=== PATIENT | female | born 1990 | race African-American/Black ===

== ENCOUNTER 2018-02-02 13:45 | Emergency (ER) | payer MEDICAID ==
[~2018-02-02] VITALS: Ht 165.1 cm; Wt 71.2 kg
[2018-02-02 14:04] VITALS: BP 118/88
--- NOTE | 2018-02-02 14:09 | NUR ---
PATIENT AMBULATED TO BED# 8 WITH CRUTCHES
--- NOTE | 2018-02-02 14:20 | NUR ---
27 YO F BIB SELF W/ C/O ABD PAIN THAT RADIATES TO BILATERAL FLANKS, SHE REPORTS SHE CAN FEEL THE PAIN IN HER VAGINA AND BUTTOCKS, BUT PER PATIENT, IT IS MORE ON THE RIGHT SIDE WITH VOMITING. DENIES PAINFUL URINATION. REPORTS N/V/D. DENIES FEVER/CHILLS. DENIES VAG BLEEDING. PT ON CRUTCHES FOR TRANSVERSE MYELLITIS. SHE REPORTS SHE HAS NOT BEEN ABLE TO EAT OR DRINK ANYTHING. TOOK TYLENOL FOR PAIN BUT IT DID NOT HELP HER PAIN/DISCOMFORT. A&O X 4. GCS 15. CMS INTACT. RR EVEN AND UNLABORED. LUNGS BILATERALLY CLEAR. ABD SOFT, TENDER TO PALPATION. ER MD JARVIS NOTIFIED. PT NEEDS MET. SAFETY PRECAUTIONS IN PLACE. WILL CONTINUE TO MONITOR.
[2018-02-02] MEDS ORDERED: ONDANSETRON 4 MG ODT PO ONE (14:30)
[2018-02-02] MEDS ORDERED: MORPHINE SULFATE 4 MG/ML SYR IM ONE (14:30)
--- NOTE | 2018-02-02 14:30 | NUR ---
ER MD JARVIS EVALUATING PT AT BEDSIDE.
--- NOTE | 2018-02-02 15:40 | NUR ---
pt resting comfortably in [facility] at [facility]. Will continue to monitor.
[2018-02-02 16:32] VITALS: BP 113/74
--- NOTE | 2018-02-02 16:32 | NUR ---
Patient discharged with v/s stable. Written and verbal after care instructions given and explained. Patient alert, oriented and verbalized understanding of instructions. Ambulatory with steady gait on crutches. All questions addressed prior to discharge. ID band removed. Patient advised to follow up with PMD. Rx of Godwin given. Patient educated on indication of medication including possible reaction and side effects. Opportunity to ask questions provided and answered.
[2018-02-04 06:15] LABS: CHLAMYDIA TRACHOMATIS AMP DNA Negative (Negative)
== END 2018-02-02 16:32 | disposition home or self-care (01) ==
LOC: MED 13:45
DX: N83.202 Unspecified ovarian cyst, left side (principal); Z90.89 Acquired absence of other organs; Z88.5 Allergy status to narcotic agent; Z88.8 Allergy status to other drugs, medicaments and biological substances
CPT/HCPCS: 36415; 76830; 81002; 81025; 87491; 93976; 96372; 99285; J2270; Q0092; S0119

== ENCOUNTER 2018-03-02 12:08 | Emergency (ER) | payer MEDICAID ==
[~2018-03-02] VITALS: Ht 165.1 cm; Wt 68.0 kg
[2018-03-02 12:12] VITALS: BP 140/91
--- NOTE | 2018-03-02 12:21 | NUR ---
TO BED 10 VIA GURNEY AT THIS TIME.
--- NOTE | 2018-03-02 12:25 | NUR ---
27Y/F BIB SELF FOR EPIGASTRIC PAIN STATES SHE CANNOT KEEP FOOD DOWN. SKIN IS PINK/WARM/DRY; AAOX4 WITH EVEN AND STEADY GAIT; LUNGS CLEAR BL; HR EVEN AND REGULAR; VSS; PATIENT POSITIONED FOR COMFORT; HOB ELEVATED; BEDRAILS UP X1; BED DOWN. ER MD MADE AWARE OF PT STATUS.
[2018-03-02] MEDS ORDERED: ONDANSETRON 4 MG/2 ML VIAL IVP ONE (12:55)
[2018-03-02] MEDS ORDERED: NACL 0.9% 1,000 ML IV ONE (12:55)
[2018-03-02] MEDS ORDERED: fentaNYL 0.05 MG/ML VIAL IVP ONE ×2 (13:20→15:15)
--- NOTE | 2018-03-02 13:29 | NUR ---
PT TAKEN TO CT
--- NOTE | 2018-03-02 13:35 | NUR ---
PT BACK FROM CT
[2018-03-02 13:51] LABS: BASOPHILS # (AUTO) 0.1 K/uL (0.00-0.22); BASOPHILS % (AUTO) 0.9 % (0.0-2.0); EOSINOPHILS # (AUTO) 0.1 K/uL (0-0.4); EOSINOPHILS % (AUTO) 0.8 % (0.0-4.0); HEMATOCRIT 40.2 % (36-48); HEMOGLOBIN 13.6 g/dL (12.0-16.0); LYMPHOCYTES # (AUTO) 1.6 K/uL (2.5-16.5); LYMPHOCYTES % (AUTO) 21.6 % (20.5-51.1); MEAN CORPUSCULAR HEMOGLOBIN 30 pg (27-31); MEAN CORPUSCULAR HGB CONC 34 g/dL (33-37); MEAN CORPUSCULAR VOLUME 89.7 fL (80-94); MONOCYTES # (AUTO) 0.6 K/uL (0.8-1.0); MONOCYTES % (AUTO) 7.9 % (1.7-9.3); NEUTROPHILS % (AUTO) 68.8 % (42.2-75.2); PLATELET COUNT (AUTO) 268 K/uL (140-450); RED BLOOD CELL COUNT(AUTO) 4.48 MIL/uL (4.20-5.40); WHITE BLOOD COUNT (AUTO) 7.3 K/uL (4.8-10.8)
[2018-03-02 14:03] LABS: ANION GAP 14.1 (8-16); CARBON DIOXIDE 25.5 mmol/L (21-32); CHLORIDE 103 mmol/L (98-107); GFR ARICAN-AMERICAN 87 mL/min (>90); GLUCOSE 93 mg/dL (74-106); POTASSIUM 3.6 mmol/L (3.5-5.1); SODIUM SERUM 139 mmol/L (136-145); UREA NITROGEN, BLOOD 14 mg/dL (7-18)
[2018-03-02 14:05] LABS: PROTHROMBIN TIME 10.8 secs (10.8-13.4)
[2018-03-02 14:09] LABS: ALBUMIN 4.5 g/dL (3.4-5.0); ASPARTATE AMINOTRANSFERASE 15 U/L (15-37); TOTAL BILIRUBIN 0.5 mg/dL (0.0-1.0)
[2018-03-02 14:11] LABS: BARBITURATE, URINE NEG. ng/ml (NEG <=200); BENZODIAZEPINE, URINE POS. ng/mL (NEG <=200); CANNABINOID, URINE NEG. ng/mL (NEG <=50); COCAINE, URINE NEG. ng/mL (NEG <=300); OPIATE, URINE POS. ng/mL (NEG <=2000); PHENCYCLIDINE SCREEN,URINE NEG. ng/mL (NEG <=25)
[2018-03-02 14:12] LABS: SALICYLATE < 2.8 mg/dL (2.8-20.0)
[2018-03-02 14:13] LABS: ACETAMINOPHEN < 0.5 ug/ml (10-30)
[2018-03-02] MEDS ORDERED: ACETAMINOPHEN EXTRA STRENGTH 500 MG TAB PO ONE (14:55)
[2018-03-02] MEDS ORDERED: KEP500 PO (15:14)
[2018-03-02] MEDS ORDERED: METOCLOPRAMIDE 10 MG/2 ML INJ VIAL IVP ONE (15:15)
--- NOTE | 2018-03-02 15:30 | NUR ---
PT RESTING IN BED
--- NOTE | 2018-03-02 17:44 | NUR ---
[facility] TRANSPORT ETA [address] [facility]
--- NOTE | 2018-03-02 18:10 | NUR ---
Patient appears to be resting comfortably in bed. Vital Signs within normal limits. Respirations even and unlabored.
--- NOTE | 2018-03-02 18:32 | NUR ---
Patient to be transferred to [facility]. Is being transferred due to HIGHER LEVEL OF CARE. Receiving facility has accepting physician and available space. ER physician has signed transfer form. Patient or responsible alliance party has agreed to transfer and signed form. Patient belongings inventoried and will be sent with patient. Copy of nursing notes, lab reports, EKG, Physicians Orders and X-rays to be sent with patient. Report called to WILL BROWN at receiving facility. [facility] ambulance service has been called for transfer.
[2018-03-02 18:33] VITALS: BP 113/77
== END 2018-03-02 18:32 | disposition short-term general hospital (02) ==
LOC: MED 12:08
DX: R56.9 Unspecified convulsions (principal); G43.A1 Cyclical vomiting, in migraine, intractable; Z88.6 Allergy status to analgesic agent
CPT/HCPCS: 36415; 70450; 71045; 72125; 74021; 80053; 80305; 85025; 85610; 85730; 93005; 96361; 96374; 96375; 96376; 99285; G0480; G0482; J2405; J2765; J3010; J7030; Q0092

== ENCOUNTER 2018-05-04 14:47 | Emergency (ER) | payer MEDICAID ==
[~2018-05-04] VITALS: Ht 165.1 cm; Wt 65.8 kg
[~2018-05-04 14:47] MED LIST: KEP500 PO
[2018-05-04 14:56] VITALS: BP 146/85
[2018-05-04] MEDS ORDERED: NACL 0.9% 1,000 ML IV SCH (16:11)
[2018-05-04] MEDS ORDERED: PROMETHAZINE 25 MG/ML VIAL IM ONE (16:15)
[2018-05-04] MEDS ORDERED: HYDROmorphone PFS 2 MG/ML SYR IVP ONE (16:15)
[2018-05-04] MEDS ORDERED: levETIRAcetam 500 MG TAB PO ONE (16:15)
[2018-05-04] MEDS ORDERED: LORazepam 2 MG/ML VIAL IVP ONE (16:15)
[2018-05-04] MEDS ORDERED: ONDANSETRON 4 MG/2 ML VIAL IVP ONE (16:15)
[2018-05-04] MEDS ORDERED: diphenhydrAMINE 50 MG/ML VIAL IVP ONE (16:15)
[2018-05-04 17:18] LABS: BASOPHILS % (AUTO) 0.3 % (0.0-2.0); EOSINOPHILS % (AUTO) 0.1 % (0.0-4.0); HEMATOCRIT 43.2 % (36-48); HEMOGLOBIN 14.1 g/dL (12.0-16.0); LYMPHOCYTES # (AUTO) 1.2 K/uL (2.5-16.5); LYMPHOCYTES % (AUTO) 13.9 % (20.5-51.1); MEAN CORPUSCULAR HEMOGLOBIN 30 pg (27-31); MEAN CORPUSCULAR HGB CONC 33 g/dL (33-37); MEAN CORPUSCULAR VOLUME 90.8 fL (80-94); MONOCYTES # (AUTO) 0.6 K/uL (0.8-1.0); NEUTROPHILS % (AUTO) 78.7 % (42.2-75.2); PLATELET COUNT (AUTO) 284 K/uL (140-450); RED BLOOD CELL COUNT(AUTO) 4.75 MIL/uL (4.20-5.40); WHITE BLOOD COUNT (AUTO) 8.9 K/uL (4.8-10.8)
[2018-05-04 17:22] LABS: APPEARANCE,URINE CLEAR (CLEAR); BILIRUBIN,URINE NEGATIVE (NEGATIVE); BLOOD, URINE NEGATIVE (NEGATIVE); COLOR,URINE YELLOW (YELLOW); LEUKOCYTE ESTERASE ,URINE NEGATIVE (NEGATIVE); NITRITE, URINE NEGATIVE (NEGATIVE); UGLUCOSE NEGATIVE (NEGATIVE)
[2018-05-04 17:28] LABS: ANION GAP 10.7 (8-16); CARBON DIOXIDE 26.7 mmol/L (21-32); CREATININE 0.6 mg/dL (0.6-1.3); POTASSIUM 3.4 mmol/L (3.5-5.1)
[2018-05-04 17:34] LABS: ALBUMIN 4.6 g/dL (3.4-5.0); TOTAL BILIRUBIN 0.4 mg/dL (0.0-1.0)
[2018-05-04 19:29] VITALS: BP 125/93
== END 2018-05-04 19:28 | disposition home or self-care (01) ==
LOC: MED 14:47
DX: E86.0 Dehydration (principal); R56.9 Unspecified convulsions; Z90.89 Acquired absence of other organs; Z88.6 Allergy status to analgesic agent; Z88.1 Allergy status to other antibiotic agents
CPT/HCPCS: 36415; 70450; 71045; 74176; 80053; 81003; 82150; 82948; 83690; 84702; 84703; 85025; 96361; 96374; 96375; 99285; J1170; J1200; J2060; J2405; J2550; J7030; Q0092

== ENCOUNTER 2018-07-17 00:55 | Inpatient (IN) | payer MEDICAID ==
[~2018-07-17] VITALS: Ht 165.1 cm; Wt 74.4 kg
[2018-07-17 00:55] VITALS: BP 147/95
[2018-07-17] MEDS ORDERED: NACL 0.9% 1,000 ML IV ONE (01:20)
[2018-07-17] MEDS ORDERED: ONDANSETRON 4 MG/2 ML VIAL IVP ONE ×2 (01:20→03:15)
[2018-07-17] MEDS ORDERED: PANTOPRAZOLE 40 MG INJ VIAL IVP ONE (01:20)
[2018-07-17] MEDS ORDERED: DIPHENOXYLATE /ATROPINE 2.5 MG TAB PO ONE (01:20)
[2018-07-17] MEDS ORDERED: levETIRAcetam 1,000 MG in NACL 0.9% 100 ML IV ONE (01:20)
[2018-07-17] MEDS ORDERED: levETIRAcetam 100 MG/ML VIAL IV ONE ×2 (01:43→02:16)
[2018-07-17 01:52] LABS: BASOPHILS % (AUTO) 0.4 % (0.0-2.0); EOSINOPHILS % (AUTO) 0.3 % (0.0-4.0); HEMATOCRIT 35.2 % (36-48); HEMOGLOBIN 11.7 g/dL (12.0-16.0); LYMPHOCYTES # (AUTO) 2.4 K/uL (2.5-16.5); LYMPHOCYTES % (AUTO) 30.1 % (20.5-51.1); MEAN CORPUSCULAR HEMOGLOBIN 30 pg (27-31); MEAN CORPUSCULAR HGB CONC 33 g/dL (33-37); MEAN CORPUSCULAR VOLUME 89.3 fL (80-94); MONOCYTES # (AUTO) 0.5 K/uL (0.8-1.0); MONOCYTES % (AUTO) 6.1 % (1.7-9.3); NEUTROPHILS % (AUTO) 63.1 % (42.2-75.2); PLATELET COUNT (AUTO) 279 K/uL (140-450); RED BLOOD CELL COUNT(AUTO) 3.94 MIL/uL (4.20-5.40); RED CELL DISTRIBUTION WIDTH 13.5 % (11.6-13.7); WHITE BLOOD COUNT (AUTO) 7.9 K/uL (4.8-10.8)
[2018-07-17 02:10] LABS: APPEARANCE,URINE CLEAR (CLEAR); BILIRUBIN,URINE NEGATIVE (NEGATIVE); BLOOD, URINE NEGATIVE (NEGATIVE); COLOR,URINE YELLOW (YELLOW); LEUKOCYTE ESTERASE ,URINE NEGATIVE (NEGATIVE); NITRITE, URINE NEGATIVE (NEGATIVE); UGLUCOSE NEGATIVE (NEGATIVE)
[2018-07-17 02:11] LABS: ALBUMIN 3.5 g/dL (3.4-5.0); ANION GAP 10.4 (8-16); CARBON DIOXIDE 26.4 mmol/L (21-32); CREATININE 0.8 mg/dL (0.6-1.3); TOTAL BILIRUBIN 0.5 mg/dL (0.0-1.0)
[2018-07-17 02:11] LABS: RBC,URINE 0-5 (RARE) /HPF (0-5); WBC,URINE 0-5 (RARE) /HPF (0-5)
[2018-07-17 02:15] LABS: POTASSIUM 2.8 mmol/L (3.5-5.1)
[2018-07-17] MEDS ORDERED: MAG SULF 2000 MG/WATER PREMIX 50 ML IV ONE (02:25)
[2018-07-17] MEDS ORDERED: KCL 20 MEQ/WATER INJ PREMIX 100 ML IV ONE (02:25)
[2018-07-17] MEDS ORDERED: DOCUSATE SODIUM 100 MG GELCAP PO PRN (02:35)
[2018-07-17] MEDS ORDERED: ACETAMINOPHEN 325 MG TAB PO PRN (02:35)
[2018-07-17] MEDS ORDERED: LORazepam 2 MG/ML VIAL IM/IVP PRN (02:35)
[2018-07-17] MEDS ORDERED: ZOLPIDEM 5 MG TAB PO PRN (02:35)
[2018-07-17] MEDS ORDERED: METR250T2 PO (02:50)
[2018-07-17] MEDS ORDERED: DULO30EC PO (02:50)
[2018-07-17] MEDS ORDERED: CARB200T1 PO (02:50)
[2018-07-17] MEDS ORDERED: CIPR500T4 PO (02:50)
[2018-07-17 03:05] LABS: CHOL/HDL RATIO 2.8 (1-4.5); MAGNESIUM 1.7 mg/dL (1.8-2.4); PHOSPHORUS 2.9 mg/dL (2.5-4.9); PROTHROMBIN TIME 10.5 secs (10.8-13.4); THYROID STIMULATING HORMONE 1.13 uIU/mL (0.34-3.74)
[2018-07-17 03:26] LABS: BARBITURATE, URINE NEG. ng/ml (NEG <=200); BENZODIAZEPINE, URINE NEG. ng/mL (NEG <=200); CANNABINOID, URINE NEG. ng/mL (NEG <=50); COCAINE, URINE NEG. ng/mL (NEG <=300); OPIATE, URINE NEG. ng/mL (NEG <=2000); PHENCYCLIDINE SCREEN,URINE NEG. ng/mL (NEG <=25)
[2018-07-17 03:30] VITALS: BP 121/71
[2018-07-17] MEDS ORDERED: cefTRIAXone 1,000 MG VIAL ONE (03:36)
[2018-07-17] MEDS: NACL 0.9% 1,000 ML IV SCH ×2 (04:07→14:06)
[2018-07-17] MEDS: MORPHINE SULFATE 4 MG/ML SYR IVP PRN ×3 (04:13→15:35)
[2018-07-17] MEDS ORDERED: KCL 20 MEQ/WATER INJ PREMIX 200 ML IV SCH (05:00)
[2018-07-17] MEDS: PANTOPRAZOLE 40 MG TABEC PO SCH (05:56)
[2018-07-17] MEDS ORDERED: ONDANSETRON 4 MG ODT SL PRN (06:25)
[2018-07-17] MEDS: HYDROcodone/APAP 5/325 MG 1 TAB TAB PO PRN (07:42)
[2018-07-17 07:46] LABS: ANION GAP 12.5 (8-16); CARBON DIOXIDE 25.7 mmol/L (21-32); CREATININE 0.8 mg/dL (0.6-1.3); POTASSIUM 3.2 mmol/L (3.5-5.1)
[2018-07-17 07:47] LABS: BASOPHILS % (AUTO) 0.5 % (0.0-2.0); EOSINOPHILS % (AUTO) 0.3 % (0.0-4.0); HEMATOCRIT 34.1 % (36-48); HEMOGLOBIN 11.3 g/dL (12.0-16.0); LYMPHOCYTES % (AUTO) 25.6 % (20.5-51.1); MEAN CORPUSCULAR HEMOGLOBIN 30 pg (27-31); MEAN CORPUSCULAR HGB CONC 33 g/dL (33-37); MONOCYTES # (AUTO) 0.4 K/uL (0.8-1.0); MONOCYTES % (AUTO) 4.6 % (1.7-9.3); NEUTROPHILS # (AUTO) 5.3 K/uL (1.8-7.7); PLATELET COUNT (AUTO) 268 K/uL (140-450); RED BLOOD CELL COUNT(AUTO) 3.79 MIL/uL (4.20-5.40); RED CELL DISTRIBUTION WIDTH 13.7 % (11.6-13.7); WHITE BLOOD COUNT (AUTO) 7.8 K/uL (4.8-10.8)
[2018-07-17] MEDS ORDERED: LORazepam 2 MG/ML VIAL IVP PRN (07:50)
[2018-07-17 07:53] LABS: MAGNESIUM 1.8 mg/dL (1.8-2.4); PHOSPHORUS 3.2 mg/dL (2.5-4.9)
[2018-07-17 08:00] VITALS: BP 122/66
[2018-07-17] MEDS ORDERED: FERROUS SULFATE 325 MG TABEC PO SCH (08:00)
[2018-07-17] MEDS: ONDANSETRON 4 MG/2 ML VIAL IM/IVP PRN (08:27)
[2018-07-17] MEDS ORDERED: ASCORBIC ACID 500 MG TAB PO SCH (09:00)
[2018-07-17] MEDS: LACTOBACILLUS RHAMNOSUS GG 1 EACH CAP PO SCH (09:00)
[2018-07-17] MEDS ORDERED: levETIRAcetam 500 MG TAB PO SCH (09:00)
[2018-07-17] MEDS ORDERED: levETIRAcetam 500 MG in NACL 0.9% 100 ML IV SCH (09:00)
[2018-07-17] MEDS: DULoxetine 30 MG CAPDR PO SCH (09:00)
[2018-07-17] MEDS: carBAMazepine 200 MG TAB PO SCH ×2 (09:16→20:37)
[2018-07-17] MEDS: levETIRAcetam 1,000 MG in NACL 0.9% 100 ML IV SCH ×2 (09:16→20:36)
[2018-07-17] MEDS ORDERED: carBAMazepine 200 MG TAB PO SCH (09:32)
[2018-07-17 12:00] VITALS: BP 119/86
[2018-07-17] MEDS: metroNIDAZOLE 500 MG/NS PREMIX 100 ML IV SCH ×2 (13:45→20:36)
[2018-07-17] MEDS ORDERED: POTASSIUM CHLORIDE 40 MEQ in NACL 0.9% 1,000 ML IV SCH (15:15)
[2018-07-17 16:00] VITALS: BP 104/52
[2018-07-17] MEDS ORDERED: POTASSIUM CHLORIDE 40 MEQ, LIDOCAINE MPF 1% - 5 mL VIAL 25 MG in NACL 0.9% 250 ML IV SCH (16:00)
[2018-07-17 19:49] VITALS: BP 118/69
[2018-07-18] VITALS: BP 111/67
[2018-07-18] MEDS: NACL 0.9% 1,000 ML IV SCH ×3 (01:00→21:01)
[2018-07-18] MEDS: MORPHINE SULFATE 4 MG/ML SYR IVP PRN ×4 (01:24→21:46)
[2018-07-18 04:00] VITALS: BP 138/89
[2018-07-18] MEDS: metroNIDAZOLE 500 MG/NS PREMIX 100 ML IV SCH ×3 (05:06→21:05)
[2018-07-18] MEDS: PANTOPRAZOLE 40 MG TABEC PO SCH (06:30)
[2018-07-18 06:46] LABS: BASOPHILS % (AUTO) 0.7 % (0.0-2.0); EOSINOPHILS % (AUTO) 0.6 % (0.0-4.0); HEMATOCRIT 34.1 % (36-48); HEMOGLOBIN 11.2 g/dL (12.0-16.0); LYMPHOCYTES # (AUTO) 1.3 K/uL (2.5-16.5); LYMPHOCYTES % (AUTO) 26.1 % (20.5-51.1); MEAN CORPUSCULAR HEMOGLOBIN 30 pg (27-31); MEAN CORPUSCULAR HGB CONC 33 g/dL (33-37); MEAN CORPUSCULAR VOLUME 89.6 fL (80-94); MONOCYTES # (AUTO) 0.4 K/uL (0.8-1.0); NEUTROPHILS # (AUTO) 3.2 K/uL (1.8-7.7); NEUTROPHILS % (AUTO) 64.6 % (42.2-75.2); PLATELET COUNT (AUTO) 267 K/uL (140-450); RED CELL DISTRIBUTION WIDTH 13.8 % (11.6-13.7)
[2018-07-18 07:03] LABS: ANION GAP 14.9 (8-16); CARBON DIOXIDE 23.8 mmol/L (21-32); CREATININE 0.8 mg/dL (0.6-1.3); POTASSIUM 3.7 mmol/L (3.5-5.1)
[2018-07-18 07:08] LABS: PHOSPHORUS 2.6 mg/dL (2.5-4.9)
[2018-07-18 08:00] VITALS: BP 119/68
[2018-07-18] MEDS: LACTOBACILLUS RHAMNOSUS GG 1 EACH CAP PO SCH (10:54)
[2018-07-18] MEDS: HYDROcodone/APAP 5/325 MG 1 TAB TAB PO PRN (10:54)
[2018-07-18] MEDS: DULoxetine 30 MG CAPDR PO SCH (10:57)
[2018-07-18] MEDS: carBAMazepine 200 MG TAB PO SCH ×2 (10:57→21:05)
[2018-07-18] MEDS: levETIRAcetam 1,000 MG in NACL 0.9% 100 ML IV SCH ×2 (10:58→20:46)
[2018-07-18 12:00] VITALS: BP 126/82
[2018-07-18] MEDS: ONDANSETRON 4 MG/2 ML VIAL IM/IVP PRN ×2 (12:04→17:57)
[2018-07-18] MEDS ORDERED: SENNA 8.6 MG TAB PO PRN (13:30)
[2018-07-18] MEDS ORDERED: PANTOPRAZOLE 40 MG INJ VIAL IVP SCH (13:30)
[2018-07-18] MEDS ORDERED: MORPHINE SULFATE 4 MG/ML SYR IVP SCH (14:20)
[2018-07-18 16:00] VITALS: BP 126/71
[2018-07-18 20:00] VITALS: BP 107/74
[2018-07-19] VITALS: BP 100/49
[2018-07-19] MEDS: MORPHINE SULFATE 4 MG/ML SYR IVP PRN ×4 (02:07→20:32)
[2018-07-19 04:00] VITALS: BP 97/64
[2018-07-19] MEDS: NACL 0.9% 1,000 ML IV SCH (04:57)
[2018-07-19] MEDS: PANTOPRAZOLE 40 MG TABEC PO SCH (05:37)
[2018-07-19] MEDS: metroNIDAZOLE 500 MG/NS PREMIX 100 ML IV SCH ×3 (05:38→20:46)
[2018-07-19] MEDS ORDERED: APAP/BUTAL/CAFF 325/50/40 MG 1 TAB PO PRN (06:35)
[2018-07-19] MEDS: APAP/BUTAL/CAFF 325/50/40 MG 1 TAB PO SCH ×2 (06:35→08:59)
[2018-07-19] MEDS ORDERED: KETOROLAC 15 MG/ML VIAL IVP PRN (06:40)
[2018-07-19 08:00] VITALS: BP 126/76
[2018-07-19] MEDS ORDERED: MORPHINE SULFATE 4 MG/ML SYR IVP SCH (08:00)
[2018-07-19] MEDS ORDERED: PROMETHAZINE 25 MG/ML VIAL IVP SCH (08:30)
[2018-07-19] MEDS: DEXT 5% / NACL 0.45% 1,000 ML IV SCH ×2 (08:50→16:34)
[2018-07-19] MEDS: levETIRAcetam 1,000 MG in NACL 0.9% 100 ML IV SCH ×2 (08:58→21:33)
[2018-07-19] MEDS ORDERED: PROMETHAZINE 25 MG/ML VIAL IVP PRN (09:00)
[2018-07-19] MEDS ORDERED: carBAMazepine 200 MG TAB PO SCH (09:00)
[2018-07-19] MEDS: carBAMazepine 200 MG TAB PO SCH ×2 (09:33→20:47)
[2018-07-19] MEDS: DULoxetine 30 MG CAPDR PO SCH (09:33)
[2018-07-19] MEDS: LACTOBACILLUS RHAMNOSUS GG 1 EACH CAP PO SCH (09:34)
[2018-07-19 11:40] LABS: BASOPHILS % (AUTO) 0.4 % (0.0-2.0); EOSINOPHILS # (AUTO) 0.1 K/uL (0-0.4); HEMATOCRIT 34.2 % (36-48); HEMOGLOBIN 11.3 g/dL (12.0-16.0); LYMPHOCYTES # (AUTO) 1.5 K/uL (2.5-16.5); LYMPHOCYTES % (AUTO) 30.1 % (20.5-51.1); MEAN CORPUSCULAR HEMOGLOBIN 30 pg (27-31); MEAN CORPUSCULAR HGB CONC 33 g/dL (33-37); MEAN CORPUSCULAR VOLUME 90.4 fL (80-94); MONOCYTES # (AUTO) 0.4 K/uL (0.8-1.0); MONOCYTES % (AUTO) 7.4 % (1.7-9.3); NEUTROPHILS % (AUTO) 61.1 % (42.2-75.2); PLATELET COUNT (AUTO) 275 K/uL (140-450); RED BLOOD CELL COUNT(AUTO) 3.79 MIL/uL (4.20-5.40); RED CELL DISTRIBUTION WIDTH 13.9 % (11.6-13.7); WHITE BLOOD COUNT (AUTO) 4.9 K/uL (4.8-10.8)
[2018-07-19 12:00] VITALS: BP 111/63
[2018-07-19] MEDS: SENNA 8.6 MG TAB PO SCH ×2 (12:49→16:32)
[2018-07-19 12:59] LABS: ANION GAP 15.9 (8-16); CARBON DIOXIDE 24.6 mmol/L (21-32); CREATININE 0.9 mg/dL (0.6-1.3); POTASSIUM 3.5 mmol/L (3.5-5.1)
[2018-07-19] MEDS ORDERED: METOCLOPRAMIDE 10 MG/2 ML INJ VIAL IVP SCH (13:00)
[2018-07-19 13:03] LABS: MAGNESIUM 1.9 mg/dL (1.8-2.4); PHOSPHORUS 3.4 mg/dL (2.5-4.9)
[2018-07-19] MEDS ORDERED: MIDAZOLAM 2 MG/2 ML VIAL ONE ×2 (14:39)
[2018-07-19] MEDS ORDERED: fentaNYL 0.05 MG/ML VIAL ONE (14:39)
[2018-07-19] MEDS ORDERED: diphenhydrAMINE 50 MG/ML VIAL ONE (14:39)
[2018-07-19] MEDS ORDERED: fentaNYL 0.05 MG/ML VIAL IVP ONE (15:25)
[2018-07-19] MEDS ORDERED: diphenhydrAMINE 50 MG/ML VIAL IVP ONE (15:25)
[2018-07-19] MEDS ORDERED: MIDAZOLAM 2 MG/2 ML VIAL IVP ONE (15:25)
[2018-07-19] MEDS ORDERED: MAGNESIUM CITRATE 300 ML BTL PO ONE (15:25)
[2018-07-19 16:00] VITALS: BP 127/84
[2018-07-19] MEDS: LACTULOSE 20 GM/30 ML UDC PO SCH ×2 (16:31→20:39)
[2018-07-19] MEDS: ONDANSETRON 4 MG/2 ML VIAL IM/IVP PRN (18:06)
[2018-07-19 20:00] VITALS: BP 105/51
[2018-07-19] MEDS: POLYETHYLENE GLYCOL 17 GM/PKT PO SCH (20:45)
[2018-07-19] MEDS ORDERED: LACTULOSE 20 GM/30 ML UDC PO SCH (21:00)
[2018-07-19] MEDS ORDERED: MAGNESIUM CITRATE 300 ML BTL PO SCH (22:00)
[2018-07-19] MEDS: HYDROcodone/APAP 5/325 MG 1 TAB TAB PO PRN (22:13)
[2018-07-20] VITALS: BP 107/51
[2018-07-20] MEDS: MORPHINE SULFATE 4 MG/ML SYR IVP PRN ×2 (02:00→09:09)
[2018-07-20] MEDS: DEXT 5% / NACL 0.45% 1,000 ML IV SCH ×2 (03:15→09:09)
[2018-07-20] MEDS ORDERED: EPINEPHrine PFS 0.1 MG/ML SYR IVP ONE (03:21)
[2018-07-20] MEDS ORDERED: SODIUM BICARBONATE 8.4% PFS 50 MEQ/50 ML SYR IVP ONE (03:21)
[2018-07-20] MEDS ORDERED: NOREPINEPHRINE 4 MG/4 ML VIAL IV ONE (03:21)
[2018-07-20] MEDS ORDERED: AMIODARONE 150 MG/3 ML VIAL IV ONE (03:21)
[2018-07-20 06:18] LABS: FOLIC ACID 6.1 ng/mL (>3.0)
[2018-07-20] MEDS: metroNIDAZOLE 500 MG/NS PREMIX 100 ML IV SCH (06:21)
[2018-07-20] MEDS: PANTOPRAZOLE 40 MG TABEC PO SCH (06:22)
[2018-07-20 06:30] VITALS: BP 103/64
[2018-07-20 07:26] LABS: BASOPHILS % (AUTO) 0.4 % (0.0-2.0); EOSINOPHILS # (AUTO) 0.1 K/uL (0-0.4); EOSINOPHILS % (AUTO) 1.3 % (0.0-4.0); HEMATOCRIT 31.6 % (36-48); HEMOGLOBIN 10.6 g/dL (12.0-16.0); LYMPHOCYTES # (AUTO) 2.1 K/uL (2.5-16.5); LYMPHOCYTES % (AUTO) 45.1 % (20.5-51.1); MEAN CORPUSCULAR HEMOGLOBIN 30 pg (27-31); MEAN CORPUSCULAR HGB CONC 34 g/dL (33-37); MONOCYTES # (AUTO) 0.4 K/uL (0.8-1.0); MONOCYTES % (AUTO) 8.5 % (1.7-9.3); NEUTROPHILS # (AUTO) 2.1 K/uL (1.8-7.7); NEUTROPHILS % (AUTO) 44.7 % (42.2-75.2); PLATELET COUNT (AUTO) 249 K/uL (140-450); RED BLOOD CELL COUNT(AUTO) 3.51 MIL/uL (4.20-5.40); RED CELL DISTRIBUTION WIDTH 13.8 % (11.6-13.7); WHITE BLOOD COUNT (AUTO) 4.6 K/uL (4.8-10.8)
[2018-07-20 08:00] VITALS: BP 122/85
[2018-07-20 08:02] LABS: ANION GAP 9.9 (8-16); CARBON DIOXIDE 25.4 mmol/L (21-32); CREATININE 0.8 mg/dL (0.6-1.3); POTASSIUM 3.3 mmol/L (3.5-5.1)
[2018-07-20] MEDS: POLYETHYLENE GLYCOL 17 GM/PKT PO SCH (08:51)
[2018-07-20] MEDS: LACTULOSE 20 GM/30 ML UDC PO SCH (08:51)
[2018-07-20] MEDS: DULoxetine 30 MG CAPDR PO SCH (08:52)
[2018-07-20] MEDS: SENNA 8.6 MG TAB PO SCH (08:52)
[2018-07-20] MEDS: carBAMazepine 200 MG TAB PO SCH (08:53)
[2018-07-20] MEDS: LACTOBACILLUS RHAMNOSUS GG 1 EACH CAP PO SCH (08:53)
[2018-07-20] MEDS: levETIRAcetam 1,000 MG in NACL 0.9% 100 ML IV SCH (09:09)
[2018-07-20] MEDS: ONDANSETRON 4 MG/2 ML VIAL IM/IVP PRN (09:10)
[2018-07-20 12:00] VITALS: BP 122/82
[2018-07-20] MEDS ORDERED: MIDAZOLAM 2 MG/2 ML VIAL ONE (12:50)
[2018-07-20] MEDS ORDERED: diphenhydrAMINE 50 MG/ML VIAL ONE (12:50)
[2018-07-20] MEDS ORDERED: fentaNYL 0.05 MG/ML VIAL ONE ×2 (12:50)
[2018-07-20] MEDS ORDERED: fentaNYL 0.05 MG/ML VIAL IVP ONE (13:55)
[2018-07-20] MEDS ORDERED: MIDAZOLAM 2 MG/2 ML VIAL IVP ONE (13:55)
[2018-07-20] MEDS ORDERED: POTASSIUM CHLORIDE 40 MEQ, LIDOCAINE MPF 1% - 5 mL VIAL 25 MG in NACL 0.9% 250 ML IV SCH (14:30)
[2018-07-20 16:00] VITALS: BP 118/78
[2018-07-20] MEDS ORDERED: METR250T2 PO (16:06)
[2018-07-20] MEDS ORDERED: LACT10CA1 PO (16:06)
[2018-07-20] MEDS ORDERED: KEP500 PO (16:06)
[2018-07-20] MEDS ORDERED: CEPH250C16 PO (16:08)
[2018-07-20] MEDS ORDERED: ELA25 PO (16:16)
[2018-07-20] MEDS ORDERED: ACET-8386 PO (16:16)
[2018-07-20] MEDS ORDERED: ONDA4ODT2 SL (16:16)
[2018-07-20] MEDS ORDERED: ACET-2619 PO (16:17)
[2018-07-20] MEDS ORDERED: LEVE1000 PO (17:06)
[2018-07-20] MEDS ORDERED: AMITRIPTYLINE 25 MG TAB PO SCH (21:00)
[2018-07-21] MEDS ORDERED: POLYETHYLENE GLYCOL 17 GM/PKT PO SCH (09:00)
== END 2018-07-20 17:35 | disposition home or self-care (01) | DRG 254 ==
LOC: MED 00:55 → MTU 02:37
PROVIDERS: ADMIT General Practice; ATTEND General Practice
PROC: 0DB68ZX Excision of Stomach, Via Natural or Artificial Opening Endoscopic, Diagnostic (ICD-10-PCS; principal; 2018-07-19 14:30)
PROC: 0DBP8ZX Excision of Rectum, Via Natural or Artificial Opening Endoscopic, Diagnostic (ICD-10-PCS; 2018-07-20)
DX: K58.0 Irritable bowel syndrome with diarrhea (principal); A09 Infectious gastroenteritis and colitis, unspecified; D64.9 Anemia, unspecified; N39.0 Urinary tract infection, site not specified; E66.9 Obesity, unspecified; E87.6 Hypokalemia; G40.909 Epilepsy, unspecified, not intractable, without status epilepticus; F41.9 Anxiety disorder, unspecified; Z68.27 Body mass index [BMI] 27.0-27.9, adult; Z71.3 Dietary counseling and surveillance; Z88.6 Allergy status to analgesic agent; Z88.8 Allergy status to other drugs, medicaments and biological substances; Z79.899 Other long term (current) drug therapy; Z90.49 Acquired absence of other specified parts of digestive tract; Z90.89 Acquired absence of other organs
CPT/HCPCS: 36415; 70450; 71045; 74022; 80048; 80053; 80156; 80305; 81001; 82272; 82607; 82728; 82746; 83036; 83540; 83690; 83735; 84100; 84134; 84443; 84703; 85025; 85045; 85610; 85651; 85730; 86140; 86677; 87045; 87070; 87081; 87086; 89055; 95816; 96361; 96365; 96367; 96375; 97110; 97116; 97530; 99285; C9113; J0171; J0282; J0696; J1200; J1644; J1953; J2001; J2060; J2250; J2270; J2405; J2550; J2765; J3010; J3475; J3480; J3490; J7030; J7060; Q0162

== ENCOUNTER 2018-07-22 22:01 | Emergency (ER) | payer MEDICAID ==
[~2018-07-22] VITALS: Ht 162.6 cm; Wt 72.6 kg
[~2018-07-22 22:01] MED LIST changes: +ACET-2619 PO; +ACET-8386 PO; +CARB200T1 PO; +CEPH250C16 PO; +DULO30EC PO; +ELA25 PO; +LACT10CA1 PO; +LEVE1000 PO; +METR250T2 PO; +ONDA4ODT2 SL
[2018-07-22 22:05] VITALS: BP 158/104
[2018-07-22] MEDS ORDERED: levETIRAcetam 100 MG/ML VIAL IV ONE (22:47)
[2018-07-22] MEDS: carBAMazepine 200 MG TAB PO ONE ×2 (22:51→23:48)
[2018-07-22] MEDS: LORazepam 2 MG/ML VIAL IVP ONE (22:51)
[2018-07-22] MEDS: levETIRAcetam 500 MG in NACL 0.9% 100 ML IV ONE (22:52)
[2018-07-22] MEDS: ACETAMINOPHEN EXTRA STRENGTH 500 MG TAB PO ONE (22:57)
[2018-07-22] MEDS: ONDANSETRON 4 MG/2 ML VIAL IVP ONE (22:57)
[2018-07-22 23:08] LABS: BASOPHILS # (AUTO) 0.1 K/uL (0.00-0.22); BASOPHILS % (AUTO) 1.1 % (0.0-2.0); EOSINOPHILS # (AUTO) 0.1 K/uL (0-0.4); EOSINOPHILS % (AUTO) 0.7 % (0.0-4.0); HEMATOCRIT 37.3 % (36-48); HEMOGLOBIN 12.1 g/dL (12.0-16.0); LYMPHOCYTES # (AUTO) 2.3 K/uL (2.5-16.5); LYMPHOCYTES % (AUTO) 28.8 % (20.5-51.1); MEAN CORPUSCULAR HEMOGLOBIN 29 pg (27-31); MEAN CORPUSCULAR HGB CONC 33 g/dL (33-37); MEAN CORPUSCULAR VOLUME 90.3 fL (80-94); MONOCYTES # (AUTO) 0.6 K/uL (0.8-1.0); NEUTROPHILS # (AUTO) 4.9 K/uL (1.8-7.7); NEUTROPHILS % (AUTO) 62.4 % (42.2-75.2); PLATELET COUNT (AUTO) 290 K/uL (140-450); RED BLOOD CELL COUNT(AUTO) 4.13 MIL/uL (4.20-5.40); RED CELL DISTRIBUTION WIDTH 14.4 % (11.6-13.7); WHITE BLOOD COUNT (AUTO) 7.9 K/uL (4.8-10.8)
[2018-07-22 23:14] LABS: CARBON DIOXIDE 27.3 mmol/L (21-32); CREATININE 0.8 mg/dL (0.6-1.3); POTASSIUM 3.3 mmol/L (3.5-5.1)
[2018-07-22] MEDS: traMADol 50 MG TAB PO ONE (23:45)
[2018-07-22] MEDS: levETIRAcetam 500 MG TAB PO ONE (23:48)
[2018-07-23 01:43] VITALS: BP 116/71
== END 2018-07-23 01:43 | disposition home or self-care (01) ==
LOC: MED 22:01
DX: G40.509 Epileptic seizures related to external causes, not intractable, without status epilepticus (principal); T42.6X5A Adverse effect of other antiepileptic and sedative-hypnotic drugs, initial encounter; B34.9 Viral infection, unspecified; Y92.89 Other specified places as the place of occurrence of the external cause; Z88.6 Allergy status to analgesic agent; Z88.8 Allergy status to other drugs, medicaments and biological substances; Z79.899 Other long term (current) drug therapy; Z79.1 Long term (current) use of non-steroidal anti-inflammatories (NSAID)
CPT/HCPCS: 36415; 71045; 80048; 80156; 85025; 93005; 96365; 96375; 99285; J1953; J2060; J2405; Q0092; 99284

== ENCOUNTER 2018-07-23 09:36 | Inpatient (IN) | payer MEDICAID ==
[~2018-07-23] VITALS: Ht 160 cm; Wt 70.8 kg
--- NOTE | 2018-07-23 09:37 | NUR ---
PT TAKEN IN WHEELCHAIR TO ER BED 04
[2018-07-23 09:40] VITALS: BP 139/92
[2018-07-23] MEDS ORDERED: ONDANSETRON 4 MG/2 ML VIAL IVP ONE ×3 (09:40→12:45)
[2018-07-23] MEDS ORDERED: NACL 0.9% 1,000 ML IV ONE (09:40)
--- NOTE | 2018-07-23 09:40 | NUR ---
EDMD AT BEDSIDE PERFORMING MSE
--- NOTE | 2018-07-23 10:07 | NUR ---
BIB MOTHER WITH C/O SEIZURE X 2 5 MIN PRIOR TO ARRIVAL AND UPON ARRIVAL; VOMITED AFTER TAKING KEPRA AND TEGRETOL; WAS D/C LAST NIGHT FOR EPILEPSY HX; SEIZURE RX; KEPPRA, TEGRETOL
--- NOTE | 2018-07-23 10:07 | NUR ---
IV ATTEMPT X 6, EDMD AWARE.
[2018-07-23] MEDS ORDERED: carBAMazepine 200 MG TAB PO ONE (10:10)
[2018-07-23] MEDS ORDERED: levETIRAcetam 1,000 MG in NACL 0.9% 100 ML IV ONE (10:10)
[2018-07-23 10:20] LABS: BASOPHILS % (AUTO) 0.3 % (0.0-2.0); EOSINOPHILS % (AUTO) 0.8 % (0.0-4.0); HEMATOCRIT 35.9 % (36-48); HEMOGLOBIN 11.9 g/dL (12.0-16.0); LYMPHOCYTES # (AUTO) 1.5 K/uL (2.5-16.5); LYMPHOCYTES % (AUTO) 27.7 % (20.5-51.1); MEAN CORPUSCULAR HEMOGLOBIN 30 pg (27-31); MEAN CORPUSCULAR HGB CONC 33 g/dL (33-37); MEAN CORPUSCULAR VOLUME 89.9 fL (80-94); MONOCYTES # (AUTO) 0.4 K/uL (0.8-1.0); MONOCYTES % (AUTO) 7.6 % (1.7-9.3); NEUTROPHILS # (AUTO) 3.4 K/uL (1.8-7.7); NEUTROPHILS % (AUTO) 63.6 % (42.2-75.2); PLATELET COUNT (AUTO) 284 K/uL (140-450); RED CELL DISTRIBUTION WIDTH 14.2 % (11.6-13.7); WHITE BLOOD COUNT (AUTO) 5.3 K/uL (4.8-10.8)
[2018-07-23] MEDS ORDERED: levETIRAcetam 100 MG/ML VIAL IV ONE (10:21)
--- NOTE | 2018-07-23 10:30 | NUR ---
PT WC'D TO BATHROOM WITHOUT INCIDENCE, URINE OBTAINED
--- NOTE | 2018-07-23 10:35 | NUR ---
pt vomited immediately after tegretol, edmd aware
[2018-07-23] MEDS ORDERED: MORPHINE SULFATE 4 MG/ML SYR IVP ONE ×2 (10:40→12:20)
[2018-07-23] MEDS ORDERED: LORazepam 2 MG/ML VIAL IVP ONE (10:45)
--- NOTE | 2018-07-23 10:45 | NUR ---
pt found seizing in room, edmd aware, pt placed on oxygen
[2018-07-23 10:50] LABS: ANION GAP 12.7 (8-16); CARBON DIOXIDE 28.4 mmol/L (21-32); CREATININE 0.8 mg/dL (0.6-1.3); POTASSIUM 3.1 mmol/L (3.5-5.1)
[2018-07-23 10:56] LABS: ALBUMIN 3.8 g/dL (3.4-5.0); TOTAL BILIRUBIN 0.2 mg/dL (0.0-1.0)
[2018-07-23] MEDS ORDERED: KCL 20 MEQ/WATER INJ PREMIX 200 ML IV ONE (11:00)
[2018-07-23 11:02] LABS: APPEARANCE,URINE CLEAR (CLEAR); BILIRUBIN,URINE NEGATIVE (NEGATIVE); BLOOD, URINE NEGATIVE (NEGATIVE); COLOR,URINE YELLOW (YELLOW); LEUKOCYTE ESTERASE ,URINE NEGATIVE (NEGATIVE); NITRITE, URINE NEGATIVE (NEGATIVE); PH,URINE 5.5 (5.0-9.0); UGLUCOSE NEGATIVE (NEGATIVE)
--- NOTE | 2018-07-23 11:38 | NUR ---
pt taken to ct with nurse and tech on monitor
--- NOTE | 2018-07-23 12:08 | NUR ---
PT FOUND SEIZING BY TUBE MOLDER FIBERGLASS, PT TURNED TO SIDE AND EDMD TO BEDSIDE
[2018-07-23] MEDS ORDERED: ONDANSETRON 4 MG/2 ML VIAL IM/IVP PRN (12:40)
[2018-07-23] MEDS ORDERED: HYDROcodone/APAP 5/325 MG 1 TAB TAB PO PRN (12:40)
[2018-07-23] MEDS ORDERED: ACETAMINOPHEN 325 MG TAB PO PRN (12:40)
[2018-07-23] MEDS ORDERED: NACL 0.9% 1,000 ML IV SCH (12:40)
[2018-07-23] MEDS ORDERED: LORazepam 1 MG TAB PO PRN (12:40)
[2018-07-23] MEDS ORDERED: ZOLPIDEM 5 MG TAB PO PRN (12:40)
[2018-07-23] MEDS ORDERED: DOCUSATE SODIUM 100 MG GELCAP PO PRN (12:40)
--- NOTE | 2018-07-23 13:21 | NUR ---
Patient will be admitted to care of dR. CRANE. Admited to [facility]. Will go to room 120 A. Belongings list completed. Report to ZHEN SOLIS.
[2018-07-23 13:22] LABS: BARBITURATE, URINE NEG. ng/ml (NEG <=200); BENZODIAZEPINE, URINE NEG. ng/mL (NEG <=200); CANNABINOID, URINE NEG. ng/mL (NEG <=50); COCAINE, URINE NEG. ng/mL (NEG <=300); OPIATE, URINE NEG. ng/mL (NEG <=2000); PHENCYCLIDINE SCREEN,URINE NEG. ng/mL (NEG <=25)
[2018-07-23] MEDS: APAP/BUTAL/CAFF 325/50/40 MG 1 TAB PO SCH ×2 (13:25→20:31)
[2018-07-23 14:00] VITALS: BP 133/95
[2018-07-23 14:21] LABS: PROTHROMBIN TIME 10.5 secs (10.8-13.4)
[2018-07-23] MEDS ORDERED: PROMETHAZINE 25 MG/ML VIAL IVP SCH (14:30)
[2018-07-23] MEDS ORDERED: PROMETHAZINE 25 MG/ML VIAL IM SCH (14:30)
[2018-07-23] MEDS ORDERED: LORazepam 2 MG/ML VIAL IM/IVP SCH (14:30)
[2018-07-23 14:45] LABS: AMYLASE 60 U/L (25-115); FREE T4 (FREE THYROXINE) 0.87 ng/dL (0.76-1.46); LIPASE 121 U/L (73-393); MAGNESIUM 1.6 mg/dL (1.8-2.4); PHOSPHORUS 2.4 mg/dL (2.5-4.9); THYROID STIMULATING HORMONE 0.79 uIU/mL (0.34-3.74)
--- NOTE | 2018-07-23 15:00 | NUR ---
RECEIVED REPORT FROM ER NURSE AT BEDSIDE. PT MOTHER AT BEDSIDE. PT ADMITTED WITH DX OF UNCONTROLLED SEIZURE , CC COMPLAIN OF SEIZURE. PT IS ANXIOUS AND WORRIED , STATES TO HAVE SEVERE SANCHEZ. HAS LF AC 22G, IVF NS INFUSING AT 60 ML/HR. PT HAS RT FOOT DROP, IS FALL RISK. USES BEDSIDE COMMODE. PT IS ON SEIZURE PRECAUTION. PER ER NURSE, PT WAS ADMINISTERED ZOFRAN, KEPPRA 1 GM, K-RIDER 20 MEQ, MORPHINE 4MG X2. PT STILL COMPLAINING OF SANCHEZ. HISTORY OBTAINED FROM MOTHER AT BEDSIDE. PT IS AOX4, CAN MAKE HER NEEDS KNOWN. PT IS STRESSED BECAUSE OF HER SANCHEZ. PLACED CALL LIGHT WITHIN PT REACH, INFORMED HER TO USE CALL LIGHT FOR ANY HELP. VERBALIZED UNDERSTANDING. WILL CONTINUE TO MONITOR PT.
[2018-07-23 16:00] VITALS: BP 131/92
[2018-07-23] MEDS ORDERED: POTASSIUM CHLORIDE 40 MEQ, LIDOCAINE 1% 25 MG in NACL 0.9% 250 ML IV SCH (16:00)
--- NOTE | 2018-07-23 16:00 | NUR ---
CHECKED ON PT. SLEEPING DEEP AT THIS TIME. NO SIGN OF DISTRESS NOTED. ALL SAFETY MEASURE IN PLACE. WILL CONTINUE TO MONITOR PT.
[2018-07-23] MEDS ORDERED: ACETAMINOPHEN 325 MG TAB PO SCH (16:05)
[2018-07-23] MEDS ORDERED: levETIRAcetam 1,000 MG in NACL 0.9% 100 ML IV SCH (16:17)
[2018-07-23] MEDS ORDERED: MAGNESIUM OXIDE 400 MG TAB PO SCH (16:30)
[2018-07-23] MEDS ORDERED: SODIUM PHOS / POTASSIUM PHOS 1 PKT PDR PO SCH (16:30)
[2018-07-23] MEDS: DEXT 5% /NACL 0.9% 1,000 ML IV SCH (16:53)
[2018-07-23] MEDS: LORazepam 2 MG/ML VIAL IM/IVP PRN (17:57)
--- NOTE | 2018-07-23 18:01 | NUR ---
ADMINISTERED MEDS TO PT ORDERED. PT VOMITED X1, NO EPISODES OF SEIZURE . ADMINISTERED ATIVAN TO PT. ALL SAFETY MEASURE IN PLACE. INFORMED PT TO USE CALL LIGHT FOR ANY HELP. VERBALIZED UNDERSTANDING. PT IS NPO EXCEPTS MEDS. WILL CONTINUE TO MONITOR PT.
[2018-07-23] MEDS ORDERED: MAG SULF 2000 MG/WATER PREMIX 50 ML IV SCH (19:00)
--- NOTE | 2018-07-23 19:10 | NUR ---
ENDORSED PT TO PM NURSE AT BEDSIDE. PT STABLE AND SLEEPING AT THIS TIME. ENDORSED MAG RIDER TO PM NURSE.
--- NOTE | 2018-07-23 19:11 | NUR ---
RECEIVED REPORT FROM DAYSHIFT NURSE AT BEDSIDE FOR CONTINUITY OF CARE. PT AAOX4.IV NOTED IV NOTED LAC 20G D5 NS 60ML/HR. NO SOB NO S/S OF DISTRESS ON RA. SEIZURE PRECAUTION BED LOWERED CALL LIGHT WITHIN REACH WILL CONTINUE TO MONITOR.
[2018-07-23] MEDS: carBAMazepine 200 MG TAB PO SCH (20:31)
[2018-07-23] MEDS: AMITRIPTYLINE 25 MG TAB PO SCH (20:31)
[2018-07-23] MEDS: levETIRAcetam 1,000 MG in NACL 0.9% 100 ML IV SCH (20:32)
[2018-07-23] MEDS: MORPHINE SULFATE 4 MG/ML SYR IVP PRN (22:12)
[2018-07-23 22:54] VITALS: BP 110/66
[2018-07-24] VITALS: BP 120/65
[2018-07-24 04:00] VITALS: BP 116/73
--- NOTE | 2018-07-24 05:46 | NUR ---
PATIENT HAS BEEN SCREENED AND CATEGORIZED HIGH NUTRITION RISK. PATIENT WILL BE SEEN WITHIN 1-2 DAYS OF ADMISSION. 07/23/18-07/24/18 DAVI LAKE MS, RDN
[2018-07-24] MEDS: MORPHINE SULFATE 4 MG/ML SYR IVP PRN ×2 (06:01→12:13)
[2018-07-24 07:09] LABS: BASOPHILS % (AUTO) 0.3 % (0.0-2.0); EOSINOPHILS # (AUTO) 0.1 K/uL (0-0.4); EOSINOPHILS % (AUTO) 0.9 % (0.0-4.0); HEMATOCRIT 34.5 % (36-48); HEMOGLOBIN 11.3 g/dL (12.0-16.0); LYMPHOCYTES # (AUTO) 1.4 K/uL (2.5-16.5); MEAN CORPUSCULAR HEMOGLOBIN 30 pg (27-31); MEAN CORPUSCULAR HGB CONC 33 g/dL (33-37); MEAN CORPUSCULAR VOLUME 90.9 fL (80-94); MONOCYTES # (AUTO) 0.3 K/uL (0.8-1.0); MONOCYTES % (AUTO) 5.9 % (1.7-9.3); NEUTROPHILS % (AUTO) 68.9 % (42.2-75.2); PLATELET COUNT (AUTO) 266 K/uL (140-450); RED BLOOD CELL COUNT(AUTO) 3.79 MIL/uL (4.20-5.40); RED CELL DISTRIBUTION WIDTH 14.4 % (11.6-13.7); WHITE BLOOD COUNT (AUTO) 5.9 K/uL (4.8-10.8)
[2018-07-24 07:16] LABS: T4 (THYROXINE) 6.3 ug/dL (4.5-12.0)
--- NOTE | 2018-07-24 07:26 | NUR ---
ENDORSED REPORT TO DAYSWAFT NURSE FOR CONTINUITY OF CARE.
--- NOTE | 2018-07-24 07:30 | NUR ---
RECEIVED REPORT FROM DIRECTOR OF INTERCOLLEGIATE ATHLETICS RN. PT IN STABLE CONDITION. NO COMPLAINTS OF PAIN, N/V, OR DISCOMFORT AT THIS TIME. SKIN INTACT. RT FOOT DROP NOTED. AMBULATORY. USES BEDSIDE COMMODE. ASPIRATION PRECAUTIONS AND FALL PRECAUTIONS. PT INQUIRING ABOUT DIET ORDERS; CURRENTLY NPO X MEDS. WILL ASK THE DR. TEJEDA SITE PATENT AND ASYMPTOMATIC, INFUSING IVF PER MD ORDERS. ALL SAFETY PRECAUTIONS IN PLACE, WILL CONTINUE TO MONITOR. Addendum: 07/24/18 at 1026 by Sarah Galvan Meng, RN SEIZURE PRECAUTIONS IN PLACE
[2018-07-24 07:33] LABS: ANION GAP 13.9 (8-16); CARBON DIOXIDE 25.6 mmol/L (21-32); CREATININE 0.7 mg/dL (0.6-1.3); POTASSIUM 3.5 mmol/L (3.5-5.1)
[2018-07-24 07:39] LABS: CHOL/HDL RATIO 3.3 (1-4.5); MAGNESIUM 2.1 mg/dL (1.8-2.4); PHOSPHORUS 2.9 mg/dL (2.5-4.9)
[2018-07-24] MEDS: DEXT 5% /NACL 0.9% 1,000 ML IV SCH (07:50)
[2018-07-24 08:00] VITALS: BP 122/79
--- NOTE | 2018-07-24 08:17 | NUR ---
DR. MEDINA HAS DISCUSSED PLAN OF CARE WITH PATIENT. PATIENT ASKED ABOUT DIET. PER DR. MEDINA, WILL KEEP NPO X MEDS UNTIL GI CONSULT HAS EVALUATED PT. PT VERBALIZED COMPLETE UNDERSTANDING.
--- NOTE | 2018-07-24 09:57 | NUR ---
07/24/18 RD INITIAL ASSESSMENT COMPLETED PLEASE REFER TO NUTRITION ASSESSMENT UNDER CARE ACTIVITY FOR ESTIMATED NUTRITIONAL NEEDS. RD RECOMMENDATIONS: 1. IF/WHEN MEDICALLY APPROPRIATE, CONSIDER INITIATING REGULAR DIET. 2. RD WILL F/U 2-3 DAYS; HIGH RISK. DAVI LAKE MS, RDN
[2018-07-24] MEDS: DULoxetine 30 MG CAPDR PO SCH (10:02)
[2018-07-24] MEDS: APAP/BUTAL/CAFF 325/50/40 MG 1 TAB PO SCH ×2 (10:02→20:49)
--- NOTE | 2018-07-24 10:02 | NUR ---
CALLED TIKI HIGGINS TO BRING K PAD.
[2018-07-24] MEDS: carBAMazepine 200 MG TAB PO SCH ×2 (10:03→20:49)
--- NOTE | 2018-07-24 10:12 | NUR ---
SCHEDULED 0900 MEDICATIONS ADMINISTERED. PT REFUSED HEPARIN. EXPLAINED INDICATION WELL RISKS AND BENEFITS. PT VERBALIZED UNDERSTANDING BUT CONTINUES TO REFUSE. PT WILLING TO TRY SCDS LATER, WHICH ARE AT BEDSIDE. WILL PLACE SCDS ON PT AFTER PT FINISHES CT ABDOMEN/PELVIS. IV KEPPRA NOT ADMINISTERED YET BECAUSE NO IV ACCESS. IV IN RT WRIST WAS PULLED OUT BY PT. IV CATH INTACT AND NO BLOOD LOSS NOTED. WILL START NEW IV ACCESS AND ADMIN IV KEPPRA.
--- NOTE | 2018-07-24 10:26 | NUR ---
SEIZURE PRECAUTIONS IN PLACE
--- NOTE | 2018-07-24 11:03 | NUR ---
CALLED RADIOLOGY AND NOTIFIED THEM I WILL CALL WHEN PT HAS FINISHED THE IV KEPPRA AND READY FOR CT ABD/PELVIS
[2018-07-24] MEDS: levETIRAcetam 1,000 MG in NACL 0.9% 100 ML IV SCH (11:19)
[2018-07-24] MEDS: LORazepam 2 MG/ML VIAL IM/IVP PRN (11:19)
--- NOTE | 2018-07-24 11:19 | NUR ---
PT C/O ANXIETY. SEEN TO BE RESTLESS IN BED. ATIVAN IVP ADMINISTERED PER MD ORDERS. WILL CONTINUE TO MONITOR.
[2018-07-24 12:00] VITALS: BP 121/75
[2018-07-24] MEDS: ONDANSETRON 4 MG TAB PO SCH ×3 (12:13→20:55)
--- NOTE | 2018-07-24 12:19 | NUR ---
PT SLEEPING IN BED, AROUSABLE BY VOICE, ONE HOUR AFTER ATIVAN ADMINISTRATION. PT DENIES ANXIETY AT THIS TIME.
--- NOTE | 2018-07-24 12:26 | NUR ---
ILEANA CALLEJAS COMPLETED. PT SAYS SHE IS READY TO GO TO RADIOLOGY FOR CT ABD/PELVIS. NOTIFIED RADIOLOGY.
--- NOTE | 2018-07-24 12:28 | NUR ---
BROUGHT PUDDING AND JELLO FOR PATIENT. INSTRUCTED PT TO CONSUME FOOD SLOWLY TOLERATED AND START WITH LIQUIDS AND PUDDING/JELLO. DR. TSANG ALSO EDUCATED PT TO START WITH LIQUIDS SINCE SHE HAS PERSISTENT N/V. Addendum: 07/24/18 at 1751 by Sarah Galvan Meng, RN DR. TSANG AWARE THAT PT HAS REGULAR DIET ORDERED.
[2018-07-24] MEDS: PROMETHAZINE 25 MG/ML VIAL IVP PRN ×2 (13:07→20:59)
--- NOTE | 2018-07-24 13:07 | NUR ---
PT REPORTS THAT SHE THREW UP ALL OF THE LUNCH THAT SHE ATE. DID NOT SEE THE VOMITUS. PROMETHAZINE ADMINISTERED AT DISTAL PORT OVER [address] ORDERS. MARTINEZ RECONNECTED TO HELP WITH DILUTING THE PROMETHAZINE. Addendum: 07/24/18 at 1750 by Sarah Galvan Meng RN PT HAD CONSUMED THE REGULAR DIET TRAY ORDERED FOR HER.
--- NOTE | 2018-07-24 14:07 | NUR ---
PATIENT DENIES NAUSEA/VOMITING AT THIS TIME, ONE HOUR AFTER PROMETHAZINE IVP.
--- NOTE | 2018-07-24 14:08 | NUR ---
COMPUTER GRAPHICS ILLUSTRATOR HERE TO TAKE PT VIA WHEELCHAIR FOR CT ABD/PELVIS W/O CONTRAST.
--- NOTE | 2018-07-24 14:25 | NUR ---
PT BACK FROM CT ABD/PELVIS.
--- NOTE | 2018-07-24 14:55 | NUR ---
CALLED ADMITTING TO PRINT ANOTHER ID BAND FOR PATIENT. ID BAND WILL BE BROUGHT TO UNIT.
[2018-07-24] MEDS ORDERED: APAP/BUTAL/CAFF 325/50/40 MG 1 TAB PO PRN (15:05)
[2018-07-24] MEDS ORDERED: APAP/BUTAL/CAFF 325/50/40 MG 1 TAB PO SCH (15:30)
[2018-07-24] MEDS: NACL 0.9% 1,000 ML IV SCH (15:37)
--- NOTE | 2018-07-24 15:41 | NUR ---
PT AWAKE FROM SLEEP. SET UP K PAD FOR PT C/O BACK PAIN.
--- NOTE | 2018-07-24 15:49 | NUR ---
OFFERED TO PLACE PT ON OXYGEN FOR PT C/O HEADACHE. PT REFUSED.
[2018-07-24 16:00] VITALS: BP 108/67
--- NOTE | 2018-07-24 16:01 | NUR ---
PT ON THE PHONE AND IT SEEMS THAT THE OTHER PERSON IS INSTRUCTING PT TO ASK FOR MORPHINE. HAVE EXPLAINED TO PT THAT NORCO IS ORDERED FOR SAME PAIN LEVEL OF 4-6 AND IT WILL OFFER LONGER PERIOD OF PAIN CONTROL. PT REPEATING ALL THAT I'VE SAID TO HER BACK TO PERSON ON PHONE CALL AND THEN FOLLOWING UP WITH QUESTIONS FOR ME. STATES THAT SHE STILL WANTS A ONE-TIME DOSE OF MORPHINE IVP. NOTIFIED DR. TSANG THAT PATIENT INQUIRING ABOUT ONE TIME DOSE OF MORPHINE AND THEN SWITCH TO PO NORCO. PER DR. TSANG, OFFER PT THE PO NORCO.
--- NOTE | 2018-07-24 17:22 | NUR ---
PT HAD TWO EPISODES OF VOMITUS. TOTAL 360 ML. NO MEDICATION/PILLS SEEN IN VOMITUS. Addendum: 07/24/18 at 1750 by Sarah Galvan Meng, RN PT HAD CONSUMED TURKEY THAT FAMILY MEMBER BROUGHT. EDUCATED FAMILY MEMBER THAT PT UNABLE TO TOLERATE SOLID/HEAVY FOODS AT THIS TIME.
--- NOTE | 2018-07-24 17:29 | NUR ---
ZOFRAN IVP ADMINISTERED FOR N/V. PT INQUIRING ABOUT PAIN MEDICATION. TOLD PT THAT PAIN MEDICATION HAD JUST BEEN GIVEN AT 1614 AND IS NOT DUE YET. HAVE ALREADY NOTIFIED DR. TSANG THAT PT IS ASKING FOR MORPHINE FOR PAIN CONTROL.
[2018-07-24] MEDS ORDERED: HYDROcodone/APAP 5/325 MG 1 TAB TAB PO ONE (18:05)
--- NOTE | 2018-07-24 18:05 | NUR ---
PATIENT CRYING SOFTLY IN BED. SAYS SHE CAN'T WAIT UNTIL THE NEXT DOSE OF PAIN MEDICATION. NOTIFIED DR. LORENZO. TO ORDER MEDICATION. WILL ADMIN TO PT WHEN AVAILABLE.
--- NOTE | 2018-07-24 18:29 | NUR ---
PT DENIES N/V, ONE HOUR AFTER ZOFRAN IVP.
--- NOTE | 2018-07-24 18:50 | NUR ---
REMOVED 2 TABS OF NORCO 5 FROM PYXIS BY ACCIDENT. GAVE ONE TABLET OF NORCO 5 TO COUNSELING DIRECTOR GISELA TO RETURN TO PHARMACY TOMORROW.
--- NOTE | 2018-07-24 19:30 | NUR ---
ENDORSED POC TO EMBROIDERY CUTTER RN. PT IN STABLE CONDITION.
--- NOTE | 2018-07-24 19:30 | NUR ---
RECEIVED BEDSIDE REPORT FROM RN NICKI, PATIENT IN BED, VOMITED X 1. ON RA, IV IN LEFT HAND 22 G INFUSING NS. EXPLAINED PLAN OF CARE, UPDATED BOARD, CALL LIGHT WITHIN REACH, BED ALARM ON, WILL CONTINUE TO MONITOR.
[2018-07-24 20:00] VITALS: BP 119/74
[2018-07-24] MEDS: AMITRIPTYLINE 25 MG TAB PO SCH (20:22)
--- NOTE | 2018-07-24 20:59 | NUR ---
PATIENT C/O FEEL NAUSEOUS MEDICATED WITH PHENERGAN ACCORDING TO MD ORDER. PATIENT REFUSED ALL SCHEDULED MEDICATIONS.
[2018-07-24] MEDS: HYDROcodone/APAP 10/325 MG 1 TAB TAB PO PRN (21:11)
--- NOTE | 2018-07-24 21:11 | NUR ---
PATIENT C/O PAIN 02/07 GENERALIZED MEDICATED ACCORDING TO MD ORDER WITH BILLY.
[2018-07-25] VITALS: BP 110/70
--- NOTE | 2018-07-25 | NUR ---
V/S TAKEN ALL WITHIN BASELINE, DENIES PAIN WILL CONTINUE TO MONITOR. NO N/V NOTED.
[2018-07-25] MEDS: HYDROcodone/APAP 10/325 MG 1 TAB TAB PO PRN ×3 (01:20→09:59)
--- NOTE | 2018-07-25 01:20 | NUR ---
PATIENT C/O PAIN SANCHEZ 02/07 MEDICATED ACCORDING TO MD ORDER WITH BILLY.
--- NOTE | 2018-07-25 02:20 | NUR ---
SLEEPING IN BED NO SIGNS OF DISTRESS, CALL LIGHT WITHIN REACH.
[2018-07-25] MEDS: NACL 0.9% 1,000 ML IV SCH (03:28)
[2018-07-25 04:00] VITALS: BP 112/69
--- NOTE | 2018-07-25 04:30 | NUR ---
V/S TAKEN ALL WITHIN BASELINE, WILL CONTINUE TO MONITOR.
--- NOTE | 2018-07-25 05:34 | NUR ---
PATIENT C/O PAIN MEDICATED ACCORDING TO MD ORDER WITH OKEECHOBEE.
--- NOTE | 2018-07-25 07:15 | NUR ---
ENDORSED PATIENT TO DAY SHIFT NURSE NICKI, PATIENT STABLE.
--- NOTE | 2018-07-25 07:17 | NUR ---
RECEIVED REPORT FROM CHANNEL LAYER RN. PT IN STABLE CONDITION. PT DENIES N/V AT THIS TIME. USING KPAD FOR NECK PAIN. SKIN INTACT. RT FOOT DROP NOTED WITH BOOT AT BEDSIDE. AMBULATORY WITH ASSIST. USES BEDSIDE COMMODE. ASPIRATION PRECAUTIONS, SEIZURE PRECAUTIONS, AND FALL RISK PRECAUTIONS IN PLACE. IV SITE PATENT AND ASYMPTOMATIC, INFUSING IVF PER MD ORDERS. ALL SAFETY PRECAUTIONS IN PLACE, WILL CONTINUE TO MONITOR.
[2018-07-25 08:00] VITALS: BP 132/87
[2018-07-25 08:14] LABS: BASOPHILS % (AUTO) 0.7 % (0.0-2.0); EOSINOPHILS # (AUTO) 0.1 K/uL (0-0.4); EOSINOPHILS % (AUTO) 1.5 % (0.0-4.0); HEMATOCRIT 33.5 % (36-48); HEMOGLOBIN 11.3 g/dL (12.0-16.0); LYMPHOCYTES # (AUTO) 1.6 K/uL (2.5-16.5); LYMPHOCYTES % (AUTO) 36.8 % (20.5-51.1); MEAN CORPUSCULAR HEMOGLOBIN 30 pg (27-31); MEAN CORPUSCULAR HGB CONC 34 g/dL (33-37); MONOCYTES # (AUTO) 0.3 K/uL (0.8-1.0); MONOCYTES % (AUTO) 7.4 % (1.7-9.3); NEUTROPHILS # (AUTO) 2.3 K/uL (1.8-7.7); NEUTROPHILS % (AUTO) 53.6 % (42.2-75.2); PLATELET COUNT (AUTO) 245 K/uL (140-450); RED BLOOD CELL COUNT(AUTO) 3.73 MIL/uL (4.20-5.40); RED CELL DISTRIBUTION WIDTH 14.8 % (11.6-13.7); WHITE BLOOD COUNT (AUTO) 4.3 K/uL (4.8-10.8)
--- NOTE | 2018-07-25 08:25 | NUR ---
PATIENT INQUIRING ABOUT PAIN MEDICATION. INFORMED HER THAT PAIN MEDICATION IS NOT DUE UNTIL 0954. PT VERBALIZED UNDERSTANDING AND WANTS TO WAIT. PT ATE 75% OF HER REGULAR DIET TRAY AND REPORTED ONE EPISODE OF VOMITING. VOMITUS AMOUNT 200ML.
[2018-07-25 08:57] LABS: ANION GAP 9.8 (8-16); CARBON DIOXIDE 26.6 mmol/L (21-32); CREATININE 0.8 mg/dL (0.6-1.3); MAGNESIUM 1.7 mg/dL (1.8-2.4); POTASSIUM 3.4 mmol/L (3.5-5.1)
[2018-07-25] MEDS ORDERED: ONDA8ODT2 PO (08:57)
[2018-07-25] MEDS: DULoxetine 30 MG CAPDR PO SCH (09:00)
[2018-07-25] MEDS: ONDANSETRON 4 MG TAB PO SCH (09:00)
[2018-07-25] MEDS: APAP/BUTAL/CAFF 325/50/40 MG 1 TAB PO SCH (09:00)
--- NOTE | 2018-07-25 09:24 | NUR ---
PATIENT STATES SHE WANTS A REFERRAL TO [facility] HER INSURANCE HAS BEEN UNABLE TO ASSIGN HER ONE. WILL TELL DR. TSANG.
[2018-07-25] MEDS ORDERED: POTASSIUM CHLORIDE 10 MEQ TABER PO SCH (09:30)
[2018-07-25] MEDS ORDERED: MAGNESIUM OXIDE 400 MG TAB PO SCH (09:30)
[2018-07-25] MEDS: carBAMazepine 200 MG TAB PO SCH (10:03)
--- NOTE | 2018-07-25 10:43 | NUR ---
DR. TSANG HAS INPUTTED FREE CLINIC INFORMATION IN DISCHARGE INSTRUCTIONS. WILL GO OVER THE INFORMATION WITH PATIENT UPON D/C.
--- NOTE | 2018-07-25 11:02 | NUR ---
PATIENT IS READY FOR DISCHARGE. TOOK OFF THE TELE MONITOR HERSELF. TOLD PATIENT WE NEED TO KEEP IT ON UNTIL RIGHT BEFORE DISCHARGE. PT REFUSED THE TELE BOX. PT ASKING FOR SHIRT, WILL CALL SECURITY.
--- NOTE | 2018-07-25 11:08 | NUR ---
NOTIFIED SECURITY TO BRING A SHIRT FOR PATIENT. PATIENT SAYS SOMEONE WILL BE HERE TO PICK HER UP AT 1200 TODAY.
--- NOTE | 2018-07-25 12:15 | NUR ---
DISCHARGE PAPERWORK, INCLUDING INSTRUCTIONS TO FOLLOW UP WITH PCP, GIVEN TO PATIENT. INSTRUCTED PATIENT TO CALL THE FREE CLINIC LISTED IN HER DISCHARGE PAPERWORK. DR. TSANG UNABLE TO MAKE AN APPOINTMENT FOR PATIENT TODAY BECAUSE THE CLINIC IS CLOSED TODAY. INSTRUCTED PATIENT TO CALL THE FREE CLINIC TOMORROW FOR AN APPOINTMENT. NEW PRESCRIPTIONS GIVEN TO PATIENT. NEW PRESCRIPTION TEACHING AND MEDICATION RECONCILIATION TEACHING GIVEN. PT AND COMPLETE UNDERSTANDING OF ALL DISCHARGE TEACHING. IV SITE REMOVED WITH MINIMAL BLOOD LOSS AND LUMEN COMPLETELY INTACT. ID BANDS REMOVED. PT IN STABLE CONDITION. ALL PERSONAL BELONGINGS ARE WITH PATIENT. PT WILL GO HOME VIA PRIVATE VEHICLE WITH FAMILY MEMBERS.
== END 2018-07-25 12:15 | disposition home or self-care (01) | DRG 254 ==
LOC: MED 09:36 → MTU 12:54
PROVIDERS: ADMIT General Practice; ATTEND General Practice
DX: K58.9 Irritable bowel syndrome, unspecified (principal); E83.39 Other disorders of phosphorus metabolism; G40.409 Other generalized epilepsy and epileptic syndromes, not intractable, without status epilepticus; E87.6 Hypokalemia; E83.42 Hypomagnesemia; R51 Headache; D64.9 Anemia, unspecified; N83.202 Unspecified ovarian cyst, left side; N31.9 Neuromuscular dysfunction of bladder, unspecified; N83.201 Unspecified ovarian cyst, right side; E66.9 Obesity, unspecified; F41.9 Anxiety disorder, unspecified; Z88.6 Allergy status to analgesic agent; Z79.899 Other long term (current) drug therapy; Z88.8 Allergy status to other drugs, medicaments and biological substances; Z90.49 Acquired absence of other specified parts of digestive tract; Z68.27 Body mass index [BMI] 27.0-27.9, adult
CPT/HCPCS: 36415; 70450; 71045; 80048; 80053; 80305; 81003; 81025; 82140; 82150; 82948; 83036; 83690; 83735; 84100; 84132; 84436; 84439; 84443; 85025; 85610; 85730; 87081; 96361; 96374; 96375; 96376; 99285; C1758; G0482; J1644; J1953; J2001; J2060; J2270; J2405; J2550; J3475; J3480; J7030; J7042; Q0092; Q0162

== ENCOUNTER 2018-08-23 06:58 | Emergency (ER) | payer MEDICAID ==
[~2018-08-23] VITALS: Ht 165.1 cm; Wt 74.8 kg
[~2018-08-23 06:58] MED LIST changes: -ACET-8386 PO; -CEPH250C16 PO; -LACT10CA1 PO; -LEVE1000 PO; -METR250T2 PO; -ONDA4ODT2 SL; +[UNRECOGNIZED DRUG - CODE] PO
[2018-08-23 07:06] VITALS: BP 131/73
--- NOTE | 2018-08-23 07:34 | NUR ---
PATIENT PRESENTS TO ED WITH C/O OF HEMATURIA AND DYSURIA X2 DAYS . PT STATES LEFT FLANK PAIN 6/10 CONTINOUS ACHE. PATIENT STATES SHE HAS HAD SIMILAR SYMPTOMS WITH PREVIOUS UTI. . DENIES N/V/D; SKIN IS PINK/WARM/DRY; AAOX4, AMULATING WITH CRUTCH ASSISTANCE RIGHT KNEE INJURY, UNRELATED TO PRESENT ISSUE. HR EVEN AND REGULAR; PT DENIES ANY FEVER, CP, SOB, OR COUGH AT THIS TIME; VSS; PATIENT POSITIONED FOR COMFORT; HOB ELEVATED; BEDRAILS UP X2; BED DOWN. ER MD MADE AWARE OF PT STATUS.
--- NOTE | 2018-08-23 07:40 | NUR ---
DR PLASENCIA AT BEDSIDE.
--- NOTE | 2018-08-23 07:57 | NUR ---
PATIENT TAKING PRESCRIBED SEIZURE MEDICATION KEPPRA 500MG.
[2018-08-23] MEDS ORDERED: SULFAMETH/TRIMETH DS 800/160MG 1 TAB PO ONE (08:00)
[2018-08-23 08:25] VITALS: BP 131/73
--- NOTE | 2018-08-23 08:26 | NUR ---
Patient discharged with v/s stable. Written and verbal after care instructions given and explained. Patient alert, oriented and verbalized understanding of instructions. Ambulatory with CRUTCHES. All questions addressed prior to discharge. ID band removed. Patient advised to follow up with PMD. Rx PYRIDIUM, TRAMADOL, BACTRIM of given. Patient educated on indication of medication including possible reaction and side effects. Opportunity to ask questions provided and answered.
== END 2018-08-23 08:26 | disposition home or self-care (01) ==
LOC: MED 06:58
DX: N12 Tubulo-interstitial nephritis, not specified as acute or chronic (principal); R03.0 Elevated blood-pressure reading, without diagnosis of hypertension; Z88.6 Allergy status to analgesic agent; Z88.8 Allergy status to other drugs, medicaments and biological substances; Z79.899 Other long term (current) drug therapy
CPT/HCPCS: 81002; 81025; 99283

== ENCOUNTER 2018-08-29 14:40 | Emergency (ER) | payer MEDICAID ==
[~2018-08-29] VITALS: Ht 165.1 cm; Wt 74.8 kg
[2018-08-29 14:58] VITALS: BP 129/84
[2018-08-29] MEDS ORDERED: cefTRIAXone 1,000 MG in LIDOCAINE 1% ***ER ONLY *** 2.1 ML IM ONE (17:05)
[2018-08-29] MEDS ORDERED: HYDROmorphone 1 MG/ML AMP IM ONE (17:05)
[2018-08-29] MEDS ORDERED: cefTRIAXone 1,000 MG VIAL ONE (17:42)
[2018-08-29] MEDS ORDERED: LIDOCAINE MPF 1% - 5 mL VIAL 5 ML ONE (17:43)
[2018-08-29 18:10] VITALS: BP 118/69
== END 2018-08-29 18:11 | disposition home or self-care (01) ==
LOC: MED 14:40
DX: N23 Unspecified renal colic (principal); Z88.6 Allergy status to analgesic agent; Z88.8 Allergy status to other drugs, medicaments and biological substances; Z79.1 Long term (current) use of non-steroidal anti-inflammatories (NSAID); Z79.899 Other long term (current) drug therapy
CPT/HCPCS: 81002; 81025; 96372; 99283; J0696; J1170; J2001

== ENCOUNTER 2018-09-25 12:35 | Emergency (ER) | payer MEDICAID ==
[~2018-09-25] VITALS: Ht 167.6 cm; Wt 68.0 kg
[~2018-09-25 12:35] MED LIST changes: +ONDA-25 PO; -[UNRECOGNIZED DRUG - CODE] PO
[2018-09-25 12:50] VITALS: BP 129/70
--- NOTE | 2018-09-25 13:39 | NUR ---
28 YO F BIB SELF W/ C/O UTI SYMPTOMS X 5 DAYS. PT REPORTS N/V/FEVERS. STATES SHE HAS BL FLANK PAIN. STATES SHE HAS HAD KIDNEY STONES BEFORE ALSO AND IT FEELS SIMILAR. DYSURIA, HEMATURIA. AAOX4. HX TRANSVERSE MYELITIS, KIDNEY STONES, SZ RX KEPPRA
--- NOTE | 2018-09-25 14:10 | NUR ---
NO STATED NEEDS AT THIS TIME.
[2018-09-25] MEDS ORDERED: MORPHINE SULFATE 4 MG/ML SYR IM ONE (15:00)
[2018-09-25 15:26] VITALS: BP 129/70
--- NOTE | 2018-09-25 15:27 | NUR ---
Patient discharged with v/s stable. Written and verbal after care instructions given and explained. Patient alert, oriented and verbalized understanding of instructions. Ambulatory with steady gait. All questions addressed prior to discharge. ID band removed. Patient advised to follow up with PMD. Rx of ZOFRAN, ULTRAM, FLOMAX given. Patient educated on indication of medication including possible reaction and side effects. Opportunity to ask questions provided and answered.
== END 2018-09-25 15:27 | disposition home or self-care (01) ==
LOC: MED 12:35
DX: N20.0 Calculus of kidney (principal); Z88.6 Allergy status to analgesic agent; Z88.8 Allergy status to other drugs, medicaments and biological substances; Z79.2 Long term (current) use of antibiotics; Z79.899 Other long term (current) drug therapy
CPT/HCPCS: 81002; 81025; 96372; 99283; J2270

== ENCOUNTER 2018-09-27 23:19 | Emergency (ER) | payer MEDICAID ==
[~2018-09-27] VITALS: Ht 165.1 cm; Wt 76.2 kg
[2018-09-27 23:23] VITALS: BP 106/65
--- NOTE | 2018-09-28 00:06 | NUR ---
PT WHEELCHAIRED TO ER BED 10
--- NOTE | 2018-09-28 00:10 | NUR ---
PATIENT PRESENTS ER WITH C/O PAIN TO THE LEFT SIDE FLANK X 5 DAYS; PT STATES THAT SHE WAS HERE A FEW DAYS AGO AND STATED THAT THE MD TOLD HER TO COME BACK TO ER IF THE PAIN GOT WORSE. PATIENT STATES PAIN OF 9/10 AT THIS TIME;PT STATES SHE HAS SOME BURNING WHILE URINATING AND HEMATURIA. PT IS A/O X 4. VSS; PATIENT POSITIONED FOR COMFORT; HOB ELEVATED; BEDRAILS UP X2; BED DOWN. ER MD MADE AWARE OF PT STATUS.
[2018-09-28] MEDS ORDERED: MORPHINE SULFATE 4 MG/ML SYR IM ONE (00:40)
--- NOTE | 2018-09-28 02:43 | NUR ---
PT IS LYING IN BED, VSS
--- NOTE | 2018-09-28 02:52 | NUR ---
GAVE REPORT TO SHELL RN, PT VITALS STABLE
--- NOTE | 2018-09-28 03:20 | NUR ---
Patient discharged with v/s stable. Written and verbal after care instructions given and explained. Patient alert, oriented and verbalized understanding of instructions. Ambulatory with steady gait. All questions addressed prior to discharge. ID band removed. Patient advised to follow up with PMD. Rx of ZOFRAN,MOTRIN, ULTRAM given. Patient educated on indication of medication including possible reaction and side effects. Opportunity to ask questions provided and answered. Mom will be driving patient home
[2018-09-28 03:21] VITALS: BP 114/71
== END 2018-09-28 03:21 | disposition home or self-care (01) ==
LOC: MED 23:19
DX: N83.201 Unspecified ovarian cyst, right side (principal); R19.7 Diarrhea, unspecified; Z79.1 Long term (current) use of non-steroidal anti-inflammatories (NSAID); Z79.2 Long term (current) use of antibiotics; Z79.899 Other long term (current) drug therapy; Z88.6 Allergy status to analgesic agent; Z88.8 Allergy status to other drugs, medicaments and biological substances
CPT/HCPCS: 74176; 81002; 81025; 96372; 99284; J2270

== ENCOUNTER 2018-12-24 16:33 | Emergency (ER) | payer MEDICAID ==
[~2018-12-24] VITALS: Ht 165.1 cm; Wt 68.0 kg
[2018-12-24 16:44] VITALS: BP 153/69
--- NOTE | 2018-12-24 16:53 | NUR ---
BIB SELF. AAO X4 C/O 3 SEIZURES THIS MORNING. PT REPORTS 3 TONIC-CLONIC SEIZURES LASTING ABOUT 1 MINUTE EACH. PT REPORTS HITTING HEAD ON CONCRETE FROM FALL DURING SEIZURE. REPORTS PAIN AT 6/10 ON THE BACK OF NECK AND L LATERAL SIDE OF THE NECK. PT STATES THAT SHE "DOESN'T FEEL RIGHT". REPORTS BEING COMPLIANT WITH MEDICATION. PREVIOUS SEIZURE WAS IN AUGUST. PT HAS CRUTCHES WITH AFO ON R FOOT D/T TRANSVERSE MYILITUS. PT PLACED ON FULL DECKHAND TUNA BOAT, SEIZURE PADS AND SEIZURE PRECAUTION. HOB UP. BED SIDE RAILS UP X2. ON LOW BED POSITION, LOCKED. ER MADE AWARE OF PT STATUS. WILL CONTINUE TO MONITOR.
--- NOTE | 2018-12-24 17:15 | NUR ---
PT AAO X4. FULL CLEAR SPEECH. NO SIGNS AND SYMPTOMS OF DISTRESS NOETD. PT IS TACHY, [address] JOSHUA MADE AWARE.
[2018-12-24] MEDS ORDERED: NACL 0.9% 1,000 ML IV ONE (17:40)
[2018-12-24] MEDS ORDERED: ACETAMINOPHEN 325 MG TAB PO ONE (17:40)
--- NOTE | 2018-12-24 17:55 | NUR ---
IV 22GA RT HAND, IVF GIVEN-NADR AT THIS TIME
[2018-12-24 18:12] LABS: BASOPHILS # (AUTO) 0.1 K/uL (0.00-0.22); BASOPHILS % (AUTO) 0.6 % (0.0-2.0); EOSINOPHILS % (AUTO) 0.3 % (0.0-4.0); HEMATOCRIT 39.8 % (36-48); HEMOGLOBIN 13.6 g/dL (12.0-16.0); LYMPHOCYTES # (AUTO) 1.1 K/uL (2.5-16.5); MEAN CORPUSCULAR HEMOGLOBIN 30 pg (27-31); MEAN CORPUSCULAR HGB CONC 34 g/dL (33-37); MEAN CORPUSCULAR VOLUME 86.7 fL (80-94); MONOCYTES % (AUTO) 12.2 % (1.7-9.3); NEUTROPHILS # (AUTO) 6.2 K/uL (1.8-7.7); NEUTROPHILS % (AUTO) 73.9 % (42.2-75.2); PLATELET COUNT (AUTO) 285 K/uL (140-450); RED BLOOD CELL COUNT(AUTO) 4.59 MIL/uL (4.20-5.40); RED CELL DISTRIBUTION WIDTH 14.8 % (11.6-13.7); WHITE BLOOD COUNT (AUTO) 8.4 K/uL (4.8-10.8)
[2018-12-24 18:15] LABS: APPEARANCE,URINE CLOUDY (CLEAR); BILIRUBIN,URINE NEGATIVE (NEGATIVE); BLOOD, URINE NEGATIVE (NEGATIVE); COLOR,URINE YELLOW (YELLOW); LEUKOCYTE ESTERASE ,URINE NEGATIVE (NEGATIVE); NITRITE, URINE NEGATIVE (NEGATIVE); UGLUCOSE NEGATIVE (NEGATIVE)
[2018-12-24 18:26] LABS: ANION GAP 15.1 (8-16); CARBON DIOXIDE 22.3 mmol/L (21-32); CREATININE 0.8 mg/dL (0.6-1.3); POTASSIUM 4.4 mmol/L (3.5-5.1)
[2018-12-24 18:29] LABS: ALBUMIN 3.6 g/dL (3.4-5.0); TOTAL BILIRUBIN 0.3 mg/dL (0.0-1.0)
[2018-12-24] MEDS ORDERED: LORazepam 2 MG/ML VIAL IVP ONE (18:35)
[2018-12-24] MEDS ORDERED: LORazepam 2 MG/ML VIAL ONE (18:43)
--- NOTE | 2018-12-24 18:45 | NUR ---
PT WAS AAO X4, FULL CLEAR SPEECH PRIOR TO HAVING SEIZURE. PT WAS FOUND ON THE FLOOR BY HER BED SIDE HAVING A SEIZURE FOR APPROXIMATELY 1 MINUTE AFTER GOING TO THE BATHROOM. ER MD AT BEDSIDE. ATIVAN GIVEN ORDERED. NO TRAUMA NOTED. NEURO CHECKS DONE. PT WAS ASSISTED BACK TO BED WITH 3 ASSIST. PT NOTED TO BE INCONTINENT. PT WAS CLEANED. PT WAS PUT ON SEIZURE PRECAUTION, FULL CLINICAL ANALYST. SEIZURE PADS ON. HOB UP. BED SIDE RAILS UP X2. ON LOW BED POSITION, LOCKED. WILL CONTINUE TO MONITOR.
--- NOTE | 2018-12-24 19:12 | NUR ---
ASSUMED CARE OF PT FROM WILL BECERRA
--- NOTE | 2018-12-24 19:37 | NUR ---
CALL MADE TO CT TO INFORM PT IS READY FOR EXAM.
--- NOTE | 2018-12-24 19:43 | NUR ---
PT TAKEN TO CT VIA BED
--- NOTE | 2018-12-24 19:59 | NUR ---
PT BACK FROM CT
--- NOTE | 2018-12-24 20:30 | NUR ---
PT SLEEPING. VSS.
[2018-12-24 21:00] VITALS: BP 119/69
--- NOTE | 2018-12-24 21:00 | NUR ---
Patient discharged with v/s stable. Written and verbal after care instructions given and explained. Patient verbalized understanding. Ambulatory with steady gait. All questions addressed prior to discharge. Advised to follow up with PMD.
== END 2018-12-24 21:00 | disposition home or self-care (01) ==
LOC: MED 16:33
DX: R56.9 Unspecified convulsions (principal); Z79.899 Other long term (current) drug therapy; Z88.6 Allergy status to analgesic agent; Z88.5 Allergy status to narcotic agent; Z88.8 Allergy status to other drugs, medicaments and biological substances
CPT/HCPCS: 36415; 70450; 72125; 80053; 81003; 81025; 82948; 85025; 96374; 99284; J2060; J7030

== ENCOUNTER 2019-04-17 00:11 | Emergency (ER) | payer MEDICAID ==
[~2019-04-17] VITALS: Ht 165.1 cm; Wt 68.9 kg
[2019-04-17 00:18] VITALS: BP 138/81
--- NOTE | 2019-04-17 00:18 | NUR ---
PT WHEELCHAIR ASSISTED TO BED 12.
--- NOTE | 2019-04-17 00:20 | NUR ---
28 Y/O F BIB MOTHER WITH C/O SEIZURE X2 HOURS PRIOR TO ARRIVAL. AAOX4. PER PT "I HAD 2 SEIZURES TODAY. THE LAST ONE LASTED ABOUT 2 MINUTES." PT HAD LOSS OF BLADDER AND FELL DURING SEIZURE, NO LOC PER PT MOTHER. PT HAS RX FOR TEGRETAL AND KEPPRA. PRIOR TO TODAY'S SEIZURE ACTIVITY, LAST NOTED SEIZURE WAS 2 MONTHS AGO. PT SPEECH CLEAR AND COMPREHENSIBLE. PERRL PRESENT. BEHAVIOR CALM AND APPRPOIATE FOR SITUATION. PT TACHYCARDIC, HR 135. PT HAS SECONDARY C/O N/V/D X1 WEEK. PT MOTHER AT BEDSIDE. PT CONNECTED TO FULL MONITORING SYSTEM. SEIZURE PADS IN PLACE. BEDRAILS X2 UP. BED IN LOWEST POSTION. ERMD MADE AWARE OF PT STATUS. WILL CONTINUE TO MONITOR.
[2019-04-17] MEDS ORDERED: ONDANSETRON 4 MG/2 ML VIAL IVP ONE (00:35)
[2019-04-17] MEDS ORDERED: NACL 0.9% 2,000 ML IV ONE (00:35)
[2019-04-17 01:24] LABS: BASOPHILS % (AUTO) 0.3 % (0.0-2.0); EOSINOPHILS % (AUTO) 0.4 % (0.0-4.0); HEMATOCRIT 38.8 % (36-48); HEMOGLOBIN 12.6 g/dL (12.0-16.0); LYMPHOCYTES % (AUTO) 31.5 % (20.5-51.1); MEAN CORPUSCULAR HEMOGLOBIN 27 pg (27-31); MEAN CORPUSCULAR HGB CONC 33 g/dL (33-37); MEAN CORPUSCULAR VOLUME 83.3 fL (80-94); MONOCYTES # (AUTO) 0.6 K/uL (0.8-1.0); MONOCYTES % (AUTO) 8.5 % (1.7-9.3); NEUTROPHILS # (AUTO) 3.8 K/uL (1.8-7.7); NEUTROPHILS % (AUTO) 59.3 % (42.2-75.2); PLATELET COUNT (AUTO) 203 K/uL (140-450); RED BLOOD CELL COUNT(AUTO) 4.66 MIL/uL (4.20-5.40); RED CELL DISTRIBUTION WIDTH 14.3 % (11.6-13.7)
[2019-04-17 01:25] LABS: WHITE BLOOD COUNT (AUTO) 6.5 K/uL (4.8-10.8)
[2019-04-17 01:34] LABS: ANION GAP 16.3 (8-16); CARBON DIOXIDE 20.1 mmol/L (21-32); CREATININE 0.4 mg/dL (0.6-1.3); POTASSIUM 3.4 mmol/L (3.5-5.1)
[2019-04-17] MEDS ORDERED: LORazepam 2 MG/ML VIAL IVP ONE (01:40)
[2019-04-17 01:41] LABS: ALBUMIN 3.5 g/dL (3.4-5.0); TOTAL BILIRUBIN 0.4 mg/dL (0.0-1.0)
--- NOTE | 2019-04-17 01:45 | NUR ---
PT ASSSITED TO BEDSIDE COMMODE BY RN. WHILE ON BEDSIDE COMMODE, PT STARTED SEIZE. PT FELL OFF OF COMMODE ONTO THE FLOOR AND HAD A LOSS OF BLADDER. PT HEAD SUPPORTED DURING SEIZURE. SEIZURE LASTED APPROX 45 SECONDS. AFTER SEIZURE PT WAS ASSISTED BACK INTO BED. VSS. PERRL PRESENT. PT DROWSY BUT AROUSABLE TO NAME AND LIGHT TOUCH. DR. PLASENCIA MADE AWARE OF PT STATUS.
--- NOTE | 2019-04-17 01:48 | NUR ---
PT IN POST-ICTAL STATE. AAOX4. PERRL PRESENT. PT ABLE TO SPEAK FULL SENTENCES. BEHAVOIR CALM. PT SEEN TO BE DROWSY, BUT ALERT. VSS. WILL CONTINUE TO MONITOR.
[2019-04-17] MEDS ORDERED: carBAMazepine 200 MG TAB PO ONE (01:50)
--- NOTE | 2019-04-17 01:50 | NUR ---
PT TAKEN TO CT VIA GURMAYDA BY RN AND DIRECT MARKETING SPECIALIST.
[2019-04-17] MEDS ORDERED: MORPHINE SULFATE 2 MG/ML SYR IVP ONE (02:25)
[2019-04-17] MEDS ORDERED: levETIRAcetam 100 MG/ML VIAL IV ONE (02:41)
[2019-04-17] MEDS ORDERED: levETIRAcetam 500 MG in NACL 0.9% 100 ML IV SCH ×2 (02:50→09:00)
--- NOTE | 2019-04-17 03:05 | NUR ---
PT HAD SECOND SEIZURE. PT PLACED IN SIDE LYING POSTION. SEIZURE LASTED APPROXIMATELY 30 SECONDS. VSS. PERRL PRESENT. PT DROWSY. DR. PLASENCIA MADE AWARE.
[2019-04-17] MEDS ORDERED: levETIRAcetam 500 MG TAB PO ONE (03:10)
--- NOTE | 2019-04-17 03:10 | NUR ---
PT IN POST-ICTAL STATE. AAOX4. PERRL PRESENT. PT ABLE TO SPEAK FULL SENTENCES. BEHAVOIR CALM. VSS. WILL CONTINUE TO MONITOR.
--- NOTE | 2019-04-17 03:45 | NUR ---
PT STATED "I FEELING BETTER. I WANT TO GO HOME." VSS. WILL CONTINUE TO MONITOR.
--- NOTE | 2019-04-17 04:20 | NUR ---
Patient discharged with v/s stable. Written and verbal after care instructions given and explained. Patient alert, oriented and verbalized understanding of instructions. Wheel Chair Assisted by RN. All questions addressed prior to discharge. ID band removed. Patient advised to follow up with PMD. Rx of zofran given. Patient educated on indication of medication including possible reaction and side effects. Opportunity to ask questions provided and answered.
[2019-04-17 04:29] VITALS: BP 109/56
[2019-04-18] MEDS ORDERED: PRED20TA5 PO (13:20)
[2019-04-18] MEDS ORDERED: COLC0.6C PO (13:20)
== END 2019-04-17 04:20 | disposition home or self-care (01) ==
LOC: MED 00:11
DX: R56.9 Unspecified convulsions (principal); T42.1X6A Underdosing of iminostilbenes, initial encounter; T42.6X6A Underdosing of other antiepileptic and sedative-hypnotic drugs, initial encounter; R00.2 Palpitations; R11.2 Nausea with vomiting, unspecified; Z79.899 Other long term (current) drug therapy; Z79.1 Long term (current) use of non-steroidal anti-inflammatories (NSAID); Z86.39 Personal history of other endocrine, nutritional and metabolic disease; Z88.8 Allergy status to other drugs, medicaments and biological substances; Z88.6 Allergy status to analgesic agent; Y92.89 Other specified places as the place of occurrence of the external cause
CPT/HCPCS: 36415; 70450; 72125; 74176; 80053; 80156; 81025; 85025; 96361; 96365; 96375; 96376; 99284; J1953; J2060; J2270; J2405; J7030

== ENCOUNTER 2019-04-17 05:51 | Observation (INO) | payer MEDICAID ==
[~2019-04-17] VITALS: Ht 162.6 cm; Wt 68.5 kg
[2019-04-17 05:52] VITALS: BP 127/84
[2019-04-17] MEDS ORDERED: NACL 0.9% 1,000 ML IV ONE (06:00)
[2019-04-17] MEDS ORDERED: LORazepam 2 MG/ML VIAL IVP ONE (06:05)
[2019-04-17] MEDS ORDERED: MORPHINE SULFATE 2 MG/ML SYR IVP ONE (06:10)
[2019-04-17 06:22] LABS: BASOPHILS % (AUTO) 0.6 % (0.0-2.0); EOSINOPHILS % (AUTO) 0.6 % (0.0-4.0); HEMATOCRIT 35.3 % (36-48); HEMOGLOBIN 11.7 g/dL (12.0-16.0); LYMPHOCYTES # (AUTO) 2.4 K/uL (2.5-16.5); LYMPHOCYTES % (AUTO) 35.6 % (20.5-51.1); MEAN CORPUSCULAR HEMOGLOBIN 27 pg (27-31); MEAN CORPUSCULAR HGB CONC 33 g/dL (33-37); MEAN CORPUSCULAR VOLUME 82.3 fL (80-94); MONOCYTES # (AUTO) 0.6 K/uL (0.8-1.0); MONOCYTES % (AUTO) 8.9 % (1.7-9.3); NEUTROPHILS # (AUTO) 3.7 K/uL (1.8-7.7); NEUTROPHILS % (AUTO) 54.3 % (42.2-75.2); PLATELET COUNT (AUTO) 204 K/uL (140-450); RED BLOOD CELL COUNT(AUTO) 4.29 MIL/uL (4.20-5.40); RED CELL DISTRIBUTION WIDTH 14.1 % (11.6-13.7); WHITE BLOOD COUNT (AUTO) 6.8 K/uL (4.8-10.8)
[2019-04-17 06:37] LABS: ALBUMIN 3.2 g/dL (3.4-5.0); ANION GAP 14.5 (8-16); CARBON DIOXIDE 22.8 mmol/L (21-32); CREATININE 0.5 mg/dL (0.6-1.3); POTASSIUM 3.3 mmol/L (3.5-5.1); TOTAL BILIRUBIN 0.3 mg/dL (0.0-1.0)
[2019-04-17] MEDS ORDERED: carBAMazepine 200 MG TAB PO ONE (06:45)
[2019-04-17 09:25] VITALS: BP 120/62
[2019-04-17] MEDS ORDERED: POTASSIUM CHLORIDE 10 MEQ TABER PO SCH (10:30)
[2019-04-17] MEDS ORDERED: COLCHICINE 0.6 MG TAB PO SCH (11:30)
[2019-04-17] MEDS: NACL 0.45% 1,000 ML IV SCH (11:36)
[2019-04-17] MEDS: HYDROcodone/APAP 5/325 MG 1 TAB TAB PO PRN ×3 (11:44→21:33)
[2019-04-17] MEDS ORDERED: ACETAMINOPHEN 325 MG TAB PO PRN (12:30)
[2019-04-17 12:36] VITALS: BP 130/59
[2019-04-17] MEDS ORDERED: MORPHINE SULFATE 2 MG/ML SYR IVP SCH (15:30)
[2019-04-17 16:08] VITALS: BP 117/51
[2019-04-17 20:00] VITALS: BP 117/58
[2019-04-17] MEDS: COLCHICINE 0.6 MG TAB PO SCH (21:33)
[2019-04-17] MEDS: levETIRAcetam 1,000 MG in NACL 0.9% 100 ML IV SCH (21:36)
[2019-04-18] VITALS (7 sets, daily range): BP systolic 100–124; BP diastolic 49–75
[2019-04-18] MEDS: NACL 0.45% 1,000 ML IV SCH ×2 (00:51→14:10)
[2019-04-18 01:14] LABS: BARBITURATE, URINE NEG. ng/ml (NEG <=200); BENZODIAZEPINE, URINE NEG. ng/mL (NEG <=200); CANNABINOID, URINE NEG. ng/mL (NEG <=50); COCAINE, URINE NEG. ng/mL (NEG <=300); OPIATE, URINE POS. ng/mL (NEG <=2000); PHENCYCLIDINE SCREEN,URINE NEG. ng/mL (NEG <=25)
[2019-04-18] MEDS: HYDROcodone/APAP 5/325 MG 1 TAB TAB PO PRN ×3 (04:12→17:53)
[2019-04-18] MEDS: HYDROcodone/APAP 7.5/325 MG 1 TAB PO PRN ×2 (06:47→13:52)
[2019-04-18] MEDS: COLCHICINE 0.6 MG TAB PO SCH (08:31)
[2019-04-18] MEDS: levETIRAcetam 1,000 MG in NACL 0.9% 100 ML IV SCH (08:32)
[2019-04-18] MEDS ORDERED: predniSONE 20 MG TAB PO SCH (09:00)
[2019-04-18 10:53] LABS: ANION GAP 13.8 (8-16); CARBON DIOXIDE 23.6 mmol/L (21-32); CREATININE 0.5 mg/dL (0.6-1.3); POTASSIUM 3.4 mmol/L (3.5-5.1)
[2019-04-18] MEDS ORDERED: PRED20TA5 PO (13:20)
[2019-04-18] MEDS ORDERED: COLC0.6C PO (13:20)
== END 2019-04-18 20:25 | disposition home or self-care (01) ==
LOC: MED 05:51 → MTU 07:54
PROVIDERS: ADMIT Internal Medicine; ATTEND Internal Medicine
DX: G40.909 Epilepsy, unspecified, not intractable, without status epilepticus (principal); E03.9 Hypothyroidism, unspecified; F32.9 Major depressive disorder, single episode, unspecified; F41.9 Anxiety disorder, unspecified; I21.3 ST elevation (STEMI) myocardial infarction of unspecified site; R11.2 Nausea with vomiting, unspecified; R07.9 Chest pain, unspecified; I31.9 Disease of pericardium, unspecified
CPT/HCPCS: 36415; 71045; 80048; 80053; 80156; 80305; 85025; 85651; 87081; 93005; 93307; 95816; 96361; 96365; 96366; 96375; 96376; 99285; G0378; J1953; J2060; J2270; J7512; Q0092; 96374

== ENCOUNTER 2019-04-23 01:25 | Emergency (ER) | payer MEDICAID ==
[~2019-04-23] VITALS: Ht 167.6 cm; Wt 72.6 kg
[~2019-04-23 01:25] MED LIST changes: +COLC0.6C PO; +PRED20TA5 PO
--- NOTE | 2019-04-23 01:35 | NUR ---
PT HAD SEIZURE IN RESTROOM BEFORE SHE WAS TRIAGED. NURSING STAFF INTERVIENED. PICKED UP AND SET IN WHEEL CHAIR. TAKEN TO BED 9. SEIZURE LASTED FOR 15-30 SEC. POSTICTAL UPON REACHING BED 9.
[2019-04-23 01:40] VITALS: BP 134/89
--- NOTE | 2019-04-23 01:40 | NUR ---
28 Y/O FEMALE PRESENTS TO ED, C/O OF PALPITATIONS. PT STATES FEELING CHEST DISCOMFORT DUE TO PALPITATIONS. WHILE WAITING AT LOBBY, PT HAD SEIZURE EPISODE. MOTHER DENIES ANY TRAUMA TO PT. PT WAS TAKEN TO BED #9 VIA WHEELCHAIR. PT VSS. ERMD AWARE. WILL CONTINUE TO MONITOR.
[2019-04-23] MEDS ORDERED: NACL 0.9% 1,000 ML IV ONE (01:50)
[2019-04-23 02:21] LABS: BASOPHILS % (AUTO) 0.5 % (0.0-2.0); EOSINOPHILS # (AUTO) 0.1 K/uL (0-0.4); EOSINOPHILS % (AUTO) 1.6 % (0.0-4.0); HEMATOCRIT 38.1 % (36-48); HEMOGLOBIN 12.8 g/dL (12.0-16.0); LYMPHOCYTES # (AUTO) 1.6 K/uL (2.5-16.5); LYMPHOCYTES % (AUTO) 34.1 % (20.5-51.1); MEAN CORPUSCULAR HEMOGLOBIN 27 pg (27-31); MEAN CORPUSCULAR HGB CONC 34 g/dL (33-37); MEAN CORPUSCULAR VOLUME 81.2 fL (80-94); MONOCYTES # (AUTO) 0.7 K/uL (0.8-1.0); MONOCYTES % (AUTO) 14.8 % (1.7-9.3); NEUTROPHILS # (AUTO) 2.2 K/uL (1.8-7.7); PLATELET COUNT (AUTO) 273 K/uL (140-450); RED BLOOD CELL COUNT(AUTO) 4.69 MIL/uL (4.20-5.40); RED CELL DISTRIBUTION WIDTH 14.4 % (11.6-13.7); WHITE BLOOD COUNT (AUTO) 4.6 K/uL (4.8-10.8)
[2019-04-23] MEDS ORDERED: LORazepam 2 MG/ML VIAL IVP ONE (02:25)
--- NOTE | 2019-04-23 02:29 | NUR ---
PT HAD SEIZURE. ADMINISTERED ATIVAN 2 PER ERMD ORDER.
[2019-04-23 02:32] LABS: ANION GAP 13.7 (8-16); CARBON DIOXIDE 26.1 mmol/L (21-32); CREATININE 0.5 mg/dL (0.6-1.3); POTASSIUM 3.8 mmol/L (3.5-5.1)
[2019-04-23 02:37] LABS: ALBUMIN 3.7 g/dL (3.4-5.0); TOTAL BILIRUBIN 0.3 mg/dL (0.0-1.0)
[2019-04-23 04:02] LABS: FREE T4 (FREE THYROXINE) 3.45 ng/dL (0.76-1.46)
[2019-04-23 04:23] LABS: THYROID STIMULATING HORMONE < 0.01 uIU/mL (0.34-3.74)
[2019-04-23] MEDS ORDERED: levETIRAcetam 1,000 MG in NACL 0.9% 100 ML IV ONE (04:25)
[2019-04-23] MEDS ORDERED: ONDANSETRON 4 MG/2 ML VIAL IVP ONE (04:45)
[2019-04-23] MEDS ORDERED: levETIRAcetam 100 MG/ML VIAL IV ONE (04:45)
[2019-04-23] MEDS ORDERED: MORPHINE SULFATE 4 MG/ML SYR IVP ONE (04:45)
[2019-04-23 05:45] VITALS: BP 102/75
--- NOTE | 2019-04-23 05:45 | NUR ---
PT DISCHARGED WITH PAPERWORK. RX ATIVAN. EDUCATED PT REGARDING MEDICATIONS AND S/E. EDUCATED PT REGARDING D/C DIAGNOSIS. PT VERBALIZED UNDERSTANDING OF TEACHING. TOLD PT TO FOLLOW UP WITH PCP AND WHEN TO RETURN TO ED. PT VSS, NO SEIZURES. ALL QUESTIONS ANSWERED.
--- NOTE | 2019-04-26 07:35 | NUR ---
LATE ENTRY: PULLED OUT ATIVAN 2MG/1ML. PULLED FULL DOSE FROM [employer] BUT WASTED 1MG WITH ANGELINA EPPS RN ON 04/23/19 1084.
== END 2019-04-23 05:45 | disposition home or self-care (01) ==
LOC: MED 01:25
DX: G40.909 Epilepsy, unspecified, not intractable, without status epilepticus (principal); E07.9 Disorder of thyroid, unspecified; Z88.6 Allergy status to analgesic agent; Z88.8 Allergy status to other drugs, medicaments and biological substances; Z79.899 Other long term (current) drug therapy
CPT/HCPCS: 36415; 71045; 80053; 80156; 84439; 84443; 85025; 93005; 96365; 96372; 96375; 99284; J1953; J2060; J2270; J2405; J7030; Q0092

== ENCOUNTER 2019-04-23 18:03 | Inpatient (IN) | payer MEDICAID, OTHER ==
[~2019-04-23] VITALS: Ht 175.3 cm; Wt 75.7 kg
--- NOTE | 2019-04-23 18:03 | NUR ---
GEORGE KOCH ALS TO ER BED 08
[2019-04-23 18:08] VITALS: BP 122/62
--- NOTE | 2019-04-23 18:20 | NUR ---
biba for 2 witnessed seizures at home per ems family states pt had 1 min seizures, about 5 min apart. pt drowsy on arrival , mumbles, but alert to name and verbal stimuli. CA pmh seizures, necratizing fasciatis to rt arm, rt foot drop rx keppra
--- NOTE | 2019-04-23 18:20 | NUR ---
EMT AT BEDSIDE FOR EKG
[2019-04-23] MEDS ORDERED: NACL 0.9% 1,000 ML IV ONE ×2 (18:50→22:30)
[2019-04-23] MEDS ORDERED: MIDAZOLAM 2 MG/2 ML VIAL IM ONE (19:00)
[2019-04-23] MEDS ORDERED: MIDAZOLAM 2 MG/2 ML VIAL ONE (19:06)
[2019-04-23 19:11] LABS: APPEARANCE,URINE CLEAR (CLEAR); BILIRUBIN,URINE NEGATIVE (NEGATIVE); BLOOD, URINE TRACE-I (NEGATIVE); COLOR,URINE YELLOW (YELLOW); LEUKOCYTE ESTERASE ,URINE NEGATIVE (NEGATIVE); NITRITE, URINE NEGATIVE (NEGATIVE); UGLUCOSE NEGATIVE (NEGATIVE)
--- NOTE | 2019-04-23 19:13 | NUR ---
ENDORSED PATIENT TO WILL TRUJILLO IN STABLE CONDITION.
[2019-04-23 19:16] LABS: BASOPHILS # (AUTO) 0.1 K/uL (0.00-0.22); BASOPHILS % (AUTO) 1.6 % (0.0-2.0); EOSINOPHILS % (AUTO) 0.4 % (0.0-4.0); HEMOGLOBIN 13.6 g/dL (12.0-16.0); LYMPHOCYTES # (AUTO) 1.1 K/uL (2.5-16.5); LYMPHOCYTES % (AUTO) 26.4 % (20.5-51.1); MEAN CORPUSCULAR HEMOGLOBIN 27 pg (27-31); MEAN CORPUSCULAR HGB CONC 33 g/dL (33-37); MEAN CORPUSCULAR VOLUME 81.5 fL (80-94); MONOCYTES # (AUTO) 0.5 K/uL (0.8-1.0); MONOCYTES % (AUTO) 12.2 % (1.7-9.3); NEUTROPHILS # (AUTO) 2.4 K/uL (1.8-7.7); NEUTROPHILS % (AUTO) 59.4 % (42.2-75.2); PLATELET COUNT (AUTO) 285 K/uL (140-450); RED BLOOD CELL COUNT(AUTO) 5.03 MIL/uL (4.20-5.40); RED CELL DISTRIBUTION WIDTH 14.2 % (11.6-13.7); WHITE BLOOD COUNT (AUTO) 4.1 K/uL (4.8-10.8)
[2019-04-23 19:20] LABS: BARBITURATE, URINE NEG. ng/ml (NEG <=200); BENZODIAZEPINE, URINE NEG. ng/mL (NEG <=200); CANNABINOID, URINE NEG. ng/mL (NEG <=50); COCAINE, URINE NEG. ng/mL (NEG <=300); OPIATE, URINE NEG. ng/mL (NEG <=2000); PHENCYCLIDINE SCREEN,URINE NEG. ng/mL (NEG <=25)
[2019-04-23 19:21] LABS: RBC,URINE 0-5 /HPF (0-5); WBC,URINE 0-5 /HPF (0-5)
[2019-04-23 19:27] LABS: ANION GAP 14.9 (8-16); CARBON DIOXIDE 25.9 mmol/L (21-32); CREATININE 0.6 mg/dL (0.6-1.3); POTASSIUM 3.8 mmol/L (3.5-5.1)
[2019-04-23 19:42] LABS: ALBUMIN 3.8 g/dL (3.4-5.0); FREE T4 (FREE THYROXINE) 3.77 ng/dL (0.76-1.46); THYROID STIMULATING HORMONE < 0.01 uIU/mL (0.34-3.74); TOTAL BILIRUBIN 0.7 mg/dL (0.0-1.0)
--- NOTE | 2019-04-23 19:46 | NUR ---
Dr. Lobato examining patient.
--- NOTE | 2019-04-23 19:52 | NUR ---
PT AWAKE, LAYING ON BED. C/O OF GENERAL BODY ACHES 04/09. STATES HAVING NAUSEA BUT NO VOMITTING. PT VSS. ERMD AWARE. WILL CONTINUE TO MONITOR.
--- NOTE | 2019-04-23 20:13 | NUR ---
PT STATES IT IS HER NORMAL TIME TO TAKE HER HOME MEDS OF KEPPRA AND TEGRATOL, DR ANGELES MADE AWARE AND OK WITH PT TAKING HOME MEDS.
[2019-04-23] MEDS ORDERED: predniSONE 20 MG TAB PO ONE (20:35)
[2019-04-23] MEDS ORDERED: METHIMAZOLE 5 MG TAB PO SCH (20:35)
[2019-04-23] MEDS ORDERED: COLCHICINE 0.6 MG TAB PO ONE (20:35)
[2019-04-23] MEDS ORDERED: LORazepam 2 MG/ML VIAL IVP PRN (22:15)
[2019-04-23] MEDS ORDERED: ONDANSETRON 4 MG/2 ML VIAL IVP PRN (22:15)
--- NOTE | 2019-04-23 22:50 | NUR ---
PT ADMITTED TO [facility] RM 121B. REPORT GIVEN TO ADAL SOLIS. PT TRANSFERRED TO UNIT [facility] [place]. PT STABLE AT TRANSPORT. PT CARE TRANSFERRED TO ADAL SOLIS.
--- NOTE | 2019-04-23 22:50 | NUR ---
Patient arrived in unit via gurney, accompanied by ASBESTOS BRAKE LINING FINISHER HELPER; patient able to ambulate from gurney to bed with 1-person assist. Patient A/Ox4, able to make needs known, [place] speaking. Introduced self, updated board, oriented patient to room and hospital environment. Chief complaint of seizures, Diagnosis is seizures. No SOB or distress noted, on room air. IV site on left foot, 20 gauge, saline locked. Skin intact. Bed kin the lowest position, call light within reach. Initial assessment done. Will continue to monitor.
[2019-04-23] MEDS: HYDROcodone/APAP 5/325 MG 1 TAB TAB PO PRN (23:17)
[2019-04-24] VITALS (7 sets, daily range): BP systolic 111–134; BP diastolic 57–76
--- NOTE | 2019-04-24 00:05 | NUR ---
Patient found on floor; notified charge nurse, house detective, Dr. Diehl and mother Clary.
--- NOTE | 2019-04-24 00:07 | NUR ---
Called Dr Shanita [facility] oncall, asked to changed Ativan IVP to IM due to IV line was not working
--- NOTE | 2019-04-24 00:10 | NUR ---
Patient noted with seizure, lasted 1 minute and thirty seconds.
[2019-04-24] MEDS: LORazepam 2 MG/ML VIAL IM/IVP PRN ×4 (01:20→20:18)
[2019-04-24] MEDS: ACETAMINOPHEN 325 MG TAB PO PRN ×2 (01:36→01:41)
--- NOTE | 2019-04-24 02:10 | NUR ---
Checks made, no SOB or distress noted.
--- NOTE | 2019-04-24 04:55 | NUR ---
Vitals taken, no distress noted.
[2019-04-24] MEDS: HYDROcodone/APAP 5/325 MG 1 TAB TAB PO PRN ×2 (05:07→08:56)
--- NOTE | 2019-04-24 06:25 | NUR ---
Due meds given, vitals taken. Will endorse to AM shift RN for continuity of care.
--- NOTE | 2019-04-24 07:05 | NUR ---
RECEIVED ENDORSEMENT FROM DIRECT MARKETING MANAGER NURSE. PATIENT IS AAOX4, CITIZEN OF [place] SPEAKING. RESPIRATIONS ARE EVEN AND UNLABORED ON ROOM AIR. PATIENT DENIES ANY PAIN AT THIS TIME. LEFT WRIST 22G IV INTACT, PATENT, AND INFUSING IVF. PATIENT IS LAYING DOWN ON HER CELLPHONE. PATIENT WAS INSTRUCTED NOT TO TRY TO GET UP AND CALL FOR ASSISTANCE. PLAN OF CARE WAS REVIEWED WITH PATIENT, PATIENT VERBALIZED UNDERSTANDING. SAFETY MEASURES IN PLACE, SEIZURE PRECAUTIONS IN PLACE, CALL LIGHT WITHIN REACH.
--- NOTE | 2019-04-24 07:15 | NUR ---
PATIENT STATED THAT HER PAIN IS NOT BEING MANAGED CORRECTLY. PAGED DR. FUCHS TO ADDRESS PATIENTS CONCERNS. PENDING CALL BACK. Addendum: 04/24/19 at 0805 by Brianna Juarez RN PATIENT ALSO REQUESTED NECK BRACE.
--- NOTE | 2019-04-24 08:03 | NUR ---
DR. FUCHS STATED THAT HE WOULD NOT MAKE ANY CHANGES TO PATIENTS PAIN REGIME AT THIS TIME. ALSO STATED THAT NO NECK BRACE BE PROVIDED TO THE PATIENT AT THIS TIME.
--- NOTE | 2019-04-24 08:45 | NUR ---
ASSISTED PATIENT TO BEDPAN. PATIENT INSTRUCTED NOT TO GET UP FROM BED WITHOUT ASSISTANCE AND INSTRUCTED NOT TO DANGLE FEET IN BED. PATIENT VERBALIZED UNDERSTANDING. BED ALARM IS ON.
[2019-04-24] MEDS: levETIRAcetam 500 MG TAB PO SCH ×2 (08:49→20:14)
[2019-04-24] MEDS: DULoxetine 30 MG CAPDR PO SCH (08:49)
[2019-04-24] MEDS: ENOXAPARIN 40 MG/0.4 ML SYR SUBQ SCH (08:50)
[2019-04-24] MEDS: carBAMazepine 200 MG TAB PO SCH ×2 (08:50→20:14)
--- NOTE | 2019-04-24 09:15 | NUR ---
ANSWERED CALL LIGHT AND FOUND PATIENT ON COMMODE. REINFORCED TEACHING TO PATIENT ON NOT GETTING UP WITHOUT ASSISTANCE. NO OTHER NEEDS AT THIS TIME, WILL CONTINUE TO MONITOR.
[2019-04-24] MEDS ORDERED: LEVOTHYROXINE 0.025 MG TAB PO SCH (10:24)
[2019-04-24] MEDS: HYDROcodone/APAP 10/325 MG 1 TAB TAB PO PRN ×3 (11:29→20:25)
--- NOTE | 2019-04-24 11:29 | NUR ---
ADMINISTERED SCHEDULED MEDICATIONS. PATIENT TOLERATED WELL. NO OTHER NEEDS AT THIS TIME, WILL CONTINUE TO MONITOR.
--- NOTE | 2019-04-24 13:10 | NUR ---
PATIENT LAYING DOWN IN BED ON HER PHONE. DENIES ANY PAIN. NO OTHER NEEDS AT THIS TIME, WILL CONTINUE TO MONITOR.
--- NOTE | 2019-04-24 14:05 | NUR ---
RECEIVED ORDERS FROM DR. FUCHS FOR PATIENT. PATIENT IS RESTING IN BED. NO OTHER NEEDS AT THIS TIME. Addendum: 04/24/19 at 1702 by Brianna Juarez RN PER MARQUISE ORDER FROM SHILA PINEDA TO ADMINISTER ATIVAN IVP FOR ANXIETY. WRONG INPUT ON EMAR.
[2019-04-24] MEDS: METOPROLOL 5 MG/5 ML VIAL IV PRN ×2 (14:33→20:18)
--- NOTE | 2019-04-24 14:50 | NUR ---
RECEIVED ORDERS FROM DR. FUCHS FOR PATIENT. Addendum: 04/24/19 at 1509 by Brianna Juarez RN WRONG ENTRY
--- NOTE | 2019-04-24 15:42 | NUR ---
PAGED DR. FUCHS FOR PATIENTS PERSISTENT TACHYCARDIA. PENDING CALL BACK
[2019-04-24] MEDS ORDERED: LORazepam 2 MG/ML VIAL IVP PRN (15:45)
--- NOTE | 2019-04-24 15:46 | NUR ---
PER DR. FUCHS, NO CHANGE TO DRUG REGIME FOR TACHYCARDIA
[2019-04-24 15:54] LABS: BASOPHILS % (AUTO) 1.1 % (0.0-2.0); EOSINOPHILS % (AUTO) 0.5 % (0.0-4.0); HEMATOCRIT 36.3 % (36-48); LYMPHOCYTES # (AUTO) 2.1 K/uL (2.5-16.5); LYMPHOCYTES % (AUTO) 48.3 % (20.5-51.1); MEAN CORPUSCULAR HEMOGLOBIN 27 pg (27-31); MEAN CORPUSCULAR HGB CONC 33 g/dL (33-37); MEAN CORPUSCULAR VOLUME 82.3 fL (80-94); MONOCYTES # (AUTO) 0.5 K/uL (0.8-1.0); MONOCYTES % (AUTO) 11.3 % (1.7-9.3); NEUTROPHILS # (AUTO) 1.6 K/uL (1.8-7.7); NEUTROPHILS % (AUTO) 38.8 % (42.2-75.2); PLATELET COUNT (AUTO) 255 K/uL (140-450); RED BLOOD CELL COUNT(AUTO) 4.41 MIL/uL (4.20-5.40); RED CELL DISTRIBUTION WIDTH 14.4 % (11.6-13.7); WHITE BLOOD COUNT (AUTO) 4.3 K/uL (4.8-10.8)
[2019-04-24 16:04] LABS: ANION GAP 14.9 (8-16); CREATININE 0.5 mg/dL (0.6-1.3); POTASSIUM 3.9 mmol/L (3.5-5.1)
[2019-04-24 16:08] LABS: MAGNESIUM 1.3 mg/dL (1.8-2.4); PHOSPHORUS 5.4 mg/dL (2.5-4.9)
--- NOTE | 2019-04-24 16:21 | NUR ---
ADMINISTERED ATIVAN PRN IVP FOR SEIZURE. SEIZURE LASTED APPROXIMATELY 1 MIN. PATIENT WAS TURNED TO HER SIDE. PATIENT SOILED HERSELF. VS ARE STABLE, DID NOT BITE TONGUE. PATIENT REGAINED CONSCIOUSNESS AND WAS CONFUSED TO HER WHEREABOUTS. PATIENT IS STABLE AT THIS TIME.
--- NOTE | 2019-04-24 16:24 | NUR ---
PAGED DR. FUCHS FOR MAG OF 1.3. PENDING CALL BACK. Addendum: 04/24/19 at 1626 by Brianna Juarez RN CALL BACK FROM DR. FUCHS, NO NEW ORDERS RECEIVED.
--- NOTE | 2019-04-24 17:30 | NUR ---
PATIENT REQUESTED "A PAIN SHOT" PATIENT IS VERY LETHARGIC. EDUCATED PATIENT ON SIDE EFFECT OF NARCOTICS. NO OTHER NEEDS AT THIS TIME.
--- NOTE | 2019-04-24 19:15 | NUR ---
ENDORSED TO GLASS BLOWER HELPER NURSE FOR CONTINUITY OF CARE. PATIENT IS STABLE AT THIS TIME.
--- NOTE | 2019-04-24 19:16 | NUR ---
RECEIVED BEDSIDE REPORT FORM DAY SHIFT NURSEJUAREZ. NO S/S OF SOB NOTED. SKIN INTACT, WARM AND DRY TO TOUCH. IV SITE ON LEFT WRIST, 22G, PATENT, INTACT, AND ASYMPTOMATIC. PT IN SEIZURE PRECAUTION. PT C/O 04/09 NECK PAIN AND ASKING STRONGER PAIN MEDICATION THAN NORCO. WILL NOTIFY TO DR. GARCÍA REVIEWED AND DISCUSSED WITH PT. PT VERBALIZED UNDERSTANDING. BOARD UPDATED. BED IN LOW POSITION, CALL LIGHT WITHIN REACH. Addendum: 04/25/19 at 0533 by Vanna Poole RN ACCORDING TO DAY SHIFT NURSEJUAREZ, PT C/O 04/09 PAIN AND REQUESTING STRONGER PAIN MED THAN NORCO. DAY SHIFT RN WAS NOT ABLE TO TALK TO TO GET ORDER.
[2019-04-24] MEDS: AMITRIPTYLINE 25 MG TAB PO SCH (20:17)
--- NOTE | 2019-04-24 20:25 | NUR ---
PT IN SEIZURE, GIVEN ATIVAN MD ORDERED, PT IN STABLE SOON. VS CHECKED, HR 134, GIVEN METOPROLOL MD PRN ORDERED, HELD ELAVIL D/T PT REFUSED, EXPLAIN BENEFIT AND RISK 3 TIMES, PT STILL REFUSED. GIVEN KEPPRA AND TEGRETOL MD ORDERED. PT C/O PAIN 6/10 PAIN, GIVEN NORCO MD ORDERED. PT TOLERATED WELL. WILL CONTINUE TO MONITOR.
--- NOTE | 2019-04-24 21:00 | NUR ---
PT STILL C/O PAIN AND REQUESTING STRONGER PAIN MEDICATION, PAGED AND NOTIFIED TO GRAVITY PROSPECTING OPERATOR DR. CUNNINGHAM AND RECEIVED ONE TIME PRN MORPHINE 2MG ORDER.
--- NOTE | 2019-04-24 21:18 | NUR ---
REASSESSED PT'S VITAL SIGN, 118/61, 105 NOTED. WILL CONTINUE TO MONITOR. Addendum: 04/25/19 at 0538 by Vanna Poole RN PT AWARE PT HAS ONE TIME PRN MORPHINE ORDER. PT STATES THAT NO MORE PAIN AND WILL CALL RN IF PAIN COMES BACK. HELD MORPHINE FOR NOW.
[2019-04-24] MEDS ORDERED: MORPHINE SULFATE 2 MG/ML SYR IVP PRN (21:45)
--- NOTE | 2019-04-24 22:11 | NUR ---
CHANGED PT AND BED SHEET WITH RIC DUARTE.
[2019-04-25] VITALS: BP 110/63
--- NOTE | 2019-04-25 | NUR ---
VS CHECKED, WITHIN PT'S BASELINE. WILL CONTINUE TO MONITOR.
--- NOTE | 2019-04-25 02:25 | NUR ---
PT SLEEPING IN BED. BREATHING EVEN AND UNLABORED. BED IN LOW POSITION, CALL LIGHT WITHIN REACH.
[2019-04-25 04:00] VITALS: BP 129/73
--- NOTE | 2019-04-25 04:45 | NUR ---
PT SLEEPING IN BED. NO ACUTE DISTRESS NOTED AT THIS TIME. WILL CONTINUE TO MONITOR.
[2019-04-25] MEDS: LEVOTHYROXINE 0.025 MG TAB PO SCH (06:51)
--- NOTE | 2019-04-25 06:51 | NUR ---
GIVEN SYNTHROID MD ORDERED. PT TOLERATED WELL. WILL CONTINUE TO MONITOR.
--- NOTE | 2019-04-25 07:09 | NUR ---
RN READ 'S REPORT AND PLAN THAT NORCO IS PAIN MED FOR PT AND CAUTION FOR HIGH DOSE OPIOID. D/C ONE TIME PRN MORPHINE.
--- NOTE | 2019-04-25 07:15 | NUR ---
RECEIVED REPORT FROM VISITING TEACHER NURSE. PATIENT IS SLEEPING IN BED. SEIZURE PRECAUTIONS ARE INITIATED. PATIENT IS ON ROOM AIR, NO SIGNS OF RESP DISTRESS. NOTIFIED PATIENT TO CALL IF ANYTHING IS NEEDED.
[2019-04-25 08:00] VITALS: BP 119/46
[2019-04-25] MEDS: DULoxetine 30 MG CAPDR PO SCH (08:07)
[2019-04-25] MEDS: carBAMazepine 200 MG TAB PO SCH ×2 (08:08→20:49)
[2019-04-25] MEDS: ENOXAPARIN 40 MG/0.4 ML SYR SUBQ SCH (08:08)
[2019-04-25] MEDS: levETIRAcetam 500 MG TAB PO SCH ×2 (08:08→20:48)
--- NOTE | 2019-04-25 08:09 | NUR ---
ADMINISTERED MORNING MEDICATION. PATIENT TOLERATED WELL. PATIENT REFUSED MORNING DOSE OF LOVENOX
--- NOTE | 2019-04-25 08:15 | NUR ---
PATIENT HAS BEEN SCREENED AND CATEGORIZED LOW NUTRITION RISK. PATIENT WILL BE SEEN WITHIN 7 DAYS OF ADMISSION. 04/30/[address]
--- NOTE | 2019-04-25 08:20 | NUR ---
ADMINISTERED PAIN MEDICATION FOR HEAD PAIN 02/07. WILL RE ASSESS. PATIENT IS SITTING UP IN BED EATING BREAKFAST.
[2019-04-25] MEDS: LORazepam 2 MG/ML VIAL IM/IVP PRN ×2 (09:27→17:57)
[2019-04-25] MEDS: METOPROLOL 5 MG/5 ML VIAL IV PRN ×2 (09:27→11:07)
--- NOTE | 2019-04-25 09:30 | NUR ---
PATIENT RECEIVED METOPROLOL PRN FOR HR 138. PATIENT HAD 2X SEIZURE ACTIVITY. ATIVAN PRN WAS ADMINISTERED IVP.
[2019-04-25] MEDS ORDERED: KEP500 PO (10:36)
[2019-04-25] MEDS ORDERED: levETIRAcetam 500 MG in NACL 0.9% 100 ML IV SCH (11:00)
[2019-04-25] MEDS ORDERED: levETIRAcetam 500 MG TAB PO SCH (11:00)
--- NOTE | 2019-04-25 11:00 | NUR ---
ALL PERIPHERAL IV LINES DC D/T THEM COMING OUT DURING SEIZURE ACTIVITY. PATIENT STATED "I DONT WANT TO BE POKED ANYMORE" PT AWARE DISCHARGE ORDERS ARE IN PROGRESS. WILL CONTINUE TO MONITOR
[2019-04-25] MEDS: HYDROcodone/APAP 10/325 MG 1 TAB TAB PO PRN ×3 (11:33→20:49)
[2019-04-25 12:00] VITALS: BP 125/71
--- NOTE | 2019-04-25 13:02 | NUR ---
ADMINISTERED NORCO FOR PAIN. PATIENT DROPPED THE FIRST TABLET. WASTED PROPERLY IN PYXSUS WITH A WITNESS NURSE.
[2019-04-25 16:00] VITALS: BP 148/90
--- NOTE | 2019-04-25 16:00 | NUR ---
SPOKE TO DR FUCHS AND WAS TOLD TO ORDER CARDIO CONSULT WITH DR ABEL. PUT IN ORDERS AND SPOKE TO DR ABEL. WAS NOTIFIED HE WOULD ARRIVE IN THE NEXT HOUR. WILL CONTINUE TO MONITOR
--- NOTE | 2019-04-25 16:12 | NUR ---
CALLED PT INSURANCE SPOKE WITH SALOMÓN ,FAXED ALL THE REQUEST, FOR GLASS HANDLER WITH DR WASHINGTON [phone] THE ADDRESS IS [address] [place] [phone] , PROVIDE THE AUTHORIZATION TO THE PATIENT FOR THE NEURO WITH AMANDEEP NOVOA AND. ARRANGED HOME HEALTH WITH [facility] [phone] SPOKE WITH [employer] PROVIDE THE AUTH # [id number] THE WILL F/U TOMORROW.
--- NOTE | 2019-04-25 17:50 | NUR ---
ADMINISTERED ATIVAN PER PATIENT FOR SEIZURE ACTIVITY. NO SIGNS OF RESP DISTRESS. PATIENT IS SITTING UP IN BED
--- NOTE | 2019-04-25 18:29 | NUR ---
PRESENT UPON CARDIO CONSULT WITH DR ABEL. PER DR ABEL, PATIENT IS CLEARED FOR DISCHARGE. AWAITING PATIENTS MOTHER FOR POLICE OFFICER CRIME PREVENTION. PAPERWORK SIGNED AND COMPLETED. WILL ENDORSE TO VOCATIONAL REHABILITATION TEACHER NURSE
--- NOTE | 2019-04-25 19:15 | NUR ---
RECEIVED BEDSIDE REPORT FROM AM SHIFT RN CASEY, FOR PT'S CONTINUITY OF CARE. PT IS TO DISCHARGE TO HOME, AWAITING FOR MOTHER FOR P/U. PT IS ON ALERT, AWAKE, ORIENTED X 4, SITTING ON CHAIR WHILE BED LINENS ARE BEING CHANGED BY HEAD OF TRANSPORT LOGISTICS. PT IS ON RA, ON TELEMETRY MONITORING, HAS LEFT HAND 22G, DENIES ANY PAIN AT THIS TIME, REQUESTED FOR, AND GIVEN SOME SNACKS. PT IS IN STABLE CONDITION. EXPLAINED TO PT CARDIAC NURSE PRACTITIONER ROUTINE, AND VERBALIZED UNDERSTANDING. WILL MONITOR PT THROUGHOUT SHIFT.
--- NOTE | 2019-04-25 19:40 | NUR ---
WAS CALLED IN TO BEDSIDE, PT WAS FOUND ON THE FLOOR, WITH NO SIGNS OF SEIZURE ACTIVITY, BUT APPEARED TO BE SEMI CONSCIOUS, BY THE SIDE OF THE BED. CARRIED PT TO THE BED WITH HELP OF OTHER RN'S, VITAL SIGNS WERE CHECKED: T 98.9, BP 108/55, O2 98%, RR 19, P 126. INDUSTRIAL DIAMOND POLISHER AND OPENER AWARE. PT HAD DISCHARGE ORDERS, BUT CHANGED BACK TO HOSPITAL GOWN. FALL AND SEIZURE PRECAUTION AND PREVENTION IN PLACE. WILL NOTIFY MD OF THE INCIDENT.
[2019-04-25 20:00] VITALS: BP 108/55
--- NOTE | 2019-04-25 20:00 | NUR ---
PAGED AND RECEIVED CALL FROM DR. FREITAS. NO NEW ORDERS, REQUESTED FOR DR. FUCHS TO BE CALLED. WILL PAGE DR. FUCHS AND FOLLOW UP.
[2019-04-25] MEDS: AMITRIPTYLINE 25 MG TAB PO SCH (20:48)
--- NOTE | 2019-04-25 20:50 | NUR ---
PAGED DR. FREITAS FOR FURTHER ORDERS AT 2034. STILL AWAITING FOR CALL BACK. ADMINISTERED SCHEDULED PO MEDICATIONS ORDERED. PT C/O OF GEN BODY PAIN 04/09, ADMINISTERED PO PAIN MEDICATION ORDERED. WILL CONTINUE TO MONITOR PT.
--- NOTE | 2019-04-25 21:05 | NUR ---
PT'S MOTHER AT BEDSIDE, EXPLAINED THE INCIDENT, MADE AWARE THAT WE ARE AWAITING FOR FURTHER ORDERS FROM MD. PT MORE ALERT, AWAKE, AND ORIENTED X 4. ADMINISTERED SCHEDULED PO MEDICATIONS ORDERED. PT TOLERATED THEM WELL. PAGED AND RECEIVED CALL FROM DR. FREITAS, NO CALL FROM DR. FUCHS, PER MD, HOLD DISCHARGE ORDER UNTIL TOMORROW AND NOTIFY DR. MARTÍNEZ FOR FURTHER INSTRUCTIONS/ORDERS.
--- NOTE | 2019-04-25 21:25 | NUR ---
PAGED AND RECEIVED CALL FROM DR. MARTÍNEZ. MADE AWARE, AND NO NEW ORDERS.
--- NOTE | 2019-04-25 21:32 | NUR ---
RECEIVED CALL FROM DR. MARTÍNEZ, NEW ORDER OF LEVETIRACETAM 1,000 MG IVPB TO BE ADMINISTERED ONCE. WILL CARRY OUT ORDER.
[2019-04-25] MEDS ORDERED: levETIRAcetam 1,000 MG in NACL 0.9% 100 ML IV SCH (22:15)
[2019-04-25] MEDS ORDERED: levETIRAcetam 100 MG/ML VIAL IV ONE (23:00)
--- NOTE | 2019-04-25 23:20 | NUR ---
ADMINISTERED IV PIGGYBACK KEPPRA ORDERED. PT LYING DOWN, ASLEEP WITH NO SIGNS OF DISTRESS. VS CHECKED AND CHARTED. WILL CONTINUE TO MONITOR PT.
--- NOTE | 2019-04-25 23:20 | NUR ---
ADMINISTERED LEVETIRACETAM 1,000 MG IVPB ORDERED. PT ASLEEP, WITH NO SIGNS OF DISTRESS. VITAL SIGNS CHECKED AND CHARTED. WILL CONTINUE TO MONITOR PT.
[2019-04-26] VITALS: BP 104/55
--- NOTE | 2019-04-26 01:35 | NUR ---
MADE ROUNDS. PT LYING DOWN, ASLEEP, WITH NO SIGNS OF DISTRESS. WILL CONTINUE TO MONITOR PT.
--- NOTE | 2019-04-26 03:32 | NUR ---
VS CHECKED AND CHARTED. PT LYING DOWN ASLEEP, WOKE UP AND REQUESTED FOR SANDWICH.
[2019-04-26 04:00] VITALS: BP 109/72
--- NOTE | 2019-04-26 05:00 | NUR ---
MADE ROUNDS. PATIENT LYING DOWN ASLEEP, WITH NO SIGNS OF DISTRESS. WILL CONTINUE TO MONITOR PT.
[2019-04-26] MEDS: LEVOTHYROXINE 0.025 MG TAB PO SCH (06:12)
--- NOTE | 2019-04-26 06:13 | NUR ---
PATIENT ASLEEP. WOKE UP FOR MEDICATION. ADMINISTERED SCHEDULED PO MEDICATION ORDERED. PATIENT HAS NO C/O PAIN OR DISTRESS. WILL ENDORSE PT TO AM SHIFT RN FOR PT'S CONTINUITY OF CARE.
--- NOTE | 2019-04-26 06:25 | NUR ---
SPOKE WITH PT'S MOTHER, NOTIFIED FOR UPDATE RE:PT'S CONDITION THROUGHOUT SHIFT. STATED SHE WILL COME DURING THE DAY TO SPEAK WITH MD FOR POSSIBLE TRANSFER TO ANOTHER HOSPITAL. WILL ENDORSE TO AM SHIFT RN.
--- NOTE | 2019-04-26 06:55 | NUR ---
PT C/O NECK PAIN 04/09, AND REQUESTED FOR PAIN MEDICATION. ADMINISTERED PO PAIN MEDICATION ORDERED. WILL ENDORSE TO AM SHIFT RN FOR PAIN REASSESSMENT.
--- NOTE | 2019-04-26 07:16 | NUR ---
LATE ENTRY: AT 0420 LORAZEPAM 2MG/1ML PULLED FROM PYXIS. 1MG GIVEN IV. WASTED WITH ANGELINA EPPS RN.
[2019-04-26] MEDS: HYDROcodone/APAP 10/325 MG 1 TAB TAB PO PRN ×4 (07:18→21:08)
--- NOTE | 2019-04-26 07:20 | NUR ---
RECEIVED BEDSIDE REPORT FROM CNC MACHINIST 2ND SHIFT NURSE FOR CONTINUITY OF CARE. PATIENT IS SLEEPING ON BED AT THIS TIME. AROUSABLE TO VOICE. RESPIRATION EVEN AND UNLABORED ON RA. DENIED PAIN AT THIS TIME. NO SIGNS OF DISTRESS NOTED. NO IV SITE. NECK SUPPORT BY NECK COLLAR. SKIN INTACT AND CLEAN. PATIENT IS CONTINENT AND AMBULATE WITH ASSIST. BEDSIDE COMMODE IN PLACE. FALL RISK PROTOCOL AND SEIZURE PROTOCOL IN PLACE. DISCUSSED PLAN OF CARE WITH PATIENT, AND PATIENT VERBALIZED OK. SAFETY MEASURES IN PLACE. BED IN LOW POSITION AND CALL LIGHT WITHIN REACH. BED ALARM ACTIVATED. INSTRUCTED PATIENT TO USE THE CALL LIGHT FOR ANY ASSISTANCE AND PATIENT WAS AWARE.
[2019-04-26 08:00] VITALS: BP 115/57
[2019-04-26] MEDS: levETIRAcetam 500 MG TAB PO SCH ×2 (09:02→19:56)
[2019-04-26] MEDS: DULoxetine 30 MG CAPDR PO SCH (09:02)
[2019-04-26] MEDS: carBAMazepine 200 MG TAB PO SCH ×2 (09:03→19:57)
[2019-04-26] MEDS: ENOXAPARIN 40 MG/0.4 ML SYR SUBQ SCH (09:04)
--- NOTE | 2019-04-26 09:04 | NUR ---
ADMINISTERED MEDS PER MD ORDER, PATIENT TOLERATED WELL. MEDS EDUCATION PROVIDED TO PATIENT AND PATIENT VERBALIZED UNDERSTANDING. PATIENT AWAKE AND RESTING ON BED. NO SIGNS OF DISTRESS NOTED. NECK SUPPORTER IN PLACE. TELE MONITOR ATTACHED. SAFETY MEASURES IN PLACE. BED IN LOW POSITION AND CALL LIGHT WITHIN REACH. BED ALARM ACTIVATED. INSTRUCTED PATIENT TO USE THE CALL LIGHT FOR ANY ASSISTANCE AND PATIENT VERBALIZED OK.
--- NOTE | 2019-04-26 09:25 | NUR ---
PATIENT AWAKE AND TALKING TO MOTHER FAY AT BEDSIDE. NO SIGN OF DISTRESS NOTED. SAFETY MEASURES IN PLACE. BED IN LOW POSITION AND CALL LIGHT WITHIN REACH. TELE MONITOR ATTACHED.
--- NOTE | 2019-04-26 10:03 | NUR ---
RECEIVED A CALL BACK FROM DR MARTÍNEZ. PER DR MARTÍNEZ, HE HAS SPOKE TO DR ANGELINA FUCHS ON REGARDS OF THE CARE PLAN AND IF PATIENT IS FREE FROM SEIZURE WITHIN 24 HOURS, SHE IS MEDICALLY CLEAR FOR DISCHARGE. NOTIFIED ABOVE INFORMATION TO TURF AND GROUNDS SUPERVISOR.
[2019-04-26] MEDS: LORazepam 2 MG/ML VIAL IM/IVP PRN (10:44)
--- NOTE | 2019-04-26 10:44 | NUR ---
PATIENT HAD A SEIZURE, VITAL SIGNS TAKEN TEMP 98.2, BP 101/82, PULSE 131, SPO2 97% ON RA, RR 18. MOTHER FAY IS BEDSIDE. DR FUCHS CAME AND SAW PATIENT AT BEDSIDE. PER DR FUCHS ADMINISTER ATIVAN. ADMINISTERED ATIVAN PER MD ORDER VIA IV PUSH. PATIENT OPENS HER EYES TO VOICE AND AROUSABLE TO VOICE. SAFETY MEASURES IN PLACE.
--- NOTE | 2019-04-26 10:45 | NUR ---
MET WITH FAY PATIENT'S MOTHER AND PT AT THE BED SIDE DISCUSSING THE ISSUE AND CONCERN REGARDING PT'S CONDITION, FAY STATED SHE WANTED PT TO BE TRANSFERRED TO [facility] FOR HER CONTINUOUS SZ. DR FUCHS VISITING PT AND DISCUSS THE ISSUE WITH THEM. DR FUCHS EXPLAINED THE NEUROLOGIST RECOMMENDATION THAT IF SZ FREE FOR 24 HRS PT CAN BE D/C HOME AND F/U WITH NEUROLOGIST AND GLOBAL ACCOUNT MANAGER. FAY AGREED TO STAY 24 HRS.
--- NOTE | 2019-04-26 11:00 | NUR ---
I WAS TOLD FROM THE PRIMARY NURSE THAT PT HAS SZ , DR FUCHS WITH THE PATIENT MANAGING THE CARE. CONTACTED DR SAINI DISCUSSED WITH DR FUCHS AND NEW ORDER TO TRANSFER TO HIGHER LEVEL OF CARE FOR VIDEO EEG . FAXED TO [facility] AND GIOVANNI RICH AND WILL F/U .
--- NOTE | 2019-04-26 11:29 | NUR ---
I RECEIVED A CALL FROM [facility] SPOKE WITH RHIANNON MARTÍNEZ 'S CELL PHONE
--- NOTE | 2019-04-26 11:40 | NUR ---
PATIENT COMPLAINED SHE HAS 6/10 PAIN ON HER NECK AND SHOULDER, ADMINISTERED PRN PAIN MED NORCO, MED EDUCATION PROVIDED TO PATIENT, PATIENT TOLERATED WELL. PATIENT IS SITTING UP ON BED AND TALKING TO MOTHER FAY AT BEDSIDE. NO SIGNS OF DISTRESS NOTED. SAFETY MEASURES IN PLACE. TELE MONITOR ATTACHED. BED IN LOW POSITION AND CALL LIGHT WITHIN REACH. BED ALARM ACTIVATED. SEIZURE PRECAUTION IN PLACE AND BOTH SIDE RAILS PADDED. INSTRUCTED PATIENT TO USE THE CALL LIGHT FOR ANY ASSISTANCE AND PATIENT WAS AWARE.
[2019-04-26 12:00] VITALS: BP 119/72
[2019-04-26] MEDS ORDERED: MAG SULF 2000 MG/WATER PREMIX 50 ML IV SCH (13:30)
--- NOTE | 2019-04-26 13:40 | NUR ---
ADMINISTERED MED PER MD ORDER, PATIENT TOLERATED WELL. MED EDUCATION PROVIDED TO PATIENT AND PATIENT'S MOTHER AFY AT BEDSIDE. PATIENT IS TALKING TO MOTHER FAY. NO SIGNS OF DISTRESS NOTED. SAFETY MEASURES IN PLACE. BED IN LOW POSITION AND CALL LIGHT WITHIN REACH. INSTRUCTED PATIENT TO USE THE CALL LIGHT FOR ANY ASSISTANCE AND PATIENT WAS AWARE.
--- NOTE | 2019-04-26 13:43 | NUR ---
RECEIVED A CALL FROM [employer] STATED THEY ARE NOT CONTRACTED WITH [facility] ,TO TRY [facility] . FAXED ALL THE REQUEST TO [facility] BED COORDINATOR. PER TIKI LORENZANA [place] [facility] THE VIDEO EEG HAS TO BE ICU BED AND THEY DON'T HAVE BED AND WILL CALL BACK WHEN BED AVAILABLE. CALLED [facility] SPOKE WITH SALOMÓN ROSADO NOTIFIED NO BED AVAILABLE AT THIS TIME AND NOTIFIED HER THAT [facility] IS WILLING TO TAKE THAT PATIENT. PER SALOMÓN SHE WILL HAVE A MEETING WITH THE WELDER REPAIR TO DISCUSS THE CASE AND WILL CALL BACK WITH THE DECISION. ALONZO TO FOLLOW
--- NOTE | 2019-04-26 14:45 | NUR ---
PATIENT COMPLAINED THAT NORCO DOES NOT HELP HER PAIN. SHE HAS SEVERE PAIN 8/10 ON HER NECK AND SHOULDER. INFORMED PATIENT AND PATIENT'S MOTHER FAY THAT I WILL PAGE DR FUCHS. BOTH VERBALIZED OK. PAGED DR FUCHS ON REGARDS.
--- NOTE | 2019-04-26 14:54 | NUR ---
PAGED DR FUCHS.
--- NOTE | 2019-04-26 14:57 | NUR ---
RECEIVED A CALL BACK FROM DR FUCHS AND INFORMED DR FUCHS THAT PATIENT COMPLAINED OF SEVERE PAIN ON HER NECK AND SHOULDER 04/09. PER DR FUCHS, ORDER 4MG PRN Q4H FOR PAIN 7-10. RECEIVED TELEPHONE ORDER; REPEATED ORDER AND CONFIRMED ORDER WITH DR FUCHS.
--- NOTE | 2019-04-26 15:15 | NUR ---
PATIENT COMPLAINED 8/10 PAIN ON HER NECK AND SHOULDER, ADMINISTERED PRN PAIN MED MORPHINE VIA IVP, PATIENT TOLERATED WELL. MED EDUCATION PROVIDED TO PATIENT AND PATIENT'S MOTHER FAY AT BEDSIDE. NO SIGNS OF DISTRESS NOTED. SAFETY MEASURES IN PLACE. BED IN LOW POSITION AND CALL LIGHT WITHIN REACH.
[2019-04-26] MEDS: MORPHINE SULFATE 4 MG/ML SYR IVP PRN ×2 (15:16→19:53)
--- NOTE | 2019-04-26 15:22 | NUR ---
RECEIVED A CALL FROM [employer] , AFTER THE DISCUSSION WITH THE [facility] [employer] STAFF OFFICER OK TO GO TO [facility] AUTH [id number] AND FOR TRANSPORT AMR [id number] . I CALLED [facility] SPOKE WITH FE GRIMM SHE IS ASKING LETTER OF AGREEMENT. I CALLED BACK SALOMÓN FROM INSURANCE THEY DON'T AGREE TO WRITE THE [facility]ENT[facility] FOR THEM INSTEAD TO FAX TO OTHER HOSPITAL. FAXED THE PAPER WORK TO [facility] WHICH ARE CONTRACTED WITH [employer]. ROSIE APONTE PT'S MOTHER DOESN'T WANT [facility] .
--- NOTE | 2019-04-26 15:44 | NUR ---
PER TOVA (INTAKE) AT [facility] [phone], THEY DO NOT HAVE VIDEO EEG.
--- NOTE | 2019-04-26 15:45 | NUR ---
I RECEIVED A CALL FROM [facility] SPOKE WITH ANGELINA GRIMM STATED SPOKE WITH THEIR NEUROLOGIST AND THEY DON'T HAVE VIDEO EEG
[2019-04-26 16:00] VITALS: BP 119/56
--- NOTE | 2019-04-26 16:38 | NUR ---
PATIENT COMPLAINED 5/10 PAIN AROUND HER SHOULDERS AND NECK, ADMINISTERED PRN PAIN MED NORCO, PATIENT AWAKE AND RESTING ON BED. MED EDUCATION PROVIDED TO PATIENT AND PATIENT VERBALIZED UNDERSTANDING. SAFETY MEASURES IN PLACE. BED IN LOW POSITION AND CALL LIGHT WITHIN REACH. TELE MONITOR ATTACHED. BED ALARM ACTIVATED.
--- NOTE | 2019-04-26 16:43 | NUR ---
CHECKED WITH [facility] SPOKE WITH JOSSE ANDERSON STATED THEY HAVE 2 VIDEO BUT THEY ARE IN USE. CALLED BACK SALOMÓN ROSADO [facility] STATED WILL PRESENT THE CASE TOMORROW TO THE DIRECTOR GRAPHICS. ALONZO TO F/U
--- NOTE | 2019-04-26 17:20 | NUR ---
ASSISTED PATIENT TO USE THE BEDSIDE COMMODE AND POSITION ON BED COMFORTABLY. NO SIGNS OF DISTRESS NOTED. TELE MONITOR ATTACHED. SAFETY MEASURES IN PLACE. BED IN LOW POSITION AND CALL LIGHT WITHIN REACH. BED ALARM ACTIVATED.
--- NOTE | 2019-04-26 19:15 | NUR ---
ENDORSED PATIENT AT BEDSIDE TO MECHANICAL INSPECTOR NURSE FOR CONTINUITY OF CARE. PATIENT IS AWAKE AND RESTING ON BED. NO SIGNS OF DISTRESS NOTED. PATIENT IS IN STABLE CONDITION. TELE MONITOR ATTACHED. SAFETY MEASURES IN PLACE. BED IN LOW POSITION AND CALL LIGHT WITHIN REACH. BED ALARM ACTIVATED.
--- NOTE | 2019-04-26 19:30 | NUR ---
RECEIVED BEDSIDE REPORT FROM DAY RN. AAO X4. RESPIRATION EVEN AND UNLABORED ON RA. SKIN INTACT AND CLEAN. IV ON L HAND 24G SL. PATIENT IS CONTINENT AND AMBULATE WITH ASSIST ON FALL PRECAUTION FOR WEAKNESS. BEDSIDE COMMODE IN PLACE. SEIZURE PROTOCOL IN PLACE BED SIDE RAILES UPX2 AND PADDED. DISCUSSED PLAN OF CARE WITH PATIENT. SAFETY MEASURES IN PLACE. BED IN LOW POSITION AND CALL LIGHT WITHIN REACH. BED ALARM ACTIVATED. INSTRUCTED PATIENT TO USE THE CALL LIGHT FOR ANY ASSISTANCE AND PATIENT WAS AWARE.
[2019-04-26] MEDS: AMITRIPTYLINE 25 MG TAB PO SCH (19:57)
[2019-04-26 20:00] VITALS: BP 123/72
--- NOTE | 2019-04-26 20:01 | NUR ---
VITAL SIGNS ARE WITHIN NORMAL LIMITS. SARAH MEDICATIONS GIVEN. MORPHINE GIVEN FOR NECK PAIN 7/1O. ALL NEEDS MET AT THIS TIME. CALL LIGHT IS WITHIN REACH. MOTHER IS AT BEDSIDE.
--- NOTE | 2019-04-26 21:00 | NUR ---
ASSISTED PT TO THE BEDSIDE COMMODE PT TOLERATED WELL BUT HAS UNSTEADY GAIT. PER PATIENT SHE USES CRUTCHES AT HOME. BED ALARM ON AND CALL LIGHT IS WITHIN REACH. WILL CONTINUE TO MONITOR.
--- NOTE | 2019-04-26 22:30 | NUR ---
PATIENT SLEEPING COMFORTABLY IN BED. CHEST RISE AND FALL. SAFETY MEASURES ARE IN PLACE. WILL CONTINUE TO MONITOR.
[2019-04-27] VITALS: BP 108/64
--- NOTE | 2019-04-27 | NUR ---
VITAL SIGNS ARE WITHIN NORMAL LIMITS. ALL NEEDS MET AT THIS TIME. CALL LIGHT IS WITHIN REACH.
[2019-04-27] MEDS: MORPHINE SULFATE 4 MG/ML SYR IVP PRN ×5 (00:54→23:35)
--- NOTE | 2019-04-27 01:10 | NUR ---
IV WAS ACCIDENTLY PULLED OUT WHILE PT WAS SLEEPING. POSITION CLASSIFICATION MANAGER ATTEMPTED TO START NEW IV BUT WAS NOT ABLE TO. CALL ER. THEY WILL SEND SOMEONE TO HELP START IV. NO S/S OF DISTRESS. WILL CONTINUE TO MONITOR.
--- NOTE | 2019-04-27 03:01 | NUR ---
PATIENT IS SLEEPING COMFORTABLY IN BED. RESPIRATIONS ARE EQUAL AND UNLABORED. CHEST RISE AND FALL. SAFETY MEASURES ARE IN PLACE. WILL CONTINUE TO MONITOR.
[2019-04-27 04:00] VITALS: BP 100/52
[2019-04-27] MEDS: LEVOTHYROXINE 0.025 MG TAB PO SCH (05:33)
--- NOTE | 2019-04-27 05:33 | NUR ---
NEW IV STARTED ON L WRIST 24G SARAH MEDICATIONS GIVEN. ADMINISTERED MORPHINE FOR 7/10 NECK PAIN. CALL LIGHT IS WITHIN REACH WILL CONTINUE TO MONITOR.
--- NOTE | 2019-04-27 07:20 | NUR ---
GAVE BEDSIDE REPORT TO DAY RN. PT ENDORSED IN STABLE CONDITION.
--- NOTE | 2019-04-27 07:22 | NUR ---
RECEIVED BEDSIDE REPORT FROM ACCELERATOR OPERATOR NURSE FOR CONTINUITY OF CARE. PATIENT IS SLEEPING ON BED AT THIS TIME. AROUSABLE TO VOICE. RESPIRATION EVEN AND UNLABORED ON RA. DENIED PAIN AT THIS TIME. NO SIGNS OF DISTRESS NOTED. IV ON L WRIST 24, CLEAN AND WRAP AROUND WITH KELIX, SL. SKIN INTACT AND CLEAN. PATIENT IS CONTINENT AND AMBULATE WITH ASSIST. BEDSIDE COMMODE IN PLACE. FALL RISK PROTOCOL AND SEIZURE PROTOCOL IN PLACE. SAFETY MEASURES IN PLACE. BED IN LOW POSITION AND CALL LIGHT WITHIN REACH. BED ALARM ACTIVATED. INSTRUCTED PATIENT TO USE THE CALL LIGHT FOR ANY ASSISTANCE AND PATIENT WAS AWARE.
[2019-04-27 08:00] VITALS: BP 101/50
[2019-04-27] MEDS: levETIRAcetam 500 MG TAB PO SCH ×2 (09:10→21:24)
[2019-04-27] MEDS: DULoxetine 30 MG CAPDR PO SCH (09:10)
[2019-04-27] MEDS: carBAMazepine 200 MG TAB PO SCH ×2 (09:11→21:23)
[2019-04-27] MEDS: HYDROcodone/APAP 10/325 MG 1 TAB TAB PO PRN ×2 (09:11→21:23)
[2019-04-27] MEDS: ENOXAPARIN 40 MG/0.4 ML SYR SUBQ SCH (09:15)
--- NOTE | 2019-04-27 09:15 | NUR ---
ADMINISTERED AM MEDS PER MD ORDER, PATIENT TOLERATED WELL. PATIENT COMPLAINED SHE HAS 5/10 PAIN AROUND HER NECK AND SHOULDER AREA, ADMINISTERED PRN PAIN MED NORCO. ALL MEDS EDUCATION PROVIDED TO PATIENT AND PATIENT VERBALIZED UNDERSTANDING. PATIENT IS SITTING UP ON BED AND DRINKING COFFEE. NO SIGNS OF DISTRESS NOTED. SAFETY MEASURES IN PLACE. TELE MONITOR ATTACHED. BED IN LOW POSITION AND CALL LIGHT WITH REACH. INSTRUCTED PATIENT TO USE THE CALL LIGHT FOR ANY ASSISTANCE AND PATIENT WAS AWARE.
--- NOTE | 2019-04-27 10:18 | NUR ---
ASSISTED PATIENT TO USE THE BATHROOM AND GET BACK ON BED COMFORTABLY. NO SIGNS OF DISTRESS NOTED. SAFETY MEASURES IN PLACE. TELE MONITOR ATTACHED. BED IN LOW POSITION AND CALL LIGHT WITHIN REACH. BED ALARM ACTIVATED. INSTRUCTED PATIENT TO USE THE CALL LIGHT FOR ANY ASSISTANCE AND PATIENT WAS AWARE.
--- NOTE | 2019-04-27 10:28 | NUR ---
CONTACTED [facility] AT [phone], ABLE SPEAK TO FILEMON. HE STATED THAT THEY ARE NOT CONTRACTED WITH THE INSURANCE.
--- NOTE | 2019-04-27 10:41 | NUR ---
CONTACTED [facility] AT [phone], ASKED TO BE TRANSFERRED TO TRANSFER CENTER. SPOKE TO [facility], PROVIDED ME OF THEIR DIRECT NUMBER [phone] AND FAX NUMBER [phone] TO SEND REFERRAL. REFERRAL SENT TO THE PROVIDED FAX NUMBER. WILL FOLLOW UP.
--- NOTE | 2019-04-27 11:08 | NUR ---
PATIENT COMPLAINED 8/10 PAIN AROUND HER NECK AND SHOULDER AREA. SHE SAID " IT'S ARCHING, AND I CAN'T REST WITH THIS KIND OF PAIN. GIVE ME SOMETHING FOR PAIN!" ADMINISTERED PRN PAIN MED MORPHINE PER MD ORDER, PATIENT TOLERATED WELL. PATIENT IS RESTING ON BED. TELE MONITOR ATTACHED. SAFETY MEASURES IN PLACE. BED IN LOW POSITION AND CALL LIGHT WITHIN REACH. INSTRUCTED PATIENT TO USE THE CALL LIGHT FOR ANY ASSISTANCE AND PATIENT SAID " I WILL."
--- NOTE | 2019-04-27 11:21 | NUR ---
[facility] NO CONTRACTED WITH [facility], [facility], [facility] AND [facility] REVIEW THE CASE AND REQUESTED FROM THE INSURANCE IF THIS IS A SHARED COST ALL FULL COST. CALLED FELISA FROM [facility] TO CLARIFY SHE STATED IT WILL BE A SHARED COST , FELISA ROSADO WILL BE BACK IN THE OFFICE AROUND 12 NOON WILL DISCUSSED WITH THE SECURITY SUPPORT ANALYST FOR THE [facility] AGREEMENT AND WILL CALL BACK.
[2019-04-27 12:00] VITALS: BP 107/58
--- NOTE | 2019-04-27 12:20 | NUR ---
PATIENT IS RESTING ON BED AT THIS TIME. NO SIGNS OF DISTRESS NOTED. SAFETY MEASURES IN PLACE. TELE MONITOR ATTACHED. BED IN LOW POSITION AND CALL LIGHT WITHIN REACH. BED ALARM ACTIVATED.
--- NOTE | 2019-04-27 13:12 | NUR ---
PATIENT IS SITTING UP ON BED AND EATING DINNER. PATIENT REQUESTED FOR 5 MORE CRACKERS AND 2 SUGAR. PROVIDED REQUEST. NO SIGNS OF DISTRESS NOTED. TELE MONITOR ATTACHED. BED IN LOW POSITION AND CALL LIGHT WITHIN REACH. BED ALARM ACTIVATED.
--- NOTE | 2019-04-27 13:43 | NUR ---
PATIENT IS EATING AND TALKING TO MOTHER FAY AT BEDSIDE. NO SIGNS OF DISTRESS NOTED. SAFETY MEASURES IN PLACE. BED IN LOW POSITION AND CALL LIGHT WITHIN REACH.
--- NOTE | 2019-04-27 15:30 | NUR ---
PATIENT IS SLEEPING ON BED. EVEN AND UNLABORED CHEST RISES NOTED. NO SIGNS OF DISTRESS NOTED. TELE MONITOR ATTACHED. SAFETY MEASURES IN PLACE. BED IN LOW POSITION AND CALL LIGHT WITHIN REACH. BED ALARM ACTIVATED.
--- NOTE | 2019-04-27 15:57 | NUR ---
I RECEIVED A CALL FROM [facility] CAN ACCEPT THE PATIENT WITH AUTHORIZATION AND WILL REQUEST THE [facility] LETTER. I CALLED [facility] SPOKE WITH FELISA ROSADO , STATED PT HAS TO BE TRANSFERRED WITH [facility] AND WORKING ON IT AND WILL CALL BACK.
[2019-04-27 16:00] VITALS: BP 128/72
--- NOTE | 2019-04-27 16:24 | NUR ---
PATIENT COMPLAINED 8/10 PAIN AROUND HER NECK AND SHOULDER. PATIENT STATES " IT BROTHERS ME THAT I CANNOT REST. I NEED SOMETHING FOR PAIN." ADMINISTERED PRN PAIN MED PER MD ORDER, PATIENT TOLERATED WELL. PATIENT IS TALKING ON THE PHONE AT THIS TIME. SAFETY MEASURES IN PLACE. TELE MONITOR ATTACHED. BED IN LOW POSITION AND CALL LIGHT WITHIN REACH. BED ALARM ACTIVATED. INSTRUCTED PATIENT TO USE THE CALL LIGHT FOR ANY ASSISTANCE AND PATIENT WAS AWARE.
--- NOTE | 2019-04-27 16:46 | NUR ---
I RECEIVED A CALL FROM SALOMÓN ROSADO GAVE AUTHORIZATION TO [facility] , MIGHT TAKE HER TONIGHT, ONCE THEY HAVE A BED WILL CALL THE FLOOR ARRANGED TRANSPORT WITH [facility] IT WILL CALL.
--- NOTE | 2019-04-27 17:25 | NUR ---
PATIENT IS AWAKE AND TALKING ON THE PHONE. NO SIGNS OF DISTRESS NOTED. SAFETY MEASURES IN PLACE. BED IN LOW POSITION AND CALL LIGHT WITHIN REACH. TELE MONITOR ATTACHED. BED ALARM ACTIVATED.
--- NOTE | 2019-04-27 19:25 | NUR ---
ENDORSED PATIENT AT BEDSIDE TO GRAPHIC SPECIALIST NURSE FOR CONTINUITY OF CARE. PATIENT AWAKE AND SITTING UP ON BED. NO SIGNS OF DISTRESS NOTED. PATIENT IS IN STABLE CONDITION. SAFETY MEASURES IN PLACE. TELE MONITOR ATTACHED. BED IN LOW POSITION AND CALL LIGHT WITHIN REACH. BED ALARM ACTIVATED.
--- NOTE | 2019-04-27 19:26 | NUR ---
RECEIVED BEDSIDE REPORT FROM DAY SHIFT NURSE GERSON RN, PT STABLE, NO DISTRESS NOTED, IV TO L WRIST 22G INFILTRATED, WILL PUT IN NEW IV, PT RESTING ON BED, NO C/O PAIN AT THIS MOMENT, INITIAL ASSESSMENT DONE, ALL SAFETY PRECAUTION MET, CALL LIGHT WITHIN REACH, WILL CONTINUE TO MONITOR.
[2019-04-27 20:00] VITALS: BP 115/61
--- NOTE | 2019-04-27 21:23 | NUR ---
DUE MEDICATION ADMINISTERED, PT TOLERATED WELL, PT C/O PAIN , PAIN MEDICATION PER MD ORDER ADMINISTERED, PT TOLERATED WELL, CALL LIGHT WITHIN REACH,WILL CONTINUE TO MONITOR.
[2019-04-27] MEDS: AMITRIPTYLINE 25 MG TAB PO SCH (21:24)
--- NOTE | 2019-04-27 23:35 | NUR ---
PT C/O PAIN, MEDICATION PER MD ORDER ADMINISTERED, V/S TAKEN, WNL, CALL LIGHT WITHIN REACH, WILL CONTINUE TO MONITOR.
[2019-04-28] VITALS: BP 120/60
[2019-04-28 04:00] VITALS: BP 108/57
[2019-04-28] MEDS: MORPHINE SULFATE 4 MG/ML SYR IVP PRN ×2 (05:54→10:38)
[2019-04-28] MEDS: LEVOTHYROXINE 0.025 MG TAB PO SCH (05:54)
--- NOTE | 2019-04-28 05:54 | NUR ---
DUE MEDICATION ADMINISTERED, PT C/O PAIN 04/09, PAIN MEDICATION ADMINISTERED, PT TOLERATED WELL, NO DISTRESS NOTED, CALL LIGHT WITHIN REACH,
--- NOTE | 2019-04-28 07:29 | NUR ---
ENDORSED PT TO DAY SHIFT NURSE JUAREZ, PT STABLE, NO DISTRESS NOTED, CALL LIGHT WITHIN REACH.
--- NOTE | 2019-04-28 07:30 | NUR ---
RECEIVED ENDORSEMENT FROM BROKER ASSOCIATE NURSE. PATIENT IS AAOX4, VIETNAMESE SPEAKING. RESPIRATIONS ARE EVEN AND UNLABORED ON ROOM AIR. PATIENT DENIES ANY PAIN AT THIS TIME. LEFT FA 22G IV INTACT AND SL. PLAN OF CARE WAS REVIEWED WITH PATIENT, PATIENT VERBALIZED UNDERSTANDING. SAFETY MEASURES IN PLACE, SEIZURE PRECAUTIONS IN PLACE, CALL LIGHT WITHIN REACH.
[2019-04-28 08:00] VITALS: BP 122/54
[2019-04-28] MEDS: levETIRAcetam 500 MG TAB PO SCH (09:02)
[2019-04-28] MEDS: carBAMazepine 200 MG TAB PO SCH (09:03)
[2019-04-28] MEDS: DULoxetine 30 MG CAPDR PO SCH (09:03)
--- NOTE | 2019-04-28 09:03 | NUR ---
ADMINISTERED SCHEDULED MEDICATIONS. PATIENT TOLERATED WELL. PATIENT DENIES ANY PAIN. NO OTHER NEEDS AT THIS TIME, WILL CONTINUE TO MONITOR.
[2019-04-28] MEDS: ENOXAPARIN 40 MG/0.4 ML SYR SUBQ SCH (09:04)
--- NOTE | 2019-04-28 10:00 | NUR ---
SPOKE WITH MELISSA FROM [facility] ,STATED THEIR 2 NEUROLOGIST ONE DENIED THE CASE ,THE OTHER ONE THE VIDEO EEG IS OCCUPIED SO THEY ARE UNABLE TO ACCEPT THE PATIENT AND DECIDED PT CAN F/U OUT PATIENT. DISCUSSED WITH DR FUCHS AND DR MARTÍNEZ DECIDED SINCE SHE HAS NO SEIZURE FOR 24 HRS PT CAN BE DISCHARGED. CALLED PATIENT'S MOM FAY [phone] UPDATED THE INFORMATION AND NOTIFIED HER WILL MAKE OUT PT F/U WITH THE REFERRAL. SHE AGREED WITH THE D/C AND WILL F/U.
--- NOTE | 2019-04-28 11:15 | NUR ---
PATIENT RESTING IN BED ON HER PHONE. PATIENT DENIES ANY PAIN. NO OTHER NEEDS AT THIS TIME,WILL CONTINUE TO MONITOR.
[2019-04-28 12:00] VITALS: BP 123/71
--- NOTE | 2019-04-28 13:34 | NUR ---
PATIENT SITTING IN BED. NO COMPLAINS OF PAIN AT THIS TIME. NO OTHER NEEDS AT THIS TIME, WILL CONTINUE TO MONITOR.
[2019-04-28] MEDS: ACETAMINOPHEN 325 MG TAB PO PRN (13:49)
--- NOTE | 2019-04-28 14:13 | NUR ---
RECEIVED A CALL FROM [facility] SPOKE WITH MELISSA ,THAT NEUROLOGIST DENIED THE CASE FOR INPATIENT TRANSFER BUT RECOMMENDED TO F/U WITH THE [facility] [phone]. EXPLAINED THE PT AND FAY (MOTHER) VERBALIZED UNDERSTANDING. CALLED AMANDEEP NOVOA (NEUROLOGIST) RECEIVED THE FAX FOR AUTHORIZATION AND MEDICAL RECORD AND STATED PT HERSELF TO MAKE APPOINTMENT ,NOTIFIED PT AND HER MOTHER VERBALIZED UNDERSTAND.
[2019-04-28] MEDS: HYDROcodone/APAP 10/325 MG 1 TAB TAB PO PRN (15:49)
--- NOTE | 2019-04-28 15:50 | NUR ---
PATIENT SITTING IN BED. NO OTHER NEEDS AT THIS TIME. WILL CONTINUE TO MONITOR.
[2019-04-28 16:00] VITALS: BP 144/63
--- NOTE | 2019-04-28 17:28 | NUR ---
PATIENT STATED THAT SHE WILL NOT BE LEAVING AT THIS TIME UNTIL 9PM. CHARGE NURSE IS AWARE.
--- NOTE | 2019-04-28 19:10 | NUR ---
ENDORSED DISCHARGE OF PATIENT TO PRECISION GRINDER EXTERNAL NURSE. PATIENT IS STABLE AT THIS TIME.
--- NOTE | 2019-04-28 19:11 | NUR ---
REPORT RECEIVED FROM AM NURSE AT BEDSIDE. PT IN STABLE CONDITION. AAOX4.
--- NOTE | 2019-04-28 19:40 | NUR ---
PT D/C HOME. ARM BAND REMOVED. IV D/C.
== END 2019-04-28 19:45 | disposition home or self-care (01) | DRG 53 ==
LOC: MED 18:03 → MTU 22:23
PROVIDERS: ADMIT Internal Medicine Pulmonary Disease; ATTEND Internal Medicine Pulmonary Disease
DX: G40.909 Epilepsy, unspecified, not intractable, without status epilepticus (principal); I27.20 Pulmonary hypertension, unspecified; I31.9 Disease of pericardium, unspecified; E03.9 Hypothyroidism, unspecified; F41.9 Anxiety disorder, unspecified; Z88.6 Allergy status to analgesic agent; Z88.1 Allergy status to other antibiotic agents; Z88.8 Allergy status to other drugs, medicaments and biological substances; Z91.19 Patient's noncompliance with other medical treatment and regimen; Z60.2 Problems related to living alone; R00.0 Tachycardia, unspecified
CPT/HCPCS: 36415; 72050; 80048; 80053; 80156; 80173; 80305; 81001; 81025; 82306; 83605; 83690; 83735; 84100; 84439; 84443; 84479; 85025; 87040; 87081; 93005; 96360; 96372; 97110; 97112; 97116; 97530; 99285; J1650; J1953; J2060; J2250; J2270; J3475; J3490; J7030; J7512; Q0092

== ENCOUNTER 2019-05-25 15:22 | Inpatient (IN) | payer MEDICAID ==
[~2019-05-25] VITALS: Ht 165.1 cm; Wt 69.9 kg
--- NOTE | 2019-05-25 15:22 | NUR ---
Patient BIBA BLS, transferred to bed 1. RN evaluating patient at bedside.
[2019-05-25 15:26] VITALS: BP 132/96
--- NOTE | 2019-05-25 15:41 | NUR ---
PT TO ED VIA EMS FOR PALPITATIONS SINCE 0700 TODAY. DENIES RECENT PHYSICAL ACTIVITY, ILLEGAL DRUG USE. NO OBVIOUS DISTRESS NOTED. PLACED ON VEGETABLE TESTER, TACHYCARDIAC @ 126BPM. EKG PERFORMED, GIVEN TO ED MD FOR INTERPRETATION. DENIES CP/SOB. PT IN BED FOR MD FERRER.
--- NOTE | 2019-05-25 15:51 | NUR ---
ATTEMPTED TO COMPLETE AN EKG, PT WAS RESTLESS, ERMD SUGGESTED WAITING FOR THE PT TO CALM DOWN BEFORE TRYING AGAIN.
[2019-05-25] MEDS ORDERED: NACL 0.9% 1,000 ML IV ONE ×2 (16:25)
--- NOTE | 2019-05-25 16:30 | NUR ---
PT REFUSED EKG, RN NOTIFIED.
--- NOTE | 2019-05-25 16:30 | NUR ---
PT REQUESTING TO GO AMA. SPOKE WITH MOTHER ON PTS CELL PHONE, INFORMED MOTHER OF PLAN OF CARE. MOM SPOKE TO PT AND PT HAS AGREED TO STAY IN ED FOR TREATMENT.
[2019-05-25 16:48] LABS: BASOPHILS % (AUTO) 0.3 % (0.0-2.0); EOSINOPHILS % (AUTO) 0.2 % (0.0-4.0); HEMATOCRIT 39.4 % (36-48); HEMOGLOBIN 12.9 g/dL (12.0-16.0); LYMPHOCYTES # (AUTO) 0.9 K/uL (2.5-16.5); LYMPHOCYTES % (AUTO) 17.5 % (20.5-51.1); MEAN CORPUSCULAR HEMOGLOBIN 27 pg (27-31); MEAN CORPUSCULAR HGB CONC 33 g/dL (33-37); MEAN CORPUSCULAR VOLUME 83.7 fL (80-94); MONOCYTES # (AUTO) 0.6 K/uL (0.8-1.0); NEUTROPHILS # (AUTO) 3.7 K/uL (1.8-7.7); PLATELET COUNT (AUTO) 282 K/uL (140-450); RED BLOOD CELL COUNT(AUTO) 4.71 MIL/uL (4.20-5.40); RED CELL DISTRIBUTION WIDTH 14.4 % (11.6-13.7); WHITE BLOOD COUNT (AUTO) 5.2 K/uL (4.8-10.8)
--- NOTE | 2019-05-25 16:52 | NUR ---
PT SITTING AT BEDSIDE TO CHANGE INTO GOWN WITH RN ASSIST. PT THEN HAD WITNESSED SEIZURE LASTING APPROX 30 SECONDS, ASSISTED PT TO FLOOR. NO HEAD INJURY. NO ORAL TRAUMA. PT ASSISTED BACK INTO BED WITH 2 RN, MD, AND PA ASSISTANCE. VERBAL ORDER FOR ATIVAN RECEIVED. PT RETURNED ON STUDENT TRUCK DRIVER. MD AT BEDSIDE AND AWARE OF PT STATUS.
[2019-05-25] MEDS ORDERED: LORazepam 2 MG/ML VIAL ONE (16:53)
--- NOTE | 2019-05-25 16:53 | NUR ---
Dr. Avilse evaluating patient at bedside.
[2019-05-25] MEDS ORDERED: LORazepam 2 MG/ML VIAL IVP ONE (17:00)
--- NOTE | 2019-05-25 17:00 | NUR ---
PT ALERT, ANSWERING QUESTIONS. PT INSTRUCTED TO KEEP O2 MASK ON AND STATED "I KNOW. I AM JUST MOVING IT FOR MYSELF" NO APPARENT DISTRESS NOTED.
[2019-05-25 17:03] LABS: ANION GAP 15.4 (8-16); CARBON DIOXIDE 23.4 mmol/L (21-32); CHLORIDE 106 mmol/L (98-107); CREATININE 0.5 mg/dL (0.6-1.3); GFR ARICAN-AMERICAN 192 mL/min (>90); GLUCOSE 99 mg/dL (74-106); POTASSIUM 3.8 mmol/L (3.5-5.1); SODIUM SERUM 141 mmol/L (136-145); UREA NITROGEN, BLOOD 9 mg/dL (7-18)
--- NOTE | 2019-05-25 17:15 | NUR ---
PT STATED "WHAT AM I WAITING FOR, I WANT TO TALK TO THE DOCTOR" INFORMED PT THAT SHE HAD A SEIZURE AND WAS WAITING FOR LAB AND RADIOLOGY RESULTS. PT VERBALIZED UNDERSTANDING. ALERT TO NAME, BIRTHDAY, PLACE, AND EVENT. NO NEW QUESTIONS OR CONCERNS.
[2019-05-25 17:16] LABS: ALBUMIN 3.8 g/dL (3.4-5.0); ASPARTATE AMINOTRANSFERASE 26 U/L (15-37); FREE T4 (FREE THYROXINE) 5.95 ng/dL (0.76-1.46); THYROID STIMULATING HORMONE < 0.01 uIU/mL (0.34-3.74); TOTAL BILIRUBIN 0.6 mg/dL (0.0-1.0)
--- NOTE | 2019-05-25 17:28 | NUR ---
DR HU SPEAKING WITH PATIENT.
[2019-05-25] MEDS ORDERED: PROPRANOLOL 20 MG TAB PO ONE (17:40)
--- NOTE | 2019-05-25 17:40 | NUR ---
PT CALLED ED VIA PERSONAL CELL PHONE, SPOKE WITH KAVITA CASTANEDA, ED CHARGE NURSE. PT REQUESTING TO SPEAK WITH DR HU.
--- NOTE | 2019-05-25 17:41 | NUR ---
DR HU SPEAKING WITH PATIENT.
[2019-05-25] MEDS ORDERED: ACETAMINOPHEN EXTRA STRENGTH 500 MG TAB PO ONE (18:35)
[2019-05-25] MEDS ORDERED: PROPRANOLOL 1 MG/ML VIAL IVP ONE (19:00)
--- NOTE | 2019-05-25 19:16 | NUR ---
PT REQUESTING TO USE RESTROOM. OFFERED PT WHEELCHAIR. PT REFUSED STATING "I HATE THE WHEELCHAIR I DONT WANT TO USE IT" EDUCATED PT ON BENEFITS OF W/C. PT REFSUED.
--- NOTE | 2019-05-25 19:20 | NUR ---
REPORT TO WILL TRUJILLO. ALL CARE TRANSFERRED AT THIS TIME.
[2019-05-25] MEDS ORDERED: ALBUTEROL 0.083% 2.5 MG/3 ML NEBU INH PRN (20:05)
[2019-05-25] MEDS ORDERED: IPRATROPIUM 0.02% 0.5 MG/2.5 ML NEBU INH PRN (20:05)
[2019-05-25] MEDS ORDERED: LORazepam 2 MG/ML VIAL IVP PRN (20:05)
[2019-05-25] MEDS ORDERED: ACETAMINOPHEN 325 MG TAB PO PRN (20:05)
[2019-05-25] MEDS ORDERED: POTASSIUM CHLORIDE 40 MEQ, LIDOCAINE 1% 25 MG in NACL 0.9% 250 ML IV PRN (20:05)
[2019-05-25] MEDS ORDERED: MAGNESIUM OXIDE 400 MG TAB PO PRN (20:05)
[2019-05-25] MEDS ORDERED: ALUMINUM HYD/MAG/SIMETHICONE 30 ML UDC PO PRN (20:05)
[2019-05-25] MEDS ORDERED: diphenhydrAMINE 50 MG/ML VIAL IVP PRN (20:05)
[2019-05-25] MEDS ORDERED: BISACODYL 10 MG SUPP RC PRN (20:05)
[2019-05-25] MEDS ORDERED: SODIUM PHOSPHATE 118 ML ENEM RC PRN (20:05)
[2019-05-25] MEDS ORDERED: ACETAMINOPHEN 650 MG SUPP RC PRN (20:05)
[2019-05-25] MEDS ORDERED: guaiFENesin DM 200/20 MG-10 ML 10 ML UDC PO PRN (20:05)
[2019-05-25] MEDS ORDERED: ONDANSETRON 4 MG/2 ML VIAL IVP PRN (20:05)
[2019-05-25] MEDS ORDERED: ZOLPIDEM 5 MG TAB PO PRN (20:05)
[2019-05-25] MEDS ORDERED: DOCUSATE SODIUM 250 MG GELCAP PO PRN (20:05)
[2019-05-25] MEDS ORDERED: MAG SULF 2000 MG/WATER PREMIX 50 ML IV PRN (20:05)
[2019-05-25] MEDS ORDERED: POTASSIUM CHLORIDE 10 MEQ TABER PO PRN (20:05)
--- NOTE | 2019-05-25 21:19 | NUR ---
PT ARRIVED AT UNIT VIA GURNEY, PT AMBULATED WITH CRUTCHES TO BED, TOLERATED WELL, RECEIVED BEDSIDE REPORT FROM ER NURSE RONNIE RN, PT STABLE, NO DISTRESS NOTED, IV TO L FA 20G PATENT INTACT, PT ON ROOM AIR, NO SOB NOTED, ORIENT PT TO ROOM, BED, CALL LIGHT, NOTIFIED PT TO CALL WHEN NEED TO GO TO RESTROOM, PT STATED UNDERSTANDING, INITIAL ASSESSMENT DONE, ALL SAFETY PRECAUTION MET, CALL LIGHT WITHIN REACH, WILL CONTINUE TO MONITOR.
[2019-05-25 21:40] VITALS: BP 147/83
[2019-05-25] MEDS: levETIRAcetam 500 MG TAB PO SCH (22:07)
[2019-05-25] MEDS: carBAMazepine 200 MG TAB PO SCH (22:07)
[2019-05-25] MEDS: METOPROLOL 25 MG TAB PO SCH (22:08)
[2019-05-25] MEDS: MORPHINE SULFATE 2 MG/ML SYR IVP PRN (22:09)
--- NOTE | 2019-05-25 22:09 | NUR ---
DUE MEDICATION ADMINISTERED, PT TOLERATED WELL, PT C/O PAIN 03/09, PAIN MEDICATION PER MD ORDER ADMINISTERED, PT TOLERATED WELL, CALL LIGHT WITHIN REACH, WILL CONTINUE TO MONITOR.
[2019-05-25] MEDS: AMITRIPTYLINE 25 MG TAB PO SCH (22:12)
--- NOTE | 2019-05-25 22:38 | NUR ---
PT ADMITTED TO [facility] RM 104A. TRANSFERRED PT VIA [place] WITH TIMUR RN, STABLE. REPORT GIVEN TO MATY SOLIS. PT CARE TRANSFERRED TO RECEIVING RN.
--- NOTE | 2019-05-25 23:50 | NUR ---
FOUND PT ON FLOOR, BED ALARM WAS ON, MOVED PT BED TO BED, NO INJURY NOTED, V/S TAKEN ,WITHIN NORMAL LIMITS, PT RESTING ON BED, NO DISTRESS NOTED, CALL LIGHT WITHIN REACH, TEACH PT AGAIN TO NOT LEAVE BED, AND TO USE THE CALL LIGHT IF SHE NEEDS TO GO RESTROOM, PT STATED UNDERSTANDING, WILL NOTIFY PHYSICIAN.
--- NOTE | 2019-05-25 23:55 | NUR ---
DR. PITTMAN NOTIFIED REGARDING PT FALL, STATED UNDERSTANDING, NO ORDERS, AND TO ONLY CALL FOR EMERGENCY, NO NEW ORDER RECEIVED. PT RESTING, NO DISTRESS, CALL LIGHT WITHIN REACH, BED ALARM ON.
[2019-05-26] VITALS: BP 118/60
[2019-05-26] MEDS: HYDROcodone/APAP 5/325 MG 1 TAB TAB PO PRN ×4 (00:03→23:30)
--- NOTE | 2019-05-26 00:03 | NUR ---
PT C/O PAIN, NORCO PER MD ORDER ADMINISTERED, PT TOLERATED SWELL, NO DISTRESS NOTED, CALL LIGHT WITHIN REACH, WILL CONTINUE TO MONITOR.
--- NOTE | 2019-05-26 02:06 | NUR ---
PT SLEEPING COMFORTABLY, NO DISTRESS NOTED, CALL LIGHT WITHIN REACH, WILL CONTINUE TO MONITOR.
[2019-05-26 04:00] VITALS: BP 112/46
--- NOTE | 2019-05-26 04:23 | NUR ---
CHECKED ON PT, PT SLEEPING, V/S TAKEN, WNL, CALL LIGHT WITHIN REACH, WILL CONTINUE TO MONITOR.
--- NOTE | 2019-05-26 07:40 | NUR ---
ENDORSED TO DAY SHIFT RN, PT STABLE, SLEEPING, NO DISTRESS NOTED, CALL LIGHT WITHIN REACH.
[2019-05-26 08:00] VITALS: BP 125/66
--- NOTE | 2019-05-26 08:23 | NUR ---
PATIENT HAS BEEN SCREENED AND CATEGORIZED LOW NUTRITION RISK. PATIENT WILL BE SEEN WITHIN 7 DAYS OF ADMISSION. 06/01/[address]
[2019-05-26] MEDS ORDERED: METHIMAZOLE 5 MG TAB PO SCH (09:00)
[2019-05-26] MEDS: DULoxetine 30 MG CAPDR PO SCH (09:50)
[2019-05-26] MEDS: METOPROLOL 25 MG TAB PO SCH (09:50)
[2019-05-26] MEDS: carBAMazepine 200 MG TAB PO SCH ×2 (09:51→20:32)
[2019-05-26] MEDS: levETIRAcetam 500 MG TAB PO SCH ×2 (09:53→20:32)
[2019-05-26] MEDS: MORPHINE SULFATE 2 MG/ML SYR IVP PRN ×3 (10:24→20:30)
[2019-05-26 11:54] VITALS: BP 133/67
[2019-05-26] MEDS ORDERED: DOXYCYCLINE 100 MG in DEXTROSE 5% 100 ML IV SCH (13:14)
[2019-05-26] MEDS ORDERED: PROPRANOLOL 20 MG TAB PO SCH ×2 (13:30)
[2019-05-26] MEDS ORDERED: DOXYCYCLINE 100 MG VIAL IV ONE ×2 (14:13→20:55)
[2019-05-26 16:00] VITALS: BP 113/58
[2019-05-26 20:00] VITALS: BP 121/76
[2019-05-26] MEDS: METHIMAZOLE 5 MG TAB PO SCH (20:32)
[2019-05-26] MEDS: AMITRIPTYLINE 25 MG TAB PO SCH (21:00)
--- NOTE | 2019-05-26 22:10 | NUR ---
PATIENT BEING ASSISTED BY THE NURSING AID TO THE BEDSIDE COMMODE WHEN PATIENT STARTED HAVING A SEIZURE. PATIENT ASSISTED DOWN TO THE FLOOR PER NURSING AID. PRN ATIVAN ADMINISTERED. NO APPARENT INJURIES NOTED. VITALS: TEMP 97.8 BP 96/47 HR 104 O2 SAT 100% PAGED DR REDDY TO NOTIFY ABOUT THE INCIDENT
--- NOTE | 2019-05-26 22:23 | NUR ---
SPOKE TO DR REDDY AND NOTIFIED ABOUT PATIENT'S SEIZURE ACTIVITY. TO PUT ORDERS
[2019-05-26] MEDS ORDERED: LORazepam 2 MG/ML VIAL IM/IVP PRN (22:25)
[2019-05-26] MEDS: DOXYCYCLINE 100 MG in DEXTROSE 5% 100 ML IV SCH (22:38)
[2019-05-27] VITALS: BP 110/77
[2019-05-27] MEDS: MORPHINE SULFATE 2 MG/ML SYR IVP PRN ×5 (01:37→20:10)
--- NOTE | 2019-05-27 04:30 | NUR ---
PT ASLEEP IN BED. NO S/S OF DISTRESS NOTED
[2019-05-27 05:45] VITALS: BP 95/52
--- NOTE | 2019-05-27 07:20 | NUR ---
PATIENT REPORT GIVEN TO AM NURSE. PT ENDORSED IN STABLE CONDITION
--- NOTE | 2019-05-27 07:25 | NUR ---
RECEIVED PT FROM WHIPPED TOPPING MIXER NURSEKINGSTON, PT IS AWAKE AND LYING ON THE BED WITH SIDE RAILS UP AND CALL LIGHT WITHIN REACH, PERIPHERAL LINE ON THE LEFT AC G. 20 ON SALINE LOCK, PT C/O PAIN BRITTNY OF 8, WILL MEDICATE AND MONITOR PT.
[2019-05-27 08:00] VITALS: BP 102/57
[2019-05-27 08:04] LABS: BASOPHILS % (AUTO) 0.2 % (0.0-2.0); EOSINOPHILS % (AUTO) 0.9 % (0.0-4.0); HEMOGLOBIN 12.4 g/dL (12.0-16.0); LYMPHOCYTES # (AUTO) 2.1 K/uL (2.5-16.5); LYMPHOCYTES % (AUTO) 43.6 % (20.5-51.1); MEAN CORPUSCULAR HEMOGLOBIN 27 pg (27-31); MEAN CORPUSCULAR HGB CONC 33 g/dL (33-37); MEAN CORPUSCULAR VOLUME 83.4 fL (80-94); MONOCYTES # (AUTO) 0.6 K/uL (0.8-1.0); MONOCYTES % (AUTO) 11.4 % (1.7-9.3); NEUTROPHILS # (AUTO) 2.2 K/uL (1.8-7.7); NEUTROPHILS % (AUTO) 43.9 % (42.2-75.2); PLATELET COUNT (AUTO) 239 K/uL (140-450); RED BLOOD CELL COUNT(AUTO) 4.56 MIL/uL (4.20-5.40); RED CELL DISTRIBUTION WIDTH 14.9 % (11.6-13.7); WHITE BLOOD COUNT (AUTO) 4.9 K/uL (4.8-10.8)
[2019-05-27] MEDS: DULoxetine 30 MG CAPDR PO SCH (08:19)
[2019-05-27] MEDS: levETIRAcetam 500 MG TAB PO SCH (08:20)
[2019-05-27] MEDS: METHIMAZOLE 5 MG TAB PO SCH ×2 (08:21→20:19)
[2019-05-27] MEDS: carBAMazepine 200 MG TAB PO SCH ×2 (08:21→20:19)
--- NOTE | 2019-05-27 08:21 | NUR ---
PATIENT HAS BEEN SCREENED AND CATEGORIZED LOW NUTRITION RISK. PATIENT WILL BE SEEN WITHIN 7 DAYS OF ADMISSION. 06/02/[address]
[2019-05-27] MEDS: DOXYCYCLINE 100 MG in DEXTROSE 5% 100 ML IV SCH ×2 (08:22→23:55)
--- NOTE | 2019-05-27 08:22 | NUR ---
PT IS AWAKE AND ORAL AND IV MEDICATIONS WERE GIVEN TO PT AND TOLERATED IT, DR. MARTÍNEZ CAME TOP PT'S ROOM AND ASSESSED PT, WILL MONITOR PT.
[2019-05-27] MEDS ORDERED: PROPRANOLOL 20 MG TAB PO SCH ×2 (09:00)
[2019-05-27 09:30] LABS: MAGNESIUM 1.2 mg/dL (1.8-2.4); PHOSPHORUS 4.4 mg/dL (2.5-4.9)
[2019-05-27] MEDS: VALPROATE SODIUM 1,000 MG in NACL 0.9% 100 ML IV SCH ×2 (11:05→16:16)
[2019-05-27 11:43] LABS: CARBON DIOXIDE 21.6 mmol/L (21-32); CREATININE 0.4 mg/dL (0.6-1.3); POTASSIUM 3.6 mmol/L (3.5-5.1)
[2019-05-27 12:00] VITALS: BP 127/66
--- NOTE | 2019-05-27 12:15 | NUR ---
PAIN MEDICATION WAS GIVEN TO PT FOR A C/O PAIN RATE OF 8/10. WILL MONITOR PT.
--- NOTE | 2019-05-27 13:57 | NUR ---
PT IS AWAKE AND WAS GIVEN ZOFRAN FOR THE NAUSEA AND MAGNESIUM IV FOR THE MG LEVEL OF 1.2, WILL MONITOR PT.
[2019-05-27 16:00] VITALS: BP 122/68
--- NOTE | 2019-05-27 16:22 | NUR ---
PY WAS GIVEN IV PUSH AND IVPB MEDICATIONS NOW. WILL MONITOR PT.
[2019-05-27] MEDS: PROPRANOLOL 20 MG TAB PO SCH (17:00)
--- NOTE | 2019-05-27 19:15 | NUR ---
ENDORSED PT TO PROFILER HAND NURSEHILARIO FOR CONTINUITY OF CARE.
--- NOTE | 2019-05-27 19:15 | NUR ---
RECEIVED ENDORSEMENT FORM THEODORE SOLIS DAYSHIFT NURSE AT BEDSIDE FOR CONTINUITY OF CARE, PT IN STABLE CONDITION.
[2019-05-27 20:00] VITALS: BP 143/65
[2019-05-27] MEDS: AMITRIPTYLINE 25 MG TAB PO SCH (20:18)
--- NOTE | 2019-05-27 20:20 | NUR ---
PT SITTING UP IN BED AXO4, V/S FOLLOWS T 98.1 P 108 R 18 B/P 143/65 02 100% ON ROOM AIR. ALL FALLS AND SEIZURE PRECAUTIONS IN PLACE. PT C/O OF SEVERE 7/10 PAIN IN NECK AND SHOULDERS, GIVEN ORDERED IVP/PRN MORPHINE, WILL MONITOR FOR EFFECT.
--- NOTE | 2019-05-27 21:32 | NUR ---
GIVEN ALL DUE MEDS OF TAPAZOLE, AND TEGRETOL AT THIS TIME. PT DECLINED ELAVIL AND INDERAL WAS DISCONTINUED AT THIS TIME. IV SITE INTACT AND FLUSHED PATENT. VIBRAMYCIN RUNNING ORDERED. PT STATES POSITIVE EFFECT OF MORPHINE.
--- NOTE | 2019-05-27 22:30 | NUR ---
PT C/O PAIN IN IV SITE ON LEFT WRIST. AREA LOOKED SLIGHTLY PUFFY AND FIRM. IV SITE DISCONTINUED AT THIS TIME. IV SITE ATTEMPTED X2 UNSUCCESSFULLY. WILL ENDORSE TO CHARGE NURSE TO ATTEMPT.
--- NOTE | 2019-05-27 23:00 | NUR ---
CHARGE NURSE BON ATTEMPTED IV INSERTION X2 BUT WAS UNSUCCESSFUL. ANGELINA SOLISCOTTON WEIGHER OPERATORHIM SPECIALIST NURSE WAS ABLE TO OBTAIN AN IV SITE 22G ON LEFT FOOT. IV SITE FLUSHED PATENT.
[2019-05-28] VITALS: BP 126/68
--- NOTE | 2019-05-28 | NUR ---
PT C/O MODERATE 6/10 GENERALIZED PAIN, PT GIVEN 1 TAB NORCO 5/325MG. V/S FOLLOWS T 97.1 P 107 R 18 B/P 126/68 02 100% ON ROOM AIR. ALL FALLS AND SEIZURE PRECAUTIONS IN PLACE, COMMODE AT BEDSIDE.
[2019-05-28] MEDS: VALPROATE SODIUM 1,000 MG in NACL 0.9% 100 ML IV SCH ×2 (01:52→10:02)
[2019-05-28] MEDS: MORPHINE SULFATE 2 MG/ML SYR IVP PRN ×2 (01:53→07:00)
[2019-05-28 04:00] VITALS: BP 101/48
--- NOTE | 2019-05-28 04:00 | NUR ---
PT IN BED ALL SEIZURE PRECAUTIONS IN PLACE, NO SEIZURE NOTED THIS SHIFT. V/S FOLLOWS T 97.1 P 100 R 18 B/P 101/48 02 98% ON ROOM AIR. PT DENIES PAIN AND HAS NO S/S OF PAIN OR DISTRESS NOTED.
[2019-05-28] MEDS: METHIMAZOLE 5 MG TAB PO SCH (04:55)
--- NOTE | 2019-05-28 05:00 | NUR ---
PT GIVEN DUE MED OF TAPAZOLE ORDERED. NO S/S OF PAIN OR DISTRESS NOTED.
--- NOTE | 2019-05-28 07:10 | NUR ---
PT RECEIVED FROM NIGHT WILL RICH. PT IN BED, SEIZURE PRECAUTIONS IN PLACE. PT RESPONDS TO VERBAL STIMULI. PT BREATHING EVEN AND UNLABORED ON ROOM AIR. WILL CONTINUE CARE.
[2019-05-28 08:00] VITALS: BP 96/55
[2019-05-28] MEDS: PROPRANOLOL 20 MG TAB PO SCH (09:00)
[2019-05-28] MEDS: DULoxetine 30 MG CAPDR PO SCH ×2 (09:00→10:01)
--- NOTE | 2019-05-28 09:00 | NUR ---
PROPRANOLOL HELD DUE TO BP 96/55
--- NOTE | 2019-05-28 09:55 | NUR ---
DR. REDDY CALLED TO INFORM PT IS SEIZURE FREE SINCE 05/26/[address] FUCHS, WRAPPER HAND DOCTOR, CALLED BACK AND RECEIVED INFORMATION. WILL WAIT FOR DISCHARGE ORDERS.
[2019-05-28] MEDS: carBAMazepine 200 MG TAB PO SCH (10:01)
[2019-05-28] MEDS ORDERED: PROP20TA29 PO (10:47)
[2019-05-28] MEDS ORDERED: TAP5 PO (10:47)
[2019-05-28] MEDS ORDERED: DIVA500T1 PO (10:47)
--- NOTE | 2019-05-28 10:49 | NUR ---
PT IN BED. AAOX4. BREATHING EVEN AND UNLABORED ON ROOM AIR. NO SIGNS OF ACUTE DISTRESS AT THIS TIME. SEIZURE PRECAUTIONS IN PLACE. WILL CONTINUE TO ASSESS FOR CHANGES IN CONDITION.
[2019-05-28] MEDS: HYDROcodone/APAP 5/325 MG 1 TAB TAB PO PRN ×2 (10:57)
[2019-05-28 11:20] VITALS: BP 96/55
--- NOTE | 2019-05-28 11:38 | NUR ---
PT IN RESTROOM. AAOX4. NO SIGNS OF ACUTE DISTRESS AT THIS TIME. WILL CONTINUE TO ASSESS.
--- NOTE | 2019-05-28 12:25 | NUR ---
PT GIVEN DISCHARGE PAPERWORK AND DISCHARGE TEACHING, PT VERBALIZED UNDERSTADING. PT DISCHARGED HOME. STABLE AT DISCHARGE. ALL BELONGINGS WITH PATIENT. PT 22G IV TO L FOOT REMOVED AND CATHETER INTACT. PT AAOX4. PT TOOK ALL BELONGINGS HOME. LEFT HOSPITAL VIA UBER.
[2019-05-28 13:06] LABS: THYROID PEROXIDASE (TPO) AB 88 IU/mL (0 - 34)
== END 2019-05-28 12:25 | disposition home or self-care (01) | DRG 53 ==
LOC: MED 15:22 → MTU 19:22
PROVIDERS: ADMIT Internal Medicine Pulmonary Disease; ATTEND Internal Medicine Pulmonary Disease
DX: G40.909 Epilepsy, unspecified, not intractable, without status epilepticus (principal); E83.42 Hypomagnesemia; J20.9 Acute bronchitis, unspecified; E05.90 Thyrotoxicosis, unspecified without thyrotoxic crisis or storm; Z88.6 Allergy status to analgesic agent; Z88.8 Allergy status to other drugs, medicaments and biological substances; Z79.899 Other long term (current) drug therapy
CPT/HCPCS: 36415; 70360; 71045; 73030; 80048; 80053; 83735; 84100; 84439; 84443; 84703; 85025; 86376; 86800; 87081; 93005; 94640; 96361; 96374; 96375; 99285; J1800; J2060; J2270; J2405; J3475; J3490; J7030; J7060; J7613; J7644; Q0092

== ENCOUNTER 2019-06-14 12:23 | Inpatient (IN) | payer MEDICAID, OTHER ==
[~2019-06-14] VITALS: Ht 165.1 cm; Wt 68.0 kg
[~2019-06-14 12:23] MED LIST changes: +DIVA500T1 PO; -KEP500 PO; +PROP20TA29 PO; +TAP5 PO
[2019-06-14 12:28] VITALS: BP 139/82
--- NOTE | 2019-06-14 12:28 | NUR ---
WITNESSED SZ AT HOME X 5. UNKNOWN DURATION. A/O X 4 , GCS 15. NO TRAUMA NOTED. . DENIES N/V/D; SKIN IS PINK/WARM/DRY; AWAKE, ALERT AT THIS MOMENT BUT PT STATED SHE DOES NOT KNOW WHAT HAPPENED AFTER SHE HAD SEIZURE.LUNGS CLEAR BL; HR EVEN AND REGULAR; BEDSIDE SHOWS ST. PT DENIES ANY FEVER, CP, SOB, OR COUGH AT THIS TIME; PATIENT STATES PAIN OF 0/10 AT THIS TIME; PATIENT POSITIONED FOR COMFORT; HOB ELEVATED; BEDRAILS UP X2; BED DOWN. ER MD MADE AWARE OF PT STATUS.
[2019-06-14] MEDS ORDERED: ACETAMINOPHEN 325 MG TAB PO ONE (13:25)
[2019-06-14] MEDS ORDERED: LORazepam 2 MG/ML VIAL ONE ×2 (14:03→20:12)
[2019-06-14] MEDS ORDERED: LORazepam 2 MG/ML VIAL IVP ONE (14:05)
--- NOTE | 2019-06-14 14:07 | NUR ---
Pt had episode of witnessed tonic-clonic seizure lasting 20 seconds. Pt was positioned to R laying position to prevent aspiration. No oral trauma noted. Pt post-ictal at this time. HR 126.
[2019-06-14] MEDS ORDERED: ACETAMINOPHEN 160 MG/5 ML UDC PO ONE (14:35)
[2019-06-14] MEDS ORDERED: MORPHINE SULFATE 2 MG/ML SYR IVP ONE (15:10)
[2019-06-14] MEDS ORDERED: ONDANSETRON 4 MG/2 ML VIAL IVP ONE (15:10)
--- NOTE | 2019-06-14 15:57 | NUR ---
PT RESTING IN BED, HR DECREASED TO 108S. PT STATED HER HEADACHE RELIEVED.
[2019-06-14] MEDS ORDERED: carBAMazepine 200 MG TAB PO ONE (16:30)
--- NOTE | 2019-06-14 16:47 | NUR ---
educated pt do not drink grapfruit juice while taking tegretol. pt verbalized understanding.
[2019-06-14] MEDS ORDERED: ONDANSETRON 4 MG/2 ML VIAL IM/IVP PRN (17:00)
[2019-06-14] MEDS ORDERED: NACL 0.9% 1,000 ML IV SCH (17:00)
[2019-06-14] MEDS ORDERED: ACETAMINOPHEN 325 MG TAB PO PRN ×3 (17:00→21:45)
[2019-06-14] MEDS ORDERED: HYDROcodone/APAP 7.5/325 MG 1 TAB PO PRN (17:00)
--- NOTE | 2019-06-14 17:00 | NUR ---
offered pt juice and ordered pt food. Addendum: 06/14/19 at 1818 by BRITTNEY it was orange juice.
--- NOTE | 2019-06-14 18:00 | NUR ---
pt awake, alert. on RA, no s/s of respiratory distress . transferred pt to tele 112A. all personal belongings with pt. per pt, she called her mom, her mom is on the way to hospital.
--- NOTE | 2019-06-14 18:10 | NUR ---
[id number] PT FROM ED NURSE NICKI. PT IS AWAKE AND ALERT, NO S/S OF ACUTE DISTRESS AT THIS TIME. PT IS AMBULATORY AND ABLE TO MAKE NEEDS KNOWN. IV SITE IS IN THE L EJ 20 G. CALL LIGHT IS GIVEN WITHIN REACH. PT IS ON ROOM AIR, SKIN INTACT. SEIZURE PRECAUTIONS IN PLACE. WILL CONTINUE TO MONITOR.
--- NOTE | 2019-06-14 18:15 | NUR ---
VITAL SIGNS UPON ADMIT: BP 130/72, HR 118, O2 100%, TEMP 98.9, RR 20
--- NOTE | 2019-06-14 19:20 | NUR ---
PT ENDORSED TO SALESPERSON PARTS IN STABLE CONDITION.
--- NOTE | 2019-06-14 19:25 | NUR ---
RECEIVED BEDSIDE REPORT FROM AM SHIFT RN RIC, FOR PT'S CONTINUITY OF CARE. PT AAOX4, IS ON ROOM AIR, ON MINES INSPECTOR, HAS LEFT EJ 20G SALINE LOCK, ON SEIZURE AND FALL PRECAUTION, MOTHER AT BEDSIDE. EXPLAINED TO PT AND MOTHER THE HURRICANE TRACKER ROUTINE, THEY VERBALIZED UNDERSTANDING. WILL MONITOR PT THROUGHOUT SHIFT.
[2019-06-14 20:00] VITALS: BP 137/89
--- NOTE | 2019-06-14 20:00 | NUR ---
PT'S MOTHER CALLED OUT FOR NURSE, STATES THAT PT SUPPOSED TO RECEIVE SEIZURE MEDICATION AT THIS TIME. EXPLAINED THAT MD WAS PAGED, AND DR. Kaur ABEL IS ALSO REVIEWING HER CHART. PT STARTED TO LOOK LETHARGIC AND NOT FOLLOWING COMMANDS, VS ARE WNL, CHECKED PUPILS = PERRL. TOLD MOTHER THAT I WILL GET MD AND PAGE THE CAR SANDER MD.
--- NOTE | 2019-06-14 20:15 | NUR ---
PT MOTHER SCREAMING IN THE ROOM, ASKING FOR HELP. FOUND PT ON THE FLOOR LYING ON HER SIDE, APPEARED TO HAVE HAD SEIZURE EPISODE. FOOD MIXER PRESENT AND AWARE, GERALD AND TIKI SUP AND ANOTHER RN ASSISTED IN LIFTING THE PT BACK UP TO HER BED, VS WERE CHECKED, ADMINISTERED IV PUSH ATIVAN PER DR. Kaur ABEL'S ORDER. SEIZURE AND FALL PRECAUTION IN PLACE. MOTHER CONCERNED WITH MEDICATIONS, INFORMED HER THAT WE ARE STILL WAITING FOR MD'S CALL. WILL CONTINUE TO MONITOR PT.
--- NOTE | 2019-06-14 21:30 | NUR ---
PT MOTHER WENT HOME TO GET HOME MEDS, STILL NO CALL, MOTHER SCREAMING AT THE NURSES STATION TALKING WITH ASSISTANT BUSINESS MANAGER REGARDING MEDICATIONS.
[2019-06-14] MEDS ORDERED: ONDANSETRON 4 MG ODT PO SCH (21:40)
[2019-06-14] MEDS ORDERED: LORazepam 2 MG/ML VIAL IVP PRN (21:45)
--- NOTE | 2019-06-14 22:00 | NUR ---
PT STATES SHE WANTS TO GO OUTSIDE TO WALK FOR 10 MINS. REINFORCED AND REEDUCATED PT REGARDING FALL AND SEIZURE PRECAUTION. MEDICAL ASSEMBLER TALKED TO PT, PT VERBALIZED UNDERSTANDING. WILL CONTINUE TO MONITOR.
[2019-06-14] MEDS: HYDROcodone/APAP 5/325 MG 1 TAB TAB PO PRN (23:29)
--- NOTE | 2019-06-14 23:29 | NUR ---
FOUND PT'S DOOR CLOSED. FOUND PT COMING OUT OF THE RESTROOM, BED ALARM OFF, SMELL OF SMOKE IN THE ROOM. FOUND AND CONFISCATED CIGARETTE HOME HEALTH CLINICIAN ON THE BED, AND CIGARETTES SURRENDERED BY PT. SECURITY TALKED TO PT AND HAS POSSESSION OF CIGARETTE AND HOME HEALTH CLINICIAN. PT EDUCATION GIVEN, PT VERBALIZED UNDERSTANDING. VS CHECKED AND CHARTED. ADMINISTERED PO PRN PAIN MEDICATION PT C/O HEADACHE 03/09. WILL CONTINUE TO MONITOR PT.
--- NOTE | 2019-06-14 23:46 | NUR ---
PT'S PULSE CONSISTENT 140'S. INFORMED DR. Keri ABEL, AND PT HAS SCHEDULED PROPANOLOL IN AM. MD FUCHS WITH SCHEDULED PROPANOLOL, NO NEW ORDERS AT THIS TIME.
[2019-06-15] VITALS: BP 136/72
--- NOTE | 2019-06-15 02:30 | NUR ---
MADE ROUNDS. PT LYING DOWN APPEARS TO BE ASLEEP WITH NO SIGNS OF DISTRESS. WILL CONTINUE TO MONITOR PT.
[2019-06-15 04:00] VITALS: BP 130/69
[2019-06-15] MEDS: PROPRANOLOL 20 MG TAB PO SCH ×3 (04:57→20:22)
[2019-06-15] MEDS: METHIMAZOLE 5 MG TAB PO SCH ×3 (04:57→20:22)
[2019-06-15] MEDS: HYDROcodone/APAP 5/325 MG 1 TAB TAB PO PRN ×4 (05:00→17:20)
--- NOTE | 2019-06-15 05:00 | NUR ---
ADMINISTERED SCHEDULED PO MEDICATIONS ORDERED. PT TOLERATED THEM WELL.
--- NOTE | 2019-06-15 05:00 | NUR ---
VS CHECKED AND CHARTED. PT C/O HEADACHE 03/09, ADMINISTERED PRN PO PAIN MEDICATION ORDERED. WILL CONTINUE TO MONITOR PT.
--- NOTE | 2019-06-15 07:00 | NUR ---
PT ASLEEP WITH NO SIGNS OF DISTRESS. WILL ENDORSE TO AM SHIFT RN FOR PT'S CONTINUITY OF CARE.
--- NOTE | 2019-06-15 07:25 | NUR ---
RECEIVED BEDSIDE REPORT FROM HEALTH MANAGER NURSE, PT IS ASLEEP, NO S/S OF ACUTE DISTRESS AT THIS TIME. PER NIGHT NURSE, PT HAS A SEIZURE EPISODE LAST NIGHT WHILE PT'S MOTHER WAS VISITING. NO MORE SEIZURES REPORTED AFTER THIS ONE. PT HAS AN IV IN HER L EJ, 20 G, SALINE LOCKED. SKIN IS INTACT. ROOM AIR. SEIZURE PRECAUTIONS (RAIL PADDING) IS IN PLACE. CALL LIGHT IS WITHIN REACH. WILL CONTINUE TO MONITOR.
[2019-06-15 07:36] LABS: BASOPHILS % (AUTO) 0.6 % (0.0-2.0); EOSINOPHILS % (AUTO) 0.7 % (0.0-4.0); HEMATOCRIT 32.5 % (36-48); HEMOGLOBIN 10.6 g/dL (12.0-16.0); LYMPHOCYTES # (AUTO) 1.8 K/uL (2.5-16.5); MEAN CORPUSCULAR HEMOGLOBIN 27 pg (27-31); MEAN CORPUSCULAR HGB CONC 33 g/dL (33-37); MONOCYTES # (AUTO) 0.5 K/uL (0.8-1.0); NEUTROPHILS % (AUTO) 46.7 % (42.2-75.2); PLATELET COUNT (AUTO) 212 K/uL (140-450); RED BLOOD CELL COUNT(AUTO) 3.87 MIL/uL (4.20-5.40); RED CELL DISTRIBUTION WIDTH 14.2 % (11.6-13.7); WHITE BLOOD COUNT (AUTO) 4.3 K/uL (4.8-10.8)
[2019-06-15 07:49] LABS: ALBUMIN 3.2 g/dL (3.4-5.0); ANION GAP 14.7 (8-16); CARBON DIOXIDE 22.7 mmol/L (21-32); POTASSIUM 3.4 mmol/L (3.5-5.1); TOTAL BILIRUBIN 0.7 mg/dL (0.0-1.0)
[2019-06-15 07:54] LABS: CREATININE 0.3 mg/dL (0.6-1.3)
[2019-06-15 08:00] VITALS: BP 130/61
--- NOTE | 2019-06-15 08:08 | NUR ---
PATIENT HAS BEEN SCREENED AND CATEGORIZED LOW NUTRITION RISK. PATIENT WILL BE SEEN WITHIN 7 DAYS OF ADMISSION. 06/21/[address]
--- NOTE | 2019-06-15 08:35 | NUR ---
PAGED DR. FELICITY ABEL TO INFORM OF LOW CREATININE 0.3, WAITING FOR CALL BACK Addendum: 06/15/19 at 0848 by Asia Stahl RN DR ABEL CALLED BACK AND IS AWARE.
[2019-06-15] MEDS: DIVALPROEX 500 MG TABER PO SCH ×2 (08:43→20:22)
[2019-06-15] MEDS: DULoxetine 30 MG CAPDR PO SCH (08:44)
[2019-06-15] MEDS: carBAMazepine 200 MG TAB PO SCH ×2 (08:44→20:22)
--- NOTE | 2019-06-15 10:10 | NUR ---
PT JUST HAD A SEIZURE. RN (RIC) IN THE ROOM, WITNESSED THE SEIZURE. PT STARTED SEIZING WHILE SITTING UP IN BED, HER UPPER BODY WENT UP OVER THE RAILING, AND SHE SLID OUT OF BED, DESPITE THE BED RAILING STANDING UP. SHE DID NOT APPEAR TO HAVE HIT HER HEAD. RN ASSISTED PT TO GENTLY SLIDE DOWN ONTO THE FLOOR. CHARGE NURSE, DIRECTOR YANELIS AND AND NA'S ASSISTED ONTO A PILLOW ONTO HER SIDE. VITAL SIGNS CHECKED, BP 124/73, HR 131, O2 100%, TEMP 98.6. PT WOKE UP BRIEFLY AND WENT TO SLEEP. PT WAS MOVED TO ROOM 107-B TO BE CLOSER TO THE NURSES STATION.
[2019-06-15] MEDS: LORazepam 2 MG/ML VIAL IM/IVP PRN ×2 (10:25→17:21)
--- NOTE | 2019-06-15 10:30 | NUR ---
PAGED DR FELICITY ABEL TO NOTIFY HIM OF PT'S SEIZURE. WAITING FOR HIS CALL BACK.
[2019-06-15 12:00] VITALS: BP 130/61
--- NOTE | 2019-06-15 12:25 | NUR ---
PT REQUESTING TO HAVE A DIFFERENT DOCTOR. I TALKED TO TOMMY, SHE SAYS THAT DOCTORS ARE ASSIGNED TO PTS BASED ON THEIR INSURANCE. I RELAYED THIS TO THE PT, PT STILL COMPLAINING THAT SHE SHOULD BE ABLE TO HAVE A DIFFERENT DOCTOR NO MATTER WHAT. CHARGE NURSE IS AWARE. Addendum: 06/15/19 at 1233 by Asia Stahl RN THE REASON PT WANTS A DIFFERENT DOCTOR IS BECAUSE DR ABEL DOES NOT GIVE HER PAIN MEDICINE STRONGER THAN BILLY.
--- NOTE | 2019-06-15 14:56 | NUR ---
PT IS ASKING FOR A "SOFT NECK BRACE" FOR HER NECK PAIN. I OFFERED A DIFFERENT PILLOW OR TO REPOSITION HER. SHE INSISTS ON GETTING A SOFT NECK BRACE. I TALKED TO YANELIS ABOUT A SOFT NECK BRACE FOR THE PT, SHE SAID TO CALL DR ABEL FOR AN ORDER. WILL PAGE DR ABEL.
[2019-06-15 16:00] VITALS: BP 119/56
--- NOTE | 2019-06-15 16:58 | NUR ---
[facility] UNIQUE ID FOR FALL: [id number]
--- NOTE | 2019-06-15 17:45 | NUR ---
PT APPEARS TO BE SLEEPING COMFORTABLY, NO S/S OF DISTRESS NOTED AT THIS TIME. STILL WAITING ON DR ABEL TO ROUND.
--- NOTE | 2019-06-15 18:15 | NUR ---
PT EATING DINNER. ASKED FOR COFFEE WITH CREAM AND SUGAR
--- NOTE | 2019-06-15 19:30 | NUR ---
PT ENDORSED TO BOTANY TECHNICIAN NURSE IN STABLE CONDITION
--- NOTE | 2019-06-15 19:31 | NUR ---
RECEIVED BEDSIDE REPORT FROM DAY RN PT IS AAOX4. ON RA NO S/S OF ACUTE DISTRESS AT THIS TIME. PER NIGHT NURSE, PT HAS A SEIZURE EPISODE THIS AM AND ASSISTED FALL. NO MORE SEIZURES REPORTED AFTER THIS ONE. PT HAS AN IV IN HER L EJ, 20 G, SALINE LOCKED. SKIN IS INTACT. ROOM AIR. SEIZURE PRECAUTIONS (RAIL PADDING) IS IN PLACE. CALL LIGHT IS WITHIN REACH. WILL CONTINUE TO MONITOR.
[2019-06-15 20:00] VITALS: BP 114/56
--- NOTE | 2019-06-15 20:22 | NUR ---
VITAL SIGNS ARE WITHIN NORMAL LIMITS. SARAH MEDICATIONS GIVEN PER ORDERS. ALL NEEDS MET AT THIS TIME. SAFETY MEASURES ARE IN PLACE. SIDE RAILS PADDED AND UP. CALL LIGHT IS WITHIN REACH. WILL CONTINUE TO MONITOR
[2019-06-15] MEDS: ONDANSETRON 4 MG/2 ML VIAL IVP PRN (20:45)
--- NOTE | 2019-06-15 20:45 | NUR ---
ADMINISTERED ZOFRAN IVP FOR CC NAUSEA. PT TOLERATED WELL. ALL NEEDS MET AT THIS TIME.
[2019-06-15] MEDS ORDERED: AMITRIPTYLINE 25 MG TAB PO SCH (21:00)
--- NOTE | 2019-06-15 22:25 | NUR ---
PATIENT IS RESTING COMFORTABLY IN BED USING CELLPHONE. NO S/S OF DISTRESS. CALL LIGHT IS WITHIN REACH. WILL CONTINUE TO MONITOR.
--- NOTE | 2019-06-15 23:45 | NUR ---
PATIENT'S MOTHER CALLED FOR UPDATE ON PATIENTS CONDITION. CONCERN IF PT HAD A SEIZURE. INFORMED MOTHER INFO I CAN GIVE IS LIMITED BUT ONLY HAD ONE SEIZURE THIS AM. MOTHER WAS AWARE. WILL CONTINUE TO MONITOR
[2019-06-16] VITALS: BP 100/50
--- NOTE | 2019-06-16 00:12 | NUR ---
VITAL SIGNS ARE WITHIN NORMAL LIMITS. ALL NEEDS MET AT THIS TIME. CALL LIGHT IS WITHIN REACH. WILL CONTINUE TO MONITOR.
--- NOTE | 2019-06-16 01:27 | NUR ---
ENDORSED PATIENT TO RN. PT IS SLEEPING IN STABLE CONDITION.
--- NOTE | 2019-06-16 01:28 | NUR ---
REPORT RECEIVED FROM RAEGAN SOLIS. PT IN STABLE CONDITION.
--- NOTE | 2019-06-16 02:40 | NUR ---
PT SLEEPING COMFORTABLY BUT AROUSABLE. NO S/S OF DISTRESS NOTED. WILL CONTINUE TO MONITOR.
[2019-06-16 04:00] VITALS: BP 111/64
[2019-06-16] MEDS: PROPRANOLOL 20 MG TAB PO SCH (04:20)
[2019-06-16] MEDS: METHIMAZOLE 5 MG TAB PO SCH (04:20)
--- NOTE | 2019-06-16 04:20 | NUR ---
INDERAL AND TAPAZOLE GIVEN PO. PT TOLERATED WELL.
--- NOTE | 2019-06-16 06:10 | NUR ---
PT SLEEPING COMFORTABLY BUT AROUSABLE. NO S/S OF DISTRESS NOTED. PT IN STABLE CONDITION. Addendum: 06/16/19 at 0641 by Ezra Spence RN NO SEIZURES NO FALLS THIS SHIFT.
[2019-06-16 07:12] LABS: BASOPHILS % (AUTO) 0.2 % (0.0-2.0); HEMATOCRIT 32.2 % (36-48); HEMOGLOBIN 10.7 g/dL (12.0-16.0); LYMPHOCYTES # (AUTO) 2.3 K/uL (2.5-16.5); LYMPHOCYTES % (AUTO) 49.8 % (20.5-51.1); MEAN CORPUSCULAR HEMOGLOBIN 28 pg (27-31); MEAN CORPUSCULAR HGB CONC 33 g/dL (33-37); MEAN CORPUSCULAR VOLUME 84.1 fL (80-94); MONOCYTES # (AUTO) 0.5 K/uL (0.8-1.0); NEUTROPHILS # (AUTO) 1.8 K/uL (1.8-7.7); PLATELET COUNT (AUTO) 242 K/uL (140-450); RED BLOOD CELL COUNT(AUTO) 3.82 MIL/uL (4.20-5.40); RED CELL DISTRIBUTION WIDTH 14.6 % (11.6-13.7); WHITE BLOOD COUNT (AUTO) 4.5 K/uL (4.8-10.8)
--- NOTE | 2019-06-16 07:15 | NUR ---
RECEIVED REPORT FROM DELIVERY TECH NURSE. PT IN STABLE CONDITION. IV INTACT AND PATENT. RESPIRATIONS EVEN AND UNLABORED. SAFETY MEASURES IN PLACE. BED IN LOW POSITION. BED ALARM ON. CALL LIGHT AT BEDSIDE. WILL CONTINUE TO MONITOR.
[2019-06-16 07:18] LABS: ANION GAP 13.4 (8-16); CARBON DIOXIDE 24.2 mmol/L (21-32); CREATININE 0.4 mg/dL (0.6-1.3); POTASSIUM 3.6 mmol/L (3.5-5.1)
[2019-06-16 08:00] VITALS: BP 121/66
[2019-06-16] MEDS: carBAMazepine 200 MG TAB PO SCH (08:04)
[2019-06-16] MEDS: DIVALPROEX 500 MG TABER PO SCH (08:04)
[2019-06-16] MEDS: DULoxetine 30 MG CAPDR PO SCH (08:11)
--- NOTE | 2019-06-16 09:16 | NUR ---
PT OFF UNIT FOR CT SCAN AT THIS TIME. PT LEFT IN STABLE CONDITION BY WHEELCHAIR WITH CURBING STONECUTTER.
[2019-06-16] MEDS: HYDROcodone/APAP 5/325 MG 1 TAB TAB PO PRN (11:27)
--- NOTE | 2019-06-16 11:27 | NUR ---
GAVE PRN PAIN MEDICATION PER PT REQUEST. PT IN STABLE CONDITION.
[2019-06-16] MEDS: ONDANSETRON 4 MG/2 ML VIAL IVP PRN (11:50)
--- NOTE | 2019-06-16 11:50 | NUR ---
GAVE PRN NAUSEA MEDICATION PER PT REQUEST. PT IN STABLE CONDITION.
[2019-06-16 12:00] VITALS: BP 116/64
--- NOTE | 2019-06-16 12:50 | NUR ---
GAVE DISCHARGE INSTRUCTIONS PT VERBALIZED UNDERSTANDING. REMOVED IV, LUMEN INTACT. REMOVED ID BANDS. PICKED UP MEDICATIONS STORED IN PHARMACY AND GIVEN TO PT. PT WHEELED IN WHEELCHAIR TO LOBBY IN STABLE CONDITION, WHERE FAMILY IS WAITING WITH VEHICLE.
== END 2019-06-16 12:50 | disposition home or self-care (01) | DRG 53 ==
LOC: MED 12:23 → MTU 17:02
PROVIDERS: ADMIT Preventive Medicine Preventive Medicine/Occupational Environmental Medicine; ATTEND Preventive Medicine Preventive Medicine/Occupational Environmental Medicine
DX: G40.909 Epilepsy, unspecified, not intractable, without status epilepticus (principal); E88.09 Other disorders of plasma-protein metabolism, not elsewhere classified; D64.9 Anemia, unspecified; E05.90 Thyrotoxicosis, unspecified without thyrotoxic crisis or storm; E87.6 Hypokalemia; R00.0 Tachycardia, unspecified; D72.819 Decreased white blood cell count, unspecified; Z88.1 Allergy status to other antibiotic agents; Z88.8 Allergy status to other drugs, medicaments and biological substances; Z90.49 Acquired absence of other specified parts of digestive tract
CPT/HCPCS: 36415; 70450; 71045; 72125; 80048; 80053; 80156; 81025; 85025; 87081; 96374; 96375; 99285; J2060; J2270; J2405

== ENCOUNTER 2019-06-25 20:00 | Emergency (ER) | payer MEDICAID ==
[~2019-06-25] VITALS: Ht 165.1 cm; Wt 68.0 kg
[2019-06-25 20:00] VITALS: BP 179/100
--- NOTE | 2019-06-25 20:00 | NUR ---
EMS TOOK PT TO #11 BY RAFAT
--- NOTE | 2019-06-25 20:07 | NUR ---
PT BIBA TO BED 11.
--- NOTE | 2019-06-25 20:10 | NUR ---
28 Y/O F BIBA ALS FROM HOME S/P FALL FROM SEIZURE. PER INTERNATIONAL SALES MANAGER PT HAD SEIZURE X3 TODAY. PT RX WAS SWITCHED FROM [facility]RA TO DEPAKOTE. PT A&O X4. GCS 15. ANSWERING QUESTIONS APPROPRIATELY. PT IN CERVICAL COLLAR. PT C/O PAIN LEVEL 10/10 TO NECK AND UPPER BACK AREA FROM FALL. SEIZURE PRECAUTIONS IMPLEMENTED. BED IN LOWEST POSITION, HOB ELEVATED, PADDED SIDE RAILS UP X2. ERMD MADE AWARE OF PT STATUS.
--- NOTE | 2019-06-25 20:32 | NUR ---
PER PT'S MOTHER, PT HAD 3 WITNESSED TONIC-CLONIC SEIZURES (APPROX 45s DURATION), 1 MIN APART. PT IS TAKING 1000MG DEPAKOTE BID AND 300MG TEGRETOL BID.
--- NOTE | 2019-06-25 20:34 | NUR ---
DR JACOBO MADE AWARE OF PT'S RX SEIZURE MEDS DUE AT THIS TIME. PER ER MD, PT CAN TAKE PT'S SEIZURE MEDICATIONS AT HOME PRESCRIBED
--- NOTE | 2019-06-25 20:59 | NUR ---
ERMD AT BEDSIDE
--- NOTE | 2019-06-25 21:05 | NUR ---
DR JACOBO ADVISED PT AND PT'S MOTHER TO MONITOR PT FOR SEIZURE ACTIVITY AND FOLLOW UP WITH PCP AND NEUROLOGIST.
--- NOTE | 2019-06-25 21:05 | NUR ---
DR JACOBO AT BEDSIDE TO SPEAK WITH PT AND PT'S MOTHER
[2019-06-25 21:09] VITALS: BP 149/53
--- NOTE | 2019-06-25 21:10 | NUR ---
Patient discharged with v/s stable. Written and verbal after care instructions given and explained. Patient verbalized understanding. Wheel Chair Assisted to car, able to transfer self from wheelchair to get inside car. All questions addressed prior to discharge. Advised to follow up with PMD.
== END 2019-06-25 21:09 | disposition home or self-care (01) ==
LOC: MED 20:00
DX: G40.909 Epilepsy, unspecified, not intractable, without status epilepticus (principal); E05.90 Thyrotoxicosis, unspecified without thyrotoxic crisis or storm; Z79.899 Other long term (current) drug therapy; Z79.1 Long term (current) use of non-steroidal anti-inflammatories (NSAID); Z88.8 Allergy status to other drugs, medicaments and biological substances; Z88.1 Allergy status to other antibiotic agents; Z88.6 Allergy status to analgesic agent
CPT/HCPCS: 99283

== ENCOUNTER 2019-08-11 01:32 | Emergency (ER) | payer MEDICAID, OTHER ==
[~2019-08-11] VITALS: Ht 165.1 cm; Wt 72.6 kg
[2019-08-11 01:50] VITALS: BP 141/75
[2019-08-11] MEDS: NACL 0.9% 1,000 ML IV ONE (02:21)
[2019-08-11] MEDS: MORPHINE SULFATE 4 MG/ML SYR IVP ONE (02:27)
[2019-08-11 02:55] VITALS: BP 137/74
== END 2019-08-11 02:56 | disposition home or self-care (01) ==
LOC: MED 01:32
DX: R07.9 Chest pain, unspecified (principal); R00.2 Palpitations; R05 Cough; Z88.6 Allergy status to analgesic agent; Z88.8 Allergy status to other drugs, medicaments and biological substances; Z88.1 Allergy status to other antibiotic agents; Z79.899 Other long term (current) drug therapy; E07.9 Disorder of thyroid, unspecified; Z90.49 Acquired absence of other specified parts of digestive tract; Z98.890 Other specified postprocedural states
CPT/HCPCS: 93005; 96374; 99283; J2270

== ENCOUNTER 2019-09-16 21:02 | Inpatient (IN) | payer MEDICAID, OTHER ==
[~2019-09-16] VITALS: Ht 165.1 cm; Wt 68.0 kg
[2019-09-16 21:25] VITALS: BP 150/102
--- NOTE | 2019-09-16 21:45 | NUR ---
TAKEN TO BED 04 VIA WC PER SEIZURE PRECAUTIONS. WILL OCASIO AT BEDSIDE. SEIZURE PRECAUTIONS IN PLACE.
--- NOTE | 2019-09-16 22:00 | NUR ---
SZ PRECUATION INITIATED. BED IN LOW POSTION. SZ PADS IN PLACE.
--- NOTE | 2019-09-16 22:00 | NUR ---
29 Y/O FEMALE C/O SZ X 1845 TODAY. PT STATES SHE WAS ON FACETIME WITH HER MOTHER IN THE KITCHEN AND ENDED UP HAVING A SZ. PT STATES THAT MOTHER SAID THE SZ LASTED 3MINS. PT FELL ON HER LEFT SIDE DURING HER SZ. PT STATES SHE HIT HER HEAD. NO OBVIOUS HEAD INJURY OR HEMATOMA NOTED. LUNG SOUNDS CLEAR ALL THORUGHOUT. CARDAIC MONTIRO SHOWS SHES TACHYCARDIC. VSS. AIRWAY PATENT AND CLEAR. NO ORAL TRUAMA NOTED OR BLEEDING. A & O X4. 3MM PERRLA BRISK. ALLERGIES: TORADOL, REGLAN, ASPIRIN, HALDOL PMH: SZ AND HYPERTHYROID.
[2019-09-16] MEDS ORDERED: levETIRAcetam 1,000 MG in NACL 0.9% 100 ML IV ONE (22:15)
[2019-09-16] MEDS ORDERED: levETIRAcetam 100 MG/ML VIAL IV ONE (22:34)
[2019-09-16 23:19] LABS: BASOPHILS % (AUTO) 0.8 % (0.0-2.0); HEMOGLOBIN 10.3 g/dL (12.0-16.0); LYMPHOCYTES # (AUTO) 1.8 K/uL (2.5-16.5); LYMPHOCYTES % (AUTO) 35.2 % (20.5-51.1); MEAN CORPUSCULAR HEMOGLOBIN 28 pg (27-31); MEAN CORPUSCULAR HGB CONC 33 g/dL (33-37); MEAN CORPUSCULAR VOLUME 83.5 fL (80-94); MONOCYTES # (AUTO) 0.4 K/uL (0.8-1.0); MONOCYTES % (AUTO) 8.4 % (1.7-9.3); NEUTROPHILS # (AUTO) 2.8 K/uL (1.8-7.7); NEUTROPHILS % (AUTO) 54.6 % (42.2-75.2); PLATELET COUNT (AUTO) 241 K/uL (140-450); RED BLOOD CELL COUNT(AUTO) 3.72 MIL/uL (4.20-5.40); RED CELL DISTRIBUTION WIDTH 14.6 % (11.6-13.7); WHITE BLOOD COUNT (AUTO) 5.1 K/uL (4.8-10.8)
[2019-09-16 23:36] LABS: ANION GAP 14.4 (8-16); CARBON DIOXIDE 25.9 mmol/L (21-32); CREATININE 0.4 mg/dL (0.6-1.3); POTASSIUM 3.3 mmol/L (3.5-5.1)
[2019-09-16] MEDS ORDERED: MORPHINE SULFATE 4 MG/ML SYR IVP ONE (23:45)
[2019-09-17 00:11] LABS: PHENOBARBITAL < 1 ug/ml (15-40)
--- NOTE | 2019-09-17 00:11 | NUR ---
MONITORING PT FOR PRIMARY NURSE. PT SEATED UPRIGHT IN BED. VSS. SEIZURE PRECAUTIONS IN PLACE.
[2019-09-17 00:12] LABS: PHENYTOIN (DILANTIN) < 0.5 ug/ml (10.0-20.0)
[2019-09-17] MEDS ORDERED: NACL 0.9% 1,000 ML IV SCH (00:58)
--- NOTE | 2019-09-17 01:18 | NUR ---
FLU SWAB COLLECTED AND SENT TO [facility].
--- NOTE | 2019-09-17 01:18 | NUR ---
SPOKE WITH CABIN SERVICE AGENT JOANN AND SAID ITS OKAY TO HAVE PT ADMITTED.
[2019-09-17] MEDS ORDERED: CARB400T PO (01:45)
[2019-09-17] MEDS ORDERED: DIVA500T1 PO (01:45)
[2019-09-17] MEDS ORDERED: PROP20TA29 PO (01:45)
[2019-09-17] MEDS ORDERED: TAP5 PO (01:45)
[2019-09-17 02:20] VITALS: BP 122/79
--- NOTE | 2019-09-17 02:20 | NUR ---
Patient will be admitted to care of . Admited to TELE. Will go to room 112A. Belongings list completed. Report to WILL CALVERT.
--- NOTE | 2019-09-17 02:20 | NUR ---
RECEIVED BEDSIDE REPORT FROM ED RN NINFA, FOR PT'S CONTINUITY OF CARE. PT IS AAOX4, ON MOTION STUDY TECHNICIAN, ON ROOM AIR, HAS RIGHT AC 22G WITH NS AT BOLUS, C/O GEN BODY PAIN, AND SKIN IS INTACT. EXPLAINED TO PT THE IT CONSULTING DIRECTOR ROUTINE, PT VERBALIZED UNDERSTANDING AND FAMILIARITY. PT WANTED TO EAT, PT TEACHING GIVEN RE: DIET ORDERED BY DR. PITTMAN. VERIFIED WITH THE MD, MD STATED THAT IS HIS ORDER - CLEAR LIQUID DIET. PT IS ON SZ AND FALL PRECAUTION, CALL LIGHT IS WITHIN REACH. WILL MEDICATE PT FOR PAIN.
[2019-09-17] MEDS ORDERED: MORPHINE SULFATE 2 MG/ML SYR IVP PRN (02:40)
[2019-09-17] MEDS ORDERED: guaiFENesin DM 200/20 MG-10 ML 10 ML UDC PO PRN (02:40)
[2019-09-17] MEDS ORDERED: ONDANSETRON 4 MG/2 ML VIAL IVP PRN (02:40)
[2019-09-17] MEDS ORDERED: ALBUTEROL 0.083% 2.5 MG/3 ML NEBU INH PRN (02:40)
[2019-09-17] MEDS ORDERED: SODIUM PHOSPHATE 118 ML ENEM RC PRN (02:40)
[2019-09-17] MEDS ORDERED: DOCUSATE SODIUM 250 MG GELCAP PO PRN (02:40)
[2019-09-17] MEDS ORDERED: MAG SULF 2000 MG/WATER PREMIX 50 ML IV PRN (02:40)
[2019-09-17] MEDS ORDERED: LORazepam 2 MG/ML VIAL IVP PRN (02:40)
[2019-09-17] MEDS ORDERED: HYDROcodone/APAP 5/325 MG 1 TAB TAB PO PRN (02:40)
[2019-09-17] MEDS ORDERED: cloNIDine 0.1 MG TAB PO PRN (02:40)
[2019-09-17] MEDS ORDERED: diphenhydrAMINE 50 MG/ML VIAL IVP PRN (02:40)
[2019-09-17] MEDS ORDERED: MAGNESIUM OXIDE 400 MG TAB PO PRN (02:40)
[2019-09-17] MEDS ORDERED: IPRATROPIUM 0.02% 0.5 MG/2.5 ML NEBU INH PRN (02:40)
[2019-09-17] MEDS ORDERED: ZOLPIDEM 5 MG TAB PO PRN (02:40)
[2019-09-17] MEDS ORDERED: BISACODYL 10 MG SUPP RC PRN (02:40)
[2019-09-17] MEDS ORDERED: ACETAMINOPHEN 325 MG TAB PO PRN (02:40)
[2019-09-17] MEDS ORDERED: POTASSIUM CHLORIDE 10 MEQ TABER PO PRN (02:40)
[2019-09-17] MEDS ORDERED: ACETAMINOPHEN 650 MG SUPP RC PRN (02:40)
[2019-09-17] MEDS ORDERED: ALUMINUM HYD/MAG/SIMETHICONE 30 ML UDC PO PRN (02:40)
--- NOTE | 2019-09-17 03:00 | NUR ---
ADMINISTERED PRN PO PAIN MEDICATION. PT TOLERATED IT WELL. WILL CONTINUE TO MONITOR PT.
[2019-09-17] MEDS: HYDROcodone/APAP 5/325 MG 1 TAB TAB PO PRN ×3 (03:02→15:03)
[2019-09-17 04:30] VITALS: BP 111/57
--- NOTE | 2019-09-17 04:30 | NUR ---
VS CHECKED AND CHARTED. PT ASLEEP, WOKE UP AND DENIES ANY PAIN OR DISCOMFORT OR FEELING OF SZ COMING.
--- NOTE | 2019-09-17 06:06 | NUR ---
PT ASLEEP WITH NO SIGNS OF DISTRESS. NO SEIZURE ACTIVITY THROUGHOUT THE SHIFT. WILL ENDORSE TO AM SHIFT RN FOR PT'S CONTINUITY OF CARE.
--- NOTE | 2019-09-17 07:20 | NUR ---
RECEIVED BEDSIDE REPORT FROM NIGHT NURSE. PATIENT IS ASLEEP, EASILY AROUSABLE BY TOUCH. RESPIRATIONS EVEN AND UNLABORED. PERIPHERAL IV PATENT AND INTACT. PLAN OF CARE WAS DISCUSSED. ALL SAFETY MEASURES IN PLACE. BED IS AT LOW POSITION. CALL LIGHT WITHIN REACH.
[2019-09-17 08:00] VITALS: BP 129/64
[2019-09-17] MEDS ORDERED: carBAMazepine 200 MG TAB PO SCH (09:00)
[2019-09-17] MEDS ORDERED: DULoxetine 30 MG CAPDR PO SCH (09:00)
[2019-09-17] MEDS ORDERED: METHIMAZOLE 5 MG TAB PO SCH (09:00)
[2019-09-17] MEDS ORDERED: DIVALPROEX 500 MG TABER PO SCH (09:00)
[2019-09-17] MEDS: PROPRANOLOL 20 MG TAB PO SCH ×2 (09:21→12:47)
--- NOTE | 2019-09-17 09:40 | NUR ---
PATIENT AWAKE, ALERT, ORIENTED X4. AM MEDICATIONS GIVEN ORDERED. NO S/S OF DISTRESS NOTED. PATIENT C/O OF PAIN 7/10 TO NECK AND SHOULDERS, MEDICATED. DR. FREITAS AT BEDSIDE. PLANS OF CARE DISCUSSED.
[2019-09-17] MEDS ORDERED: DIVA250E1 PO (10:02)
--- NOTE | 2019-09-17 11:10 | NUR ---
PATIENT IS FOR DISCHARGE TODAY PER DR. FREITAS. PATIENT CURRENTLY ASLEEP, EASILY AROUSABLE BY NAME AND TOUCH. NO ACUTE DISTRESS NOTED. BED IN LOW POSITION. CALL LIGHT WITHIN REACH.
--- NOTE | 2019-09-17 11:59 | NUR ---
PER PATIENT, HER MOTHER WILL PICK HER UP VIA PRIVATE VEHICLE TO GO HOME AT 3 PM.
[2019-09-17 12:00] VITALS: BP 116/75
--- NOTE | 2019-09-17 12:28 | NUR ---
PATIENT HAS BEEN SCREENED AND CATEGORIZED MODERATE NUTRITION RISK. PATIENT WILL BE SEEN WITHIN 3-5 DAYS OF ADMISSION. 09/20/2019 - 09/22/2019 ED[address]ENYON MBA, RD
--- NOTE | 2019-09-17 14:00 | NUR ---
PATIENT IS ASLEEP, EASILY AROUSABLE BY NAME OR TOUCH. NO S/S OF DISTRESS NOTED. PATIENT REMAINS IN STABLE CONDITION.
--- NOTE | 2019-09-17 15:00 | NUR ---
DISCHARGE TEACHINGS PROVIDED. ALL DISCHARGE INSTRUCTIONS PACKET GIVEN, PRESCRIPTION GIVEN, AND ALL BELONGINGS SIGNED FOR. PATIENT WAITING TO BE PICKED UP BY HER MOTHER TO GO HOME VIA PRIVATE VEHICLE. IV REMOVED, CANNULA INTACT, NO BLEEDING NOTED. PATIENT IN STABLE CONDITION.
--- NOTE | 2019-09-17 15:30 | NUR ---
PATIENT STATED HER MOTHER WILL NO LONGER BE PICKING HER UP. AN [employer] ADVANCED PRACTICE PROVIDER A PRIVATE VEHICLE WAS CALLED BY HER MOTHER TO PICK HER UP AND TAKE HER HOME.
[2019-09-17 16:00] VITALS: BP 123/77
--- NOTE | 2019-09-17 16:50 | NUR ---
PATIENT LEFT FOR DISCHARGE TO HOME. DISCHARGE PACKET AND ALL BELONGINGS WITH PATIENT. ESCORTED PATIENT VIA W/C AND PICKED UP VIA [employer]SP[employer] PRIVATE VEHICLE. Addendum: 09/17/19 at 1700 by Matti Hatch RN IN ADDITION TO NOTES ABOVE: PATIENT LEFT IN STABLE CONDITION. ID BANDS REMOVED.
== END 2019-09-17 16:50 | disposition home or self-care (01) | DRG 53 ==
LOC: MED 21:02 → MTU 09-17 01:45
PROVIDERS: ADMIT Internal Medicine Pulmonary Disease; ATTEND Internal Medicine Pulmonary Disease
DX: G40.909 Epilepsy, unspecified, not intractable, without status epilepticus (principal); D64.9 Anemia, unspecified; R00.0 Tachycardia, unspecified; E05.90 Thyrotoxicosis, unspecified without thyrotoxic crisis or storm; Z88.6 Allergy status to analgesic agent; Z88.8 Allergy status to other drugs, medicaments and biological substances; Z79.899 Other long term (current) drug therapy; Z87.891 Personal history of nicotine dependence
CPT/HCPCS: 36415; 70450; 71045; 80048; 80156; 80184; 80185; 83605; 84443; 85025; 87040; 87081; 87086; 87186; 87804; 93005; 96365; 96375; 99285; J1953; J2270

== ENCOUNTER 2019-09-18 03:16 | Emergency (ER) | payer MEDICAID ==
[~2019-09-18] VITALS: Ht 165.1 cm; Wt 68.0 kg
[~2019-09-18 03:16] MED LIST changes: -ACET-2619 PO; -CARB200T1 PO; +CARB400T PO; -COLC0.6C PO; +DIVA250E1 PO; -DIVA500T1 PO; -ELA25 PO; -ONDA-25 PO; -PRED20TA5 PO
[2019-09-18 03:20] VITALS: BP 139/83
--- NOTE | 2019-09-18 03:28 | NUR ---
TAKEN TO BED 08 VIA WC. AMBULATED TO BED. PLACED ON MONITOR. SEIZURE PRECAUTIONS IN PLACE.
--- NOTE | 2019-09-18 04:03 | NUR ---
29 YEAR OLD FEMALE STATES THAT NEIGHBOR CALLED FOR PATIENT HAVING 2 MINUTE SEIZURE. PATIENT STATES THAT SHE DID NOT HIT HEAD, BUT HIT HEAD YESTERDAY. PATIENT STATES THAT SOMETIMES SHE HAS NAUSEA AND VOMITTING SINCE YESTERDAY. PATIENT BOWEL SOUNDS ACTIVE X4, NONTENDER, NONDISTENDED. PATIENT AOX4, BREATHING EVEN AND UNLABORED, SKIN WARM AND DRY. BED IN LOWEST POSITION, LOCKED, BED RAIL UPX1. PMH - HYPERTHYROIDISM, MENINGITIS, TRANSVERMYELITIS ALLERGIES - ASPIRIN, Z-PAC, TORADOL, HALDOL, REGLAN
[2019-09-18] MEDS ORDERED: carBAMazepine 200 MG TAB PO ONE (04:05)
[2019-09-18] MEDS ORDERED: DIVALPROEX 500 MG TABEC PO ONE (04:05)
[2019-09-18] MEDS ORDERED: ACETAMINOPHEN EXTRA STRENGTH 500 MG TAB PO ONE (04:15)
[2019-09-18 04:40] VITALS: BP 135/80
--- NOTE | 2019-09-18 04:40 | NUR ---
Patient discharged with v/s stable. Written and verbal after care instructions given and explained. Patient verbalized understanding. Wheel Chair Assisted with to car and picked up by parent. All questions addressed prior to discharge. Advised to follow up with PMD.
== END 2019-09-18 04:40 | disposition home or self-care (01) ==
LOC: MED 03:16
DX: R56.9 Unspecified convulsions (principal); E07.9 Disorder of thyroid, unspecified; Z76.5 Malingerer [conscious simulation]; Z79.899 Other long term (current) drug therapy; Z88.6 Allergy status to analgesic agent; Z88.8 Allergy status to other drugs, medicaments and biological substances; Z88.1 Allergy status to other antibiotic agents
CPT/HCPCS: 99284

== ENCOUNTER 2019-09-18 12:13 | Emergency (ER) | payer MEDICAID, OTHER ==
[~2019-09-18] VITALS: Ht 165.1 cm; Wt 68.0 kg
--- NOTE | 2019-09-18 12:22 | NUR ---
PT ZEE ALS TO ER BED 11
[2019-09-18 12:26] VITALS: BP 151/65
--- NOTE | 2019-09-18 12:27 | NUR ---
ER AT BEDSIDE
[2019-09-18] MEDS ORDERED: ONDANSETRON 4 MG/2 ML VIAL IVP ONE (12:35)
[2019-09-18] MEDS ORDERED: NACL 0.9% 1,000 ML IV ONE (12:35)
--- NOTE | 2019-09-18 12:35 | NUR ---
MANAGER SUBWAY AT BEDSIDE FOR BLOOD DRAW. URINE SAMPLE HANDED TO PHLEB.
--- NOTE | 2019-09-18 12:38 | NUR ---
XRAY AT BEDSIDE
--- NOTE | 2019-09-18 12:45 | NUR ---
EMT AT BEDSIDE FOR EKG
[2019-09-18 12:51] LABS: EOSINOPHILS % (AUTO) 0.1 % (0.0-4.0); MONOCYTES # (AUTO) 0.3 K/uL (0.8-1.0); NEUTROPHILS # (AUTO) 3.1 K/uL (1.8-7.7); PLATELET COUNT (AUTO) 245 K/uL (140-450)
[2019-09-18 12:51] LABS: BILIRUBIN,URINE NEGATIVE (NEGATIVE); BLOOD, URINE NEGATIVE (NEGATIVE); COLOR,URINE YELLOW (YELLOW); LEUKOCYTE ESTERASE ,URINE 1+ (NEGATIVE); NITRITE, URINE POSITIVE (NEGATIVE); PH,URINE 7.5 (5.0-9.0); UGLUCOSE NEGATIVE (NEGATIVE)
[2019-09-18 12:53] LABS: ANION GAP 15.5 (8-16); CARBON DIOXIDE 23.9 mmol/L (21-32); CHLORIDE 110 mmol/L (98-107); CREATININE 0.4 mg/dL (0.6-1.3); GFR ARICAN-AMERICAN 246 mL/min (>90); GLUCOSE 102 mg/dL (74-106); POTASSIUM 3.4 mmol/L (3.5-5.1); SODIUM SERUM 146 mmol/L (136-145); UREA NITROGEN, BLOOD 10 mg/dL (7-18)
--- NOTE | 2019-09-18 12:54 | NUR ---
29/F BIBA BLS from home with c/o anterior chest wall sharp/pressure pain x 5am; denies sob admits soreness type pain with deep inspiration and/or cough x3 episodes of emesis today--- admits started to take 650mg tylenol 5am and has continued ; total estimates x10 denies suicidal ideation hx--seizure, hyperthyroid
[2019-09-18 12:55] LABS: APPEARANCE,URINE SLIGHTLY HAZY (CLEAR)
[2019-09-18 12:58] LABS: BASOPHILS % (AUTO) 0.2 % (0.0-2.0); HEMOGLOBIN 10.8 g/dL (12.0-16.0); LYMPHOCYTES # (AUTO) 0.9 K/uL (2.5-16.5); LYMPHOCYTES % (AUTO) 20.4 % (20.5-51.1); MEAN CORPUSCULAR HEMOGLOBIN 27 pg (27-31); MEAN CORPUSCULAR HGB CONC 33 g/dL (33-37); MEAN CORPUSCULAR VOLUME 83.2 fL (80-94); MONOCYTES % (AUTO) 7.2 % (1.7-9.3); NEUTROPHILS % (AUTO) 72.1 % (42.2-75.2); RED BLOOD CELL COUNT(AUTO) 3.97 MIL/uL (4.20-5.40); RED CELL DISTRIBUTION WIDTH 14.2 % (11.6-13.7); WHITE BLOOD COUNT (AUTO) 4.3 K/uL (4.8-10.8)
--- NOTE | 2019-09-18 13:00 | NUR ---
EMT STILL AT BEDSIDE FOR EKG. WILL ATTEMPT IV INSERTION AND ADMIN MEDS AFTER EKG COMPLETE.
[2019-09-18 13:03] LABS: RBC,URINE 0-5 /HPF (0-5)
[2019-09-18 13:10] LABS: ALBUMIN 3.7 g/dL (3.4-5.0); AMYLASE 44 U/L (25-115); ASPARTATE AMINOTRANSFERASE 23 U/L (15-37); LIPASE 107 U/L (73-393); TOTAL BILIRUBIN 0.6 mg/dL (0.0-1.0)
[2019-09-18 13:11] LABS: ACETAMINOPHEN < 0.5 ug/ml (10-30); SALICYLATE < 2.8 mg/dL (2.8-20.0)
[2019-09-18 13:12] LABS: THYROID STIMULATING HORMONE < 0.01 uIU/mL (0.34-3.74)
[2019-09-18] MEDS ORDERED: HYDROcodone/APAP 5/325 MG 1 TAB TAB PO ONE (13:20)
--- NOTE | 2019-09-18 14:27 | NUR ---
DR VALENTIN SPEAKING WITH PATIENT AT BEDSIDE
[2019-09-18 14:57] VITALS: BP 132/72
--- NOTE | 2019-09-18 14:57 | NUR ---
Patient discharged with v/s stable. Written and verbal after care instructions given and explained. Patient alert, oriented and verbalized understanding of instructions. Ambulatory with CRUTCHES WITH steady gait. All questions addressed prior to discharge. ID band removed. Patient advised to follow up with PMD. Rx of KEFLEX given. Patient educated on indication of medication including possible reaction and side effects. Opportunity to ask questions provided and answered.
--- NOTE | 2019-09-19 10:57 | NUR ---
Late entry. Confirmed with RN that 0.9 NS IV began at 1320 completed at 1455
== END 2019-09-18 14:57 | disposition home or self-care (01) ==
LOC: MED 12:13
DX: R07.9 Chest pain, unspecified (principal); R11.2 Nausea with vomiting, unspecified; E07.9 Disorder of thyroid, unspecified; Z79.899 Other long term (current) drug therapy; Z88.6 Allergy status to analgesic agent; Z88.8 Allergy status to other drugs, medicaments and biological substances; Z88.1 Allergy status to other antibiotic agents
CPT/HCPCS: 36415; 71045; 80053; 81001; 81025; 82150; 83690; 84439; 84443; 84484; 85025; 87086; 87186; 93005; 96361; 96374; 99284; G0480; J2405; J7030; Q0092

== ENCOUNTER 2020-12-17 22:12 | Emergency (ER) | payer MEDICAID ==
[~2020-12-17] VITALS: Ht 165.1 cm; Wt 77.1 kg
[2020-12-17 22:18] VITALS: BP 153/75
[2020-12-17] MEDS ORDERED: LORazepam 2 MG/ML VIAL IVP ONE (22:25)
[2020-12-17 22:50] LABS: BASOPHILS # (AUTO) 0.1 K/uL (0.00-0.22); BASOPHILS % (AUTO) 0.6 % (0.0-2.0); EOSINOPHILS # (AUTO) 0.1 K/uL (0-0.4); EOSINOPHILS % (AUTO) 0.7 % (0.0-4.0); HEMATOCRIT 34.6 % (36-48); HEMOGLOBIN 11.3 g/dL (12.0-16.0); LYMPHOCYTES # (AUTO) 3.6 K/uL (2.5-16.5); LYMPHOCYTES % (AUTO) 39.3 % (20.5-51.1); MEAN CORPUSCULAR HEMOGLOBIN 30 pg (27-31); MEAN CORPUSCULAR HGB CONC 33 g/dL (33-37); MEAN CORPUSCULAR VOLUME 91.1 fL (80-94); MONOCYTES # (AUTO) 0.5 K/uL (0.8-1.0); MONOCYTES % (AUTO) 5.2 % (1.7-9.3); NEUTROPHILS % (AUTO) 54.2 % (42.2-75.2); PLATELET COUNT (AUTO) 252 K/uL (140-450); RED CELL DISTRIBUTION WIDTH 16.6 % (11.6-13.7); WHITE BLOOD COUNT (AUTO) 9.2 K/uL (4.8-10.8)
[2020-12-17 23:09] LABS: ANION GAP 15.7 (8-16); CARBON DIOXIDE 24.6 mmol/L (21-32); CREATININE 0.7 mg/dL (0.6-1.3); POTASSIUM 3.3 mmol/L (3.5-5.1); TOTAL BILIRUBIN 0.3 mg/dL (0.0-1.0)
[2020-12-17] MEDS ORDERED: ONDANSETRON 4 MG/2 ML VIAL IVP ONE (23:35)
[2020-12-17] MEDS ORDERED: MORPHINE SULFATE 4 MG/ML SYR IVP ONE (23:35)
[2020-12-18] MEDS ORDERED: levETIRAcetam 500 MG TAB PO ONE (01:20)
[2020-12-18] MEDS ORDERED: levETIRAcetam 2,000 MG in NACL 0.9% 100 ML IV ONE (02:05)
[2020-12-18] MEDS ORDERED: levETIRAcetam 100 MG/ML VIAL IV ONE (02:30)
[2020-12-18] MEDS ORDERED: LEVE1000 PO (02:37)
[2020-12-18 04:25] VITALS: BP 105/50
== END 2020-12-18 04:25 | disposition admitted as inpatient to this hospital (09) ==
LOC: MED 22:12
DX: R56.9 Unspecified convulsions (principal); M54.2 Cervicalgia; E07.9 Disorder of thyroid, unspecified; Z88.6 Allergy status to analgesic agent; Z88.8 Allergy status to other drugs, medicaments and biological substances; Z88.5 Allergy status to narcotic agent; Z79.899 Other long term (current) drug therapy
CPT/HCPCS: 36415; 70450; 80053; 85025; 86886; 86900; 86901; 96361; 96374; 96375; 99284; J1953; J2270; J2405

== ENCOUNTER 2021-09-15 15:27 | Emergency (ER) | payer MEDICAID ==
[~2021-09-15] VITALS: Ht 165.1 cm; Wt 77.1 kg
[~2021-09-15 15:27] MED LIST changes: +LEVE1000 PO
[2021-09-15 15:46] VITALS: BP 132/77
[2021-09-15 16:33] LABS: BASOPHILS % (AUTO) 0.4 % (0.0-2.0); HEMATOCRIT 33.2 % (36-48); HEMOGLOBIN 11.4 g/dL (12.0-16.0); LYMPHOCYTES # (AUTO) 1.7 K/uL (2.5-16.5); LYMPHOCYTES % (AUTO) 20.3 % (20.5-51.1); MEAN CORPUSCULAR HEMOGLOBIN 31 pg (27-31); MEAN CORPUSCULAR HGB CONC 34 g/dL (33-37); MEAN CORPUSCULAR VOLUME 89.1 fL (80-94); MONOCYTES # (AUTO) 0.5 K/uL (0.8-1.0); MONOCYTES % (AUTO) 5.8 % (1.7-9.3); NEUTROPHILS # (AUTO) 6.1 K/uL (1.8-7.7); NEUTROPHILS % (AUTO) 73.5 % (42.2-75.2); PLATELET COUNT (AUTO) 280 K/uL (140-450); RED BLOOD CELL COUNT(AUTO) 3.72 MIL/uL (4.20-5.40); RED CELL DISTRIBUTION WIDTH 17.1 % (11.6-13.7); WHITE BLOOD COUNT (AUTO) 8.3 K/uL (4.8-10.8)
[2021-09-15 16:57] LABS: ALBUMIN 3.2 g/dL (3.4-5.0); ANION GAP 15.9 (8-16); CREATININE 0.6 mg/dL (0.6-1.3); TOTAL BILIRUBIN 0.2 mg/dL (0.0-1.0)
[2021-09-15 17:06] LABS: POTASSIUM 2.9 mmol/L (3.5-5.1)
[2021-09-15 18:14] LABS: BILIRUBIN,URINE NEGATIVE (NEGATIVE); BLOOD, URINE NEGATIVE (NEGATIVE); COLOR,URINE YELLOW (YELLOW); LEUKOCYTE ESTERASE ,URINE 1+ (NEGATIVE); NITRITE, URINE NEGATIVE (NEGATIVE); UGLUCOSE NEGATIVE (NEGATIVE)
[2021-09-15] MEDS ORDERED: POTASSIUM CHLORIDE 10 MEQ TABER PO ONE (18:25)
[2021-09-15 18:36] LABS: APPEARANCE,URINE HAZY (CLEAR)
[2021-09-15 18:48] LABS: RBC,URINE NONE SEEN /HPF (0-5)
[2021-09-15] MEDS ORDERED: cephALEXin 500 MG CAP PO ONE (20:35)
[2021-09-15] MEDS ORDERED: ONDA-188 PO (21:07)
[2021-09-15] MEDS ORDERED: CEPH-588 PO (21:07)
--- NOTE | 2021-09-15 22:55 | NUR ---
CALLED PT FOR MEDICATION AND D/C, NO ANSWER.
[2021-09-15 23:02] VITALS: BP 132/77
--- NOTE | 2021-09-15 23:02 | NUR ---
CALLED PT FOR MEDICATION AND D/C, NO ANSWER. CALLED PHONE NUMBER ON FILE, NO ANSWER.
--- NOTE | 2021-09-15 23:02 | NUR ---
Patient discharged with v/s stable. Written and verbal after care instructions given and explained. Patient alert, oriented and verbalized understanding of instructions. Ambulatory with steady gait. All questions addressed prior to discharge. ID band removed. Patient advised to follow up with PMD. Rx of KEFLEX AND ZOFRAN given. Patient educated on indication of medication including possible reaction and side effects. Opportunity to ask questions provided and answered. PT LEFT WITHOUT PAPER WORK.
== END 2021-09-15 23:02 | disposition home or self-care (01) ==
LOC: MED 15:27
DX: O23.42 Unspecified infection of urinary tract in pregnancy, second trimester (principal); E87.6 Hypokalemia; E07.9 Disorder of thyroid, unspecified; Z3A.19 19 weeks gestation of pregnancy; Z88.6 Allergy status to analgesic agent; Z88.8 Allergy status to other drugs, medicaments and biological substances; Z88.5 Allergy status to narcotic agent; Z79.899 Other long term (current) drug therapy
CPT/HCPCS: 36415; 76805; 80053; 81001; 83735; 84702; 85025; 87086; 87210; 87491; 99284; Q0092

== ENCOUNTER 2021-10-22 20:35 | Observation (INO) | payer MEDICAID, SELFPAY ==
[~2021-10-22] VITALS: Ht 165.1 cm; Wt 81.6 kg
[~2021-10-22 20:35] MED LIST changes: +CEPH-588 PO; +ONDA-188 PO
[2021-10-22] MEDS ORDERED: cefTRIAXone 1,000 MG in LIDOCAINE MPF 1% 2.1 ML IM SCH (21:15)
[2021-10-22] MEDS ORDERED: LIDOCAINE MPF 1% 10 MG/ML VIAL INJ SCH (21:15)
[2021-10-22] MEDS ORDERED: LIDOCAINE 1% 500 MG/50 ML VIAL ONE (21:20)
[2021-10-22] MEDS ORDERED: cefTRIAXone 1,000 MG VIAL ONE (21:20)
== END 2021-10-22 21:45 | disposition home or self-care (01) ==
LOC: MLD 20:35
PROVIDERS: ADMIT Obstetrics & Gynecology; ATTEND Obstetrics & Gynecology
DX: O26.892 Other specified pregnancy related conditions, second trimester (principal); R10.9 Unspecified abdominal pain; Z3A.26 26 weeks gestation of pregnancy
CPT/HCPCS: 59025; 81000; J0696; J2001; G0378

== ENCOUNTER 2021-11-20 22:44 | Observation (INO) | payer MEDICAID, SELFPAY ==
[~2021-11-20] VITALS: Ht 165.1 cm; Wt 83.9 kg
[2021-11-20] MEDS ORDERED: cephALEXin 500 MG CAP PO SCH (23:30)
[2021-11-20] MEDS ORDERED: cefTRIAXone 1,000 MG in LIDOCAINE MPF 1% 2.1 ML IM SCH (23:30)
[2021-11-20] MEDS ORDERED: LIDOCAINE MPF 1% 10 MG/ML VIAL INJ SCH (23:30)
[2021-11-20] MEDS ORDERED: cefTRIAXone 1,000 MG VIAL ONE (23:32)
[2021-11-20] MEDS ORDERED: LIDOCAINE 1% 500 MG/50 ML VIAL ONE (23:33)
[2021-11-21 00:15] VITALS: BP 127/73
== END 2021-11-20 23:54 | disposition home or self-care (01) ==
LOC: MLD 22:44
PROVIDERS: ADMIT Obstetrics & Gynecology; ATTEND Obstetrics & Gynecology
DX: O26.893 Other specified pregnancy related conditions, third trimester (principal); R10.9 Unspecified abdominal pain; Z3A.30 30 weeks gestation of pregnancy
CPT/HCPCS: 81000; G0378; G0379; J0696; J2001

== ENCOUNTER 2021-12-07 11:43 | Observation (INO) | payer MEDICAID ==
[~2021-12-07] VITALS: Ht 165.1 cm; Wt 86.2 kg
[2021-12-07] MEDS: LACTATED RINGERS 1,000 ML IV SCH ×2 (13:08→20:40)
[2021-12-07] MEDS ORDERED: FAMOTIDINE 20 MG/2 ML VIAL IV SCH (13:15)
[2021-12-07] MEDS ORDERED: PANTOPRAZOLE 40 MG INJ VIAL IVP SCH (13:15)
[2021-12-07 13:29] LABS: APPEARANCE,URINE CLEAR (CLEAR); BILIRUBIN,URINE NEGATIVE (NEGATIVE); BLOOD, URINE NEGATIVE (NEGATIVE); COLOR,URINE YELLOW (YELLOW); LEUKOCYTE ESTERASE ,URINE TRACE (NEGATIVE); NITRITE, URINE NEGATIVE (NEGATIVE); UGLUCOSE NEGATIVE (NEGATIVE)
[2021-12-07] MEDS: ONDANSETRON 4 MG/2 ML VIAL IVP PRN ×2 (13:31→20:37)
[2021-12-07 14:10] LABS: BASOPHILS % (AUTO) 0.1 % (0.0-2.0); HEMATOCRIT 33.1 % (36-48); LYMPHOCYTES # (AUTO) 0.5 K/uL (2.5-16.5); LYMPHOCYTES % (AUTO) 6.9 % (20.5-51.1); MEAN CORPUSCULAR HEMOGLOBIN 31 pg (27-31); MEAN CORPUSCULAR HGB CONC 33 g/dL (33-37); MEAN CORPUSCULAR VOLUME 94.2 fL (80-94); MONOCYTES # (AUTO) 0.2 K/uL (0.8-1.0); MONOCYTES % (AUTO) 2.5 % (1.7-9.3); NEUTROPHILS # (AUTO) 6.9 K/uL (1.8-7.7); NEUTROPHILS % (AUTO) 90.5 % (42.2-75.2); PLATELET COUNT (AUTO) 207 K/uL (140-450); RED BLOOD CELL COUNT(AUTO) 3.51 MIL/uL (4.20-5.40); RED CELL DISTRIBUTION WIDTH 16.2 % (11.6-13.7); WHITE BLOOD COUNT (AUTO) 7.6 K/uL (4.8-10.8)
[2021-12-07 14:23] LABS: RBC,URINE 0-5 /HPF (0-5)
[2021-12-07 14:24] LABS: CALCIUM OXALATE CRYSTALS,UR None Seen /HPF (None Seen); COARSE GRANULAR CASTS,URINE None Seen /LPF (None Seen); FINE GRANULAR CASTS,URINE None Seen /LPF (None Seen); HYALINE CASTS, URINE None Seen /LPF (None Seen); OTHER CASTS, URINE None Seen /LPF (None Seen); OTHER CRYSTALS,URINE None Seen /HPF (None Seen); RED BLOOD CELL CASTS,URINE None Seen /LPF (None Seen); TRICHOMONAS,URINE None Seen /HPF (None Seen); TRIPLE PHOSPHATE CRYSTAL,UR None Seen /HPF (None Seen); URIC ACID CRYSTALS,URINE None Seen /HPF (None Seen); URINE AMORPHOUS URATE None Seen /HPF (None Seen); WAXY CASTS,URINE None Seen /LPF (None Seen); YEAST,URINE None Seen /HPF (None Seen)
[2021-12-07 14:33] LABS: ALBUMIN 2.6 g/dL (3.4-5.0); ANION GAP 13.2 (8-16); CARBON DIOXIDE 22.7 mmol/L (21-32); CREATININE 0.6 mg/dL (0.6-1.3); POTASSIUM 3.9 mmol/L (3.5-5.1); TOTAL BILIRUBIN 0.5 mg/dL (0.0-1.0)
[2021-12-07 14:49] VITALS: BP 115/76
[2021-12-07] MEDS ORDERED: CITRIC ACID/SODIUM CITRATE 30 ML UDC PO ONE (17:35)
[2021-12-07] MEDS ORDERED: SIMETHICONE 80 MG TAB.CHEW PO ONE (17:55)
[2021-12-07] MEDS ORDERED: CITRIC ACID/SODIUM CITRATE 30 ML UDC ONE (17:57)
[2021-12-07] MEDS ORDERED: SIMETHICONE 80 MG TAB.CHEW ONE (18:16)
[2021-12-08] MEDS ORDERED: FAMOTIDINE 20 MG/2 ML VIAL IV SCH (01:30)
[2021-12-08] MEDS ORDERED: PANTOPRAZOLE 40 MG INJ VIAL IVP SCH (13:45)
== END 2021-12-07 21:40 | disposition home or self-care (01) ==
LOC: MLD 11:43
PROVIDERS: ADMIT Obstetrics & Gynecology; ATTEND Obstetrics & Gynecology
DX: O26.893 Other specified pregnancy related conditions, third trimester (principal); R10.13 Epigastric pain; Z20.822 Contact with and (suspected) exposure to COVID-19; O90.3 Peripartum cardiomyopathy; O99.353 Diseases of the nervous system complicating pregnancy, third trimester; G40.909 Epilepsy, unspecified, not intractable, without status epilepticus; O99.283 Endocrine, nutritional and metabolic diseases complicating pregnancy, third trimester; E03.9 Hypothyroidism, unspecified; Z3A.31 31 weeks gestation of pregnancy
CPT/HCPCS: 36415; 59025; 76700; 76805; 80053; 81001; 85025; 87086; 87426; 96361; 96374; 96375; C9113; G0378; G0379; J2405; J3490; J7120; Q0092

== ENCOUNTER 2022-03-31 17:30 | Inpatient (IN) | payer MEDICAID ==
[~2022-03-31] VITALS: Ht 165.1 cm; Wt 31.8 kg
[2022-03-31 17:54] VITALS: BP 125/87
[2022-03-31 19:06] LABS: BASOPHILS # (AUTO) 0.1 K/uL (0.00-0.22); BASOPHILS % (AUTO) 0.7 % (0.0-2.0); HEMATOCRIT 30.2 % (36-48); HEMOGLOBIN 9.6 g/dL (12.0-16.0); LYMPHOCYTES # (AUTO) 2.1 K/uL (2.5-16.5); LYMPHOCYTES % (AUTO) 23.4 % (20.5-51.1); MEAN CORPUSCULAR HEMOGLOBIN 28 pg (27-31); MEAN CORPUSCULAR HGB CONC 32 g/dL (33-37); MONOCYTES # (AUTO) 0.4 K/uL (0.8-1.0); MONOCYTES % (AUTO) 4.9 % (1.7-9.3); NEUTROPHILS # (AUTO) 6.3 K/uL (1.8-7.7); PLATELET COUNT (AUTO) 277 K/uL (140-450); RED BLOOD CELL COUNT(AUTO) 3.43 MIL/uL (4.20-5.40); RED CELL DISTRIBUTION WIDTH 19.2 % (11.6-13.7); WHITE BLOOD COUNT (AUTO) 8.9 K/uL (4.8-10.8)
[2022-03-31 19:27] LABS: ALBUMIN 3.7 g/dL (3.4-5.0); ANION GAP 15.2 (8-16); CARBON DIOXIDE 25.5 mmol/L (21-32); CREATININE 1.3 mg/dL (0.6-1.3); POTASSIUM 3.7 mmol/L (3.5-5.1); TOTAL BILIRUBIN 0.5 mg/dL (0.0-1.0)
--- NOTE | 2022-03-31 19:27 | NUR ---
called pt for ekg. no response
--- NOTE | 2022-03-31 20:18 | NUR ---
PT AMBULATE TO ROOM 8. PT IN GOWN ON SCHOOL ATHLETIC DIRECTOR
--- NOTE | 2022-03-31 20:24 | NUR ---
URINE OBTAINED AND SENT TO LAB
--- NOTE | 2022-03-31 20:39 | NUR ---
31YR OLD FEMALE BIB SELF C/O SOB CP N/V . STATES N/V STARTED X1DAY DENIES ABD PAIN . CP SOB X3DAYS. PAIN WITH INSPIRATION. 7/10 PAIN. DENIES FEVER COUGH OR DIARRHEA. DENIES PAIN WITH URINATION. PT ON STEEL ERECTOR APPRENTICE. HOB ELEVATED. RESP EVEN AND UNLABORED. SP02 99% RA . PT IS A&OX4. CARDIOMYPATHY GRAVES DISEASE ALLERGIES IN HX LG LIST OF ALLERGIES
--- NOTE | 2022-03-31 20:54 | NUR ---
COVID SWAB COLLECTED AND SENT TO LAB
[2022-03-31 21:08] LABS: APPEARANCE,URINE CLEAR (CLEAR); BILIRUBIN,URINE NEGATIVE (NEGATIVE); BLOOD, URINE 3+ (NEGATIVE); COLOR,URINE YELLOW (YELLOW); LEUKOCYTE ESTERASE ,URINE NEGATIVE (NEGATIVE); NITRITE, URINE NEGATIVE (NEGATIVE); UGLUCOSE NEGATIVE (NEGATIVE)
[2022-03-31] MEDS ORDERED: ONDANSETRON 4 MG/2 ML VIAL IVP ONE (21:15)
[2022-03-31] MEDS ORDERED: FUROSEMIDE 40 MG/4 ML VIAL IVP ONE (21:15)
[2022-03-31 21:20] LABS: WBC,URINE 60-80 /HPF (0-5)
[2022-03-31] MEDS ORDERED: levETIRAcetam 100 MG/ML VIAL IV ONE (21:33)
--- NOTE | 2022-03-31 21:48 | NUR ---
SZ PADS ON SIDE RAILS . PT HAS HX OF SZ. HASNT BEEN
[2022-03-31] MEDS ORDERED: LORazepam 2 MG/ML VIAL ONE (22:03)
[2022-03-31] MEDS ORDERED: LORazepam 2 MG/ML VIAL IVP ONE (22:05)
--- NOTE | 2022-03-31 22:15 | NUR ---
PT HAD ACTIVE SZ WITNESSED. ATIVAN GIVEN O2 APPLIED VIA NC. SZ LASTED 1MIN. AIR PATENT. PT AWAKE AND ALERT. INCONT OF URINE . PENDING ADMISSION ORDERS. TELE HOLD. SPO2 100% 2L
[2022-03-31] MEDS ORDERED: ZOLPIDEM 5 MG TAB PO PRN (22:40)
[2022-03-31] MEDS ORDERED: DOCUSATE SODIUM 100 MG GELCAP PO PRN (22:40)
[2022-03-31] MEDS ORDERED: guaiFENesin DM 200/20 MG-10 ML 10 ML UDC PO PRN (22:40)
[2022-03-31] MEDS ORDERED: ACETAMINOPHEN 325 MG TAB PO PRN (22:40)
[2022-03-31] MEDS ORDERED: methIMAzole 5 MG TAB PO SCH (22:40)
[2022-03-31] MEDS ORDERED: METOPROLOL SUCCINATE 50 MG TABER PO SCH (22:40)
[2022-03-31] MEDS ORDERED: POTASSIUM CHLORIDE 10 MEQ TABER PO PRN (22:40)
[2022-03-31 22:53] LABS: MAGNESIUM 1.7 mg/dL (1.8-2.4); PHOSPHORUS 3.5 mg/dL (2.5-4.9)
--- NOTE | 2022-03-31 23:10 | NUR ---
Patient will be admitted to care of TELE. Admited to TELE. Will go to room 126A. Belongings list completed. Report to ROWENA SOLIS.
--- NOTE | 2022-03-31 23:15 | NUR ---
PT TRANSPORTED VIA GURNEY. PT IS AAOX4. PT CAME IN FOR SOB, CP, AND N/V. PT WAS ADMITTED FOR CHF. PT IS ON RA. PT HAS RIGHT AC 20 GAUGE SALINE LOCK. PT HAS CRUTCHES BY BEDSIDE BUT UNABLE TO AMBULATE TO THE RESTROOM. WEAKNESS ON BLE. PT IS NOT CURRENTLY HAVING SOB. PT HAD AN EPISODE OF SEIZURE 1 MINUTE LONG IN ER DURING KEPPRA ADMINISTRATION PER ER NURSE. SEIZURE PRECAUTIONS IN PLACE. PT EDUCATED STUFFING MACHINE OPERATOR LIGHT SYSTEM. WILL CONTINUE TO MONITOR THE PT.
--- NOTE | 2022-03-31 23:55 | NUR ---
SCHEDULE MEDS GIVEN. NO ADVERSE REACTION NOTED. NO OTHER COMPLAINS FROM THE PT. WILL CONTINUE TO MONITOR.
[2022-04-01] VITALS (7 sets, daily range): BP systolic 110–119; BP diastolic 64–87
--- NOTE | 2022-04-01 02:01 | NUR ---
PT OBSERVED. PT IS SLEEPING COMFORTABLY IN BED WITHOUT ANY DISTRESS. VISIBLE CHEST RISE AND FALL. CALL LIGHT WITHIN REACH. ALL SAFETY MEASURES TAKEN. WILL CONTINUE TO MONITOR THE PT.
[2022-04-01] MEDS: HYDROcodone/APAP 7.5/325 MG 1 TAB PO PRN ×3 (03:49→20:03)
[2022-04-01] MEDS: ONDANSETRON 4 MG/2 ML VIAL IM/IVP PRN (03:49)
--- NOTE | 2022-04-01 04:00 | NUR ---
PT STATED SHE IS HAVING INTERMITTENT CHEST PAIN. 02/07 CURRENTLY. PT ASKED FOR NAUSEA MEDICATION WELL. MEDICATED PER MD ORDER. NO OTHER COMPLAINS. WILL CONTINUE TO MONITOR THE PT.
[2022-04-01 05:28] LABS: BASOPHILS # (AUTO) 0.1 K/uL (0.00-0.22); BASOPHILS % (AUTO) 0.9 % (0.0-2.0); HEMATOCRIT 28.9 % (36-48); HEMOGLOBIN 9.5 g/dL (12.0-16.0); LYMPHOCYTES # (AUTO) 2.5 K/uL (2.5-16.5); LYMPHOCYTES % (AUTO) 34.7 % (20.5-51.1); MEAN CORPUSCULAR HEMOGLOBIN 29 pg (27-31); MEAN CORPUSCULAR HGB CONC 33 g/dL (33-37); MEAN CORPUSCULAR VOLUME 87.4 fL (80-94); MONOCYTES # (AUTO) 0.4 K/uL (0.8-1.0); MONOCYTES % (AUTO) 5.5 % (1.7-9.3); NEUTROPHILS # (AUTO) 4.3 K/uL (1.8-7.7); NEUTROPHILS % (AUTO) 58.9 % (42.2-75.2); PLATELET COUNT (AUTO) 253 K/uL (140-450); RED CELL DISTRIBUTION WIDTH 18.7 % (11.6-13.7); WHITE BLOOD COUNT (AUTO) 7.3 K/uL (4.8-10.8)
--- NOTE | 2022-04-01 07:25 | NUR ---
ENDORSED PT TO DAY SHIFT RN FOR CONTINUITY OF CARE. PT IS STABLE.
--- NOTE | 2022-04-01 07:25 | NUR ---
SBAR REPORT RECEIVED FROM ROWENA RN, ALL CARES ASSUMED. PT RESTING IN BED WITH EYES CLOSED. BED IN LOW AND LOCKED POSITION, CALL LIGHT WITHIN REACH.
[2022-04-01 08:13] LABS: BARBITURATE, URINE NEGATIVE ng/ml (NEG <=200); BENZODIAZEPINE, URINE POSITIVE ng/mL (NEG <=200); CANNABINOID, URINE NEGATIVE ng/mL (NEG <=50); COCAINE, URINE NEGATIVE ng/mL (NEG <=300); OPIATE, URINE NEGATIVE ng/mL (NEG <=2000); PHENCYCLIDINE SCREEN,URINE NEGATIVE ng/mL (NEG <=25)
[2022-04-01] MEDS: DIVALPROEX 500 MG TABEC PO SCH ×2 (08:55→20:03)
[2022-04-01] MEDS: levETIRAcetam 500 MG TAB PO SCH ×2 (08:55→20:03)
[2022-04-01] MEDS: DULoxetine 30 MG CAPDR PO SCH (08:55)
[2022-04-01] MEDS: FUROSEMIDE 40 MG/4 ML VIAL IVP SCH (08:55)
[2022-04-01] MEDS: ATORVASTATIN 20 MG TAB PO SCH (08:56)
[2022-04-01] MEDS: PANTOPRAZOLE 40 MG TABEC PO SCH (08:56)
[2022-04-01] MEDS: lisinopriL 5 MG TAB PO SCH (08:57)
[2022-04-01] MEDS ORDERED: levETIRAcetam 500 MG in NACL 0.9% 100 ML IV SCH (09:00)
[2022-04-01] MEDS ORDERED: METOPROLOL 25 MG TAB PO SCH (09:00)
--- NOTE | 2022-04-01 09:39 | NUR ---
PATIENT HAS BEEN SCREENED AND CATEGORIZED MODERATE NUTRITION RISK. PATIENT WILL BE SEEN WITHIN 3-5 DAYS OF ADMISSION. DEBBIE FUCHS RD
[2022-04-01] MEDS: LORazepam 2 MG/ML VIAL IVP PRN ×3 (10:13→22:07)
[2022-04-01 13:46] LABS: CHOL/HDL RATIO 3.4 (1-4.5)
[2022-04-01] MEDS ORDERED: MAGNESIUM OXIDE 400 MG TAB PO SCH (14:10)
[2022-04-01] MEDS ORDERED: carvediloL 3.125 MG TAB ONE (19:57)
[2022-04-01] MEDS: carvediloL 3.125 MG TAB PO SCH (20:02)
--- NOTE | 2022-04-01 20:11 | NUR ---
RECEIVED BEDSIDE REPORT FROM DAY RN REGARDING THE PATIENT FOR CONTINUITY OF CARE. RECEIVED PATIENT LAYING IN BED A/A/OX4, NOT IN ANY DISTRESS. PATIENT C/O PELVIC PAIN AND CHEST PAIN, STATED HER CHEST PAIN IS 7/10 NON RADIATING. PATIENT MADE AWARE THAT SHE DOESN'T HAVE A PRN NTG ORDER FOR CHEST PAIN AND I HAVE TO PAGE THE APRON OPERATOR. PT STATED THAT SHE DOESN'T WANT THE NTG AND WANTED THE NORCO INSTEAD. PRN NORCO GIVEN AND WILL RE ASSESS PATIENT PAIN LATER. VSS, AFEBRILE, SATING 98% ON RA. SR ON FISHERY BIOLOGIST ON TIME OF CHEST PAIN, HR 85. PATIENT MADE AWARE THAT SHE IS ON 1.2 FLUID RESTRICTION PER DAY AND TO SAVE ALL THE URINE FOR STRICT I & O'S. PT VERBALIZED UNDERSTANDING WITH THE POC. CALL LIGHT WITHIN REACH WILL CONTINUE POC AND MONITORING.
--- NOTE | 2022-04-01 22:05 | NUR ---
PATIENT CALLED THE GERALD ROWAN AND STATED THAT SHE IS ABOUT TO HAVE A SEIZURE. GERALD ROWAN INFORMED ME AND I WENT TO THE PATIENT ROOM AND FOUND THE PATIENT IN BED HAVING A SHAKING WHILE ON HER SIDE. CHECKED THE PT VS,BP: 107/64, HR- 69, SATING 97% ON RA. ATIVAN 1 MG IVP GIVEN ORDERED. PATIENT SEIZURE LASTED 2 MINUTES FROM 2201 TO 2203. PATIENT WOKE UP RIGHT AWAY WHEN I WAS ABOUT TO CLEAN HER UP BECAUSE THE PATIENT URINATED IN BED. PATIENT STATED THAT SHE WILL HELP ME CLEAN HERSELF. NO OTHER COMPLAIN WHILE I WAS TALKING TO THE PT. PATIENT IS A/A/OX4. WILL CONTINUE TO MONITOR THE PT.
[2022-04-02] VITALS: BP 105/69
--- NOTE | 2022-04-02 | NUR ---
PATIENT VITAL SIGNS STABLE, AFEBRILE, SATING 96% ON RA. NO COMPLAIN OF PAIN AT THIS TIME. SR ON TELE MONITOR, HR-71. CALL LIGHT WITHIN REACH. WILL CONTINUE MONITORING.
--- NOTE | 2022-04-02 02:00 | NUR ---
PATIENT ASLEEP AT THIS TIME. VISIBLE CHEST RISE AND FALL NOTED. NO SIGN AND SYMPTOMS OF DISTRESS NOTED AT THIS TIME. WILL CONTINUE OBSERVATION.
[2022-04-02 04:00] VITALS: BP 96/55
--- NOTE | 2022-04-02 04:00 | NUR ---
PATIENT VITAL SIGNS STABLE, AFEBRILE, SATING 100% ON RA. NO COMPLAIN OF PAIN AT THIS TIME. SR ON TELE MONITOR, HR-71. CALL LIGHT WITHIN REACH. WILL CONTINUE MONITORING.
[2022-04-02] MEDS: MORPHINE SULFATE 2 MG/ML SYR IVP PRN ×3 (04:12→18:29)
[2022-04-02] MEDS: LEVOTHYROXINE 0.1 MG TAB PO SCH (05:51)
[2022-04-02 06:06] LABS: BASOPHILS # (AUTO) 0.1 K/uL (0.00-0.22); BASOPHILS % (AUTO) 1.1 % (0.0-2.0); EOSINOPHILS % (AUTO) 0.3 % (0.0-4.0); HEMATOCRIT 35.8 % (36-48); HEMOGLOBIN 11.6 g/dL (12.0-16.0); LYMPHOCYTES # (AUTO) 1.7 K/uL (2.5-16.5); LYMPHOCYTES % (AUTO) 31.2 % (20.5-51.1); MEAN CORPUSCULAR HEMOGLOBIN 28 pg (27-31); MEAN CORPUSCULAR HGB CONC 32 g/dL (33-37); MEAN CORPUSCULAR VOLUME 87.5 fL (80-94); MONOCYTES # (AUTO) 0.3 K/uL (0.8-1.0); MONOCYTES % (AUTO) 5.2 % (1.7-9.3); NEUTROPHILS # (AUTO) 3.3 K/uL (1.8-7.7); NEUTROPHILS % (AUTO) 62.2 % (42.2-75.2); PLATELET COUNT (AUTO) 262 K/uL (140-450); RED BLOOD CELL COUNT(AUTO) 4.09 MIL/uL (4.20-5.40); RED CELL DISTRIBUTION WIDTH 18.3 % (11.6-13.7); WHITE BLOOD COUNT (AUTO) 5.3 K/uL (4.8-10.8)
--- NOTE | 2022-04-02 06:22 | NUR ---
PATIENT STABLE AT THIS TIME. NOT IN ANY DISTRESS AND NO COMPLAIN AT THIS TIME.ALL NEEDS ATTENDED. CALL LIGHT WITHIN REACH. WILL ENDORSE THE PATIENT TO THE ONCOMING RN FOR CONTINUITY OF CARE.
--- NOTE | 2022-04-02 07:34 | NUR ---
ENDORSED PATIENT TO THE ONCOMING RN FOR CONTINUITY OF CARE. PATIENT STABLE. SIGNING OFF.
--- NOTE | 2022-04-02 07:35 | NUR ---
RECEIVED BEDSIDE REPORT FROM ORNAMENTAL BRONZE WORKER NURSE FOR CONTINUOUS OF CARE, PT RESTING, NO DISTRESS NOTED, IV TO RIGHT AC 20G PATENT INTACT INFUSING WELL. PT ON ROOM AIR, NO SOB NOTED, INITIAL ASSESSMENTS DONE , ALL SAFETY PRECAUTION MET, CALL LIGHT WITHIN REACH, WILL CONTINUE TO MONITOR.
[2022-04-02 08:00] VITALS: BP 102/63
[2022-04-02] MEDS: levETIRAcetam 500 MG TAB PO SCH ×2 (08:12→20:58)
[2022-04-02] MEDS: HYDROcodone/APAP 7.5/325 MG 1 TAB PO PRN ×2 (08:12→16:35)
[2022-04-02] MEDS: DIVALPROEX 500 MG TABEC PO SCH ×2 (08:12→20:58)
--- NOTE | 2022-04-02 08:12 | NUR ---
DUE MEDICATIONS ADMINISTERED, PT TOLERATED WELL, PT STATED DOES NOT TAKE CYMBALTA ANYMORE, NOTIFIED DR, PER DR FUCHS TO DC, PT BP 102/63, MEDICATION BP MEDICATIONS HELD, NOTIFIED DR CATALAN. PT STATED PAIN, PAIN MEDICATION ADMINISTERD, WILL CONTINUE TO MONITOR.
[2022-04-02] MEDS: ATORVASTATIN 20 MG TAB PO SCH (08:13)
[2022-04-02] MEDS: PANTOPRAZOLE 40 MG TABEC PO SCH (08:13)
[2022-04-02] MEDS: DULoxetine 30 MG CAPDR PO SCH ×2 (08:13→08:20)
[2022-04-02] MEDS: FUROSEMIDE 40 MG/4 ML VIAL IVP SCH (08:14)
[2022-04-02] MEDS: lisinopriL 5 MG TAB PO SCH (08:27)
[2022-04-02] MEDS: carvediloL 3.125 MG TAB PO SCH ×2 (08:27→21:00)
[2022-04-02 09:06] LABS: HEPATITIS A ANTIBODY IGM Negative (Negative); HEPATITIS B CORE AB TOTAL Negative (Negative); HEPATITIS B SURFACE ANTIBODY Reactive (.); HEPATITIS B SURFACE ANTIGEN Negative (Negative)
[2022-04-02 12:00] VITALS: BP 105/70
--- NOTE | 2022-04-02 12:27 | NUR ---
PT C/O PAIN, MEDICATION GIVEN PER PRN ORDER, WILL CONTINUE TO MONITOR.
--- NOTE | 2022-04-02 12:56 | NUR ---
DC PLANN[age] YRS OLD FEMALE PATIENT WAS ADMITTED FROM HOME WITH A DX OF CHF. PATIENT HAS A HX OF GRAVES DISEASE, CARDIOMYOPATHY AND TRANSVERSE MYELITIS. CXR SHOWED NO ACUTE CARDIOPULMONARY DISEASE. ABD US SHOWED NONVISUALIZED PANCREATIC BODY AND TAIL DUE TO BOWEL GAS. RAPID COVID TEST NEGATIVE. CONTINUED HOME MEDICATIONS. CONSULTED WITH CARDIO AND NEUROLOGIST. DC PLAN TO GO HOME WHEN STABLE. CM TO FOLLOW
[2022-04-02] MEDS: ONDANSETRON 4 MG/2 ML VIAL IM/IVP PRN ×3 (13:18→21:47)
--- NOTE | 2022-04-02 13:18 | NUR ---
PT C/O NAUSEA MEDICATION ADMINISTERED, PT TOLERATED WELL, NO DISTRESS NOTED, WILL CONTINUE TO MONITOR.
--- NOTE | 2022-04-02 13:18 | NUR ---
DUE MEDICATIONS ADMINISTERED, PT TOLERATED WELL, NO DISTRESS NOTED,WILL CONTINUE TO MONITOR. Addendum: 04/02/22 at 1744 by Lenora Medina RN PT C/O PAIN, PAIN MEDICATION PER DR ORDER ADMINISTERED. Addendum: 04/02/22 at 1744 by Lenora Medina RN WRONG PT
[2022-04-02 14:24] LABS: ANION GAP 13.3 (8-16); CREATININE 1.5 mg/dL (0.6-1.3); POTASSIUM 3.3 mmol/L (3.5-5.1)
[2022-04-02 16:00] VITALS: BP 93/59
--- NOTE | 2022-04-02 16:35 | NUR ---
PT C/O PAIN, MEDICATION GIVEN PER PRN ORDER, WILL CONTINUE TO MONITOR.
--- NOTE | 2022-04-02 17:16 | NUR ---
PT C/O NAUSEA, MEDICATION ADMINISTERED, PT TOLERATED WELL, WILL CONTINUE TO MONITOR.
--- NOTE | 2022-04-02 18:29 | NUR ---
PT BP 99/54, C/O PAIN10/10, PAIN MEDICATION GIVEN PER DR ORDER, EDUCATE PT REGARDING PAIN MEDICATION CAUSING PT BP TO LOWER. PT STATED UNDERSTANDING. WILL CONTINUE TO MONITOR.
--- NOTE | 2022-04-02 19:18 | NUR ---
ENDORSED PT TO ENDOCRINOLOGY NURSE NURSE FOR CONTINUOUS OF CARE.
[2022-04-02 20:00] VITALS: BP 89/45
--- NOTE | 2022-04-02 21:00 | NUR ---
ALL SCHEDULED MEDS GIVEN PER MD ORDER. WILL CONTINUE TO MONITOR
--- NOTE | 2022-04-02 21:55 | NUR ---
PT COMPLAINED OF FEELING NAUSEOUS PRN ANTI-EMETIC GIVEN PER ORDER, WILL CONTINUE TO MONITOR
[2022-04-02] MEDS ORDERED: PROMETHAZINE 25 MG TAB PO PRN (23:40)
--- NOTE | 2022-04-02 23:50 | NUR ---
PATIENT COMPLAINED OF FEELING NAUSEOUS, ADDITIONAL PRN ANTI-EMETIC GIVEN PER ORDER. WILL CONTINUE TO MONITOR
[2022-04-03] VITALS: BP 114/70
--- NOTE | 2022-04-03 00:05 | NUR ---
VITALS WERE TAKEN. WILL CONTINUE TO MONITOR
[2022-04-03] MEDS: MORPHINE SULFATE 2 MG/ML SYR IVP PRN (01:35)
--- NOTE | 2022-04-03 01:40 | NUR ---
PT COMPLAINED OF BACK PAIN 8/10 PRN PAIN MEDS GIVEN PER ORDER. WILL CONTINUE TO MONITOR
--- NOTE | 2022-04-03 02:23 | NUR ---
MADE ROUNDS, PATIENT IS STABLE NO DISTRESS NOTED.
[2022-04-03 04:00] VITALS: BP 113/71
[2022-04-03] MEDS: LEVOTHYROXINE 0.1 MG TAB PO SCH (05:32)
--- NOTE | 2022-04-03 05:32 | NUR ---
PT COMPLAINED OF GENERALIZED PAIN 3/10. PRN PAIN MEDS GIVEN PER ORDER. WILL CONTINUE TO MONITOR
[2022-04-03 05:50] LABS: BASOPHILS # (AUTO) 0.1 K/uL (0.00-0.22); BASOPHILS % (AUTO) 0.8 % (0.0-2.0); EOSINOPHILS % (AUTO) 0.2 % (0.0-4.0); HEMOGLOBIN 11.5 g/dL (12.0-16.0); LYMPHOCYTES # (AUTO) 1.9 K/uL (2.5-16.5); LYMPHOCYTES % (AUTO) 30.4 % (20.5-51.1); MEAN CORPUSCULAR HEMOGLOBIN 29 pg (27-31); MEAN CORPUSCULAR HGB CONC 33 g/dL (33-37); MEAN CORPUSCULAR VOLUME 86.8 fL (80-94); MONOCYTES # (AUTO) 0.4 K/uL (0.8-1.0); MONOCYTES % (AUTO) 6.6 % (1.7-9.3); NEUTROPHILS # (AUTO) 3.9 K/uL (1.8-7.7); PLATELET COUNT (AUTO) 307 K/uL (140-450); RED BLOOD CELL COUNT(AUTO) 4.04 MIL/uL (4.20-5.40); RED CELL DISTRIBUTION WIDTH 18.7 % (11.6-13.7); WHITE BLOOD COUNT (AUTO) 6.3 K/uL (4.8-10.8)
--- NOTE | 2022-04-03 07:15 | NUR ---
OPENING NOTE: REPORT RCVD FROM OUTGOING NOC RN, ALL CARES ASSUMED.
[2022-04-03 08:00] VITALS: BP 102/62
[2022-04-03] MEDS: levETIRAcetam 500 MG TAB PO SCH (08:08)
[2022-04-03] MEDS: ATORVASTATIN 20 MG TAB PO SCH (08:09)
[2022-04-03] MEDS: carvediloL 3.125 MG TAB PO SCH (08:09)
[2022-04-03] MEDS: PANTOPRAZOLE 40 MG TABEC PO SCH (08:09)
[2022-04-03] MEDS: DIVALPROEX 500 MG TABEC PO SCH (08:09)
--- NOTE | 2022-04-03 08:09 | NUR ---
C/C CHEST PAIN 02/07, WILL MEDICATE PER ORDER FOR PAIN
--- NOTE | 2022-04-03 08:10 | NUR ---
PRIMARY MD MAKING ROUNDS, BEDSIDE REPORT GIVEN.
[2022-04-03] MEDS: HYDROcodone/APAP 7.5/325 MG 1 TAB PO PRN (08:12)
--- NOTE | 2022-04-03 08:14 | NUR ---
MORPHINE D/C PER MD
--- NOTE | 2022-04-03 08:14 | NUR ---
NORCO GIVEN PRN ORDERED FOR PAIN
[2022-04-03] MEDS: ONDANSETRON 4 MG/2 ML VIAL IM/IVP PRN (08:15)
--- NOTE | 2022-04-03 08:15 | NUR ---
ZOFRAN GIVEN FOR NAUSEA
[2022-04-03] MEDS ORDERED: FUROSEMIDE 20 MG TAB PO SCH (09:00)
[2022-04-03] MEDS ORDERED: lisinopriL 5 MG TAB PO SCH (09:00)
--- NOTE | 2022-04-03 09:00 | NUR ---
DISCHARGE ORDER PLACED BY
[2022-04-03] MEDS ORDERED: SYN.1 PO (09:23)
[2022-04-03] MEDS ORDERED: CARV3.122 PO (09:23)
[2022-04-03] MEDS ORDERED: LISI5TAB24 PO (09:23)
[2022-04-03] MEDS ORDERED: FURO20TA8 PO (09:23)
[2022-04-03 09:40] VITALS: BP 120/80
--- NOTE | 2022-04-03 09:57 | NUR ---
DISCHARGED PER MD PATIENT HAS BEEN DISCHARGED HOME, EDUCATION PROVIDED AT BEDSIDE, PIV TO RIGHT AC D/C, EDUCATION PACKET GIVEN. PATIENT HAS VERBALIZED UNDERSTANDING. ASSISTED PATIENT TO WHEELCHAIR AND DISCHARGED TO VIA PRIVATE CAR. PATIENT IN NO ACUTE DISTRESS AND OR DISCOMFORT. ALL DOCUMENTS SIGNED AND PLACED INTO CHART. PATIENT BELONGINGS WITH PATIENT IN HAND. ALL ITEMS HAVE BEEN ACCOUNTED FOR AND PATIENT HAS AGREED.
[2022-04-03] MEDS ORDERED: ONDA-188 SL (16:56)
== END 2022-04-03 09:50 | disposition home or self-care (01) | DRG 194 ==
LOC: MED 17:30 → MTU 22:38 → MMU 23:05
PROVIDERS: ADMIT Student in an Organized Health Care Education/Training Program; ATTEND Student in an Organized Health Care Education/Training Program
DX: I11.0 Hypertensive heart disease with heart failure (principal); R65.10 Systemic inflammatory response syndrome (SIRS) of non-infectious origin without acute organ dysfunction; I42.9 Cardiomyopathy, unspecified; I50.21 Acute systolic (congestive) heart failure; D64.9 Anemia, unspecified; R06.03 Acute respiratory distress; Z20.822 Contact with and (suspected) exposure to COVID-19; E83.42 Hypomagnesemia; R74.01 Elevation of levels of liver transaminase levels; E05.00 Thyrotoxicosis with diffuse goiter without thyrotoxic crisis or storm; Z88.6 Allergy status to analgesic agent; Z88.8 Allergy status to other drugs, medicaments and biological substances; Z79.899 Other long term (current) drug therapy; Z90.49 Acquired absence of other specified parts of digestive tract
CPT/HCPCS: 36415; 71045; 76700; 80048; 80053; 80305; 81001; 82150; 83690; 83735; 83880; 84100; 85025; 86704; 86706; 86708; 86709; 86803; 87081; 87086; 87340; 93005; 96365; 96375; 99291; J1940; J1953; J2060; J2270; J2405; Q0092; Q0169

== ENCOUNTER 2022-05-24 01:15 | Emergency (ER) | payer MEDICAID ==
[~2022-05-24] VITALS: Ht 165.1 cm; Wt 79.4 kg
[~2022-05-24 01:15] MED LIST changes: -CARB400T PO; +CARV3.122 PO; -CEPH-588 PO; +FURO20TA8 PO; +LISI5TAB24 PO; -ONDA-188 PO; +ONDA-188 SL; -PROP20TA29 PO; +SYN.1 PO; -TAP5 PO
[2022-05-24 01:30] VITALS: BP 125/85
--- NOTE | 2022-05-24 01:33 | NUR ---
ERMD ASSESSING IN TRIAGE.
--- NOTE | 2022-05-24 01:36 | NUR ---
PT TO BED 3
[2022-05-24] MEDS ORDERED: NITROGLYCERIN 0.4 MG TAB SL ONE (01:55)
[2022-05-24] MEDS ORDERED: ASPIRIN 325 MG TAB PO ONE (01:55)
--- NOTE | 2022-05-24 02:02 | NUR ---
ASA HELD DUE TO ALLERGY. AWARE.
--- NOTE | 2022-05-24 02:08 | NUR ---
SWABS COLLECTED AND HANDED TO LAB
--- NOTE | 2022-05-24 02:08 | NUR ---
LAB AT BEDSIDE
--- NOTE | 2022-05-24 02:15 | NUR ---
PATIENT C/O SHARP CP 02/07. NITRO GIVEN ORDERED. TOLERATED WELL. NADR
[2022-05-24 02:16] LABS: BASOPHILS # (AUTO) 0.1 K/uL (0.00-0.22); EOSINOPHILS % (AUTO) 0.1 % (0.0-4.0); HEMATOCRIT 29.7 % (36-48); HEMOGLOBIN 9.9 g/dL (12.0-16.0); LYMPHOCYTES # (AUTO) 2.5 K/uL (2.5-16.5); LYMPHOCYTES % (AUTO) 27.8 % (20.5-51.1); MEAN CORPUSCULAR HEMOGLOBIN 29 pg (27-31); MEAN CORPUSCULAR HGB CONC 33 g/dL (33-37); MEAN CORPUSCULAR VOLUME 86.4 fL (80-94); MONOCYTES # (AUTO) 0.8 K/uL (0.8-1.0); MONOCYTES % (AUTO) 8.7 % (1.7-9.3); NEUTROPHILS # (AUTO) 5.6 K/uL (1.8-7.7); NEUTROPHILS % (AUTO) 62.4 % (42.2-75.2); PLATELET COUNT (AUTO) 250 K/uL (140-450); RED BLOOD CELL COUNT(AUTO) 3.44 MIL/uL (4.20-5.40); RED CELL DISTRIBUTION WIDTH 17.2 % (11.6-13.7); WHITE BLOOD COUNT (AUTO) 9.1 K/uL (4.8-10.8)
--- NOTE | 2022-05-24 02:25 | NUR ---
PATIENT AMBULATED TO RR
[2022-05-24 02:38] LABS: ALBUMIN 3.4 g/dL (3.4-5.0); ANION GAP 17.5 (8-16); CARBON DIOXIDE 22.4 mmol/L (21-32); POTASSIUM 3.9 mmol/L (3.5-5.1); TOTAL BILIRUBIN 0.7 mg/dL (0.0-1.0)
[2022-05-24] MEDS ORDERED: FUROSEMIDE 40 MG/4 ML VIAL IVP ONE (03:05)
[2022-05-24] MEDS ORDERED: AMOXIL/CLAVULANATE 500/125 MG 1 TAB PO SCH (03:05)
--- NOTE | 2022-05-24 03:28 | NUR ---
IV ESTABLISHED 20G LEFT AC
[2022-05-24] MEDS ORDERED: ACETAMINOPHEN EXTRA STRENGTH 500 MG TAB PO ONE (03:30)
--- NOTE | 2022-05-24 03:40 | NUR ---
VERBAL ORDER FROM MD ROMERO TO GIVE TYLENOL 1000MG PO. ORDERS CARRIED OUT. HALLEYETN TOLERATED WELL.
--- NOTE | 2022-05-24 04:03 | NUR ---
PATIENT AMBULATED TO AND BACK TO BED 3
--- NOTE | 2022-05-24 04:30 | NUR ---
PATIENT AMBULATED TO AND BACK TO BED 3
[2022-05-24] MEDS ORDERED: AMOX-999 PO (05:44)
--- NOTE | 2022-05-24 06:12 | NUR ---
DR DORADO ASSESSING PT
--- NOTE | 2022-05-24 06:39 | NUR ---
PT TAKEN TO CT
--- NOTE | 2022-05-24 07:04 | NUR ---
PT RETURNED FROM CT
--- NOTE | 2022-05-24 07:11 | NUR ---
HAWA AMBULATED TO AND BACK TO BED 3. PLACED BACK ON MONITOR. PATIENT C/O 02/07 CP . AWARE.
--- NOTE | 2022-05-24 07:16 | NUR ---
REPORT GIVEN TO WILL OCASIO. TRANSFER OF CARE.
[2022-05-24] MEDS ORDERED: NITROGLYCERIN 2% 1 GM PKT TP ONE (07:20)
--- NOTE | 2022-05-24 07:37 | NUR ---
PT A/O TIMES 4, NAD, C/O LEFT SIDE CHEST PAIN 02/07, MD ALREADY NOTIFIED, NSR ON CM, O2 SAT 99% RA, DENIES ANY SOB, SR UP TIMES 2, PADDED, AWAITS DISPO
[2022-05-24 08:36] VITALS: BP 102/72
--- NOTE | 2022-05-24 08:50 | NUR ---
DISCHARGED HOME, NO AC DISTRESS, AMBULATORY W CRUTCHES, STEADY GAIT, VERBALIZES INSTRUCTIONS GIVEN IN AIS, DENIES ANY FURTHER QUESTIONS, PT TO FOLLOW UP W PMD IN 3-4 DAYS IVSL DC'D, NITRO PATCH DC'D
== END 2022-05-24 08:36 | disposition home or self-care (01) ==
LOC: MED 01:15
DX: I50.9 Heart failure, unspecified (principal); Z20.822 Contact with and (suspected) exposure to COVID-19; J18.9 Pneumonia, unspecified organism; E03.9 Hypothyroidism, unspecified; Z88.1 Allergy status to other antibiotic agents; Z88.5 Allergy status to narcotic agent; Z79.1 Long term (current) use of non-steroidal anti-inflammatories (NSAID); Z88.8 Allergy status to other drugs, medicaments and biological substances
CPT/HCPCS: 36415; 71045; 71275; 80053; 81025; 83735; 83880; 84484; 85025; 85379; 87426; 87804; 93005; 96374; 99285; J1940; Q9967

== ENCOUNTER 2022-06-26 23:50 | Emergency (ER) | payer MEDICAID ==
[~2022-06-26] VITALS: Ht 165.1 cm; Wt 81.6 kg
[~2022-06-26 23:50] MED LIST changes: +AMOX-999 PO
[2022-06-26 23:55] VITALS: BP 115/70
--- NOTE | 2022-06-27 | NUR ---
to lobby a/w bed via wheelchair
--- NOTE | 2022-06-27 00:43 | NUR ---
PT WHEELCHAIR ASSISTED TO BED 01.
--- NOTE | 2022-06-27 01:38 | NUR ---
ISH MULLINS at bedside.
[2022-06-27] MEDS ORDERED: MORPHINE SULFATE 4 MG/ML SYR IVP ONE (02:50)
[2022-06-27 03:16] LABS: BASOPHILS # (AUTO) 0.1 K/uL (0.00-0.22); BASOPHILS % (AUTO) 1.3 % (0.0-2.0); EOSINOPHILS # (AUTO) 0.1 K/uL (0-0.4); EOSINOPHILS % (AUTO) 0.6 % (0.0-4.0); HEMATOCRIT 30.9 % (36-48); HEMOGLOBIN 10.1 g/dL (12.0-16.0); LYMPHOCYTES # (AUTO) 3.6 K/uL (2.5-16.5); LYMPHOCYTES % (AUTO) 42.5 % (20.5-51.1); MEAN CORPUSCULAR HEMOGLOBIN 29 pg (27-31); MEAN CORPUSCULAR HGB CONC 33 g/dL (33-37); MEAN CORPUSCULAR VOLUME 87.9 fL (80-94); MONOCYTES # (AUTO) 0.6 K/uL (0.8-1.0); NEUTROPHILS # (AUTO) 4.1 K/uL (1.8-7.7); NEUTROPHILS % (AUTO) 48.6 % (42.2-75.2); PLATELET COUNT (AUTO) 225 K/uL (140-450); RED BLOOD CELL COUNT(AUTO) 3.51 MIL/uL (4.20-5.40); RED CELL DISTRIBUTION WIDTH 18.1 % (11.6-13.7); WHITE BLOOD COUNT (AUTO) 8.5 K/uL (4.8-10.8)
--- NOTE | 2022-06-27 03:30 | NUR ---
PT SATURATION AT 87% RA, PLACED 2L NC- PT SATURATING AT 100% AT THIS TIME.
--- NOTE | 2022-06-27 03:31 | NUR ---
Pt report given to May RN. Transfer of care at this time.
[2022-06-27 03:33] LABS: ALBUMIN 3.6 g/dL (3.4-5.0); ANION GAP 18.8 (8-16); CARBON DIOXIDE 22.4 mmol/L (21-32); CREATININE 1.2 mg/dL (0.6-1.3); POTASSIUM 3.2 mmol/L (3.5-5.1)
[2022-06-27] MEDS ORDERED: ACET-8386 PO (04:37)
--- NOTE | 2022-06-27 04:58 | NUR ---
Patient called her family for a ride.
[2022-06-27 05:00] VITALS: BP 112/80
--- NOTE | 2022-06-27 05:00 | NUR ---
Patient discharged with v/s stable. Written and verbal after care instructions given and explained for Heart failure, self care and Nonspecific chest pain. Patient alert, oriented and verbalized understanding of instructions. Ambulatory with steady gait. All questions addressed prior to discharge. ID band removed. Patient advised to follow up with PMD. Rx of [place] given. Patient educated on indication of medication including possible reaction and side effects. Opportunity to ask questions provided and answered.
[2022-06-27] MEDS ORDERED: ONDA-188 PO (05:20)
[2022-06-27] MEDS ORDERED: ONDANSETRON 4 MG ODT PO ONE (05:20)
--- NOTE | 2022-06-27 05:20 | NUR ---
Patient sit on bed and waited for her family, patient vomiting x episode, Dr. Miguel notified.
== END 2022-06-27 05:00 | disposition home or self-care (01) ==
LOC: MED 23:50
DX: R06.00 Dyspnea, unspecified (principal); R07.9 Chest pain, unspecified; R19.7 Diarrhea, unspecified; R11.2 Nausea with vomiting, unspecified; Z86.39 Personal history of other endocrine, nutritional and metabolic disease; Z86.69 Personal history of other diseases of the nervous system and sense organs; Z90.49 Acquired absence of other specified parts of digestive tract; Z98.890 Other specified postprocedural states; Z79.899 Other long term (current) drug therapy; Z79.891 Long term (current) use of opiate analgesic; Z79.2 Long term (current) use of antibiotics; Z88.6 Allergy status to analgesic agent; Z88.1 Allergy status to other antibiotic agents; Z88.8 Allergy status to other drugs, medicaments and biological substances
CPT/HCPCS: 36415; 71045; 80053; 83880; 84484; 85025; 93005; 96374; 99285; J2270; Q0092; Q0162

== ENCOUNTER 2022-07-01 19:19 | Emergency (ER) | payer MEDICAID ==
[~2022-07-01 19:19] MED LIST changes: +ACET-8386 PO; +ONDA-188 PO
--- NOTE | 2022-07-01 21:27 | NUR ---
PT CALLED 3 TIMES AND NO ANSWER
--- NOTE | 2022-07-01 21:28 | NUR ---
PATIENT LEFT WITHOUT BEING SEEN BY DR. HYLTON. NO FURTHER CARE PROVIDED FOR PATIENT.
== END 2022-07-01 21:27 | disposition left against medical advice (07) ==
LOC: MED 19:19
DX: R06.02 Shortness of breath (principal); Z53.21 Procedure and treatment not carried out due to patient leaving prior to being seen by health care provider

== ENCOUNTER 2022-07-03 02:18 | Inpatient (IN) | payer MEDICAID ==
[~2022-07-03] VITALS: Ht 165.1 cm; Wt 81.6 kg
[2022-07-03 03:02] VITALS: BP 141/97
--- NOTE | 2022-07-03 03:05 | NUR ---
PT TAKEN TO BED 8
[2022-07-03] MEDS ORDERED: ONDANSETRON 4 MG ODT PO ONE (03:30)
[2022-07-03] MEDS ORDERED: HYDROcodone/APAP 5/325 MG 1 TAB TAB PO ONE ×2 (03:30→04:10)
--- NOTE | 2022-07-03 04:03 | NUR ---
SEEN AND EXAMINED BY ADENIKE.
[2022-07-03 05:55] LABS: BASOPHILS # (AUTO) 0.1 K/uL (0.00-0.22); BASOPHILS % (AUTO) 1.2 % (0.0-2.0); HEMATOCRIT 31.9 % (36-48); HEMOGLOBIN 10.7 g/dL (12.0-16.0); LYMPHOCYTES # (AUTO) 3.1 K/uL (2.5-16.5); LYMPHOCYTES % (AUTO) 48.2 % (20.5-51.1); MEAN CORPUSCULAR HEMOGLOBIN 29 pg (27-31); MEAN CORPUSCULAR HGB CONC 33 g/dL (33-37); MEAN CORPUSCULAR VOLUME 87.3 fL (80-94); MONOCYTES # (AUTO) 0.4 K/uL (0.8-1.0); MONOCYTES % (AUTO) 5.6 % (1.7-9.3); NEUTROPHILS # (AUTO) 2.9 K/uL (1.8-7.7); PLATELET COUNT (AUTO) 247 K/uL (140-450); RED BLOOD CELL COUNT(AUTO) 3.66 MIL/uL (4.20-5.40); RED CELL DISTRIBUTION WIDTH 17.8 % (11.6-13.7); WHITE BLOOD COUNT (AUTO) 6.5 K/uL (4.8-10.8)
[2022-07-03 06:14] LABS: LIPASE 46 U/L (73-393)
[2022-07-03 06:16] LABS: ALBUMIN 3.7 g/dL (3.4-5.0); ANION GAP 19.4 (8-16); CREATININE 1.3 mg/dL (0.6-1.3); POTASSIUM 3.4 mmol/L (3.5-5.1); TOTAL BILIRUBIN 1.2 mg/dL (0.0-1.0)
[2022-07-03] MEDS ORDERED: FUROSEMIDE 40 MG/4 ML VIAL IVP SCH (07:05)
--- NOTE | 2022-07-03 07:15 | NUR ---
Report recieved from WILL Marquez for transfer of care.
--- NOTE | 2022-07-03 07:20 | NUR ---
Mariusz coates in [facility] - 07/03/22 at 0721 by [id number] Report recieved from WILL Marquez for transfer of care.
[2022-07-03] MEDS ORDERED: ONDANSETRON 4 MG/2 ML VIAL IVP PRN (07:30)
[2022-07-03] MEDS ORDERED: MAG SULF 2000 MG/WATER PREMIX 50 ML IV PRN (07:30)
[2022-07-03] MEDS ORDERED: ACETAMINOPHEN 325 MG TAB PO PRN (07:30)
[2022-07-03] MEDS ORDERED: ZOLPIDEM 10 MG TAB PO PRN (07:30)
[2022-07-03] MEDS ORDERED: POTASSIUM CHLORIDE 10 MEQ TABER PO PRN (07:30)
--- NOTE | 2022-07-03 07:54 | NUR ---
Patient was offered a commode to void.
--- NOTE | 2022-07-03 08:04 | NUR ---
Patient was offered her breakfast tray.
--- NOTE | 2022-07-03 08:36 | NUR ---
Dr. Blackwell, admitting physician, evaluating patient at bedside.
[2022-07-03] MEDS: FUROSEMIDE 20 MG TAB PO SCH (09:00)
[2022-07-03] MEDS: lisinopriL 5 MG TAB PO SCH (09:00)
--- NOTE | 2022-07-03 09:10 | NUR ---
Called and spoke to Dr. Blackwell regarding patient getting Lasix IVP at 0730 and a 0900 order for Lasix PO at 0900. Per Dr. Blackwell, hold PO Lasix since she already recieved a Lasix dose.
[2022-07-03] MEDS ORDERED: CRUSHER, PILL MC ONE (09:15)
[2022-07-03] MEDS: levETIRAcetam 500 MG TAB PO SCH ×2 (09:18→20:25)
--- NOTE | 2022-07-03 11:58 | NUR ---
Patient was offered her lunch tray, left at bedside.
--- NOTE | 2022-07-03 12:15 | NUR ---
Patient is laying in bed, respirations even and unlabored. No signs of distress noted.
--- NOTE | 2022-07-03 13:01 | NUR ---
Patient will be admitted to care of Dr. Blackwell. Admited to Telemetry. Will go to room 108-B. Belongings list completed. Report to WILL Starkey.
--- NOTE | 2022-07-03 13:02 | NUR ---
Chart checked and completed. The patient's care was reviewed and supervised by Martha Hawley RN.
[2022-07-03 13:56] VITALS: BP 104/57
[2022-07-03 16:54] VITALS: BP 116/70
[2022-07-03] MEDS: MORPHINE SULFATE 2 MG/ML SYR IVP PRN ×2 (17:55→22:49)
--- NOTE | 2022-07-03 18:22 | NUR ---
PT. NEEDS MET THIS SHIFT, VSS, MEDICATED FOR ABDOMINAL PAIN WITH GOOD RESULTS. SR ON MONITOR, NO SOB. CALL LIGT IN REACH.
--- NOTE | 2022-07-03 19:50 | NUR ---
RECEIVED REPORT FROM AM NURSE ÁLVARO SOLIS FOR CONTINUITY OF CARE. PT IS AWAKE SITTING UP IN BED TALKING WITH MALE VISITOR. A&OX4 ON RM AIR/O2 WITH NO ACUTE DISTRESS.C/O 6/10 BACK AND ABDOMINAL PAIN. SITTING UP AND ROCKING. TOO EARLY FOR MORPHINE. MEDICATED WITH ATIVAN 2MG IVP FOR ANXIETY AND ZOFRAN 4MG/2ML IVP FOR NAUSEA AT 2034. PT'S SKIN IS INTACT. PT IS ON BEDREST AND CONTINENT. AMBULATES WITH R LEG BRACE AND CRUTCHES. COMMODE IS AT BEDSIDE. ALL SAFETY MEASURES IN PLACE. BED IN LOW AND LOCKED POSITION. CALL LIGHT WITHIN REACH. WILL CONTINUE TO MONITOR.
[2022-07-03 20:00] VITALS: BP 115/62
[2022-07-03] MEDS: LORazepam 2 MG/ML VIAL IVP PRN (20:35)
[2022-07-03] MEDS: DOCUSATE SODIUM 100 MG GELCAP PO PRN (20:47)
--- NOTE | 2022-07-03 22:00 | NUR ---
PT C/O CONSTIPATION. STATED SHE HAS HAD CONSTIPATION ISSUES FOR AT LEAST 1 YR. IT STARTED 2-3 DAYS WITHOUT A BM. THEN GRADUALLY INCREASED TO NOW CAN GO 1 WEEK BEFORE STOOL EVACUATION. MEDICATED WITH COLACE 100MG CAPSULE PRN FOR CONSTIPATION.
--- NOTE | 2022-07-03 23:00 | NUR ---
NO RESULTS FROM COLACE. PT STATES HER NAUSEA IS GONE. BACK PAIN REMAINS NOW A /. MORPHINE 2MG/1ML IVP GIVEN FOR PAIN.
[2022-07-04] VITALS: BP 87/62
--- NOTE | 2022-07-04 00:30 | NUR ---
MORPHINE EFFECTIVE. PT IS SLEEPING RR EVEN AND UNLABORED WITH SYMMETRICAL CHEST RISE. WILL CONTINUE TO MONITOR.
[2022-07-04 04:00] VITALS: BP 96/54
[2022-07-04] MEDS: LORazepam 2 MG/ML VIAL IVP PRN ×4 (04:11→20:28)
[2022-07-04] MEDS: MORPHINE SULFATE 2 MG/ML SYR IVP PRN ×4 (04:12→17:51)
[2022-07-04] MEDS: LEVOTHYROXINE 0.1 MG TAB PO SCH (06:32)
[2022-07-04 06:55] LABS: ANION GAP 15.2 (8-16); BASOPHILS % (AUTO) 0.9 % (0.0-2.0); CARBON DIOXIDE 27.9 mmol/L (21-32); CREATININE 1.4 mg/dL (0.6-1.3); HEMATOCRIT 33.2 % (36-48); LYMPHOCYTES % (AUTO) 38.6 % (20.5-51.1); MEAN CORPUSCULAR HEMOGLOBIN 29 pg (27-31); MEAN CORPUSCULAR HGB CONC 33 g/dL (33-37); MEAN CORPUSCULAR VOLUME 87.5 fL (80-94); MONOCYTES # (AUTO) 0.4 K/uL (0.8-1.0); MONOCYTES % (AUTO) 6.9 % (1.7-9.3); NEUTROPHILS # (AUTO) 2.8 K/uL (1.8-7.7); NEUTROPHILS % (AUTO) 53.6 % (42.2-75.2); PLATELET COUNT (AUTO) 217 K/uL (140-450); POTASSIUM 3.1 mmol/L (3.5-5.1); RED BLOOD CELL COUNT(AUTO) 3.79 MIL/uL (4.20-5.40); RED CELL DISTRIBUTION WIDTH 17.9 % (11.6-13.7); WHITE BLOOD COUNT (AUTO) 5.1 K/uL (4.8-10.8)
[2022-07-04 08:00] VITALS: BP 105/72
[2022-07-04] MEDS: levETIRAcetam 500 MG TAB PO SCH ×2 (08:48→20:28)
[2022-07-04] MEDS: lisinopriL 5 MG TAB PO SCH (08:50)
[2022-07-04] MEDS: FUROSEMIDE 20 MG TAB PO SCH (08:53)
--- NOTE | 2022-07-04 10:46 | NUR ---
PATIENT HAS BEEN SCREENED AND CATEGORIZED MODERATE NUTRITION RISK. PATIENT WILL BE SEEN WITHIN 3-5 DAYS OF ADMISSION. 07/03/22-07/08/22 REVIEWED BY DEBBIE FUCHS RD
[2022-07-04 16:00] VITALS: BP 129/69
[2022-07-04] MEDS: FUROSEMIDE 20 MG/2 ML VIAL IVP SCH (17:50)
[2022-07-04 20:00] VITALS: BP 101/70
--- NOTE | 2022-07-04 20:30 | NUR ---
RECEIVED REPORT FROM AM NURSE CANDELARIO RN . PT IS STABLE IN BED AWAKE TALKING WITH SIGNIFICANT OTHER. A&OX4. RR EVEN AND UNLABORED ON RM AIR/O2 WITH NO ACUTE DISTRESS. GI INTACT. PT'S SKIN IS INTACT. PT ASKING WHEN PAIN MED IS DUE. AT 2029 WENT TO CHECK ON PT. FLUSHED IV. IT WAS OUT. UNABLE TO REINSERT IV. 3 PEOPLE TRIED 6 TIMES WITHOUT SUCCESS. CONTACTED DR RUDOLPH THE TRAFFIC SUPERINTENDENT DOCTOR FOR TONIGHT. HAD ATIVAN ,MORPHINE,AND ZOFRAN ROUTE SWITCHED TO PO NO IV ACCESS.
[2022-07-04] MEDS ORDERED: MORPHINE SULFATE ORAL SOLN 2 MG/ML UDC PO PRN (23:45)
--- NOTE | 2022-07-05 00:50 | NUR ---
PT REFUSED OFFERED ATIVAN TABLET. ATTEMPTED TO GET MORPHINE ELIXIR ORAL SOLUTION. NOT IN HOUSE. DISTRICT PLANT SUPERINTENDENT GIORGI CALLED [facility]. EXPLAINED TO PATIENT. AT 0117 ATIVAN 0.5MG 1 TABLET GIVEN FOR ANXIETY. WILL CONTINUE TO OBSERVE.
[2022-07-05] MEDS: LORazepam 0.5 MG TAB PO PRN ×2 (01:17→09:16)
--- NOTE | 2022-07-05 02:00 | NUR ---
FREQ ROUNDS. CHECKED PT ASLEEP SNORING RR EVEN AND UNLABORED WITH NAD.
[2022-07-05 04:00] VITALS: BP 96/53
[2022-07-05] MEDS: LEVOTHYROXINE 0.1 MG TAB PO SCH (05:58)
--- NOTE | 2022-07-05 06:00 | NUR ---
VITAL SIGNS OBTAINED. PT WOKE UP ASKING FOR MORPHINE. AT 0609 PT RECEIVED MORPHINE ELIXIR 5MG/2.5 ML WITH RELIEF. SOUND ASLEEP AFTER 20 MINUTES.
[2022-07-05 07:32] LABS: BASOPHILS % (AUTO) 0.7 % (0.0-2.0); HEMATOCRIT 37.2 % (36-48); HEMOGLOBIN 12.2 g/dL (12.0-16.0); LYMPHOCYTES # (AUTO) 1.8 K/uL (2.5-16.5); LYMPHOCYTES % (AUTO) 26.1 % (20.5-51.1); MEAN CORPUSCULAR HEMOGLOBIN 29 pg (27-31); MEAN CORPUSCULAR HGB CONC 33 g/dL (33-37); MEAN CORPUSCULAR VOLUME 87.6 fL (80-94); MONOCYTES # (AUTO) 0.4 K/uL (0.8-1.0); MONOCYTES % (AUTO) 6.1 % (1.7-9.3); NEUTROPHILS # (AUTO) 4.6 K/uL (1.8-7.7); NEUTROPHILS % (AUTO) 67.1 % (42.2-75.2); PLATELET COUNT (AUTO) 263 K/uL (140-450); RED BLOOD CELL COUNT(AUTO) 4.24 MIL/uL (4.20-5.40); RED CELL DISTRIBUTION WIDTH 18.3 % (11.6-13.7); WHITE BLOOD COUNT (AUTO) 6.8 K/uL (4.8-10.8)
--- NOTE | 2022-07-05 07:45 | NUR ---
ENDORSED REPORT TO AM NURSE ADZ RN FOR CONTINUITY OF CARE. PT IS STABLE. ALL NEEDS MET THROUGHOUT THE SHIFT.
[2022-07-05 08:00] VITALS: BP 93/61
[2022-07-05 08:13] LABS: CREATININE 1.3 mg/dL (0.6-1.3)
[2022-07-05] MEDS: levETIRAcetam 500 MG TAB PO SCH ×2 (09:15→20:30)
[2022-07-05] MEDS: lisinopriL 5 MG TAB PO SCH (09:15)
[2022-07-05] MEDS: FUROSEMIDE 20 MG/2 ML VIAL IVP SCH (09:15)
[2022-07-05 09:24] LABS: ANION GAP 15.6 (8-16); POTASSIUM 3.6 mmol/L (3.5-5.1)
[2022-07-05] MEDS: MORPHINE SULFATE 2 MG/ML SYR IVP PRN ×2 (11:28→16:07)
[2022-07-05 12:00] VITALS: BP 100/58
[2022-07-05] MEDS: ONDANSETRON 4 MG ODT SL PRN ×2 (12:40→19:52)
[2022-07-05 16:00] VITALS: BP 115/71
[2022-07-05] MEDS ORDERED: FUROSEMIDE 20 MG/2 ML VIAL IVP SCH (16:00)
--- NOTE | 2022-07-05 19:30 | NUR ---
RECEIVED REPORT FROM DAY SHIFT NURSE TERI FOR CONTINUITY OF CARE. PATIENT IS A&O X4. PATIENT IS ON ROOM AIR, BREATHING IS NORMAL WITH SYMMETRICAL RISE AND FALL OF CHEST. IV IS A 22G RAC; NO FLUIDS RUNNING (SALINE LOCKED). PATIENT IS LYING SUPINE IN BED ON LEFT SIDE. FAMILY MEMBER IS AT BEDSIDE. BED IS IN LOWEST POSITION, WHEELS LOCKED, CALL LIGHT IN PLACE. WILL CONTINUE TO OBSERVE PATIENT.
[2022-07-05 20:00] VITALS: BP 94/59
--- NOTE | 2022-07-05 20:00 | NUR ---
PATIENT CALLED AND REQUESTED MEDICATION FOR PAIN OF NAUSEA. INFORMED PATIENT THAT HER MORPHINE IS TOO EARLY (Q 6HRS), BUT SHE CAN RECEIVE THE ZOFRAN FOR NAUSEA. SHE ACCEPTED THE ZOFRAN BUT DIDN'T UNDERSTAND WHY SHE WAS TOLD SHE COULD HAVE THE MORPHINE Q4HRS. I EXPLAINED TO THE PATIENT THAT I WASN'T SURE WHY SHE WAS TOLD THAT, BUT THE CHART SAYS SHE CAN RECEIVE IT Q6H. THE PATIENT SAID OKAY. FAMILY MEMBER IS STILL AT BEDSIDE. WILL CONTINUE TO OBSERVE PATIENT.
--- NOTE | 2022-07-05 20:35 | NUR ---
ADMINISTERED 2100 MEDICATIONS TO PATIENT. PATIENT TOLERATED MEDICATIONS WELL WITHOUT ANY DIFFICULTY IN SWALLOWING. SEIZURE SAFETY PRECAUTIONS WERE PUT INTO PLACE (BLANKETS OVER RAILINGS AND SIGN HUNG OVER BED). PATIENT WAS AWAKE, LYING SUPINE IN BED ON HER LEFT SIDE, TALKING ON THE PHONE. WILL CONTINUE TO OBSERVE PATIENT.
--- NOTE | 2022-07-05 22:45 | NUR ---
PATIENT CALLED AND REQUESTED PAIN MEDICATION. ASSESSED PATIENT'S VITALS, BP WAS 95/56 (HIGHEST OF TWO READINGS). INFORMED PATIENT THAT THE BP WAS TOO LOW AT THIS TIME TO GIVE MORPHINE. INFORMED PATIENT WE CAN RECHECK BP IN A LITTLE WHILE TO SEE IF ANY CHANGES HAVE OCCURRED. PATIENT SAID OKAY. BREATHING WAS NORMAL WITH SYMMETRICAL RISE AND FALL OF CHEST. WILL CONTINUE TO OBSERVE PATIENT.
--- NOTE | 2022-07-06 00:05 | NUR ---
PATIENT CALLED REQUESTING PAIN MEDICATION. ASSESSED PATIENT'S VITALS, BP WAS 109/75. CHECKED PATIENT'S CHART. MEDICATION WAS APPROPRIATE TO ADMINISTER. ADMINISTERED MEDICATION TO PATIENT, PATIENT TOLERATED WELL. WILL CONTINUE TO OBSERVE PATIENT.
--- NOTE | 2022-07-06 02:30 | NUR ---
PATIENT CALLED AND REQUESTED MORPHINE FOR PAIN. REMINDED THE PATIENT THAT THE MEDICATION CAN BE GIVEN Q6H AND INFORMED HER THAT THE MEDICATION WAS TOO EARLY FROM THE LAST DOSE SHE RECEIVED. PATIENT STATED SHE THOUGHT SHE COULD GET IT EVERY 4 HOURS. I RE-INFORMED THE PATIENT THAT IT'S EVERY 6 HOURS. PATIENT DID NOT RESPOND. BREATHING WAS NORMAL WITH SYMMETRICAL RISE AND FALL OF CHEST. WILL CONTINUE TO OBSERVE PATIENT.
[2022-07-06 04:00] VITALS: BP 103/73
[2022-07-06] MEDS: LORazepam 0.5 MG TAB PO PRN (04:29)
--- NOTE | 2022-07-06 04:34 | NUR ---
PATIENT REQUESTED ATIVAN. VITALS WERE OBTAINED, VITALS WERE: TEMP 97.7, BP 103/73, HR 73, O2 96, RR 18. CHECKED CHART, ATIVAN WAS APPROPRIATE TO ADMINISTER. WENT INTO ROOM TO ADMINISTER ATIVAN. PATIENT STATED SHE WANTED HER PAIN MEDICATION. I REMINDED PATIENT AGAIN THAT IT HAS NOT BEEN 6 HOURS SINCE HER LAST DOSE, SO I AM UNABLE TO ADMINISTER THE PAIN MEDICATION AT THIS TIME. I THEN ASKED THE PATIENT, "DO YOU NOT WANT THE ATIVAN?". PATIENT STATED, "NO, I'LL TAKE THE ATIVAN." PATIENT TOOK ATIVAN SUCCESSFULLY WITHOUT ANY ISSUES. BREATHING WAS NORMAL WITH SYMMETRICAL RISE AND FALL OF CHEST. WILL CONTINUE TO OBSERVE PATIENT.
--- NOTE | 2022-07-06 05:30 | NUR ---
WAS INFORMED BY NEUROPSYCHIATRIST THAT PATIENT REFUSED LABS, STATING SHE WANTS THEM DONE AT 0900.
[2022-07-06] MEDS: LEVOTHYROXINE 0.1 MG TAB PO SCH (06:56)
[2022-07-06] MEDS: MORPHINE SULFATE 2 MG/ML SYR IVP PRN ×4 (07:04→19:51)
--- NOTE | 2022-07-06 07:10 | NUR ---
ADMINISTERED 0630 SYNTHROID TO PATIENT. PATIENT WAS ABLE TO SWALLOW WITHOUT DIFFICULTY. PATIENT REQUESTED MORPHINE FOR 7/10 PAIN. VITALS WERE: BP 102/61 HR 69. CHECKED CHART, MORPHINE WAS APPROPRIATE TO ADMINISTER. ADMINISTERED TO PATIENT. PATIENT TOLERATED WELL. WILL ENDORSE CARE TO DAY SHIFT NURSE.
--- NOTE | 2022-07-06 07:30 | NUR ---
ENDORSED TO DAY SHIFT NURSE DAYA FOR CONTINUITY OF CARE. PATIENT IS STABLE.
[2022-07-06 08:48] LABS: BASOPHILS % (AUTO) 0.8 % (0.0-2.0); HEMATOCRIT 36.7 % (36-48); HEMOGLOBIN 12.1 g/dL (12.0-16.0); MEAN CORPUSCULAR HEMOGLOBIN 29 pg (27-31); MEAN CORPUSCULAR HGB CONC 33 g/dL (33-37); MEAN CORPUSCULAR VOLUME 87.9 fL (80-94); MONOCYTES # (AUTO) 0.3 K/uL (0.8-1.0); MONOCYTES % (AUTO) 5.5 % (1.7-9.3); NEUTROPHILS # (AUTO) 2.9 K/uL (1.8-7.7); NEUTROPHILS % (AUTO) 55.7 % (42.2-75.2); PLATELET COUNT (AUTO) 281 K/uL (140-450); RED BLOOD CELL COUNT(AUTO) 4.17 MIL/uL (4.20-5.40); RED CELL DISTRIBUTION WIDTH 18.8 % (11.6-13.7); WHITE BLOOD COUNT (AUTO) 5.2 K/uL (4.8-10.8)
[2022-07-06] MEDS: FUROSEMIDE 40 MG TAB PO SCH ×2 (09:00→17:00)
[2022-07-06] MEDS: lisinopriL 5 MG TAB PO SCH (09:00)
[2022-07-06] MEDS: levETIRAcetam 500 MG TAB PO SCH ×2 (09:05→20:14)
[2022-07-06] MEDS: POTASSIUM CHLORIDE 10 MEQ TABER PO SCH (09:06)
[2022-07-06 09:24] LABS: CARBON DIOXIDE 30.9 mmol/L (21-32); CREATININE 1.3 mg/dL (0.6-1.3)
[2022-07-06] MEDS: ONDANSETRON 4 MG ODT SL PRN (12:24)
[2022-07-06 13:50] LABS: ANION GAP 12.1 (8-16)
[2022-07-06 14:46] VITALS: BP 108/73
[2022-07-06 16:00] VITALS: BP 101/64
--- NOTE | 2022-07-06 19:47 | NUR ---
GET THE REPORT FROM MORNING NURSE DAYA, PATIENT IS LYING ON BED, PATIENT IS ALERT ORIENTED X4, ALL FALL AND SEIZURE PRECAUTION MEASURE ARE IN PLACE, CALL LIGHT IS WITHIN THE REACH, WILL CONTINUE TO MONITOR PATIENT.
--- NOTE | 2022-07-06 19:57 | NUR ---
PATIENT IS COMPLAINING OF ABDOMINAL PAIN 8/10, MEDICATED WITH MORPHINE 2MG IV PRN PER DOCTOR ORDER, WILL REASSESS PAIN LAVAL IN ONE HOUR , VITAL SIGN IS WITHIN THE NORMAL RANGE, CALL LIGHT IS WITHIN THE REACH, WILL CONTINUE TO MONITOR PATIENT.
[2022-07-06 20:00] VITALS: BP 110/71
[2022-07-06] MEDS: DOCUSATE SODIUM 100 MG GELCAP PO PRN (20:14)
--- NOTE | 2022-07-06 20:14 | NUR ---
PATIENT IS LYING ON BED, NO ANY COMPLAIN OF PAIN OR SHORTNESS OF BREATH AT THIS TIME, VITAL SIGN IS WITHIN THE NORMAL RANGE, ALL SCHEDULE MEDICATION IS GIVEN PER DOCTOR ORDER, PATIENT WAS COMPLAINING OF CONSTIPATION, GAVE COLACE 100 MG PO PRN PER DOCTOR ORDER, , CALL LIGHT IS WITHIN THE REACH, WILL CONTINUE TO MONITOR PATIENT.
--- NOTE | 2022-07-07 00:11 | NUR ---
PATIENT IS LYING ON BD, NO ANY COMPLAIN OF PAIN OR SHORTNESS OF BREATH AT THIS TIME, CALL LIGHT IS WITHIN THE REACH, WILL CONTINUE TO MONITOR PATIENT.
[2022-07-07 04:00] VITALS: BP 100/58
--- NOTE | 2022-07-07 04:43 | NUR ---
PATIENT IS LYING ON BED, VITAL SIGN IS WITHIN THE NORMAL RANGE, NO ANY COMPLAIN OF PAIN OR SHORTNESS OF BREATH AT THIS TIME , CALL LIGHT IS WITHIN THE REACH,WILL CONTINUE TO MONITOR PATIENT.
[2022-07-07] MEDS: LEVOTHYROXINE 0.1 MG TAB PO SCH (05:33)
[2022-07-07 07:02] LABS: BASOPHILS % (AUTO) 0.7 % (0.0-2.0); EOSINOPHILS % (AUTO) 0.1 % (0.0-4.0); HEMATOCRIT 36.7 % (36-48); LYMPHOCYTES # (AUTO) 2.3 K/uL (2.5-16.5); LYMPHOCYTES % (AUTO) 46.1 % (20.5-51.1); MEAN CORPUSCULAR HEMOGLOBIN 29 pg (27-31); MEAN CORPUSCULAR HGB CONC 33 g/dL (33-37); MEAN CORPUSCULAR VOLUME 87.9 fL (80-94); MONOCYTES # (AUTO) 0.3 K/uL (0.8-1.0); MONOCYTES % (AUTO) 6.9 % (1.7-9.3); NEUTROPHILS # (AUTO) 2.3 K/uL (1.8-7.7); NEUTROPHILS % (AUTO) 46.2 % (42.2-75.2); PLATELET COUNT (AUTO) 275 K/uL (140-450); RED BLOOD CELL COUNT(AUTO) 4.18 MIL/uL (4.20-5.40); RED CELL DISTRIBUTION WIDTH 18.4 % (11.6-13.7); WHITE BLOOD COUNT (AUTO) 4.9 K/uL (4.8-10.8)
[2022-07-07 07:09] LABS: CARBON DIOXIDE 27.7 mmol/L (21-32); CREATININE 1.2 mg/dL (0.6-1.3)
--- NOTE | 2022-07-07 07:24 | NUR ---
GAVE THE REPORT TO MORNING NURSE TOM FOR CONTINUOS OF CARE, PATIENT IS STABLE.
[2022-07-07 07:50] LABS: ANION GAP 13.1 (8-16); POTASSIUM 3.8 mmol/L (3.5-5.1)
[2022-07-07] MEDS: lisinopriL 5 MG TAB PO SCH (09:00)
[2022-07-07] MEDS: POTASSIUM CHLORIDE 10 MEQ TABER PO SCH (09:00)
[2022-07-07] MEDS: levETIRAcetam 500 MG TAB PO SCH (09:00)
[2022-07-07] MEDS: FUROSEMIDE 40 MG TAB PO SCH ×2 (09:00→17:00)
[2022-07-07] MEDS: MORPHINE SULFATE 2 MG/ML SYR IVP PRN ×2 (10:06→18:24)
[2022-07-07] MEDS ORDERED: FURO-570 PO (11:00)
== END 2022-07-07 19:50 | disposition home or self-care (01) | DRG 194 ==
LOC: MED 02:18 → MTU 07:27 → MMU 12:28 → MTU 13:15
PROVIDERS: ADMIT Family Medicine; ATTEND Family Medicine
DX: I11.0 Hypertensive heart disease with heart failure (principal); I42.9 Cardiomyopathy, unspecified; E83.51 Hypocalcemia; I50.23 Acute on chronic systolic (congestive) heart failure; G40.909 Epilepsy, unspecified, not intractable, without status epilepticus; Z20.822 Contact with and (suspected) exposure to COVID-19; D64.9 Anemia, unspecified; E87.6 Hypokalemia; Z88.6 Allergy status to analgesic agent; Z88.8 Allergy status to other drugs, medicaments and biological substances; Z79.899 Other long term (current) drug therapy; Z79.891 Long term (current) use of opiate analgesic; Z90.49 Acquired absence of other specified parts of digestive tract
CPT/HCPCS: 36415; 71045; 80048; 80053; 83690; 83735; 83880; 84484; 85025; 87081; 93005; 99285; J1940; J2060; J2270; J2405; Q0092; Q0162

== ENCOUNTER 2022-10-04 16:39 | Inpatient (IN) | payer MEDICAID, OTHER ==
[~2022-10-04] VITALS: Ht 165.1 cm; Wt 81.6 kg
[~2022-10-04 16:39] MED LIST changes: -ACET-8386 PO; +ACET-8905 PO; -AMOX-999 PO; -CARV3.122 PO; -DIVA250E1 PO; -DULO30EC PO; +FURO-570 PO; -FURO20TA8 PO; -ONDA-188 SL
[2022-10-04 16:46] VITALS: BP 98/60
[2022-10-04] MEDS ORDERED: HYDROcodone/APAP 5/325 MG 1 TAB TAB PO ONE (16:55)
[2022-10-04] MEDS ORDERED: ONDANSETRON 4 MG/2 ML VIAL IVP ONE (16:55)
[2022-10-04 17:21] LABS: BASOPHILS # (AUTO) 0.1 K/uL (0.00-0.22); BASOPHILS % (AUTO) 0.9 % (0.0-2.0); HEMATOCRIT 31.7 % (36-48); HEMOGLOBIN 10.7 g/dL (12.0-16.0); LYMPHOCYTES # (AUTO) 2.9 K/uL (2.5-16.5); LYMPHOCYTES % (AUTO) 40.6 % (20.5-51.1); MEAN CORPUSCULAR HEMOGLOBIN 30 pg (27-31); MEAN CORPUSCULAR HGB CONC 34 g/dL (33-37); MEAN CORPUSCULAR VOLUME 89.1 fL (80-94); MONOCYTES # (AUTO) 0.4 K/uL (0.8-1.0); MONOCYTES % (AUTO) 6.2 % (1.7-9.3); NEUTROPHILS # (AUTO) 3.7 K/uL (1.8-7.7); NEUTROPHILS % (AUTO) 52.3 % (42.2-75.2); PLATELET COUNT (AUTO) 199 K/uL (140-450); RED BLOOD CELL COUNT(AUTO) 3.56 MIL/uL (4.20-5.40); RED CELL DISTRIBUTION WIDTH 19.3 % (11.6-13.7); WHITE BLOOD COUNT (AUTO) 7.1 K/uL (4.8-10.8)
--- NOTE | 2022-10-04 17:30 | NUR ---
feels tired and sob, o2 sat 98% at 3 l/m via nc, 70-80s at ra, sr on cm, sr up times 2
[2022-10-04 17:35] LABS: LIPASE 124 U/L (73-393)
[2022-10-04 17:49] LABS: ALBUMIN 4.5 g/dL (3.4-5.0); ANION GAP 18.9 (8-16); CARBON DIOXIDE 25.5 mmol/L (21-32); CREATININE 1.3 mg/dL (0.6-1.3); POTASSIUM 3.4 mmol/L (3.5-5.1)
[2022-10-04] MEDS ORDERED: POTASSIUM CHLORIDE 10 MEQ TABER PO ONE (18:00)
[2022-10-04] MEDS ORDERED: FUROSEMIDE 20 MG/2 ML VIAL IVP ONE (18:00)
[2022-10-04] MEDS ORDERED: MAGNESIUM OXIDE 400 MG TAB PO PRN (18:20)
[2022-10-04] MEDS ORDERED: POTASSIUM CHLORIDE 10 MEQ TABER PO PRN (18:20)
[2022-10-04] MEDS ORDERED: LISI5TAB18 PO (18:20)
[2022-10-04] MEDS ORDERED: ACETAMINOPHEN 325 MG TAB PO PRN (18:20)
[2022-10-04] MEDS ORDERED: spironolactone (18:23)
[2022-10-04] MEDS ORDERED: CARV6.252 PO (18:28)
--- NOTE | 2022-10-04 18:51 | NUR ---
feels better about sob, o2 sat 98% at 3 l/m via nc, sr up times 2 cp 11/07 after norco tab
[2022-10-04 18:54] LABS: APPEARANCE,URINE CLEAR (CLEAR); BILIRUBIN,URINE NEGATIVE (NEGATIVE); BLOOD, URINE NEGATIVE (NEGATIVE); COLOR,URINE YELLOW (YELLOW); LEUKOCYTE ESTERASE ,URINE NEGATIVE (NEGATIVE); NITRITE, URINE NEGATIVE (NEGATIVE); UGLUCOSE NEGATIVE (NEGATIVE)
--- NOTE | 2022-10-04 19:19 | NUR ---
report to hotel night auditor nurse, Al
--- NOTE | 2022-10-04 19:57 | NUR ---
Patient will be admitted to care of Dr Beck. Admited to Tele. Will go to [id number]. Belongings list completed. Report to Minnie SOLIS.
--- NOTE | 2022-10-04 20:09 | NUR ---
ADMITTED PATIENT TO MST UNIT FROM ER AWAKE AOX4 WITH THE CC: CHEST PAIN AND SOB ASSOCIATED WITH NAUSEA AND VOMITING X1 WEEK. NO S/S OF RESPIRATORY DISTRESS. BREATHING NORMAL NON LABORED. IV ACCESS TO LAC 29 GAUGE SALINE LOCK. MRSA SCREENING DONE. CALL LIGHT WITHIN REACH. ALL SAFETY PRECAUTIONS ARE IN PLACE.
--- NOTE | 2022-10-04 21:14 | NUR ---
ADMINISTERED SCHEDULED DUE MEDICATION.
[2022-10-05] VITALS: BP 104/71
[2022-10-05] MEDS: MORPHINE SULFATE 4 MG/ML SYR IVP PRN ×3 (03:27→15:03)
--- NOTE | 2022-10-05 03:27 | NUR ---
PATIENT COMPLAINED OF SEVERE MID CHEST PAIN, MEDICATED WITH MORPHINE IVP.
[2022-10-05 04:00] VITALS: BP 106/65
[2022-10-05 07:14] LABS: CARBON DIOXIDE 26.7 mmol/L (21-32); CREATININE 1.2 mg/dL (0.6-1.3); POTASSIUM 3.7 mmol/L (3.5-5.1)
[2022-10-05 07:23] LABS: BASOPHILS # (AUTO) 0.1 K/uL (0.00-0.22); BASOPHILS % (AUTO) 0.9 % (0.0-2.0); HEMATOCRIT 31.7 % (36-48); HEMOGLOBIN 10.4 g/dL (12.0-16.0); LYMPHOCYTES # (AUTO) 2.9 K/uL (2.5-16.5); LYMPHOCYTES % (AUTO) 52.3 % (20.5-51.1); MEAN CORPUSCULAR HEMOGLOBIN 30 pg (27-31); MEAN CORPUSCULAR HGB CONC 33 g/dL (33-37); MEAN CORPUSCULAR VOLUME 89.7 fL (80-94); MONOCYTES # (AUTO) 0.3 K/uL (0.8-1.0); MONOCYTES % (AUTO) 4.6 % (1.7-9.3); NEUTROPHILS # (AUTO) 2.3 K/uL (1.8-7.7); NEUTROPHILS % (AUTO) 42.2 % (42.2-75.2); PLATELET COUNT (AUTO) 189 K/uL (140-450); RED BLOOD CELL COUNT(AUTO) 3.53 MIL/uL (4.20-5.40); RED CELL DISTRIBUTION WIDTH 19.6 % (11.6-13.7); WHITE BLOOD COUNT (AUTO) 5.5 K/uL (4.8-10.8)
--- NOTE | 2022-10-05 07:26 | NUR ---
BEDSIDE REPORT GIVEN TO MORNING SHIFT NURSE MANOLO FOR CONTINUITY OF CARE.
[2022-10-05 08:00] VITALS: BP 100/66
--- NOTE | 2022-10-05 08:00 | NUR ---
got report from the night nurse pt sleeping, no sob. [email or web address]
[2022-10-05] MEDS: DOCUSATE SODIUM 100 MG GELCAP PO SCH (08:48)
--- NOTE | 2022-10-05 09:24 | NUR ---
PATIENT HAS BEEN SCREENED AND CATEGORIZED MODERATE NUTRITION RISK. PATIENT WILL BE SEEN WITHIN 3-5 DAYS OF ADMISSION. 10/04/22-10/09/[address]
[2022-10-05] MEDS: FUROSEMIDE 20 MG/2 ML VIAL IVP SCH ×2 (09:59→17:42)
[2022-10-05 12:00] VITALS: BP 95/60
--- NOTE | 2022-10-05 13:23 | NUR ---
PT SAYS A YEAR AGO SHE HAD FLU SHOT AND SHE GOT PARALYZED BOTH LEGS BUT THE RIGHT LEG RECOVERED BUT WITH THE RIGHT LEG SHE HAS FOOT DROP THAT SHE USES WALKER AND AND BRACE TO HELP AMBULATE SHE IS DIAGNOSED WITH TRANSVERSE MYELITIS.[email or web address]
[2022-10-05] MEDS: ONDANSETRON 4 MG/2 ML VIAL IVP PRN ×2 (15:04→21:07)
[2022-10-05] MEDS: HYDROcodone/APAP 5/325 MG 1 TAB TAB PO PRN (15:06)
[2022-10-05] MEDS: LORazepam 0.5 MG TAB PO PRN (15:11)
--- NOTE | 2022-10-05 15:18 | NUR ---
PT COMPLAIN OF THE CHEST PAIN 8 ON SCALE 1-10. WITH BP 60 \44 BUT IN [place] 100\67, WE PUT 022LNC 02 SAT 97% HEART RATE WAS 76 EKG READS SR. PT ALSO COMPLAIN OF NAUSEA ZOFRAN AND MORPHINE ADMINISTERED ORDERED, PT CONTINUE TO HAVE ANXIETY, GIVEN ATIVAN ORDERED. PROVIDED COMFORT CARE AND REASSURANCE, CONTINUED TO MONITOR CLOSELY.[email or web address]
[2022-10-05 17:34] VITALS: BP 93/49
[2022-10-05 20:00] VITALS: BP 109/74
--- NOTE | 2022-10-05 21:05 | NUR ---
ALL SCHEDULED MEDICATIONS DUE ADMINISTERED.
[2022-10-05] MEDS: levETIRAcetam 500 MG TAB PO SCH (21:06)
--- NOTE | 2022-10-05 21:07 | NUR ---
PATIENT AWAKE ORIENTED IN BED APPEARS TO BE WEAK ON ROOM AIR. NO DISTRESS NOTED. BREATHING EVEN UNLABORED. NO COMPLAINTS OF PAIN AT THIS TIME BUT COMPLAINED OF NAUSEA, MEDICATED WITH ZOFRAN ORDERED. CALL LIGHT IN REACH. SAFETY MEASURES IN PLACE.
[2022-10-06] VITALS: BP 100/73
[2022-10-06] MEDS: ONDANSETRON 4 MG/2 ML VIAL IVP PRN ×5 (01:18→23:21)
[2022-10-06] MEDS: HYDROcodone/APAP 5/325 MG 1 TAB TAB PO PRN (01:19)
[2022-10-06] MEDS: MORPHINE SULFATE 4 MG/ML SYR IVP PRN ×5 (03:28→23:21)
[2022-10-06 04:00] VITALS: BP 107/72
[2022-10-06] MEDS: LEVOTHYROXINE 0.1 MG TAB PO SCH (06:09)
--- NOTE | 2022-10-06 06:10 | NUR ---
PATIENT WOULD LIKE TO HAVE HER PAIN MEDICATIONS ROUND THE CLOCK. WILL ENDORSE TO AM SHIFT NURSE.
--- NOTE | 2022-10-06 07:20 | NUR ---
ENDORSE PATIENT TO DAY SHIFT NURSE FOR CONTINUITY OF CARE.
--- NOTE | 2022-10-06 07:37 | NUR ---
GOT REPORT FROM THE NIGHT NURSE, PT SLEEPING NO SOB. [email or web address]
[2022-10-06] MEDS: LORazepam 0.5 MG TAB PO PRN (07:51)
[2022-10-06 08:00] VITALS: BP 102/59
[2022-10-06 08:50] LABS: BASOPHILS # (AUTO) 0.1 K/uL (0.00-0.22); BASOPHILS % (AUTO) 0.9 % (0.0-2.0); HEMATOCRIT 35.8 % (36-48); HEMOGLOBIN 11.8 g/dL (12.0-16.0); LYMPHOCYTES # (AUTO) 2.8 K/uL (2.5-16.5); LYMPHOCYTES % (AUTO) 44.8 % (20.5-51.1); MEAN CORPUSCULAR HEMOGLOBIN 30 pg (27-31); MEAN CORPUSCULAR HGB CONC 33 g/dL (33-37); MEAN CORPUSCULAR VOLUME 90.1 fL (80-94); MONOCYTES # (AUTO) 0.5 K/uL (0.8-1.0); MONOCYTES % (AUTO) 7.2 % (1.7-9.3); NEUTROPHILS # (AUTO) 2.9 K/uL (1.8-7.7); NEUTROPHILS % (AUTO) 47.1 % (42.2-75.2); PLATELET COUNT (AUTO) 211 K/uL (140-450); RED BLOOD CELL COUNT(AUTO) 3.98 MIL/uL (4.20-5.40); RED CELL DISTRIBUTION WIDTH 19.2 % (11.6-13.7); WHITE BLOOD COUNT (AUTO) 6.3 K/uL (4.8-10.8)
[2022-10-06 09:00] LABS: ANION GAP 15.5 (8-16); CARBON DIOXIDE 30.2 mmol/L (21-32); CREATININE 1.2 mg/dL (0.6-1.3); POTASSIUM 3.7 mmol/L (3.5-5.1)
[2022-10-06] MEDS: FUROSEMIDE 20 MG/2 ML VIAL IVP SCH (09:14)
[2022-10-06] MEDS: lisinopriL 5 MG TAB PO SCH (09:15)
[2022-10-06] MEDS: DOCUSATE SODIUM 100 MG GELCAP PO SCH (09:15)
[2022-10-06] MEDS: levETIRAcetam 500 MG TAB PO SCH ×2 (09:15→20:34)
[2022-10-06 12:00] VITALS: BP 100/61
[2022-10-06] MEDS: FUROSEMIDE 40 MG/4 ML VIAL IVP SCH (16:42)
[2022-10-06 16:50] VITALS: BP 95/62
[2022-10-06 20:00] VITALS: BP 99/56
--- NOTE | 2022-10-06 20:34 | NUR ---
PATIENT AAOX4 ON ROOM AIR. NO SOB NOTED. BREATHING NORMAL UNLABORED. NO COMPLAINTS OF PAIN OR ANY DISCOMFORT AT THIS TIME. CALL LIGHT WITHIN REACH. ADMINISTERED SCHEDULED DUE MEDICATIONS.
[2022-10-07] VITALS (7 sets, daily range): BP systolic 100–109; BP diastolic 40–74
[2022-10-07] MEDS: LEVOTHYROXINE 0.1 MG TAB PO SCH (05:54)
--- NOTE | 2022-10-07 07:08 | NUR ---
GAVE REPORT TO MORNING SHIFT NURSE FOR CONTINUITY OF CARE.
[2022-10-07 07:33] LABS: BASOPHILS % (AUTO) 0.6 % (0.0-2.0); HEMATOCRIT 35.4 % (36-48); HEMOGLOBIN 11.6 g/dL (12.0-16.0); LYMPHOCYTES # (AUTO) 2.5 K/uL (2.5-16.5); MEAN CORPUSCULAR HEMOGLOBIN 30 pg (27-31); MEAN CORPUSCULAR HGB CONC 33 g/dL (33-37); MEAN CORPUSCULAR VOLUME 90.1 fL (80-94); MONOCYTES # (AUTO) 0.4 K/uL (0.8-1.0); MONOCYTES % (AUTO) 6.6 % (1.7-9.3); NEUTROPHILS # (AUTO) 3.2 K/uL (1.8-7.7); NEUTROPHILS % (AUTO) 51.8 % (42.2-75.2); PLATELET COUNT (AUTO) 198 K/uL (140-450); RED BLOOD CELL COUNT(AUTO) 3.92 MIL/uL (4.20-5.40); RED CELL DISTRIBUTION WIDTH 19.3 % (11.6-13.7); WHITE BLOOD COUNT (AUTO) 6.2 K/uL (4.8-10.8)
--- NOTE | 2022-10-07 07:47 | NUR ---
GOT REPORT FORM THE NIGHT NURSE , PT AWAKE NO SOB [email or web address]
[2022-10-07 08:00] LABS: ANION GAP 15.1 (8-16); CARBON DIOXIDE 28.4 mmol/L (21-32); CREATININE 1.4 mg/dL (0.6-1.3); POTASSIUM 3.5 mmol/L (3.5-5.1)
[2022-10-07] MEDS: lisinopriL 5 MG TAB PO SCH (08:26)
[2022-10-07] MEDS: FUROSEMIDE 40 MG/4 ML VIAL IVP SCH (08:26)
[2022-10-07] MEDS: levETIRAcetam 500 MG TAB PO SCH ×2 (08:26→20:31)
[2022-10-07] MEDS: DOCUSATE SODIUM 100 MG GELCAP PO SCH (08:26)
[2022-10-07] MEDS: MORPHINE SULFATE 4 MG/ML SYR IVP PRN ×4 (08:29→23:54)
[2022-10-07] MEDS: ONDANSETRON 4 MG/2 ML VIAL IVP PRN ×4 (08:29→23:54)
--- NOTE | 2022-10-07 08:30 | NUR ---
DC PLANNING SW MET WITH PT AT BEDSIDE TO COMPLETE ASSESSMENT. PT ALERT AND ORIENTED AND ABLE TO PROVIDE ALL OF HER OWN INFORMATION.PT RESIDES IN A GROUND FLOOR APT WITH HER KATHERINEE AND 8 MONTH OLD BABY, AT THE ADDRESS LISTED ON FILE. PT IDENTIFIED FAY RAM, MOTHER [phone] AND LORAINE RODRIGUEZ, KATHERINE, EMERGENCY CONTACTS. PT DENIES AD IN PLACE AND DECLINED AD OFFERED BY SW. PT STRUGGLED TO RECALL LAST VISIT WITH PCP, DR. CORTEZ, HOWEVER REPORTS MEETING WITH C D STILL OPERATOR, LAST MONTH, AND WITH HER NEUROLOGIST THREE MONTHS AGO. PT REPORTS MEDICATION COMPLIANCE AND REPORTS RECEIVING MEDICATION FROM [facility] IN [place], WHEN NEEDED. PT REPORTS UTILIZING CRUTCHES, LEG BRACE, BEDSIDE COMMODE AND REPORTS HAVING W/C THAT IS USED NEEDED. PT REPORTS COMPLETING ADL'S INDEPENDENTLY HOWEVER REPORTS SHE REQUIRES ASSISTANCE OCCASIONAL WHICH HER FIPAMELA AIDS WITH. PT REPORTS HAVING A PENDING CASE OPEN WITH IHSS WITH [facility]. PT REPORTS HAVING IHSS WITH [facility] HOWEVER,SINCE MOVING IHSS WAS INTERRUPTED. PT REPORTS HX OF ANXIETY THAT IS MANAGED WITH ATIVAN. PT REPORTS DC PLAN IS TO RETURN HOME WITH KATHERINE PROVIDING TRANSPORTATION, WHEN MEDICALLY STABLE. SW INQUIRED ON RESOURCES NEEDED, PT DECLINED. Addendum: 10/07/22 at 0831 by Tam CASSIDY Amended: Links added.
[2022-10-07] MEDS ORDERED: FUROSEMIDE 40 MG/4 ML VIAL IVP SCH (15:00)
--- NOTE | 2022-10-07 15:02 | NUR ---
10/07/22 RD INITIAL ASSESSMENT COMPLETED PLEASE REFER TO NUTRITION ASSESSMENT UNDER CARE ACTIVITY FOR ESTIMATED NUTRITIONAL NEEDS. 1. CONTINUE CARDIAC DIET TOLERATED 2. RECOMMEND ENSURE BID TO HELP INCREASE PO INTAKE -PROVIDES [address] KCAL AND [address] TO FOLLOW-UP 2-3 DAYS, HIGH RISK REVIEWED BY DEBBIE FUCHS RD
--- NOTE | 2022-10-07 18:59 | NUR ---
STARTED IV EARLY BUT NOW PT SAYS IT HEART TAKEN OUT.[email or web address]
--- NOTE | 2022-10-07 19:24 | NUR ---
RECEIVED REPORT FROM WILL FRENCH FOR CONTINUITY OF CARE. PT AWAKE IN BED. PT STATED SHE'S TOO NAUSEOUS, JUST HAD PRN MED FOR NAUSEA. RESPIRATIONS EVEN AND UNLABORED ON RA. ON MANAGER PERFORMANCE. CRUTCHES AT BEDSIDE. PT CONTINENT TO BOWEL AND BLADDER, USES BEDSIDE COMMODE. INITIAL ASSESSMENT DONE. CALL LIGHT WITHIN REACH. SAFETY PRECAUTIONS IN PLACE.
--- NOTE | 2022-10-07 20:00 | NUR ---
Patient's Plan of Care was discussed and reviewed with RAHEEL: MANJINDER
--- NOTE | 2022-10-07 20:36 | NUR ---
ADMINISTERED DUE MEDS. PT TOLERATED WELL. POC DISCUSSED WITH THE PT AND WILL GUAMAN.
[2022-10-08] VITALS: BP 106/69
--- NOTE | 2022-10-08 03:20 | NUR ---
PT SLEEPING. NO DISTRESS NOTED. SAFETY PRECAUTION S IN PLACE.
[2022-10-08 04:00] VITALS: BP 95/59
[2022-10-08] MEDS: LEVOTHYROXINE 0.1 MG TAB PO SCH (06:09)
[2022-10-08] MEDS: ONDANSETRON 4 MG/2 ML VIAL IVP PRN ×4 (06:25→19:23)
[2022-10-08] MEDS: MORPHINE SULFATE 4 MG/ML SYR IVP PRN ×4 (06:26→19:23)
--- NOTE | 2022-10-08 07:18 | NUR ---
GAVE BEDSIDE REPORT TO DAY SHIFT NURSE YANEZ FOR CONTINUITY OF CARE. ALL NEEDS MET THROUGHOUT SHIFT. PT IS STABLE.
--- NOTE | 2022-10-08 07:20 | NUR ---
RECEIVED REPORT FROM HEALTH SERVICES DIRECTOR NURSE. PATIENT LYING DOWN IN BED SLEEPING, AROUSABLE BY VOICE. NO DISTRESS NOTED. AAOX4, IV SITE INTACT, PATENT, AND ON SALINE LOCK. DENIES ANY PAIN AT THIS TIME. REVIEWED PLAN OF CARE WITH PATIENT. VERBALIZED UNDERSTANDING. SAFETY MEASURES IN PLACE, CALL LIGHT WITHIN REACH. WILL CONTINUE TO MONITOR.
[2022-10-08 07:31] LABS: BASOPHILS % (AUTO) 0.8 % (0.0-2.0); HEMATOCRIT 34.6 % (36-48); HEMOGLOBIN 11.4 g/dL (12.0-16.0); LYMPHOCYTES # (AUTO) 2.2 K/uL (2.5-16.5); MEAN CORPUSCULAR HEMOGLOBIN 30 pg (27-31); MEAN CORPUSCULAR HGB CONC 33 g/dL (33-37); MEAN CORPUSCULAR VOLUME 90.1 fL (80-94); MONOCYTES # (AUTO) 0.5 K/uL (0.8-1.0); MONOCYTES % (AUTO) 8.7 % (1.7-9.3); NEUTROPHILS # (AUTO) 2.7 K/uL (1.8-7.7); NEUTROPHILS % (AUTO) 49.5 % (42.2-75.2); PLATELET COUNT (AUTO) 212 K/uL (140-450); RED BLOOD CELL COUNT(AUTO) 3.84 MIL/uL (4.20-5.40); RED CELL DISTRIBUTION WIDTH 19.5 % (11.6-13.7); WHITE BLOOD COUNT (AUTO) 5.4 K/uL (4.8-10.8)
[2022-10-08 07:39] LABS: ANION GAP 16.6 (8-16); CARBON DIOXIDE 29.2 mmol/L (21-32); CREATININE 1.5 mg/dL (0.6-1.3); POTASSIUM 3.8 mmol/L (3.5-5.1)
[2022-10-08 08:00] VITALS: BP 108/64
[2022-10-08] MEDS: lisinopriL 5 MG TAB PO SCH (09:00)
[2022-10-08] MEDS: DOCUSATE SODIUM 100 MG GELCAP PO SCH (09:41)
[2022-10-08] MEDS: levETIRAcetam 500 MG TAB PO SCH ×2 (09:42→20:17)
[2022-10-08] MEDS: FUROSEMIDE 40 MG TAB PO SCH ×2 (09:42→17:19)
--- NOTE | 2022-10-08 09:50 | NUR ---
SCHEDULED MEDICATIONS DUE GIVEN. WILL CONTINUE TO MONITOR.
--- NOTE | 2022-10-08 11:12 | NUR ---
COMPLAINS OF PAIN AND NAUSEA. MORPHINE AND ZOFRAN PRN GIVEN AT THIS TIME.
[2022-10-08 12:00] VITALS: BP 118/68
[2022-10-08] MEDS: LORazepam 0.5 MG TAB PO PRN (15:37)
--- NOTE | 2022-10-08 15:41 | NUR ---
COMPLAINS OF ANXIETY, ATIVAN PO PRN GIVEN PER MD ORDERS.
[2022-10-08 16:00] VITALS: BP 101/67
--- NOTE | 2022-10-08 17:19 | NUR ---
SCHEDULED MEDICATIONS DUE GIVEN. WILL CONTINUE TO MONITOR.
--- NOTE | 2022-10-08 17:40 | NUR ---
DISCHARGE INSTRUCTIONS PROVIDED TO PATIENT IN PREFERRED LANGUAGE OF RUSSIAN. ANSWERED ALL OF PATIENT'S QUESTIONS REGARDING DISCHARGE. NEW/CHANGED MEDICATIONS DISCUSSED WITH PATIENT. VERBALIZED UNDERSTANDING. HAS THAT CAN PICK HER UP AFTER WORK AT 2100 TONIGHT PATIENT LIVES FAR.
--- NOTE | 2022-10-08 18:59 | NUR ---
GAVE REPORT TO CARDIOVASCULAR SONOGRAPHER NURSE FOR CONTINUITY OF CARE. PATIENT IN STABLE CONDITION.
--- NOTE | 2022-10-08 19:23 | NUR ---
RECEIVED PT IN BED AWAKE, ALERT AND ORIENTED. COMPLAINING OF 8/10 CHEST PAIN, MORPHINE GIVEN ORDERED. NO ACUTE RESPIRATORY DISTRESS NOTED. SKIN WARM AND DRY TO TOUCH. SAFETY PRECAUTION IN PLACE, CALL LIGHT IN REACH.
[2022-10-08 20:00] VITALS: BP 120/63
--- NOTE | 2022-10-08 21:05 | NUR ---
SPOKE WITH DR. RANDALL TOMOGRAPHIC TECH FOR DR. HILLS REGARDING PT ASKING FOR NORCO PRESCRIPTION, PER MD PT NEEDS TO FOLLOW UP WITH PCP. INFORMED PT.
--- NOTE | 2022-10-08 21:30 | NUR ---
DISCHARGED PT HOME. ALL BELONGINGS WITH PT. DISCHARGE INSTRUCTION GIVEN AND EXPLAINED BY RUTH RN. DISCONTINUED IV IN THE LEFT AC WITH INTACT CANNULA, APPLIED DRESSING.
== END 2022-10-08 21:30 | disposition home or self-care (01) | DRG 194 ==
LOC: MED 16:39 → MTU 18:21
PROVIDERS: ADMIT Internal Medicine; ATTEND Internal Medicine
DX: I50.23 Acute on chronic systolic (congestive) heart failure (principal); J96.01 Acute respiratory failure with hypoxia; R65.11 Systemic inflammatory response syndrome (SIRS) of non-infectious origin with acute organ dysfunction; N17.9 Acute kidney failure, unspecified; I42.0 Dilated cardiomyopathy; G40.909 Epilepsy, unspecified, not intractable, without status epilepticus; E03.9 Hypothyroidism, unspecified; E87.6 Hypokalemia; Z20.822 Contact with and (suspected) exposure to COVID-19; Z88.8 Allergy status to other drugs, medicaments and biological substances; Z88.1 Allergy status to other antibiotic agents; Z90.49 Acquired absence of other specified parts of digestive tract
CPT/HCPCS: 36415; 71045; 80048; 80053; 81003; 83690; 83735; 83880; 84484; 85025; 87081; 93005; 96374; 96375; 99285; J1644; J1940; J2270; J2405; Q0092

== ENCOUNTER 2022-10-30 10:41 | Inpatient (IN) | payer MEDICAID, OTHER ==
[~2022-10-30] VITALS: Ht 165.1 cm; Wt 81.6 kg
[~2022-10-30 10:41] MED LIST changes: +CARV6.252 PO; +LISI5TAB18 PO; +spironolactone
[2022-10-30 10:42] VITALS: BP 101/69
--- NOTE | 2022-10-30 10:50 | NUR ---
PT W/C ASSISTED TO BED 8.
--- NOTE | 2022-10-30 11:00 | NUR ---
RECEIVED PT IN [facility] AOX4. C/O CHEST PAIN RADIATING TO ARM WITH SOB X1 WEEK. PT BREATHING UNLABORED SATURATION 97%. IV INSERTED TO LEFT UPPER ARM #20GUAGE. NAD. SAFETY MAINTAINED.
--- NOTE | 2022-10-30 11:05 | NUR ---
X-RAY AT BEDSIDE
[2022-10-30 11:42] LABS: BASOPHILS # (AUTO) 0.1 K/uL (0.00-0.22); BASOPHILS % (AUTO) 1.2 % (0.0-2.0); EOSINOPHILS % (AUTO) 0.1 % (0.0-4.0); HEMOGLOBIN 9.3 g/dL (12.0-16.0); LYMPHOCYTES # (AUTO) 2.3 K/uL (2.5-16.5); LYMPHOCYTES % (AUTO) 39.6 % (20.5-51.1); MEAN CORPUSCULAR HEMOGLOBIN 30 pg (27-31); MEAN CORPUSCULAR HGB CONC 33 g/dL (33-37); MEAN CORPUSCULAR VOLUME 89.2 fL (80-94); MONOCYTES # (AUTO) 0.4 K/uL (0.8-1.0); MONOCYTES % (AUTO) 7.6 % (1.7-9.3); NEUTROPHILS % (AUTO) 51.5 % (42.2-75.2); PLATELET COUNT (AUTO) 220 K/uL (140-450); RED BLOOD CELL COUNT(AUTO) 3.14 MIL/uL (4.20-5.40); RED CELL DISTRIBUTION WIDTH 18.9 % (11.6-13.7); WHITE BLOOD COUNT (AUTO) 5.9 K/uL (4.8-10.8)
[2022-10-30 12:12] LABS: ALBUMIN 4.2 g/dL (3.4-5.0); ANION GAP 16.4 (8-16); CARBON DIOXIDE 20.6 mmol/L (21-32); CREATININE 1.2 mg/dL (0.6-1.3); TOTAL BILIRUBIN 0.8 mg/dL (0.0-1.0)
[2022-10-30] MEDS ORDERED: MORPHINE SULFATE 2 MG/ML SYR IVP ONE (12:40)
[2022-10-30] MEDS ORDERED: ONDANSETRON 4 MG/2 ML VIAL IVP ONE (12:40)
[2022-10-30 12:59] LABS: THYROID STIMULATING HORMONE 130.76 uIU/mL (0.34-3.74)
[2022-10-30] MEDS ORDERED: guaiFENesin DM 200/20 MG-10 ML 10 ML UDC PO PRN (13:35)
[2022-10-30] MEDS ORDERED: ACETAMINOPHEN 325 MG TAB PO PRN (13:35)
[2022-10-30] MEDS ORDERED: POTASSIUM CHLORIDE 10 MEQ TABER PO PRN (13:35)
[2022-10-30] MEDS ORDERED: DOCUSATE SODIUM 100 MG GELCAP PO PRN (13:35)
[2022-10-30] MEDS ORDERED: ZOLPIDEM 5 MG TAB PO PRN (13:35)
--- NOTE | 2022-10-30 13:40 | NUR ---
pt swabbed for covid(alysha). walked to lab
--- NOTE | 2022-10-30 13:40 | NUR ---
LAB AT BEDSIDE
[2022-10-30] MEDS ORDERED: LEVOTHYROXINE SODIUM 100 MCG VIAL IV SCH (14:00)
[2022-10-30 14:07] LABS: PROTHROMBIN TIME 12.1 secs (10.8-13.4)
[2022-10-30 14:16] LABS: CHOL/HDL RATIO 3.4 (1-4.5); FREE T4 (FREE THYROXINE) 0.23 ng/dL (0.76-1.46); MAGNESIUM 1.7 mg/dL (1.8-2.4); PHOSPHORUS 3.1 mg/dL (2.5-4.9); THYROID STIMULATING HORMONE 134.4 uIU/mL (0.34-3.74)
--- NOTE | 2022-10-30 14:51 | NUR ---
PT TX TO FLOOR REPORT GIVEN TO ELIAS SOLIS. PT IN STABLE CONDITION ON TX TO FLOOR.
[2022-10-30] MEDS: ONDANSETRON 4 MG/2 ML VIAL IM/IVP PRN (15:31)
[2022-10-30] MEDS: HYDROcodone/APAP 7.5/325 MG 1 TAB PO PRN ×2 (15:32→21:52)
--- NOTE | 2022-10-30 15:49 | NUR ---
PATIENT HAS BEEN SCREENED AND CATEGORIZED MODERATE NUTRITION RISK. PATIENT WILL BE SEEN WITHIN 3-5 DAYS OF ADMISSION. REVIEWED BY DEBBIE FUCHS RD
[2022-10-30 16:00] VITALS: BP 100/70
[2022-10-30] MEDS ORDERED: MORPHINE SULFATE 2 MG/ML SYR IVP SCH (18:30)
--- NOTE | 2022-10-30 19:30 | NUR ---
RECEIVED PT FROM AM NURSE FOR CONTINUITY OF CARE. PT IS STABLE
[2022-10-30 20:00] VITALS: BP 104/55
[2022-10-30] MEDS: FUROSEMIDE 20 MG/2 ML VIAL IVP SCH (21:06)
[2022-10-30] MEDS: levETIRAcetam 500 MG TAB PO SCH (21:07)
[2022-10-30] MEDS: carvediloL 6.25 MG TAB PO SCH (21:08)
--- NOTE | 2022-10-30 23:45 | NUR ---
PATIENT COMPLAIN OF CHEST AND BACK PAIN. TEXTED MD HARPREET ORDERED HEPARIN SQ 5000 UNITS ONCE
[2022-10-31] VITALS: BP 113/53
--- NOTE | 2022-10-31 01:00 | NUR ---
PATIENT ASLEEP , NO DISTRESS NOTED
[2022-10-31] MEDS: ONDANSETRON 4 MG/2 ML VIAL IM/IVP PRN ×3 (01:08→20:48)
[2022-10-31 04:00] VITALS: BP 108/56
[2022-10-31 05:15] LABS: BASOPHILS # (AUTO) 0.1 K/uL (0.00-0.22); BASOPHILS % (AUTO) 1.2 % (0.0-2.0); HEMATOCRIT 28.3 % (36-48); HEMOGLOBIN 9.4 g/dL (12.0-16.0); LYMPHOCYTES # (AUTO) 2.7 K/uL (2.5-16.5); LYMPHOCYTES % (AUTO) 51.9 % (20.5-51.1); MEAN CORPUSCULAR HEMOGLOBIN 30 pg (27-31); MEAN CORPUSCULAR HGB CONC 33 g/dL (33-37); MEAN CORPUSCULAR VOLUME 89.8 fL (80-94); MONOCYTES # (AUTO) 0.3 K/uL (0.8-1.0); MONOCYTES % (AUTO) 6.1 % (1.7-9.3); NEUTROPHILS # (AUTO) 2.1 K/uL (1.8-7.7); NEUTROPHILS % (AUTO) 40.8 % (42.2-75.2); PLATELET COUNT (AUTO) 216 K/uL (140-450); RED BLOOD CELL COUNT(AUTO) 3.15 MIL/uL (4.20-5.40); RED CELL DISTRIBUTION WIDTH 18.6 % (11.6-13.7); WHITE BLOOD COUNT (AUTO) 5.2 K/uL (4.8-10.8)
[2022-10-31] MEDS: LEVOTHYROXINE 0.075 MG TAB PO SCH (06:02)
[2022-10-31 06:06] LABS: ANION GAP 11.2 (8-16); CREATININE 1.5 mg/dL (0.6-1.3); POTASSIUM 4.2 mmol/L (3.5-5.1)
--- NOTE | 2022-10-31 07:30 | NUR ---
RECEIVED REPORT FROM NIGHTSHIFT NURSE. PT A/O X4. NO SOB OR RESPIRATORY DISTRESS. ON RA. LAC #20. RLE WITH EDEMA AND WEAKNESS. NEEDS ALL MET AT THIS TIME. ALL SAFETY MEASURES IN PLACE.
--- NOTE | 2022-10-31 07:58 | NUR ---
CONTACTED REGARDING MEDICATION RECONCILIATION AND ACCU-CHECK ORDERS. AWAITING REPLY. Addendum: 10/31/22 at 1256 by Agency Anderssa SOLIS RN WRONG PT
[2022-10-31 08:00] VITALS: BP 94/61
[2022-10-31 08:34] LABS: T4 (THYROXINE) 1.2 ug/dL (4.5 - 12.0)
[2022-10-31] MEDS: levETIRAcetam 500 MG TAB PO SCH ×2 (08:49→20:33)
[2022-10-31] MEDS: FUROSEMIDE 20 MG/2 ML VIAL IVP SCH ×2 (08:50→20:46)
[2022-10-31] MEDS: PANTOPRAZOLE 40 MG TABEC PO SCH (08:52)
[2022-10-31] MEDS: lisinopriL 5 MG TAB PO SCH (09:00)
[2022-10-31] MEDS: carvediloL 6.25 MG TAB PO SCH ×2 (09:00→20:33)
[2022-10-31] MEDS: HYDROcodone/APAP 7.5/325 MG 1 TAB PO PRN ×2 (10:52→20:34)
--- NOTE | 2022-10-31 10:52 | NUR ---
NORCO NOT GIVEN THIS TIME. COMPUTER ISSUES. NORCO GIVEN AT 0840 AM WITH MORNING MEDS.
[2022-10-31] MEDS: MORPHINE SULFATE 2 MG/ML SYR IVP PRN (11:33)
[2022-10-31 11:59] LABS: BARBITURATE, URINE NEGATIVE ng/ml (NEG <=200); BENZODIAZEPINE, URINE NEGATIVE ng/mL (NEG <=200); CANNABINOID, URINE NEGATIVE ng/mL (NEG <=50); COCAINE, URINE NEGATIVE ng/mL (NEG <=300); OPIATE, URINE POSITIVE ng/mL (NEG <=2000); PHENCYCLIDINE SCREEN,URINE NEGATIVE ng/mL (NEG <=25)
[2022-10-31 12:00] VITALS: BP 104/62
--- NOTE | 2022-10-31 12:00 | NUR ---
PT OFF TO CT ANGIO CHEST.
--- NOTE | 2022-10-31 15:25 | NUR ---
DC PLANNING ASSESSMENT COMPLETE PLEASE REFER TO ASSESSMENT FOR DETAILS PT REPORTS DC PLAN IS TO RETURN HOME WITH [facility] PROVIDING TRANSPORTATION, WHEN MEDICALLY STABLE. Addendum: 10/31/22 at 1527 by Tam CASSIDY Amended: Links added.
[2022-10-31 16:00] VITALS: BP 100/63
--- NOTE | 2022-10-31 18:44 | NUR ---
HOURLY ROUNDS CONDUCTED THROUGHOUT MY SHIFT.
[2022-10-31 18:51] LABS: APPEARANCE,URINE CLEAR (CLEAR); BILIRUBIN,URINE NEGATIVE (NEGATIVE); BLOOD, URINE NEGATIVE (NEGATIVE); COLOR,URINE YELLOW (YELLOW); LEUKOCYTE ESTERASE ,URINE NEGATIVE (NEGATIVE); NITRITE, URINE NEGATIVE (NEGATIVE); UGLUCOSE NEGATIVE (NEGATIVE)
--- NOTE | 2022-10-31 19:17 | NUR ---
REPORT GIVEN TO NIGHTSHIFT NURSESYLVAIN FOR CONTINUITY OF CARE.
--- NOTE | 2022-10-31 19:18 | NUR ---
RECEIVED ENDORSEMENT FROM RAIN SOLIS (REGISTRY), PATIENT WAS STABLE IN BED POST OP. PATIENT A&O X 4. AWARE OF WHY SHE IS IN THE HOSPITAL. PATIENT IS CURRENTLY IN PAIN BUT BLOOD PRESSURE IS NOTED TOO LOW. NO NOTED RESPIRATORY DISTRESS AT THIS TIME. PATIENT WAS ON IV ANTIBIOTICS BUT NO FLUIDS. IV SITE PATENT, CLEAN AND NON TENDER TO TOUCH. MNURPH1
[2022-10-31 20:00] VITALS: BP 102/61
--- NOTE | 2022-10-31 21:35 | NUR ---
PATIENT HAD NO MORE PAIN AT THIS TIME. MEDICATION WAS EFFECTIVE AND NO NOTED SIDE EFFECTS. PER DOCTOR, PATIENT MAY HAVE NORCO WHILE BLOOD PRESSURE DOES NOT REACH SBP IS NOT >110. PATIENT EDUCATION WAS GIVEN AND PATIENT UNDERSTOOD. MNURPH1
--- NOTE | 2022-10-31 22:53 | NUR ---
PATIENT NOTED IN BED ASLEEP. CALL LIGHT WITHIN REACH. SIDE RAILS UP X 2. MNURPH1
[2022-11-01] VITALS: BP 88/51
[2022-11-01 04:00] VITALS: BP 114/66
[2022-11-01] MEDS: HYDROcodone/APAP 7.5/325 MG 1 TAB PO PRN ×3 (05:29→20:35)
--- NOTE | 2022-11-01 06:00 | NUR ---
PATIENT RECEIVED PAIN MEDICATION 30 MINUTES AGO. WILL MONITOR EFFECTIVENESS. [email or web address]
[2022-11-01 06:13] LABS: BASOPHILS % (AUTO) 0.6 % (0.0-2.0); HEMATOCRIT 32.4 % (36-48); HEMOGLOBIN 10.9 g/dL (12.0-16.0); LYMPHOCYTES # (AUTO) 3.3 K/uL (2.5-16.5); LYMPHOCYTES % (AUTO) 51.2 % (20.5-51.1); MEAN CORPUSCULAR HEMOGLOBIN 30 pg (27-31); MEAN CORPUSCULAR HGB CONC 34 g/dL (33-37); MEAN CORPUSCULAR VOLUME 88.4 fL (80-94); MONOCYTES # (AUTO) 0.5 K/uL (0.8-1.0); MONOCYTES % (AUTO) 8.5 % (1.7-9.3); NEUTROPHILS # (AUTO) 2.5 K/uL (1.8-7.7); NEUTROPHILS % (AUTO) 39.7 % (42.2-75.2); PLATELET COUNT (AUTO) 227 K/uL (140-450); RED BLOOD CELL COUNT(AUTO) 3.66 MIL/uL (4.20-5.40); RED CELL DISTRIBUTION WIDTH 18.5 % (11.6-13.7); WHITE BLOOD COUNT (AUTO) 6.4 K/uL (4.8-10.8)
[2022-11-01 06:18] LABS: ANION GAP 12.7 (8-16); CARBON DIOXIDE 28.1 mmol/L (21-32); CREATININE 1.5 mg/dL (0.6-1.3); POTASSIUM 3.8 mmol/L (3.5-5.1)
[2022-11-01] MEDS: LEVOTHYROXINE 0.075 MG TAB PO SCH (06:33)
--- NOTE | 2022-11-01 06:56 | NUR ---
ENDORSED PATIENT TO ALFA SOLIS (REGISTRY) FOR CONTINUITY OF CARE, PATIENT WAS STABLE DURING SHIFT REPORT. [email or web address]
[2022-11-01 08:00] VITALS: BP 94/58
[2022-11-01] MEDS: levETIRAcetam 500 MG TAB PO SCH ×2 (09:00→20:28)
[2022-11-01] MEDS: PANTOPRAZOLE 40 MG TABEC PO SCH (10:01)
[2022-11-01 10:49] VITALS: BP 107/71
[2022-11-01] MEDS: MORPHINE SULFATE 2 MG/ML SYR IVP PRN (10:57)
[2022-11-01] MEDS: lisinopriL 5 MG TAB PO SCH (10:58)
[2022-11-01] MEDS: carvediloL 6.25 MG TAB PO SCH ×2 (10:59→20:32)
[2022-11-01] MEDS: FUROSEMIDE 20 MG/2 ML VIAL IVP SCH ×2 (10:59→20:31)
[2022-11-01 16:35] VITALS: BP 121/66
[2022-11-01] MEDS: ONDANSETRON 4 MG/2 ML VIAL IM/IVP PRN (16:44)
[2022-11-01 20:00] VITALS: BP 98/47
--- NOTE | 2022-11-01 20:16 | NUR ---
PATIENT WELL RESTED IN BED ON ROOM AIR. NO SOB NOTED. NO COMPLAINTS OF PAIN AT THIS TIME. AT BEDSIDE. CALL LIGHT IN REACH. NEEDS ATTENDED TO. V/S TAKEN BP-98/47 P-59. NOT[address]IED DR RUDOLPH WITH ORDER TO HOLD LASIX AND COREG. ORDERS NOTED, CARRIED OUT.
--- NOTE | 2022-11-01 20:28 | NUR ---
SCHEDULED MEDICATIONS DUE GIVEN.
--- NOTE | 2022-11-01 20:35 | NUR ---
PATIENT COMPLAINED OF MODERATE PAIN 02/07. MEDICATED WITH NORCO PO.
[2022-11-02] VITALS: BP 94/57
[2022-11-02 04:00] VITALS: BP 99/57
[2022-11-02] MEDS: LEVOTHYROXINE 0.075 MG TAB PO SCH (06:24)
[2022-11-02 06:25] LABS: BASOPHILS % (AUTO) 0.4 % (0.0-2.0); HEMATOCRIT 32.3 % (36-48); HEMOGLOBIN 10.8 g/dL (12.0-16.0); LYMPHOCYTES # (AUTO) 2.3 K/uL (2.5-16.5); LYMPHOCYTES % (AUTO) 43.2 % (20.5-51.1); MEAN CORPUSCULAR HEMOGLOBIN 30 pg (27-31); MEAN CORPUSCULAR HGB CONC 33 g/dL (33-37); MONOCYTES # (AUTO) 0.4 K/uL (0.8-1.0); NEUTROPHILS # (AUTO) 2.6 K/uL (1.8-7.7); NEUTROPHILS % (AUTO) 49.4 % (42.2-75.2); PLATELET COUNT (AUTO) 211 K/uL (140-450); RED BLOOD CELL COUNT(AUTO) 3.63 MIL/uL (4.20-5.40); WHITE BLOOD COUNT (AUTO) 5.2 K/uL (4.8-10.8)
[2022-11-02 06:26] LABS: ANION GAP 14.2 (8-16); CARBON DIOXIDE 27.4 mmol/L (21-32); CREATININE 1.3 mg/dL (0.6-1.3); POTASSIUM 3.6 mmol/L (3.5-5.1)
--- NOTE | 2022-11-02 07:29 | NUR ---
ENDORSED PATIENT TO DAY SHIFT NURSE FOR CONTINUITY OF CARE.
--- NOTE | 2022-11-02 07:30 | NUR ---
RECEIVED REPORT FROM NIGHTSHIFT NURSE PEPITO FOR CONTINUITY OF CARE. PT IN STABLE CONDITION.
--- NOTE | 2022-11-02 07:46 | NUR ---
MESSAGED THE CONSULTED PRODUCT DEVELOPMENT TECHNICIAN DR. SPICER FOR UPDATE ON WHEN HE IS TO ROUND ON PT. PER DR. SPICER, HE HAS NOT ROUNDED IN [facility] FOR "SOME TIME" AND IS NOT PREPARED TO COME OUT TO SEE PT. NOTIFIED DR. RUDOLPH, AND STATED HE WILL BE IN TO SEE PT.
[2022-11-02 08:00] VITALS: BP 92/54
[2022-11-02] MEDS: PANTOPRAZOLE 40 MG TABEC PO SCH (08:26)
[2022-11-02] MEDS: levETIRAcetam 500 MG TAB PO SCH ×2 (08:27→20:18)
--- NOTE | 2022-11-02 08:27 | NUR ---
GERALD CHANEL REPORTED BP 92/54, HELD ALL BLOOD PRESSURE MEDICATIONS. PT ENDORSED SHARP CHEST PAIN 6/10 IN STERNUM AND RADIATING TO LEFT BREAST. OFFERED TYLENOL, BT PT REFUSED. NOTIFIED DR. RUDOLPH.
[2022-11-02] MEDS: lisinopriL 5 MG TAB PO SCH (09:00)
[2022-11-02] MEDS: FUROSEMIDE 20 MG/2 ML VIAL IVP SCH ×2 (09:00→20:22)
[2022-11-02] MEDS: carvediloL 6.25 MG TAB PO SCH ×2 (09:00→20:19)
--- NOTE | 2022-11-02 09:29 | NUR ---
NOTIFIED DR. RUDOLPH OF PT'S LOW BLOOD PRESSURE 92/54 HR 65. NO NEW ORDERS GIVEN.
[2022-11-02] MEDS: MORPHINE SULFATE 2 MG/ML SYR IVP PRN ×2 (09:38→18:23)
--- NOTE | 2022-11-02 09:38 | NUR ---
PT ENDORSED SEVERE CHEST PAIN 06/09. REASSESSED BP: 122/71 HR 83. MEDICATED WITH PRN MORPHINE.
--- NOTE | 2022-11-02 09:52 | NUR ---
RECEIVED NEW ORDER FOR CONSULT WITH [employer] DEVELOPER DR. LORENZO. NOTIFIED
[2022-11-02 12:00] VITALS: BP 117/77
[2022-11-02 16:00] VITALS: BP 112/54
--- NOTE | 2022-11-02 18:23 | NUR ---
PT ENDORSED SEVERE CHEST PAIN 8/10 AND LOWER ABDOMINAL PAIN FROM MENSTRUAL CRAMPS. MEDICATED PRN MORPHINE.
--- NOTE | 2022-11-02 19:06 | NUR ---
ENDORSED PT TO NIGHTSHIFT NURSE PEPITO FOR CONTINUITY OF CARE. PT IN STABLE CONDITION.
[2022-11-02 20:00] VITALS: BP 111/66
[2022-11-02] MEDS: ONDANSETRON 4 MG/2 ML VIAL IM/IVP PRN (20:11)
--- NOTE | 2022-11-02 20:11 | NUR ---
PATIENT COMPLAINED OF NAUSEA, MEDICATED . PATIENT ALERT ORIENTED IN NO DISTRESS. NO COMPLAINTS OF PAIN AT THIS TIME. PATIENT APPEARS WEAK. CALL LIGHT WITHIN REACH. SAFETY MEASURES IN PLACE.
--- NOTE | 2022-11-02 20:18 | NUR ---
ADMINISTERED ALL SCHEDULED DUE MEDICATIONS.
[2022-11-03] VITALS: BP 93/52
[2022-11-03 04:00] VITALS: BP 114/67
[2022-11-03] MEDS: MORPHINE SULFATE 2 MG/ML SYR IVP PRN (05:12)
[2022-11-03] MEDS: LEVOTHYROXINE 0.075 MG TAB PO SCH (06:15)
[2022-11-03 06:26] LABS: BASOPHILS % (AUTO) 0.6 % (0.0-2.0); HEMATOCRIT 31.7 % (36-48); HEMOGLOBIN 10.5 g/dL (12.0-16.0); LYMPHOCYTES # (AUTO) 1.6 K/uL (2.5-16.5); LYMPHOCYTES % (AUTO) 21.6 % (20.5-51.1); MEAN CORPUSCULAR HEMOGLOBIN 30 pg (27-31); MEAN CORPUSCULAR HGB CONC 33 g/dL (33-37); MEAN CORPUSCULAR VOLUME 90.5 fL (80-94); MONOCYTES # (AUTO) 0.4 K/uL (0.8-1.0); MONOCYTES % (AUTO) 5.8 % (1.7-9.3); NEUTROPHILS # (AUTO) 5.3 K/uL (1.8-7.7); PLATELET COUNT (AUTO) 229 K/uL (140-450); RED CELL DISTRIBUTION WIDTH 18.9 % (11.6-13.7); WHITE BLOOD COUNT (AUTO) 7.3 K/uL (4.8-10.8)
[2022-11-03 06:41] LABS: ANION GAP 12.7 (8-16); CARBON DIOXIDE 27.1 mmol/L (21-32); CREATININE 1.2 mg/dL (0.6-1.3); POTASSIUM 3.8 mmol/L (3.5-5.1)
--- NOTE | 2022-11-03 07:20 | NUR ---
receive the patient from the shift supervisor film processing rn in a stable condition in rm 121B admitting diagnosis of chest pain . will continue to monitor
--- NOTE | 2022-11-03 07:32 | NUR ---
GAVE REPORT TO AM SHIFT NURSE FOR CONTINUITY OF CARE.
[2022-11-03] MEDS: lisinopriL 5 MG TAB PO SCH (08:53)
[2022-11-03] MEDS: levETIRAcetam 500 MG TAB PO SCH (08:54)
[2022-11-03] MEDS: PANTOPRAZOLE 40 MG TABEC PO SCH (08:55)
[2022-11-03] MEDS ORDERED: METOPROLOL SUCCINATE 50 MG TABER PO SCH (09:00)
[2022-11-03] MEDS ORDERED: FUROSEMIDE 40 MG TAB PO SCH (09:00)
[2022-11-03] MEDS ORDERED: SPIRONOLACTONE 25 MG TAB PO SCH (09:00)
[2022-11-03] MEDS: HYDROcodone/APAP 7.5/325 MG 1 TAB PO PRN ×2 (09:31→14:06)
[2022-11-03] MEDS ORDERED: LEVO0.3T5 PO (10:47)
[2022-11-03] MEDS ORDERED: METO50TE2 PO (10:47)
[2022-11-03] MEDS ORDERED: SPIR25TA PO (10:47)
[2022-11-03 14:43] VITALS: BP 125/78
--- NOTE | 2022-11-03 14:58 | NUR ---
DC KENNEL HELPER PETTY PT WAS DISENROLLED FROM [facility]
--- NOTE | 2022-11-03 15:12 | NUR ---
made some discharge teaching to the patient . remove the intravenous line, identification band . no complain of pain . no sign and symptoms of respiratory distress . patient in a stable condition . brought the patent to to the lobby in waiting car with her .
== END 2022-11-03 15:05 | disposition home or self-care (01) | DRG 203 ==
LOC: MED 10:41 → MTU 13:18
PROVIDERS: ADMIT Family Medicine; ATTEND Family Medicine
DX: R07.89 Other chest pain (principal); N17.0 Acute kidney failure with tubular necrosis; I50.43 Acute on chronic combined systolic (congestive) and diastolic (congestive) heart failure; D63.8 Anemia in other chronic diseases classified elsewhere; I42.9 Cardiomyopathy, unspecified; I11.0 Hypertensive heart disease with heart failure; Z20.822 Contact with and (suspected) exposure to COVID-19; E03.9 Hypothyroidism, unspecified; G40.909 Epilepsy, unspecified, not intractable, without status epilepticus; Z88.6 Allergy status to analgesic agent; Z88.1 Allergy status to other antibiotic agents; Z88.8 Allergy status to other drugs, medicaments and biological substances; Z79.899 Other long term (current) drug therapy; Z90.49 Acquired absence of other specified parts of digestive tract; Z79.84 Long term (current) use of oral hypoglycemic drugs
CPT/HCPCS: 36415; 71045; 71275; 80048; 80053; 80305; 81003; 82150; 83036; 83690; 83735; 83880; 84100; 84436; 84439; 84443; 84479; 84484; 85025; 85610; 85730; 96374; 96375; 99285; J1644; J1940; J2270; J2405; Q0092; Q9967

== ENCOUNTER 2023-01-12 21:07 | Emergency (ER) | payer MEDICAID, OTHER ==
[~2023-01-12] VITALS: Ht 165.1 cm; Wt 81.6 kg
[~2023-01-12 21:07] MED LIST changes: +LEVO0.3T5 PO; -LISI5TAB18 PO; +METO50TE2 PO; +SPIR25TA PO; -SYN.1 PO
[2023-01-12 22:02] VITALS: BP 126/73
--- NOTE | 2023-01-13 00:28 | NUR ---
pt to bed 2 via wheelchair
--- NOTE | 2023-01-13 00:38 | NUR ---
PATIENT INTERVIEWED AT BEDSIDE, HAS COMPLAINTS OF CHEST PAIN WITH HISTORY OF CARDIOMYOPATHY. PATIENT ALSO REPORTS HISTORY OF SEIZURES AND STATES THAT SHE FEELS LIKE AN AURA IS COMING ON.
[2023-01-13] MEDS ORDERED: levETIRAcetam 500 MG TAB PO ONE (01:15)
[2023-01-13] MEDS ORDERED: MORPHINE SULFATE 4 MG/ML SYR IVP ONE (01:15)
[2023-01-13 01:31] LABS: BASOPHILS # (AUTO) 0.1 K/uL (0.00-0.22); BASOPHILS % (AUTO) 0.9 % (0.0-2.0); HEMATOCRIT 26.8 % (36-48); HEMOGLOBIN 8.8 g/dL (12.0-16.0); LYMPHOCYTES # (AUTO) 2.8 K/uL (2.5-16.5); LYMPHOCYTES % (AUTO) 39.6 % (20.5-51.1); MEAN CORPUSCULAR HEMOGLOBIN 29 pg (27-31); MEAN CORPUSCULAR HGB CONC 33 g/dL (33-37); MEAN CORPUSCULAR VOLUME 88.8 fL (80-94); MONOCYTES # (AUTO) 0.5 K/uL (0.8-1.0); MONOCYTES % (AUTO) 6.5 % (1.7-9.3); NEUTROPHILS # (AUTO) 3.7 K/uL (1.8-7.7); PLATELET COUNT (AUTO) 200 K/uL (140-450); RED BLOOD CELL COUNT(AUTO) 3.02 MIL/uL (4.20-5.40); RED CELL DISTRIBUTION WIDTH 18.2 % (11.6-13.7)
[2023-01-13 01:52] LABS: ALBUMIN 3.9 g/dL (3.4-5.0); ANION GAP 11.7 (8-16); ASPARTATE AMINOTRANSFERASE 63 U/L (15-37); CHLORIDE 101 mmol/L (98-107); CREATININE 1.3 mg/dL (0.6-1.3); GFR ARICAN-AMERICAN 62 mL/min (>90); GLUCOSE 94 mg/dL (74-106); LIPASE 56 U/L (73-393); POTASSIUM 3.7 mmol/L (3.5-5.1); SODIUM SERUM 137 mmol/L (136-145); TOTAL BILIRUBIN 0.4 mg/dL (0.0-1.0); UREA NITROGEN, BLOOD 24 mg/dL (7-18)
[2023-01-13 03:23] VITALS: BP 126/73
--- NOTE | 2023-01-13 03:23 | NUR ---
Patient discharged with v/s stable. Written and verbal after care instructions given and explained. Patient verbalized understanding. Ambulatory with steady gait. All questions addressed prior to discharge. Advised to follow up with PMD. DX: NON-SPECIFIC CHEST PAIN *PATIENT ADVISED TO FOLLOW UP WITH SCHOOL BUS AIDE
== END 2023-01-13 03:23 | disposition home or self-care (01) ==
LOC: MED 21:07
DX: R07.9 Chest pain, unspecified (principal); I11.0 Hypertensive heart disease with heart failure; E03.9 Hypothyroidism, unspecified; Z88.5 Allergy status to narcotic agent; Z88.8 Allergy status to other drugs, medicaments and biological substances; Z79.1 Long term (current) use of non-steroidal anti-inflammatories (NSAID); Z79.82 Long term (current) use of aspirin; Z79.899 Other long term (current) drug therapy
CPT/HCPCS: 36415; 71045; 80053; 83690; 84484; 85025; 93005; 96374; 99285; J2270

== ENCOUNTER 2023-01-14 12:02 | Emergency (ER) | payer OTHER ==
[~2023-01-14] VITALS: Ht 165.1 cm; Wt 81.6 kg
[2023-01-14 12:18] VITALS: BP 101/59
--- NOTE | 2023-01-14 12:34 | NUR ---
32 yo/f presents to ED w c/o midsternal to L sided sided chest pain mostly constant 7/10 pressure/sharp/stabbing, + sob, + chills, +hot flashes, +n/v/d. denies fevers, blood in emesis or bowel. pmh:epilepsy, cardiomyopathy, graves disease allergies: aspirin, azithromycin, haloperidol, toradol, reglan, vancomycin, robaxin
[2023-01-14] MEDS ORDERED: ACETAMINOPHEN 325 MG TAB PO ONE (12:55)
[2023-01-14] MEDS ORDERED: ONDANSETRON 4 MG ODT PO ONE (12:55)
--- NOTE | 2023-01-14 12:56 | NUR ---
PT REQUESTING PAIN MEDS AND NAUSEA MEDS, ADENIKE JARVIS MADE AWARE.
--- NOTE | 2023-01-14 15:05 | NUR ---
pt resting w eyes closed, breathing even and unlabored. nad noted.
--- NOTE | 2023-01-14 15:08 | NUR ---
pt reports symptoms improved only experincing mild chest pain but feels better, shen triplett aware and okayed pt for dc.
[2023-01-14 15:11] VITALS: BP 104/61
== END 2023-01-14 15:11 | disposition home or self-care (01) ==
LOC: MED 12:02
DX: I42.9 Cardiomyopathy, unspecified (principal); R07.9 Chest pain, unspecified; I11.0 Hypertensive heart disease with heart failure; Z79.82 Long term (current) use of aspirin; Z79.1 Long term (current) use of non-steroidal anti-inflammatories (NSAID); Z88.8 Allergy status to other drugs, medicaments and biological substances
CPT/HCPCS: 36415; 81025; 82550; 82553; 83880; 84484; 93005; 99284; Q0162

== ENCOUNTER 2023-01-30 23:23 | Inpatient (IN) | payer OTHER ==
[~2023-01-30] VITALS: Ht 165.1 cm; Wt 81.6 kg
[2023-01-30 23:32] VITALS: BP 116/65
--- NOTE | 2023-01-30 23:37 | NUR ---
TO BED 4 FOLLOWING TRIAGE
--- NOTE | 2023-01-30 23:40 | NUR ---
Patient resting in bed, A/Ox4, chest rise and fall symmetrical, no s/s of distress, patient on monitor.
--- NOTE | 2023-01-30 23:48 | NUR ---
xray at bedside.
--- NOTE | 2023-01-31 00:24 | NUR ---
DR. ANDUJAR AT BEDSIDE ASSESSING PATIENT.
[2023-01-31] MEDS ORDERED: ONDANSETRON 4 MG/2 ML VIAL IM ONE (00:30)
[2023-01-31] MEDS ORDERED: MORPHINE SULFATE 4 MG/ML SYR IM ONE (00:30)
[2023-01-31] MEDS ORDERED: ONDANSETRON 4 MG/2 ML VIAL ONE (00:34)
[2023-01-31] MEDS ORDERED: MORPHINE SULFATE 4 MG/ML SYR ONE (00:34)
[2023-01-31 00:46] LABS: BASOPHILS # (AUTO) 0.1 K/uL (0.00-0.22); BASOPHILS % (AUTO) 0.9 % (0.0-2.0); HEMATOCRIT 27.3 % (36-48); LYMPHOCYTES # (AUTO) 2.3 K/uL (2.5-16.5); LYMPHOCYTES % (AUTO) 29.9 % (20.5-51.1); MEAN CORPUSCULAR HEMOGLOBIN 29 pg (27-31); MEAN CORPUSCULAR HGB CONC 33 g/dL (33-37); MEAN CORPUSCULAR VOLUME 86.8 fL (80-94); MONOCYTES # (AUTO) 0.4 K/uL (0.8-1.0); MONOCYTES % (AUTO) 5.3 % (1.7-9.3); NEUTROPHILS % (AUTO) 63.9 % (42.2-75.2); PLATELET COUNT (AUTO) 216 K/uL (140-450); RED BLOOD CELL COUNT(AUTO) 3.14 MIL/uL (4.20-5.40); RED CELL DISTRIBUTION WIDTH 18.5 % (11.6-13.7); WHITE BLOOD COUNT (AUTO) 7.8 K/uL (4.8-10.8)
[2023-01-31 01:02] LABS: ALBUMIN 3.9 g/dL (3.4-5.0); ANION GAP 11.2 (8-16); CARBON DIOXIDE 31.1 mmol/L (21-32); POTASSIUM 3.3 mmol/L (3.5-5.1); TOTAL BILIRUBIN 0.4 mg/dL (0.0-1.0)
--- NOTE | 2023-01-31 02:00 | NUR ---
Patient resting in bed, A/Ox4, chest rise and fall symmetrical, no s/s of distress, patient on monitor.
--- NOTE | 2023-01-31 04:00 | NUR ---
Patient resting in bed, A/Ox4, chest rise and fall symmetrical, no s/s of distress, patient on monitor.
--- NOTE | 2023-01-31 04:45 | NUR ---
Mariusz coates in [facility] - 01/31/23 at 0448 by [email or web address] pt state that "she will go to car to check on and solar design engineer"
[2023-01-31] MEDS ORDERED: ALBUTEROL 0.083% 2.5 MG/3 ML NEBU INH PRN (05:20)
[2023-01-31] MEDS ORDERED: ACETAMINOPHEN 325 MG TAB PO PRN (05:20)
[2023-01-31] MEDS ORDERED: LORazepam 2 MG/ML VIAL IVP PRN (05:20)
[2023-01-31] MEDS ORDERED: HYDROcodone/APAP 5/325 MG 1 TAB TAB PO PRN ×2 (05:20→05:25)
--- NOTE | 2023-01-31 06:21 | NUR ---
Patient resting in bed, A/Ox4, chest rise and fall symmetrical, no s/s of distress, patient on monitor.
[2023-01-31] MEDS ORDERED: HYDROcodone/APAP 5/325 MG 1 TAB TAB PO ONE (07:10)
--- NOTE | 2023-01-31 07:24 | NUR ---
Change of shift report given to AM Shift Nurse Lawrence SOLIS. AM Shift Nurse Lawrence RN verbalized understanding of report, no further questions.
[2023-01-31] MEDS ORDERED: LEVOTHYROXINE 0.1 MG TAB PO ONE (07:50)
--- NOTE | 2023-01-31 08:00 | NUR ---
pt a/o times 4, feels better about headache and cp after norco tab, nsr on cm, o2 sat 98% ra, sr up times 2. will be admitted
[2023-01-31 08:45] VITALS: BP 103/59
--- NOTE | 2023-01-31 08:45 | NUR ---
pt. was transferred to tele, 120B, report given to nurse Mya. pt ambulatory w a cane, alert and oriented x4, monitor was placed on pt. vitals stable upon tranfer. no events at transfer time. no ac distress
--- NOTE | 2023-01-31 08:50 | NUR ---
RECEIVED REPORT FROM NATIONAL VAN TRUCK DRIVER WITH ER NURSE NEAR FOR CONTINUITY OF CARE. PT STABLE UPON TRANSPORT. PT IS A&OX4, SKIN IS INTACT, VITALS WNL, ROOM AIR AND NO COMPLAINTS OF PAIN. PT AMBULATES WITH CANE AND AFO FOOT BRACE. PT HAS A IV IN HER LEFT HAND THAT IS A 24G THAT IS SALINE LOCKED. ALL SAFETY MEASURES IN PLACE INCLUDING CALL LIGHT WITHIN REACH AND BED IN LOW POSITION. MONITORING CONTINUED.
[2023-01-31] MEDS ORDERED: FUROSEMIDE 40 MG/4 ML VIAL IVP SCH (09:00)
[2023-01-31] MEDS: ENOXAPARIN 40 MG/0.4 ML SYR SUBQ SCH (09:00)
[2023-01-31] MEDS ORDERED: carvediloL 6.25 MG TAB PO SCH (09:00)
[2023-01-31] MEDS ORDERED: lisinopriL 5 MG TAB PO SCH (09:00)
[2023-01-31] MEDS ORDERED: POTASSIUM CHLORIDE 10 MEQ TABER PO SCH (09:00)
[2023-01-31] MEDS ORDERED: METOPROLOL SUCCINATE 50 MG TABER PO SCH (09:00)
[2023-01-31] MEDS: levETIRAcetam 500 MG TAB PO SCH ×2 (10:03→20:43)
[2023-01-31] MEDS: SPIRONOLACTONE 25 MG TAB PO SCH (10:04)
[2023-01-31] MEDS: ONDANSETRON 4 MG/2 ML VIAL IVP PRN ×2 (10:09→16:16)
[2023-01-31] MEDS: MORPHINE SULFATE 2 MG/ML SYR IVP PRN ×3 (10:09→22:10)
[2023-01-31 12:00] VITALS: BP 98/62
[2023-01-31 16:00] VITALS: BP_SYST 105; BP_SYST 98; BP_DIAS 62; BP_DIAS 66
--- NOTE | 2023-01-31 16:30 | NUR ---
BUMEX BIN HAS 2.5MG/10ML VIALS; HAD ME PULL TWO VIALS. RETURNED ONE VIAL DUE TO ONLY NEEDING ONE FOR THE 2MG/8ML DOSE ORDERED. VERIFIED WITH CHARGE NURSE AND SHE TOLD ME TO DO IT THIS WAY. WHEN SCANNING THE MEDICATION IT IS READING THE BAR CODES AT 1MG/4ML INSTEAD ON 2.5MG/10ML. ATTEMPTED TO NOTIFY PHARMACY AND THEY DID NOT ANSWER.
[2023-01-31 16:34] LABS: FREE T4 (FREE THYROXINE) 0.48 ng/dL (0.76-1.46); THYROID STIMULATING HORMONE 95.22 uIU/mL (0.34-3.74)
[2023-01-31] MEDS: BUMETANIDE 1 MG/4 ML VIAL IV SCH (16:37)
--- NOTE | 2023-01-31 19:26 | NUR ---
ENDORSED PT TO MANAGER FORENSIC NURSE FOR CONTINUITY OF CARE. PT IS STABLE AT THIS TIME.
--- NOTE | 2023-01-31 19:27 | NUR ---
RECD. RESTING IN BED, SLEEPING BUT EASILY AROUSABLE, A/OX4. RESPIRATION EVEN AND UNLABORED. IV SALINE LOCK AT THE LEFT HAND G22, PATENT AND INTACT. WITH RIGHT FOOT DROP, AMBULATES WITH A CANE. USES THE BEDSIDE COMMODE. DENIES PAIN 0/10.
[2023-01-31 20:00] VITALS: BP 100/53
--- NOTE | 2023-01-31 20:00 | NUR ---
Patient's Plan of Care was discussed and reviewed with RAHEEL TANNER.
--- NOTE | 2023-01-31 20:15 | NUR ---
WITH ABDOMINAL PAIN 03/09. BP IN THE LOW SIDE 100/53, HR- 66. WANTS MORPHINE, REFUSED NORCO. STATED IT DOES NOT WORK FOR HER. WILL CHECK BP AGAIN AFTER ONE HOUR.
--- NOTE | 2023-01-31 20:43 | NUR ---
SCHEDULED MEDICATIONS ADMINISTERED. BP RECHECKED AGAIN PER PT REQUEST. BP- 98/60, HR -71. ADVISED TO REPOSITIONED IN BED.
[2023-01-31 22:05] VITALS: BP 113/72
--- NOTE | 2023-01-31 22:10 | NUR ---
BP - 113/72, MEDICATED WITH MORPHINE PER MD ORDER BY WILL MANCILLA.
--- NOTE | 2023-02-01 | NUR ---
SLEEPING COMFORTABLY IN BED, RESPIRATION EVEN AND UNLABORED.
--- NOTE | 2023-02-01 02:00 | NUR ---
CHECKED PATIENT, SLEEPING ON HER RIGHT SIDE, RESPIRATION EVEN AND UNLABORED.
[2023-02-01 03:07] VITALS: BP 107/58
[2023-02-01] MEDS: MORPHINE SULFATE 2 MG/ML SYR IVP PRN ×4 (03:22→20:04)
--- NOTE | 2023-02-01 04:00 | NUR ---
RESTING IN BED, ASLEEP. NO APPEARANCE OF PAIN OR DISCOMFORT NOTED.
[2023-02-01 05:13] LABS: BASOPHILS % (AUTO) 0.8 % (0.0-2.0); HEMATOCRIT 28.9 % (36-48); HEMOGLOBIN 9.6 g/dL (12.0-16.0); LYMPHOCYTES # (AUTO) 1.7 K/uL (2.5-16.5); LYMPHOCYTES % (AUTO) 30.6 % (20.5-51.1); MEAN CORPUSCULAR HEMOGLOBIN 29 pg (27-31); MEAN CORPUSCULAR HGB CONC 33 g/dL (33-37); MONOCYTES # (AUTO) 0.3 K/uL (0.8-1.0); MONOCYTES % (AUTO) 5.6 % (1.7-9.3); NEUTROPHILS # (AUTO) 3.5 K/uL (1.8-7.7); PLATELET COUNT (AUTO) 235 K/uL (140-450); RED BLOOD CELL COUNT(AUTO) 3.33 MIL/uL (4.20-5.40); RED CELL DISTRIBUTION WIDTH 18.2 % (11.6-13.7); WHITE BLOOD COUNT (AUTO) 5.6 K/uL (4.8-10.8)
[2023-02-01 05:37] LABS: ANION GAP 12.6 (8-16); CREATININE 1.2 mg/dL (0.6-1.3); POTASSIUM 3.6 mmol/L (3.5-5.1); TOTAL BILIRUBIN 0.4 mg/dL (0.0-1.0)
[2023-02-01 05:50] LABS: FREE T4 (FREE THYROXINE) 0.4 ng/dL (0.76-1.46); THYROID STIMULATING HORMONE 89.6 uIU/mL (0.34-3.74)
--- NOTE | 2023-02-01 06:00 | NUR ---
STILL SLEEPING COMFORTABLY IN BED.
[2023-02-01] MEDS: LEVOTHYROXINE 0.1 MG TAB PO SCH (06:37)
--- NOTE | 2023-02-01 07:15 | NUR ---
CONDITION REMAIN STABLE. ALL NEEDS ATTENDED. ENDORSED TO HAIDER SOLIS FOR CONTINUITY OF CARE.
--- NOTE | 2023-02-01 07:15 | NUR ---
RECEIVED PT FROM AIRPLANE TUBE BUILDER NURSE FOR CONTINUITY OF CARE, PT IS ASLEEP AWAKEN BY NAME, NO SIGNS OF DISTRESS. CALL LIGHT WITHIN REACH.WILL CONTINUE WITH POC. MNURUM
[2023-02-01] MEDS: ENOXAPARIN 40 MG/0.4 ML SYR SUBQ SCH (09:00)
[2023-02-01] MEDS ORDERED: CRUSHER, PILL MC ONE (09:00)
[2023-02-01] MEDS ORDERED: ASPIRIN 81 MG TAB.CHEW PO SCH (09:00)
[2023-02-01] MEDS: BUMETANIDE 1 MG/4 ML VIAL IV SCH ×2 (09:48→17:00)
[2023-02-01] MEDS: levETIRAcetam 500 MG TAB PO SCH ×2 (09:49→21:37)
[2023-02-01] MEDS: SPIRONOLACTONE 25 MG TAB PO SCH (09:49)
--- NOTE | 2023-02-01 10:04 | NUR ---
PATIENT HAS BEEN SCREENED AND CATEGORIZED MODERATE NUTRITION RISK. PATIENT WILL BE SEEN WITHIN 3-5 DAYS OF ADMISSION. 01/31/23-02/05/[address]
[2023-02-01] MEDS ORDERED: BUME1TAB92 PO (13:16)
[2023-02-01] MEDS: ONDANSETRON 4 MG/2 ML VIAL IVP PRN (13:23)
[2023-02-01 15:35] VITALS: BP 103/62
[2023-02-01 18:00] VITALS: BP 103/62
[2023-02-01] MEDS ORDERED: ALBUTEROL SULFATE/IPRATROPIU 3 ML SOL IH SCH (19:00)
--- NOTE | 2023-02-01 19:08 | NUR ---
PATIENT REFUSED TO GO HOME IN SPITE OF EXPLAINING TO HER THAT SHE HAS DC ORDER. PATIENT REQUESTING OXYGEN AND EXPLAINED TO HER THAT SHE WILL NOT QUALIFY FOR THAT SINCE HER OXYGEN ON RA IS 97%. REQUESTING TO STAY ONE MORE NIGHT DUE TO NOT FEELING WELL, NOTIFIED DR. ARCEO AND HE SAID OK TO DC TMW.
--- NOTE | 2023-02-01 19:35 | NUR ---
ENDORSED PT TO CONTRACT ADMINISTRATION SPECIALIST NURSE FOR CONTINUITY OF CARE. PT IS A HARD STICK, IV BUMEX NOT GIVEN. PT IS STABLE, ON 2L NC. CALL LIGHT WITHIN REACH. MNURUM
--- NOTE | 2023-02-01 20:17 | NUR ---
C/O PAIN , BP 110/60 , HR 77 , O2 SAT 97 % , RA , RR `18 , RT AT BEDSIDE . WILL MEDICATE . Addendum: 02/01/23 at 2018 by Sravanthi Galindo RN THE ABOVE NURSE'S NOTE IS TIME ERROR ENTRY , INSTEAD OF Susie - MIRELLA
--- NOTE | 2023-02-01 22:00 | NUR ---
BP RE CHECK 90 / 60 , PER PT PAIN IS LESSEN AT THIS TIME , WILL CONT. TO MONITOR . CHARGE NURSE JOHNATHON AWARE PT IS MS , NOT ON TELE MONITOR .CALL LIGHT WITHIN REACH , PT USES BEDSIDE COMMODE , ENSURE SAFETY - FALL RISK .
--- NOTE | 2023-02-02 | NUR ---
ROUNDS , SLEEPING , BUT EASILY AROUSABLE BY SOUNDS , WILL CONT. TO MONITOR
[2023-02-02 02:00] VITALS: BP 100/61
--- NOTE | 2023-02-02 02:00 | NUR ---
C/O PAIN , SHE RATES 7/ 10 - CHEST PAIN NON RADIATING SHE DESCRIBE , BP 100/ 61 , RR 18 , O2 SAT 97 % , WILL MEDICATE , WILL CONT. TO MONITOR , CALL LIGHT WITHIN REACH .
[2023-02-02] MEDS: MORPHINE SULFATE 2 MG/ML SYR IVP PRN ×5 (02:06→18:35)
--- NOTE | 2023-02-02 04:00 | NUR ---
sleeping , call light within reach .
[2023-02-02] MEDS: LEVOTHYROXINE 0.1 MG TAB PO SCH (06:15)
--- NOTE | 2023-02-02 06:20 | NUR ---
c/o pain , will medicate .
--- NOTE | 2023-02-02 07:00 | NUR ---
upon arrival to room when i'm about to give the pain med , pt is sleeping , will return the morphine to pyxis , will re asses the pain , call light within reach .
--- NOTE | 2023-02-02 07:15 | NUR ---
c/o pain chest pain non radiating , bp 100/ 62 , pr 87 , rr 18 , o2 sat 97 % - will medicate . call light within reach .
--- NOTE | 2023-02-02 07:53 | NUR ---
endorsed for cont. of care .
[2023-02-02] MEDS: ENOXAPARIN 40 MG/0.4 ML SYR SUBQ SCH (09:00)
[2023-02-02] MEDS: BUMETANIDE 1 MG/4 ML VIAL IV SCH ×2 (09:25→16:56)
[2023-02-02] MEDS: SPIRONOLACTONE 25 MG TAB PO SCH (09:26)
[2023-02-02] MEDS: levETIRAcetam 500 MG TAB PO SCH (09:26)
[2023-02-02 10:00] VITALS: BP 129/65
--- NOTE | 2023-02-02 12:21 | NUR ---
MEDICATED PT WITH PRN MORPHINE FOR CHEST PAIN 10/10 AND PRN TYLENOL FOR HEADACHE (AT PT'S REQUEST). DR. LORENZO IN TO SEE PT.
--- NOTE | 2023-02-02 12:23 | NUR ---
DC PLANNIN YRS OLD FEMALE PATIENT WAS ADMITTED FROM HOME WITH A DX OF CHF. PATIENT HAS A HX OF CARDIOMYOPATHY AND CHRONIC SYSTOLIC HEART FAILURE. CXR SHOWED CARDIOMEGALY. RAPID COVID TEST NEGATIVE. ADMINISTERED HOME MEDS AND MORPHINE IV FOR PAIN. SEEN BY PARACHUTE ACCESSORIES ATTACHER DR LORENZO ADJUSTED CARDIAC MEDS AND SUGGESTED TO F/U WITH OUTPATIENT ENDOCRINOLOGY AND [facility]FERRAL TO [facility]ALUATION OF ADVANCED HEART FAILURE THERAPIES. DC PLAN TO GO HOME AND F/U WITH OUT PATIENT. CM TO FOLLOW
--- NOTE | 2023-02-02 18:56 | NUR ---
patient discharged home. stable
== END 2023-02-02 18:45 | disposition home or self-care (01) | DRG 194 ==
LOC: MED 23:23 → MTU 01-31 05:23
PROVIDERS: ADMIT Hospitalist; ATTEND Hospitalist
DX: I11.0 Hypertensive heart disease with heart failure (principal); R65.10 Systemic inflammatory response syndrome (SIRS) of non-infectious origin without acute organ dysfunction; I42.8 Other cardiomyopathies; I50.23 Acute on chronic systolic (congestive) heart failure; E05.00 Thyrotoxicosis with diffuse goiter without thyrotoxic crisis or storm; Z20.822 Contact with and (suspected) exposure to COVID-19; I36.1 Nonrheumatic tricuspid (valve) insufficiency; I34.0 Nonrheumatic mitral (valve) insufficiency; Z88.6 Allergy status to analgesic agent; Z88.1 Allergy status to other antibiotic agents; Z88.8 Allergy status to other drugs, medicaments and biological substances; Z79.899 Other long term (current) drug therapy; Z90.49 Acquired absence of other specified parts of digestive tract
CPT/HCPCS: 36415; 71045; 80053; 83735; 83880; 84439; 84443; 84484; 85025; 87081; 93005; 96374; 96375; 99285; J1650; J1940; J2270; J2405; J3490; Q0092

== ENCOUNTER 2023-03-17 21:13 | Inpatient (IN) | payer OTHER ==
[~2023-03-17] VITALS: Ht 165.1 cm; Wt 77.1 kg
[~2023-03-17 21:13] MED LIST changes: +BUME1TAB92 PO; -CARV6.252 PO; -FURO-570 PO
[2023-03-17 21:15] VITALS: BP 116/83; PULSE 88; RESP 16; TEMP 97.4; O2SAT 100
--- NOTE | 2023-03-17 21:30 | NUR ---
SPOKE WITH PATIENT AT BEDSIDE, HAS COMPLAINT OF CHEST PAIN. PMH: HTN, CHF
--- NOTE | 2023-03-17 21:54 | NUR ---
Patient being evaluated by physician at bedside.
[2023-03-17 22:03] LABS: BASOPHILS % (AUTO) 0.6 % (0.0-2.0); HEMATOCRIT 29.6 % (36-48); HEMOGLOBIN 9.7 g/dL (12.0-16.0); LYMPHOCYTES # (AUTO) 1.9 K/uL (2.5-16.5); LYMPHOCYTES % (AUTO) 29.2 % (20.5-51.1); MEAN CORPUSCULAR HEMOGLOBIN 28 pg (27-31); MEAN CORPUSCULAR HGB CONC 33 g/dL (33-37); MEAN CORPUSCULAR VOLUME 84.8 fL (80-94); MONOCYTES # (AUTO) 0.4 K/uL (0.8-1.0); MONOCYTES % (AUTO) 6.4 % (1.7-9.3); NEUTROPHILS # (AUTO) 4.2 K/uL (1.8-7.7); NEUTROPHILS % (AUTO) 63.8 % (42.2-75.2); PLATELET COUNT (AUTO) 254 K/uL (140-450); RED CELL DISTRIBUTION WIDTH 17.4 % (11.6-13.7); WHITE BLOOD COUNT (AUTO) 6.5 K/uL (4.8-10.8)
[2023-03-17 22:28] LABS: ALBUMIN 3.9 g/dL (3.4-5.0); ANION GAP 11.9 (8-16); CARBON DIOXIDE 29.2 mmol/L (21-32); POTASSIUM 3.1 mmol/L (3.5-5.1); TOTAL BILIRUBIN 0.4 mg/dL (0.0-1.0)
[2023-03-17] MEDS ORDERED: POTASSIUM CHLORIDE 10 MEQ TABER PO ONE (22:40)
[2023-03-17] MEDS ORDERED: MORPHINE SULFATE 4 MG/ML SYR IVP ONE (22:40)
[2023-03-18] MEDS ORDERED: MORPHINE SULFATE 4 MG/ML SYR IVP ONE (02:30)
[2023-03-18] MEDS ORDERED: levETIRAcetam 500 MG TAB PO ONE (03:05)
[2023-03-18] MEDS ORDERED: FUROSEMIDE 40 MG/4 ML VIAL IVP SCH (04:50)
[2023-03-18] MEDS ORDERED: MORPHINE SULFATE 2 MG/ML SYR IVP PRN (07:10)
[2023-03-18] MEDS ORDERED: ACETAMINOPHEN 325 MG TAB PO PRN (07:10)
--- NOTE | 2023-03-18 07:24 | NUR ---
Pt report given to WILLI. Transfer of care at this time.
--- NOTE | 2023-03-18 07:30 | NUR ---
RECEIVED REPORT FROM WILL SHELL. PT FROM HOME CHIEF COMPLAINT IS CHEST PAIN. DENIES N/V/D; SKIN IS PINK/WARM/DRY; AAOX4 WITH EVEN AND STEADY GAIT; LUNGS CLEAR BL; HR EVEN AND REGULAR; PT DENIES ANY FEVER, CP, SOB, OR COUGH AT THIS TIME; PATIENT STATES PAIN OF 8/10 AT THIS TIME; PTS B/P 97/43; PT RES 8, PTS P 82, PATIENT POSITIONED FOR COMFORT; HOB ELEVATED; BEDRAILS UP X2; BED DOWN. CALL LIGHT WITH IN REACH. PTS ADMITT ORDERS PENDING. ER MD MADE AWARE OF PT STATUS. PBMX CARDIOMYOPATHY CHEST PAIN SEIZURE CHF ALLERGIES ASPRIN AZITHROMYCIN HALOPERIDOL TORADAL ROBAXIN REGLAN PBMX CARDIOMYOPATHY CHEST PAIN SEIZURE CHF ALLERGIES ASPRIN AZITHROMYCIN HALOPERIDOL TORADAL ROBAXIN REGLAN
[2023-03-18] MEDS: LORazepam 2 MG/ML VIAL IVP PRN ×2 (08:05→20:34)
--- NOTE | 2023-03-18 08:44 | NUR ---
TRANSFER OF CARE REPORT GIVEN TO WILL TORRES. PT HAS BEEN TRANSFERED TO ROOM 111 B.
--- NOTE | 2023-03-18 08:49 | NUR ---
PATIENT HAS BEEN SCREENED AND CATEGORIZED MODERATE NUTRITION RISK. PATIENT WILL BE SEEN WITHIN 3-5 DAYS OF ADMISSION. 03/21/23-03/23/23 REVIEWED BY DEBBIE FUCHS RD
[2023-03-18 08:55] VITALS: PULSE 91; RESP 20; O2SAT 100
--- NOTE | 2023-03-18 08:55 | NUR ---
Patient's Plan of Care was discussed and reviewed with BIOLOGICAL SCIENCE TECHNICIAN: MELISSA ZAPATA
--- NOTE | 2023-03-18 09:00 | NUR ---
PT ARRIVED ONTO UNIT VIA GURNEY, ACCOMPANIED BY ER NURSE AND TRANSPORTER. PT ABLE TO AMBULATE FROM GURNEY TO BED, UTILIZING CANE FOR ASSISTANCE. PT IS ALERT AND ORIENTED X4, ABLE TO VERBALIZE NEEDS, ABLE TO FOLLOW COMMANDS. RESPIRATIONS ARE EVEN AND UNLABORED, CURRENTLY 12 BMP. NO SIGNS OF SOB. ABD IS NONTENDER, NONDISTENDED WITH BOWEL SOUNDS PRESENT. PER PT, LAST BM WAS YESTERDAY. PT IS CONTINENT OF BOWEL AND BLADDER. ABLE TO AMBULATE TO REST ROOM, WITH ASSISTANCE FROM CANE. PT HAS IV TO R WRIST, 22G, SALINE LOCKED. SKIN IS WARM, DRY, AND INTACT. UPON REPORT FROM ER NURSE, PT WAS HYPOTENSIVE AND REQUESTING PAIN MEDICATION. ON UNIT, PT CONTINUES TO REQUEST MORPHINE FOR PAIN MEDICATION, EDUCATED PT ON EFFECTS OF MORPHINE ON BP AND HER BP IS CURRENTLY 90/59. PT VERBALIZED UNDERSTANDING, HOWEVER STATED "I WANNA TALK TO THE DR AND SEE IF HE CAN JUST GIVE ME SOMETHING ANYWAY, MY BP DOESN'T MATTER." CALL LIGHT WITHIN REACH. ALL SAFETY MEASURES IN PLACE.
--- NOTE | 2023-03-18 09:00 | NUR ---
Patient will be admitted to care of RAHEEL TORRES. Admited to MED SURGE. Will go to room 111 B. Belongings list completed. Report to GIVEN TO RAHEEL TORRES.
--- NOTE | 2023-03-18 09:05 | NUR ---
The patient's care was reviewed and supervised by Mya Rothman, RN, RN.
--- NOTE | 2023-03-18 11:04 | NUR ---
FNS CONSULT HAS BEEN RECEIVED FOR UNINTENTIONAL WEIGHT LOSS ON 03/18/23. PATIENT HAS BEEN RE-SCREENED HIGH RISK AND WILL BE SEEN WITHIN 1-2 DAYS OF RECEIVING THE FNS CONSULT. ELYSIA HERNANDEZ RD
--- NOTE | 2023-03-18 11:24 | NUR ---
PT COMPLAINING OF PAIN, RATES PAIN 8/10, STATES PAIN IS IN CHEST AND BREAST BONE. RN MADE AWARE. RN WILL MEDICATE.
[2023-03-18] MEDS: FUROSEMIDE 40 MG/4 ML VIAL IVP SCH ×2 (11:26→16:17)
[2023-03-18 12:00] VITALS: BP 114/72; PULSE 81; PULSE 91; RESP 20; TEMP 98.1; O2SAT 100
--- NOTE | 2023-03-18 12:15 | NUR ---
DC PLANNIN YRS OLD FEMALE PATIENT WAS ADMITTED FROM HOME WITH A DX OF CHF EXACERBATION. 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 CXR SHOWED MODERATED CARDIOMEGALY WITH PULMONARY EDEMA COMPATIBLE WITH CHF. ADMINISTERED IV LASIX AND CONTINUED HOME MEDS. CONSULTED WITH MULTIGRAPHER. DC PLAN TO GO HOME WHEN STABLE. CM TO FOLLOW
--- NOTE | 2023-03-18 13:51 | NUR ---
03/18/23 RD INITIAL ASSESSMENT COMPLETED PLEASE REFER TO NUTRITION ASSESSMENT UNDER CARE ACTIVITY FOR ESTIMATED NUTRITIONAL NEEDS. 1. CONTINUE CARDIAC DIET TOLERATED 2. RD ENCOURAGES PATIENT TO CONTINUE TO FOLLOW A HEART HEALTHY DIET ONCE SHE LEAVES THE HOSPITAL. 3. RD TO FOLLOW-UP 7 DAYS, LOW RISK ELYSIA HERNANDEZ RD
[2023-03-18 16:00] VITALS: BP 103/52; PULSE 80; PULSE 92; RESP 20; TEMP 97.5; O2SAT 98
[2023-03-18] MEDS: HYDROcodone/APAP 5/325 MG 1 TAB TAB PO PRN (16:44)
--- NOTE | 2023-03-18 16:45 | NUR ---
PT COMPLAINING OF PAIN. RATES PAIN 02/07. PT ASKING FOR MORPHINE. BP AT THIS TIME IS 93/52. ADMINISTERED NORCO PO. PT UPSET, HOWEVER, DID TAKE MEDICATION. WILL RE-ASSESS PAIN.
--- NOTE | 2023-03-18 17:45 | NUR ---
WENT TO RE-ASSESS PAIN. PT STATES PAIN IS 4/10. STATES SHE WANTS MORPHINE, HOWEVER AT THIS TIME BP IS 98/57. PT MADE AWARE. MD MADE AWARE. PT UPSET, STATES SHE JUST WANTS MORPHINE.
--- NOTE | 2023-03-18 18:45 | NUR ---
PATIENT ASKING FOR PAIN MEDS, CHECKED BP-105/58, EXPLAINED TO HER THAT BP IS TOO LOW AND SHE HAS LASIX ALSO JUST GIVEN EARLIER. I TOLD HER THAT WE WILL RE CHECK AGAIN LATER. I OFFERED NORCO, SHE REFUSED. WILL CONTINUE TO MONITOR.
[2023-03-18] MEDS: ONDANSETRON 4 MG/2 ML VIAL IVP PRN (18:49)
--- NOTE | 2023-03-18 19:25 | NUR ---
ENDORSED PT TO SOLAR SITE ASSESSMENT SPECIALIST NURSE, SENAIT, FOR CONTINUITY OF CARE. PT IS STABLE.
[2023-03-18 20:00] VITALS: BP 104/60; PULSE 90; PULSE 92; PULSE 95; RESP 18; RESP 20; TEMP 97.8; O2SAT 98
[2023-03-18] MEDS: MORPHINE SULFATE 4 MG/ML SYR IVP PRN (22:46)
--- NOTE | 2023-03-18 23:40 | NUR ---
RECEIVED BEDSIDE REPORT FROM SENAIT RN FOR TRANSFER OF CARE. PATIENT IS AWAKE AND STABLE. A&OX4. REPORTS THAT PAIN MEDICATION ADMINISTERED AT 2246 PROVIDED RELIEF WITH A PAIN REDUCTION TO 3/10. ON ROOM AIR WITH NO APPARENT S/SX OF ACUTE DISTRESS. RESPIRATIONS EVEN AND UNLABORED. IV SITE TO RIGHT WRIST 22G SL PATENT/INTACT. PATIENT HAS PERIWICK ATTACHED WITH VISIBLE OUTPUT. PATIENT IS CURRENTLY ON BR. SKIN IS INTACT. PLAN OF CARE AND WHITE COMMUNICATION BOARD UPDATED. ALL SAFETY MEASURES IN PLACE. CALL LIGHT WITHIN REACH. ENCOURAGED TO CALL FOR ANY NEEDS/ASSISTANCE. BED IN LOW/LOCKED POSITION. SIDE RAILS X2 UP. WILL CONTINUE TO MONITOR.
--- NOTE | 2023-03-18 23:40 | NUR ---
Patient's Plan of Care was discussed and reviewed with STAN PICKERING:
[2023-03-19] VITALS: BP 108/60; PULSE 83; PULSE 85; RESP 19; TEMP 97.8; O2SAT 98
--- NOTE | 2023-03-19 03:05 | NUR ---
CHECKED PATIENT. PATIENT IS STABLE AND ASLEEP WITH NO FACIAL GRIMACING. FLACC=0. CHEST IS RISING AND FALLING SYMMETRICALLY. RESPIRATIONS EVEN AND UNLABORED WITH NO APPARENT S/SX OF ACUTE DISTRESS. WHITE COMMUNICATION BOARD UPDATED. ALL SAFETY MEASURES IN PLACE. CALL LIGHT WITHIN REACH. BED IN LOW/LOCKED POSITION. WILL CONTINUE TO MONITOR.
[2023-03-19 04:00] VITALS: BP 108/66; PULSE 76; PULSE 88; RESP 17; TEMP 98.1; O2SAT 97
[2023-03-19] MEDS: MORPHINE SULFATE 4 MG/ML SYR IVP PRN ×4 (04:03→21:39)
--- NOTE | 2023-03-19 05:05 | NUR ---
PATIENT IS AWAKE AND STABLE. PATIENT REPORTS PRN MEDICATION FOR SEVERE PAIN IS EFFECTIVE SINCE CURRENT PAIN LEVEL REDUCED TO 3/10. RESPIRATIONS EVEN AND UNLABORED WITH NO APPARENT S/SX OF ACUTE DISTRESS. ALL NEEDS MET AT THIS TIME. WHITE COMMUNICATION BOARD UPDATED. ALL SAFETY MEASURES IN PLACE. CALL LIGHT WITHIN REACH. ENCOURAGED TO CALL FOR ANY NEEDS/ASSISTANCE. BED IN LOW/LOCKED POSITION. SIDE RAILS X2 UP. WILL CONTINUE TO MONITOR.
[2023-03-19 06:43] LABS: BASOPHILS % (AUTO) 0.6 % (0.0-2.0); HEMOGLOBIN 10.5 g/dL (12.0-16.0); LYMPHOCYTES # (AUTO) 1.6 K/uL (2.5-16.5); LYMPHOCYTES % (AUTO) 24.8 % (20.5-51.1); MEAN CORPUSCULAR HEMOGLOBIN 28 pg (27-31); MEAN CORPUSCULAR HGB CONC 33 g/dL (33-37); MEAN CORPUSCULAR VOLUME 84.5 fL (80-94); MONOCYTES # (AUTO) 0.4 K/uL (0.8-1.0); MONOCYTES % (AUTO) 6.9 % (1.7-9.3); NEUTROPHILS # (AUTO) 4.4 K/uL (1.8-7.7); NEUTROPHILS % (AUTO) 67.7 % (42.2-75.2); PLATELET COUNT (AUTO) 268 K/uL (140-450); RED BLOOD CELL COUNT(AUTO) 3.79 MIL/uL (4.20-5.40); RED CELL DISTRIBUTION WIDTH 17.5 % (11.6-13.7); WHITE BLOOD COUNT (AUTO) 6.5 K/uL (4.8-10.8)
[2023-03-19 06:55] LABS: ALBUMIN 3.8 g/dL (3.4-5.0); ANION GAP 13.9 (8-16); CARBON DIOXIDE 29.2 mmol/L (21-32); MAGNESIUM 1.6 mg/dL (1.8-2.4); POTASSIUM 3.1 mmol/L (3.5-5.1); TOTAL BILIRUBIN 0.3 mg/dL (0.0-1.0)
--- NOTE | 2023-03-19 07:20 | NUR ---
ENDORSED PATIENT TO BEAU LUNCH COUNTER MANAGER FOR CONTINUITY OF CARE. PATIENT IS STABLE.
--- NOTE | 2023-03-19 07:21 | NUR ---
RECEIVED PT FROM FIRE PROTECTION FABRICATOR NURSE FOR CONTINUITY OF CARE. PT IN BED SLEEPING, AROUSABLE TO VOICE. VISIBLE CHEST RISE/FALL. RESPIRATIONS EVEN AND UNLABORED ON RA. NO SOB OR RESPIRATORY DISTRESS NOTED. PUREWICK IN PLACE DRAINING YELLOW URINE. IV ON R WRIST 22G, SL. ALL SAFETY PRECAUTIONS IN PLACE. CALL LIGHT WITHIN REACH.
[2023-03-19 08:00] VITALS: BP 110/63; PULSE 74; PULSE 81; RESP 18; TEMP 97.1; O2SAT 99
[2023-03-19] MEDS: FUROSEMIDE 40 MG/4 ML VIAL IVP SCH (10:17)
[2023-03-19] MEDS ORDERED: MAG SULF 2000 MG/WATER PREMIX 100 ML IV ONE (11:25)
[2023-03-19] MEDS ORDERED: POTASSIUM CHLORIDE 10 MEQ TABER PO SCH (11:35)
--- NOTE | 2023-03-19 11:38 | NUR ---
PT C/O PAIN. PT MEDICATED WITH IV PAIN MED BY WILL ARIAS.
[2023-03-19 12:00] VITALS: BP 110/75; PULSE 80; PULSE 92; RESP 18; TEMP 97.1; O2SAT 100
[2023-03-19] MEDS: LORazepam 2 MG/ML VIAL IVP PRN (13:09)
--- NOTE | 2023-03-19 13:10 | NUR ---
PT STATED SHE WAS HAVING AURAS TYPICAL OF HER EPILEPSY (I.E. DANCING LIGHTS IN VISION, LIGHTHEADEDNESS). PT STATED SHE LAST TOOK HER SEIZURE MEDICATIONS IN THE ER AND HAS NOT TAKEN THEM SINCE. MEDICATED WITH PRN ATIVAN.
[2023-03-19 16:00] VITALS: BP 120/73; PULSE 82; PULSE 96; RESP 18; TEMP 97.9; O2SAT 100
--- NOTE | 2023-03-19 17:16 | NUR ---
PT C/O PAIN. PT MEDICATED WITH IV PAIN MED BY WILL ARIAS.
--- NOTE | 2023-03-19 19:08 | NUR ---
ENDORSED PT TO SALES REPRESENTATIVE GRAPHIC ART NURSE FOR CONTINUITY OF CARE. PT IS STABLE.
--- NOTE | 2023-03-19 19:10 | NUR ---
RECEIVED REPORT FROM DAY SHIFT RN FOR CONTINUITY OF CARE. PT IS RESTING IN BED. NOT IN ANY DISTRESS. BREATHING EVEN AND UNLABORED. POC DISCUSSED. CALL LIGHT WITHIN REACH. WILL CONTINUE TO MONITOR THE PT.
[2023-03-19 20:00] VITALS: BP 109/64; PULSE 112; PULSE 93; RESP 16; TEMP 97.1; O2SAT 100
[2023-03-19] MEDS: levETIRAcetam 500 MG TAB PO SCH (20:28)
[2023-03-19] MEDS: BUMETANIDE 1 MG TAB PO SCH (20:29)
[2023-03-19] MEDS: HYDROcodone/APAP 5/325 MG 1 TAB TAB PO PRN (23:49)
[2023-03-20] VITALS: BP 101/62; PULSE 90; PULSE 98; RESP 18; TEMP 97.8; O2SAT 96
[2023-03-20] MEDS: ONDANSETRON 4 MG/2 ML VIAL IVP PRN ×4 (01:44→23:14)
[2023-03-20] MEDS: MORPHINE SULFATE 4 MG/ML SYR IVP PRN ×5 (01:45→23:15)
--- NOTE | 2023-03-20 01:45 | NUR ---
PT COMPLAINED OF 8/10 CHEST PAIN. MORPHINE WAS GIVEN. NO OTHER COMPLAINS.
[2023-03-20 04:00] VITALS: BP 99/53; PULSE 68; PULSE 98; RESP 18; TEMP 97; O2SAT 98
--- NOTE | 2023-03-20 07:23 | NUR ---
ENDORSED PT TO DAY SHIFT NURSE FOR CONTINUITY OF CARE. PT IT STABLE.
--- NOTE | 2023-03-20 07:24 | NUR ---
RECEIVED PT FROM JEWELRY MAKER NURSE FOR CONTINUITY OF CARE. PT IS AWAKE, AOX4. ABLE TO VERBALIZE NEEDS. RESPIRATIONS EVEN AND UNLABORED ON RA. NO RESPIRATORY DISTRESS NOTED. IV ON L HAND 24G, SL. CALL LIGHT WITHIN REACH, ALL SAFETY PRECAUTIONS IN PLACE.
[2023-03-20 08:00] VITALS: BP 104/67; PULSE 69; PULSE 74; RESP 16; RESP 17; TEMP 96.7; O2SAT 97; O2SAT 99
[2023-03-20] MEDS: BUMETANIDE 1 MG TAB PO SCH ×2 (08:49→21:00)
[2023-03-20] MEDS: levETIRAcetam 500 MG TAB PO SCH ×2 (08:49→20:57)
[2023-03-20] MEDS: SPIRONOLACTONE 25 MG TAB PO SCH (08:50)
[2023-03-20] MEDS ORDERED: CRUSHER, PILL MC ONE (08:51)
[2023-03-20] MEDS: METOPROLOL SUCCINATE 50 MG TABER PO SCH (10:15)
[2023-03-20] MEDS: lisinopriL 5 MG TAB PO SCH (10:15)
--- NOTE | 2023-03-20 11:36 | NUR ---
CALLED [facility] OFFICE LOCATED AT [facility] [place] [address]. SPOKE WITH ANA WHO WAS ABLE TO HELP ME SCHEDULE THE [facility] FOLLOW UP APPOINTMENT FOR 04/08/2023 AT 1025. WENT TO BEDSIDE TO GIVE THE PATIENT THE ABOVE INFORMATION AA WELL AN APPOINTMENT SLIP WITH THAT INFORMATION.
[2023-03-20 12:00] VITALS: BP 100/62; PULSE 88; RESP 18; TEMP 97.1; O2SAT 99
[2023-03-20 16:00] VITALS: BP 150/66; PULSE 79; RESP 18; TEMP 98; O2SAT 99
--- NOTE | 2023-03-20 19:09 | NUR ---
ENDORSED PT TO BUSINESS OFFICE ASSISTANT NURSE FOR CONTINUITY OF CARE. PT IS STABLE.
--- NOTE | 2023-03-20 19:15 | NUR ---
RECEIVED REPORT FROM DAY SHIFT NURSE FOR CONTINUITY OF CARE. PT IS RESTING IN BED. NOT IN ANY DISTRESS. BREATHING EVEN AND UNLABORED. POC DISCUSSED. CALL LIGHT WITHIN REACH. WILL CONTINUE TO MONITOR THE PT.
[2023-03-20 20:00] VITALS: BP 91/54; PULSE 70; PULSE 73; RESP 18; TEMP 98.2; O2SAT 98
--- NOTE | 2023-03-20 21:00 | NUR ---
SCHEDULE KEPPRA GIVEN. BUMEX NOT GIVEN SINCE PT BP IS LOW.
[2023-03-21] VITALS: BP 109/67; PULSE 68; PULSE 85; RESP 16; TEMP 96.9; O2SAT 98
[2023-03-21] MEDS: HYDROcodone/APAP 5/325 MG 1 TAB TAB PO PRN ×3 (01:11→22:31)
--- NOTE | 2023-03-21 01:11 | NUR ---
PT WOKE UP WITH SUDDEN CHEST PAIN. 05/10. PT WANTED SOMETHING FOR PAIN. MORPHINE IS NOT DUE YET. PT WAS OKAY WITH NORCO. NORCO WAS GIVEN.
[2023-03-21] MEDS: LORazepam 2 MG/ML VIAL IVP PRN ×2 (01:59→23:55)
[2023-03-21] MEDS: MORPHINE SULFATE 4 MG/ML SYR IVP PRN ×3 (03:51→13:31)
[2023-03-21 04:00] VITALS: BP 97/60; PULSE 72; PULSE 80; RESP 18; TEMP 97.1; O2SAT 100
--- NOTE | 2023-03-21 07:14 | NUR ---
ENDORSED PT TO DAY SHIFT NURSE FOR CONTINUITY OF CARE. PT IS STABLE.
--- NOTE | 2023-03-21 07:15 | NUR ---
RECEIVED REPORT FROM NIGHTSHIFT NURSE FOR CONTINUITY OF CARE. PT ASLEEP IN BED, WOKE TO NAME AND TOUCH, STABLE. CALL LIGHT WITHIN REACH. NO FURTHER NEEDS ARE TO BE MET, WILL CONTINUE WITH CARE.
[2023-03-21 08:00] VITALS: BP 105/61; PULSE 66; PULSE 74; RESP 17; RESP 18; TEMP 97.4; O2SAT 98
[2023-03-21] MEDS: levETIRAcetam 500 MG TAB PO SCH ×2 (08:41→20:51)
[2023-03-21] MEDS: SPIRONOLACTONE 25 MG TAB PO SCH (08:41)
[2023-03-21] MEDS: BUMETANIDE 1 MG TAB PO SCH ×2 (08:42→20:51)
[2023-03-21] MEDS: METOPROLOL SUCCINATE 50 MG TABER PO SCH (08:48)
[2023-03-21] MEDS: lisinopriL 5 MG TAB PO SCH (08:49)
[2023-03-21 12:00] VITALS: BP 92/53; PULSE 64; PULSE 75; RESP 17; TEMP 98.9; O2SAT 99
[2023-03-21 16:00] VITALS: BP 102/55; PULSE 60; PULSE 65; RESP 17; TEMP 98; O2SAT 98
[2023-03-21] MEDS: CAPSAICIN 0.025% CRE 60 GM TUBE TP SCH (17:00)
[2023-03-21 18:55] LABS: BASOPHILS # (AUTO) 0.1 K/uL (0.00-0.22); BASOPHILS % (AUTO) 0.8 % (0.0-2.0); HEMATOCRIT 31.7 % (36-48); HEMOGLOBIN 10.3 g/dL (12.0-16.0); LYMPHOCYTES # (AUTO) 1.5 K/uL (2.5-16.5); LYMPHOCYTES % (AUTO) 23.5 % (20.5-51.1); MEAN CORPUSCULAR HEMOGLOBIN 27 pg (27-31); MEAN CORPUSCULAR HGB CONC 33 g/dL (33-37); MEAN CORPUSCULAR VOLUME 83.8 fL (80-94); MONOCYTES # (AUTO) 0.3 K/uL (0.8-1.0); MONOCYTES % (AUTO) 4.7 % (1.7-9.3); NEUTROPHILS # (AUTO) 4.6 K/uL (1.8-7.7); PLATELET COUNT (AUTO) 249 K/uL (140-450); RED BLOOD CELL COUNT(AUTO) 3.79 MIL/uL (4.20-5.40); RED CELL DISTRIBUTION WIDTH 17.8 % (11.6-13.7); WHITE BLOOD COUNT (AUTO) 6.5 K/uL (4.8-10.8)
[2023-03-21 19:13] LABS: ANION GAP 12.8 (8-16); CARBON DIOXIDE 29.8 mmol/L (21-32); CREATININE 1.1 mg/dL (0.6-1.3); POTASSIUM 3.6 mmol/L (3.5-5.1)
--- NOTE | 2023-03-21 19:25 | NUR ---
ENDORSED TO NIGHTSHIFT NURSE FOR CONTINUITY OF CARE. PT STABLE, RESTING IN BED, NO SIGNS OF DISTRESS. CALL LIGHT WITHIN REACH.
--- NOTE | 2023-03-21 19:30 | NUR ---
RECEIVED REPORT FROM DAY SHIFT RN FOR CONTINUITY OF CARE. PT IS AWAKE AND ALERT RESTING IN BED. BED AT THE LOWEST POSITION. HEAD OF THE BED RAISED. POC DISCUSSED. WILL CONTINUE TO MONITOR THE PT.
[2023-03-21] MEDS: ONDANSETRON 4 MG/2 ML VIAL IVP PRN (19:32)
[2023-03-21 20:00] VITALS: BP 102/54; PULSE 65; PULSE 73; RESP 18; TEMP 97.7; O2SAT 96
[2023-03-21] MEDS: LIDOCAINE 5% 1 EA PATCH TP SCH (20:52)
--- NOTE | 2023-03-21 20:55 | NUR ---
SCHEDULE MEDICATIONS GIVEN. NO ADVERSE REACTION NOTED. LIDOCAINE PATCH WAS ORDERED BUT STILL PENDING. WAS ABLE TO CALL PHARMACY TO GET IT VERIFIED. WHEN LIDOCAINE PATCH WAS OFFERED, PT REFUSED.
[2023-03-22] VITALS: BP 101/65; PULSE 83; PULSE 90; RESP 17; TEMP 97.1; O2SAT 99
--- NOTE | 2023-03-22 01:40 | NUR ---
OBSERVED PT. PT IS SLEEPING IN BED. NOT IN ANY DISTRESS. BREATHING EVEN AND UNLABORED. CALL LIGHT WITHIN REACH. WILL CONTINUE TO MONITOR THE PT.
[2023-03-22] MEDS: HYDROcodone/APAP 5/325 MG 1 TAB TAB PO PRN ×2 (03:36→11:02)
[2023-03-22 04:00] VITALS: BP 103/65; PULSE 94; PULSE 98; RESP 18; TEMP 98.3; O2SAT 98
[2023-03-22] MEDS: LORazepam 2 MG/ML VIAL IVP PRN (04:14)
--- NOTE | 2023-03-22 07:17 | NUR ---
ENDORSED PT TO DAY SHIFT NURSE FOR CONTINUITY OF CARE. PT IS STABLE.
[2023-03-22 08:00] VITALS: BP 98/52; PULSE 78; PULSE 79; RESP 18; TEMP 96; O2SAT 100
[2023-03-22] MEDS: CAPSAICIN 0.025% CRE 60 GM TUBE TP SCH ×2 (09:00→13:00)
[2023-03-22] MEDS: LIDOCAINE 5% 1 EA PATCH TP SCH (09:00)
[2023-03-22] MEDS: levETIRAcetam 500 MG TAB PO SCH (10:49)
[2023-03-22] MEDS: BUMETANIDE 1 MG TAB PO SCH (10:49)
[2023-03-22] MEDS: SPIRONOLACTONE 25 MG TAB PO SCH (10:52)
[2023-03-22] MEDS: METOPROLOL SUCCINATE 50 MG TABER PO SCH (10:53)
[2023-03-22] MEDS: lisinopriL 5 MG TAB PO SCH (10:54)
--- NOTE | 2023-03-22 11:11 | NUR ---
AFTER 0730 NURSE MET PATIENT, NURSE CHECKED PATIENT'S IV ACCESS AND VITAL (T-P-R: 96.0-78-18, BP:98/52, O2 SAT; 100% IN ROOM AIR), THEN PATIENT WENT BACK TO SLEEP EVEN WHEN NURSE BROUGHT BREAKFAST TO PATIENT, PATIENT STILL TELLING NURSE DO NOT BOTHER HER. AFTER 0900, AROUND 1000, WHEN NURSE CHECK PATIENT'S BREAKFAST TRAY, NOTED NOTHING HAS BEEN TOUCHED, WHEN NURSE TRYING TO WAKE UP PATIENT AND GIVE HER 0900 MEDICATION, PATIENT TELLING NURSE TO " LEAVE HER ALONE." AROUND 1100, NURSE RECHECK PATIENT AND TRYING TO GIVE HER SEIZURE MEDS, PATIENT STILL SLEEPING AND TELLING NURSE TO "LEAVE HER ALONE," AGAIN. NURSE INFORM PATIENT IT'S AFTER 11:00 O'CLOCK NOW, NURSE NEED TO CHECK 1200 O'CLOCK VITAL AND WANDER IF PATIENT CAN TAKE HER SEIZURE MEDS. PATIENT SITTING UP AND ASKING NURSE FOR PAIN MEDICATION. NURSE EXPLAIN THAT NURSE NEED PATIENT'S VITAL STABLE BEFORE GIVE PAIN MEDS. AT THIS TIME, PATIENT AGREE NURSE CHECK HER VITAL (T-P-R: 97.5-80-18, BP: 100/61, O2 SAT: 99% IN ROOM AIR); MEAN WHILE PATIENT ASK NURSE GIVE HER SCHEDULED 0900 MEDS & NORCO EXCEPT LIDOCAINE PATCH AND TOPICAL CREAM. SHORTLY AFTER PATIENT TAKE NORCO 5, PATIENT REQUEST NURSE CALL DOCTOR FOR PAIN MEDICATION BECAUSE THE PAIN MEDICATION DOES NOT WORKING, SHE STILL HAVE PAIN. NURSE INFORM CHARGE NURSE THAT PATIENT HAS NO COMPLAIN PAIN AND SLEEPING UNTIL 1100, THEN SUDDENLY HAVE UNCONTROLLABLE PAIN AFTER SHE AWAKE; ADDITIONALLY, NURSE WAS INFORMED DURING SHIFT CHANGE THAT PATIENT HAS DISCHARGE ORDER AND IV MORPHINE DISCONTINUED IS PART OF TAPE DOWN FOR D/C PATIENT SAFELY HOME, THEN NURSE RETURN THE ROOM AND INFORM PATIENT THAT GIVING NORCO 5 FOR PAIN IS GETTING READY TO DISCHARGE PATIENT HOME, BUT PATIENT INSISTENT THAT NORCO IS NOT WORKING TO MODULATE HER PAIN. WILL CONTINUE TO MONITOR
[2023-03-22 12:00] VITALS: BP 100/61; PULSE 80; PULSE 94; RESP 18; TEMP 97.5; O2SAT 99
[2023-03-22 12:23] VITALS: BP 100/61; PULSE 80; RESP 18; TEMP 97.5
--- NOTE | 2023-03-22 13:23 | NUR ---
DISCHARGE PATIENT HOME PER PATIENT REQUEST AND ACCORDING TO PCP ORDER. IV ACCESS & TEL MONITOR REMOVED, DISCHARGE INSTRUCTION GIVE, DISCHARGE CONSENT SIGN PRIOR WHEEL PATIETN OUT IN STABLE CONDITION AFTER PATIENT HAD WHOLE MORNING REST. BECAUSE PATIENT HAD DISCHARGE ORDER SINCE 03/20/2023, DR. IRIZARRY RE-INFORMED PATIENT'S DISCHARGE.
== END 2023-03-22 13:46 | disposition home or self-care (01) | DRG 203 ==
LOC: MED 21:13 → MTU 03-18 07:11
PROVIDERS: ADMIT Hospitalist; ATTEND Hospitalist
DX: M94.0 Chondrocostal junction syndrome [Tietze] (principal); I50.23 Acute on chronic systolic (congestive) heart failure; R65.10 Systemic inflammatory response syndrome (SIRS) of non-infectious origin without acute organ dysfunction; I42.8 Other cardiomyopathies; I11.0 Hypertensive heart disease with heart failure; E89.0 Postprocedural hypothyroidism; E87.6 Hypokalemia; D64.9 Anemia, unspecified; I08.1 Rheumatic disorders of both mitral and tricuspid valves; Z88.6 Allergy status to analgesic agent; Z88.1 Allergy status to other antibiotic agents; Z88.8 Allergy status to other drugs, medicaments and biological substances; Z79.899 Other long term (current) drug therapy; Z90.49 Acquired absence of other specified parts of digestive tract
CPT/HCPCS: 36415; 71045; 80048; 80053; 83735; 83880; 84484; 85025; 85379; 87081; 93005; 96374; 96376; 99285; J1940; J2060; J2270; J2405; J3475

== ENCOUNTER 2023-04-16 20:52 | Emergency (ER) | payer OTHER ==
[~2023-04-16] VITALS: Ht 165.1 cm; Wt 77.1 kg
[2023-04-16 21:39] VITALS: BP 128/53; PULSE 94; RESP 20; TEMP 97; O2SAT 97
[2023-04-17] MEDS ORDERED: MORPHINE SULFATE 4 MG/ML SYR IVP ONE (04:55)
[2023-04-17] MEDS ORDERED: ONDANSETRON 4 MG/2 ML VIAL IVP ONE (04:55)
[2023-04-17 05:57] LABS: ALBUMIN 3.5 g/dL (3.4-5.0); ANION GAP 14.7 (8-16); CARBON DIOXIDE 23.9 mmol/L (21-32); POTASSIUM 3.6 mmol/L (3.5-5.1); TOTAL BILIRUBIN 0.6 mg/dL (0.0-1.0); TOTAL PROTEIN, SERUM 6.9 g/dL (6.4-8.2)
[2023-04-17] MEDS ORDERED: ONDA-188 PO (06:24)
[2023-04-17 07:18] VITALS: BP 132/78; PULSE 82; RESP 18; TEMP 98.4; O2SAT 98
== END 2023-04-17 07:12 | disposition home or self-care (01) ==
LOC: MED 20:52
DX: R11.2 Nausea with vomiting, unspecified (principal); R07.9 Chest pain, unspecified; I50.9 Heart failure, unspecified; G40.909 Epilepsy, unspecified, not intractable, without status epilepticus; E07.9 Disorder of thyroid, unspecified; Z79.899 Other long term (current) drug therapy; Z88.1 Allergy status to other antibiotic agents; Z88.8 Allergy status to other drugs, medicaments and biological substances; Z88.5 Allergy status to narcotic agent; Z88.6 Allergy status to analgesic agent
CPT/HCPCS: 36415; 80053; 83690; 96374; 96375; 99284; J2270; J2405

== ENCOUNTER 2023-04-20 13:02 | Inpatient (IN) | payer OTHER ==
[~2023-04-20] VITALS: Ht 165.1 cm; Wt 73.9 kg
[2023-04-20 13:13] VITALS: BP 118/82; PULSE 92; RESP 17; TEMP 97.9; O2SAT 100
[2023-04-20] MEDS ORDERED: NACL 0.9% 1,000 ML IV ONE (14:10)
[2023-04-20] MEDS ORDERED: ONDANSETRON 4 MG/2 ML VIAL IVP ONE ×2 (14:10→17:30)
[2023-04-20 14:35] VITALS: O2SAT 100
[2023-04-20 14:36] LABS: BASOPHILS # (AUTO) 0.1 K/uL (0.00-0.22); BASOPHILS % (AUTO) 1.5 % (0.0-2.0); HEMATOCRIT 25.7 % (36-48); HEMOGLOBIN 8.4 g/dL (12.0-16.0); LYMPHOCYTES # (AUTO) 1.9 K/uL (2.5-16.5); LYMPHOCYTES % (AUTO) 31.3 % (20.5-51.1); MEAN CORPUSCULAR HEMOGLOBIN 27 pg (27-31); MEAN CORPUSCULAR HGB CONC 33 g/dL (33-37); MEAN CORPUSCULAR VOLUME 83.7 fL (80-94); MONOCYTES # (AUTO) 0.5 K/uL (0.8-1.0); MONOCYTES % (AUTO) 8.5 % (1.7-9.3); NEUTROPHILS # (AUTO) 3.5 K/uL (1.8-7.7); NEUTROPHILS % (AUTO) 58.7 % (42.2-75.2); PLATELET COUNT (AUTO) 222 K/uL (140-450); RED BLOOD CELL COUNT(AUTO) 3.07 MIL/uL (4.20-5.40); RED CELL DISTRIBUTION WIDTH 18.5 % (11.6-13.7); WHITE BLOOD COUNT (AUTO) 5.9 K/uL (4.8-10.8)
[2023-04-20] MEDS ORDERED: levETIRAcetam 1,000 MG in NACL 0.9% 100 ML IV ONE (14:40)
[2023-04-20 15:16] LABS: ALBUMIN 3.6 g/dL (3.4-5.0); ANION GAP 18.7 (8-16); CALCIUM 8.2 mg/dL (8.5-10.1); CARBON DIOXIDE 20.6 mmol/L (21-32); CREATININE 1.1 mg/dL (0.6-1.3); POTASSIUM 3.3 mmol/L (3.5-5.1); TOTAL BILIRUBIN 1.1 mg/dL (0.0-1.0)
[2023-04-20] MEDS ORDERED: MORPHINE SULFATE 4 MG/ML SYR IVP ONE ×2 (15:20→17:30)
[2023-04-20] MEDS ORDERED: LEVE100021 PO (17:02)
[2023-04-20] MEDS ORDERED: [UNRECOGNIZED DRUG - CODE] PO (17:02)
[2023-04-20] MEDS ORDERED: LIOT25TA9 PO (17:02)
[2023-04-20] MEDS ORDERED: LACO100T2 PO (17:02)
[2023-04-20] MEDS ORDERED: CARB400T7 PO (17:02)
[2023-04-20 17:34] LABS: BILIRUBIN,URINE 1+ (NEGATIVE); BLOOD, URINE 3+ (NEGATIVE); LEUKOCYTE ESTERASE ,URINE TRACE (NEGATIVE); NITRITE, URINE NEGATIVE (NEGATIVE); PROTEIN,URINE 2+ (NEGATIVE); UGLUCOSE NEGATIVE (NEGATIVE); UROBILINOGEN,URINE 0.2 EU/dL (0.2 - 1)
[2023-04-20 17:39] VITALS: O2SAT 99
[2023-04-20 17:47] LABS: APPEARANCE,URINE CLOUDY (CLEAR); BACTERIA,URINE 10-30 (MOD) /HPF (None Seen); COLOR,URINE ORANGE (YELLOW); RBC,URINE 11-20 (MOD) /HPF (0-5); SQUAMOUS EPITHELIAL CELL,UR 4-10 (MOD) /LPF (0-3 (FEW))
[2023-04-20 17:48] LABS: ICTOTEST NEGATIVE (NEGATIVE)
[2023-04-20 20:03] VITALS: O2SAT 99
[2023-04-20] MEDS ORDERED: LORazepam 2 MG/ML VIAL IVP ONE ×2 (20:30)
[2023-04-20] MEDS ORDERED: cefTRIAXone 1,000 MG VIAL ONE (20:58)
[2023-04-20] MEDS ORDERED: ACETAMINOPHEN 325 MG TAB PO PRN (21:15)
[2023-04-20] MEDS ORDERED: LORazepam 2 MG/ML VIAL IVP PRN (21:15)
[2023-04-20] MEDS: NACL 0.9% 1,000 ML IV SCH (21:28)
[2023-04-20 22:57] LABS: FLU A ANTIGEN negative (NEGATIVE); FLU B ANTIGEN NEGATIVE (NEGATIVE)
[2023-04-20 23:09] VITALS: O2SAT 99
[2023-04-21] VITALS (9 sets, daily range): BP systolic 123; BP diastolic 73–78; PULSE 78; RESP 15; TEMP 97.1–97.2; O2SAT 97–98
[2023-04-21] MEDS: ONDANSETRON 4 MG/2 ML VIAL IVP PRN ×3 (01:45→14:09)
[2023-04-21] MEDS: MORPHINE SULFATE 4 MG/ML SYR IVP PRN ×2 (02:41→08:38)
[2023-04-21] MEDS ORDERED: LEVOTHYROXINE 0.1 MG TAB PO SCH (06:30)
[2023-04-21 06:53] LABS: BASOPHILS % (AUTO) 0.7 % (0.0-2.0); HEMATOCRIT 24.4 % (36-48); HEMOGLOBIN 7.8 g/dL (12.0-16.0); LYMPHOCYTES # (AUTO) 1.8 K/uL (2.5-16.5); LYMPHOCYTES % (AUTO) 33.1 % (20.5-51.1); MEAN CORPUSCULAR HEMOGLOBIN 27 pg (27-31); MEAN CORPUSCULAR HGB CONC 32 g/dL (33-37); MEAN CORPUSCULAR VOLUME 83.6 fL (80-94); MONOCYTES # (AUTO) 0.4 K/uL (0.8-1.0); MONOCYTES % (AUTO) 7.4 % (1.7-9.3); NEUTROPHILS # (AUTO) 3.2 K/uL (1.8-7.7); NEUTROPHILS % (AUTO) 58.8 % (42.2-75.2); PLATELET COUNT (AUTO) 190 K/uL (140-450); RED BLOOD CELL COUNT(AUTO) 2.92 MIL/uL (4.20-5.40); RED CELL DISTRIBUTION WIDTH 18.6 % (11.6-13.7); WHITE BLOOD COUNT (AUTO) 5.4 K/uL (4.8-10.8)
[2023-04-21 07:37] LABS: ANION GAP 15.5 (8-16); CALCIUM 7.5 mg/dL (8.5-10.1); CARBON DIOXIDE 21.5 mmol/L (21-32); MAGNESIUM 1.6 mg/dL (1.8-2.4); TOTAL BILIRUBIN 0.7 mg/dL (0.0-1.0); TOTAL PROTEIN, SERUM 6.2 g/dL (6.4-8.2)
[2023-04-21] MEDS ORDERED: METOPROLOL SUCCINATE 50 MG TABER PO SCH (09:00)
[2023-04-21] MEDS ORDERED: levETIRAcetam 1,000 MG in NACL 0.9% 100 ML IV SCH (09:00)
[2023-04-21] MEDS ORDERED: PANTOPRAZOLE 40 MG INJ VIAL IVP SCH (09:00)
[2023-04-21] MEDS ORDERED: carBAMazepine 200 MG TAB PO SCH (09:00)
[2023-04-21] MEDS: NACL 0.9% 1,000 ML IV SCH (13:22)
[2023-04-21] MEDS ORDERED: ONDA-188 SL (13:57)
[2023-04-21] MEDS ORDERED: MORPHINE SULFATE 4 MG/ML SYR ONE (14:06)
[2023-04-21] MEDS ORDERED: POTASSIUM CHLORIDE 10 MEQ TABER PO SCH (14:08)
[2023-04-21] MEDS ORDERED: MORPHINE SULFATE 4 MG/ML SYR IVP PRN (14:15)
[2023-04-21] MEDS ORDERED: CARBAMAZEPINE PO SCH (21:00)
[2023-04-21] MEDS ORDERED: NON-FORMULARY ITEM (Levetiracetam 1,000 MG) PO SCH (21:00)
[2023-04-21] MEDS ORDERED: LORA-476 PO (21:48)
[2023-04-22] MEDS ORDERED: METOPROLOL SUCCINATE 50 MG TABER PO SCH (09:00)
[2023-04-22] MEDS ORDERED: LEVOTHYROXINE 0.1 MG TAB PO SCH (09:00)
[2023-04-22] MEDS ORDERED: LIOTHYRONINE SODIUM 25 MCG PO SCH (09:00)
[2023-04-22] MEDS ORDERED: LACOSAMIDE 100 MG TAB PO SCH (09:00)
== END 2023-04-21 16:05 | disposition home or self-care (01) | DRG 53 ==
LOC: MED 13:02 → MTU 21:15
PROVIDERS: ADMIT Hospitalist; ATTEND Hospitalist
DX: G40.909 Epilepsy, unspecified, not intractable, without status epilepticus (principal); I42.8 Other cardiomyopathies; I50.22 Chronic systolic (congestive) heart failure; N39.0 Urinary tract infection, site not specified; K52.9 Noninfective gastroenteritis and colitis, unspecified; Z20.822 Contact with and (suspected) exposure to COVID-19; Z79.899 Other long term (current) drug therapy; Z88.6 Allergy status to analgesic agent; Z88.8 Allergy status to other drugs, medicaments and biological substances; Z88.1 Allergy status to other antibiotic agents; Z90.49 Acquired absence of other specified parts of digestive tract
CPT/HCPCS: 36415; 71045; 74021; 80053; 81001; 83690; 83735; 83880; 84484; 85025; 87086; 93005; 96365; 96367; 96375; 96376; 99285; C9113; J0696; J1953; J2060; J2270; J2405

== ENCOUNTER 2023-05-13 11:10 | Inpatient (IN) | payer OTHER ==
[~2023-05-13] VITALS: Ht 165.1 cm; Wt 77.1 kg
[~2023-05-13 11:10] MED LIST changes: -BUME1TAB92 PO; +CARB400T7 PO; +LACO100T2 PO; -LEVE1000 PO; +LEVE100021 PO; +LIOT25TA9 PO; -LISI5TAB24 PO; +LORA-476 PO; -ONDA-188 PO; +ONDA-188 SL; -SPIR25TA PO; +[UNRECOGNIZED DRUG - CODE] PO; -spironolactone
[2023-05-13 11:29] VITALS: BP 116/72; PULSE 72; RESP 18; TEMP 99.3; O2SAT 99
[2023-05-13 14:29] LABS: BASOPHILS # (AUTO) 0.1 K/uL (0.00-0.22); BASOPHILS % (AUTO) 1.1 % (0.0-2.0); HEMATOCRIT 28.1 % (36-48); HEMOGLOBIN 9.1 g/dL (12.0-16.0); LYMPHOCYTES # (AUTO) 2.9 K/uL (2.5-16.5); LYMPHOCYTES % (AUTO) 42.4 % (20.5-51.1); MEAN CORPUSCULAR HEMOGLOBIN 27 pg (27-31); MEAN CORPUSCULAR HGB CONC 32 g/dL (33-37); MEAN CORPUSCULAR VOLUME 82.5 fL (80-94); MONOCYTES # (AUTO) 0.5 K/uL (0.8-1.0); MONOCYTES % (AUTO) 7.8 % (1.7-9.3); NEUTROPHILS # (AUTO) 3.4 K/uL (1.8-7.7); NEUTROPHILS % (AUTO) 48.7 % (42.2-75.2); PLATELET COUNT (AUTO) 244 K/uL (140-450); RED BLOOD CELL COUNT(AUTO) 3.41 MIL/uL (4.20-5.40); RED CELL DISTRIBUTION WIDTH 19.9 % (11.6-13.7); WHITE BLOOD COUNT (AUTO) 6.9 K/uL (4.8-10.8)
[2023-05-13 14:59] LABS: ALBUMIN 3.8 g/dL (3.4-5.0); ANION GAP 12.8 (8-16); CALCIUM 8.3 mg/dL (8.5-10.1); CARBON DIOXIDE 24.1 mmol/L (21-32); CREATININE 1.2 mg/dL (0.6-1.3); POTASSIUM 3.9 mmol/L (3.5-5.1); TOTAL BILIRUBIN 0.9 mg/dL (0.0-1.0); TOTAL PROTEIN, SERUM 7.3 g/dL (6.4-8.2)
[2023-05-13] MEDS ORDERED: ONDANSETRON 4 MG/2 ML VIAL IM ONE (15:50)
[2023-05-13] MEDS ORDERED: FUROSEMIDE 40 MG/4 ML VIAL IVP ONE (16:20)
[2023-05-13 16:35] VITALS: O2SAT 99
[2023-05-13] MEDS ORDERED: MAG SULF 2000 MG/WATER PREMIX 50 ML IV PRN (17:30)
[2023-05-13] MEDS ORDERED: ACETAMINOPHEN 325 MG TAB PO PRN (17:30)
[2023-05-13] MEDS ORDERED: ONDANSETRON 4 MG/2 ML VIAL IVP ONE (17:40)
[2023-05-13] MEDS: HYDROcodone/APAP 5/325 MG 1 TAB TAB PO PRN (20:28)
[2023-05-13 20:32] VITALS: PULSE 84; RESP 16; O2SAT 100
[2023-05-13 20:34] VITALS: BP 118/85; PULSE 84; PULSE 93; RESP 16; TEMP 97.9; O2SAT 100
[2023-05-13] MEDS: FUROSEMIDE 40 MG/4 ML VIAL IVP SCH (21:45)
[2023-05-13] MEDS: MORPHINE SULFATE 4 MG/ML SYR IVP PRN (22:04)
[2023-05-13] MEDS: ONDANSETRON 4 MG/2 ML VIAL IVP PRN (22:05)
[2023-05-14] VITALS (11 sets, daily range): BP systolic 95–121; BP diastolic 69–77; PULSE 62–94; RESP 18–20; TEMP 96.8–98.2; O2SAT 100
[2023-05-14] MEDS: MORPHINE SULFATE 4 MG/ML SYR IVP PRN ×5 (04:03→22:20)
[2023-05-14 05:23] LABS: BASOPHILS # (AUTO) 0.1 K/uL (0.00-0.22); BASOPHILS % (AUTO) 0.9 % (0.0-2.0); HEMATOCRIT 28.4 % (36-48); HEMOGLOBIN 9.3 g/dL (12.0-16.0); LYMPHOCYTES % (AUTO) 46.9 % (20.5-51.1); MEAN CORPUSCULAR HEMOGLOBIN 27 pg (27-31); MEAN CORPUSCULAR HGB CONC 33 g/dL (33-37); MONOCYTES # (AUTO) 0.3 K/uL (0.8-1.0); MONOCYTES % (AUTO) 5.1 % (1.7-9.3); NEUTROPHILS % (AUTO) 47.1 % (42.2-75.2); PLATELET COUNT (AUTO) 239 K/uL (140-450); RED BLOOD CELL COUNT(AUTO) 3.46 MIL/uL (4.20-5.40); RED CELL DISTRIBUTION WIDTH 20.1 % (11.6-13.7); WHITE BLOOD COUNT (AUTO) 6.5 K/uL (4.8-10.8)
[2023-05-14 06:32] LABS: ANION GAP 17.7 (8-16); CALCIUM 8.6 mg/dL (8.5-10.1); CARBON DIOXIDE 21.3 mmol/L (21-32); CREATININE 1.2 mg/dL (0.6-1.3); TOTAL PROTEIN, SERUM 7.5 g/dL (6.4-8.2)
[2023-05-14] MEDS: MAGNESIUM OXIDE 400 MG TAB PO PRN (08:09)
[2023-05-14] MEDS: FUROSEMIDE 40 MG/4 ML VIAL IVP SCH (08:09)
[2023-05-14] MEDS: ONDANSETRON 4 MG/2 ML VIAL IVP PRN ×3 (08:11→22:19)
[2023-05-15 04:00] VITALS: BP 104/66; PULSE 71; RESP 18; TEMP 98.1; O2SAT 100
[2023-05-15] MEDS: MORPHINE SULFATE 4 MG/ML SYR IVP PRN ×5 (04:58→23:41)
[2023-05-15 05:55] LABS: BASOPHILS % (AUTO) 0.7 % (0.0-2.0); HEMATOCRIT 33.3 % (36-48); HEMOGLOBIN 10.8 g/dL (12.0-16.0); LYMPHOCYTES # (AUTO) 2.1 K/uL (2.5-16.5); LYMPHOCYTES % (AUTO) 38.9 % (20.5-51.1); MEAN CORPUSCULAR HEMOGLOBIN 26 pg (27-31); MEAN CORPUSCULAR HGB CONC 32 g/dL (33-37); MEAN CORPUSCULAR VOLUME 81.4 fL (80-94); MONOCYTES # (AUTO) 0.4 K/uL (0.8-1.0); MONOCYTES % (AUTO) 7.2 % (1.7-9.3); NEUTROPHILS # (AUTO) 2.9 K/uL (1.8-7.7); NEUTROPHILS % (AUTO) 53.2 % (42.2-75.2); PLATELET COUNT (AUTO) 241 K/uL (140-450); RED BLOOD CELL COUNT(AUTO) 4.09 MIL/uL (4.20-5.40); RED CELL DISTRIBUTION WIDTH 19.9 % (11.6-13.7); WHITE BLOOD COUNT (AUTO) 5.5 K/uL (4.8-10.8)
[2023-05-15 06:30] LABS: ALBUMIN 3.8 g/dL (3.4-5.0); ANION GAP 14.7 (8-16); CALCIUM 9.2 mg/dL (8.5-10.1); CARBON DIOXIDE 26.3 mmol/L (21-32); CREATININE 1.2 mg/dL (0.6-1.3); MAGNESIUM 1.8 mg/dL (1.8-2.4); TOTAL BILIRUBIN 0.7 mg/dL (0.0-1.0); TOTAL PROTEIN, SERUM 7.4 g/dL (6.4-8.2)
[2023-05-15] MEDS: KCL 20 MEQ IN 100 mL PREMIX 200 ML IV PRN (06:49)
[2023-05-15] MEDS ORDERED: POTASSIUM CHLORIDE 10 MEQ TABER PO ONE (08:05)
[2023-05-15 08:08] VITALS: PULSE 74
[2023-05-15] MEDS: BUMETANIDE 1 MG/4 ML VIAL IV SCH ×2 (08:27→15:58)
[2023-05-15] MEDS: ONDANSETRON 4 MG/2 ML VIAL IVP PRN ×2 (08:58→13:37)
[2023-05-15] MEDS ORDERED: POTASSIUM CHLORIDE 40 MEQ, LIDOCAINE 1% 25 MG in NACL 0.9% 250 ML IV SCH (09:00)
[2023-05-15] MEDS: POTASSIUM CHLORIDE 10 MEQ TABER PO PRN (09:11)
[2023-05-15 09:19] VITALS: BP 115/67; PULSE 90; RESP 18; TEMP 96.9; O2SAT 100; O2SAT 97
[2023-05-15 16:16] VITALS: BP 103/67; PULSE 59; RESP 17; TEMP 96.9; O2SAT 100
[2023-05-15] MEDS ORDERED: METOCLOPRAMIDE 10 MG/2 ML INJ VIAL IVP PRN (19:00)
[2023-05-15 20:00] VITALS: PULSE 70; RESP 17; O2SAT 97
[2023-05-16] MEDS: HYDROcodone/APAP 5/325 MG 1 TAB TAB PO PRN (01:00)
[2023-05-16] MEDS: ONDANSETRON 4 MG/2 ML VIAL IVP PRN ×3 (02:15→21:14)
[2023-05-16 04:00] VITALS: BP 108/66; PULSE 74; RESP 17; TEMP 97.6; O2SAT 97
[2023-05-16] MEDS: MORPHINE SULFATE 4 MG/ML SYR IVP PRN ×4 (05:36→22:36)
[2023-05-16 05:46] LABS: BASOPHILS # (AUTO) 0.1 K/uL (0.00-0.22); BASOPHILS % (AUTO) 1.1 % (0.0-2.0); EOSINOPHILS % (AUTO) 0.1 % (0.0-4.0); HEMATOCRIT 34.6 % (36-48); HEMOGLOBIN 11.2 g/dL (12.0-16.0); LYMPHOCYTES # (AUTO) 1.6 K/uL (2.5-16.5); LYMPHOCYTES % (AUTO) 27.6 % (20.5-51.1); MEAN CORPUSCULAR HEMOGLOBIN 26 pg (27-31); MEAN CORPUSCULAR HGB CONC 32 g/dL (33-37); MEAN CORPUSCULAR VOLUME 81.3 fL (80-94); MONOCYTES # (AUTO) 0.5 K/uL (0.8-1.0); MONOCYTES % (AUTO) 7.6 % (1.7-9.3); NEUTROPHILS # (AUTO) 3.8 K/uL (1.8-7.7); NEUTROPHILS % (AUTO) 63.6 % (42.2-75.2); PLATELET COUNT (AUTO) 251 K/uL (140-450); RED BLOOD CELL COUNT(AUTO) 4.26 MIL/uL (4.20-5.40); RED CELL DISTRIBUTION WIDTH 20.5 % (11.6-13.7)
[2023-05-16 06:43] LABS: ALBUMIN 3.9 g/dL (3.4-5.0); ANION GAP 13.8 (8-16); CALCIUM 9.7 mg/dL (8.5-10.1); CARBON DIOXIDE 28.1 mmol/L (21-32); CREATININE 1.1 mg/dL (0.6-1.3); MAGNESIUM 1.6 mg/dL (1.8-2.4); TOTAL BILIRUBIN 0.6 mg/dL (0.0-1.0); TOTAL PROTEIN, SERUM 7.8 g/dL (6.4-8.2)
[2023-05-16 06:49] LABS: POTASSIUM 2.9 mmol/L (3.5-5.1)
[2023-05-16 08:00] VITALS: PULSE 74; RESP 18; O2SAT 97
[2023-05-16] MEDS: MAGNESIUM OXIDE 400 MG TAB PO PRN (08:45)
[2023-05-16] MEDS: BUMETANIDE 1 MG/4 ML VIAL IV SCH ×2 (08:45→16:14)
[2023-05-16] MEDS: KCL 20 MEQ IN 100 mL PREMIX 200 ML IV PRN (08:59)
[2023-05-16] MEDS: POTASSIUM CHLORIDE 10 MEQ TABER PO PRN (14:43)
[2023-05-16 15:19] LABS: ANION GAP 15.9 (8-16); CALCIUM 9.9 mg/dL (8.5-10.1); CARBON DIOXIDE 27.3 mmol/L (21-32); CREATININE 1.2 mg/dL (0.6-1.3); POTASSIUM 3.2 mmol/L (3.5-5.1)
[2023-05-16 16:00] VITALS: BP 118/82; PULSE 79; RESP 18; TEMP 97.5; O2SAT 100
[2023-05-16] MEDS ORDERED: LORazepam 1 MG TAB PO PRN (19:35)
[2023-05-16 20:00] VITALS: BP 100/75; PULSE 82; RESP 18; TEMP 97.8; O2SAT 100
[2023-05-16] MEDS: levETIRAcetam 500 MG TAB PO SCH (20:30)
[2023-05-16 22:37] VITALS: BP 110/71; PULSE 80; RESP 18; TEMP 97.8; O2SAT 100
[2023-05-17 04:00] VITALS: BP 99/63; PULSE 83; RESP 18; TEMP 97.5; O2SAT 99
[2023-05-17 05:48] LABS: BASOPHILS # (AUTO) 0.1 K/uL (0.00-0.22); BASOPHILS % (AUTO) 1.8 % (0.0-2.0); EOSINOPHILS % (AUTO) 0.2 % (0.0-4.0); HEMATOCRIT 36.1 % (36-48); HEMOGLOBIN 11.8 g/dL (12.0-16.0); LYMPHOCYTES # (AUTO) 2.4 K/uL (2.5-16.5); LYMPHOCYTES % (AUTO) 36.4 % (20.5-51.1); MEAN CORPUSCULAR HEMOGLOBIN 27 pg (27-31); MEAN CORPUSCULAR HGB CONC 33 g/dL (33-37); MEAN CORPUSCULAR VOLUME 82.1 fL (80-94); MONOCYTES # (AUTO) 0.3 K/uL (0.8-1.0); MONOCYTES % (AUTO) 4.8 % (1.7-9.3); NEUTROPHILS # (AUTO) 3.8 K/uL (1.8-7.7); NEUTROPHILS % (AUTO) 56.8 % (42.2-75.2); PLATELET COUNT (AUTO) 255 K/uL (140-450); RED CELL DISTRIBUTION WIDTH 20.1 % (11.6-13.7); WHITE BLOOD COUNT (AUTO) 6.7 K/uL (4.8-10.8)
[2023-05-17 06:05] LABS: ALBUMIN 4.1 g/dL (3.4-5.0); ANION GAP 14.5 (8-16); CREATININE 1.2 mg/dL (0.6-1.3); MAGNESIUM 1.6 mg/dL (1.8-2.4); POTASSIUM 3.5 mmol/L (3.5-5.1); TOTAL BILIRUBIN 0.4 mg/dL (0.0-1.0); TOTAL PROTEIN, SERUM 8.2 g/dL (6.4-8.2)
[2023-05-17 08:00] VITALS: PULSE 71; RESP 18; O2SAT 100
[2023-05-17] MEDS: BUMETANIDE 1 MG/4 ML VIAL IV SCH ×2 (09:00→17:00)
[2023-05-17] MEDS: MAGNESIUM OXIDE 400 MG TAB PO PRN (12:32)
[2023-05-17] MEDS: levETIRAcetam 500 MG TAB PO SCH ×2 (12:32→20:23)
[2023-05-17] MEDS: ONDANSETRON 4 MG/2 ML VIAL IVP PRN (12:46)
[2023-05-17] MEDS: MORPHINE SULFATE 4 MG/ML SYR IVP PRN (15:41)
[2023-05-17 20:00] VITALS: BP 102/70; PULSE 85; RESP 18; TEMP 97.3; O2SAT 100; O2SAT 97
[2023-05-17] MEDS: carBAMazepine 200 MG TAB PO SCH (20:23)
[2023-05-17] MEDS ORDERED: CARBAMAZEPINE PO SCH (21:00)
[2023-05-17] MEDS ORDERED: NON-FORMULARY ITEM (Levetiracetam 1,000 MG) PO SCH (21:00)
[2023-05-18 01:06] VITALS: BP 93/60; PULSE 75; RESP 18; TEMP 97.1; O2SAT 100
[2023-05-18] MEDS: MORPHINE SULFATE 4 MG/ML SYR IVP PRN ×2 (03:26→09:29)
[2023-05-18 04:00] VITALS: BP 109/70; PULSE 85; RESP 18; TEMP 96.3; O2SAT 99
[2023-05-18 05:27] LABS: BASOPHILS # (AUTO) 0.1 K/uL (0.00-0.22); HEMATOCRIT 30.6 % (36-48); HEMOGLOBIN 10.1 g/dL (12.0-16.0); LYMPHOCYTES % (AUTO) 36.2 % (20.5-51.1); MEAN CORPUSCULAR HEMOGLOBIN 27 pg (27-31); MEAN CORPUSCULAR HGB CONC 33 g/dL (33-37); MEAN CORPUSCULAR VOLUME 81.2 fL (80-94); MONOCYTES # (AUTO) 0.4 K/uL (0.8-1.0); NEUTROPHILS % (AUTO) 54.8 % (42.2-75.2); PLATELET COUNT (AUTO) 222 K/uL (140-450); RED BLOOD CELL COUNT(AUTO) 3.77 MIL/uL (4.20-5.40); RED CELL DISTRIBUTION WIDTH 20.2 % (11.6-13.7); WHITE BLOOD COUNT (AUTO) 5.5 K/uL (4.8-10.8)
[2023-05-18 05:48] LABS: ALBUMIN 3.7 g/dL (3.4-5.0); ANION GAP 10.4 (8-16); CALCIUM 9.6 mg/dL (8.5-10.1); CARBON DIOXIDE 29.8 mmol/L (21-32); CREATININE 1.1 mg/dL (0.6-1.3); MAGNESIUM 1.7 mg/dL (1.8-2.4); POTASSIUM 3.2 mmol/L (3.5-5.1); TOTAL BILIRUBIN 0.4 mg/dL (0.0-1.0); TOTAL PROTEIN, SERUM 7.4 g/dL (6.4-8.2)
[2023-05-18 08:00] VITALS: PULSE 90; PULSE 91; RESP 18; O2SAT 100
[2023-05-18] MEDS ORDERED: Liothyronine Sodium 25 MCG PO SCH (09:00)
[2023-05-18] MEDS: levETIRAcetam 500 MG TAB PO SCH (09:26)
[2023-05-18] MEDS: carBAMazepine 200 MG TAB PO SCH (09:26)
[2023-05-18] MEDS: BUMETANIDE 1 MG/4 ML VIAL IV SCH (09:31)
[2023-05-18 12:00] VITALS: BP 97/63; PULSE 91; RESP 18; TEMP 97.6; O2SAT 100
[2023-05-18] MEDS ORDERED: BUMETANIDE 1 MG TAB PO SCH (21:00)
[2023-05-18] MEDS ORDERED: levETIRAcetam 500 MG TAB PO SCH (21:00)
== END 2023-05-18 18:30 | disposition home or self-care (01) | DRG 194 ==
LOC: MED 11:10 → MTU 17:46
PROVIDERS: ADMIT Hospitalist; ATTEND Hospitalist
DX: I11.0 Hypertensive heart disease with heart failure (principal); I42.9 Cardiomyopathy, unspecified; D63.8 Anemia in other chronic diseases classified elsewhere; E05.00 Thyrotoxicosis with diffuse goiter without thyrotoxic crisis or storm; G40.909 Epilepsy, unspecified, not intractable, without status epilepticus; I50.23 Acute on chronic systolic (congestive) heart failure; Z88.6 Allergy status to analgesic agent; Z88.8 Allergy status to other drugs, medicaments and biological substances; Z79.899 Other long term (current) drug therapy; Z79.891 Long term (current) use of opiate analgesic; Z79.1 Long term (current) use of non-steroidal anti-inflammatories (NSAID)
CPT/HCPCS: 36415; 71045; 73020; 80048; 80053; 83735; 83880; 84436; 84439; 84443; 84484; 85025; 85379; 87040; 87081; 87086; 93005; 96374; 99285; J1644; J1940; J2001; J2270; J2405; J3480; J3490; J7030; Q0092

== ENCOUNTER 2023-06-15 11:36 | Emergency (ER) | payer OTHER ==
[~2023-06-15] VITALS: Ht 165.1 cm; Wt 76.2 kg
[~2023-06-15 11:36] MED LIST changes: -ACET-8905 PO; -LEVO0.3T5 PO
[2023-06-15 11:57] VITALS: BP 121/75; PULSE 107; RESP 20; TEMP 97; O2SAT 100
[2023-06-15 13:22] LABS: BASOPHILS # (AUTO) 0.1 K/uL (0.00-0.22); HEMATOCRIT 27.6 % (36-48); LYMPHOCYTES # (AUTO) 2.7 K/uL (2.5-16.5); MEAN CORPUSCULAR HEMOGLOBIN 27 pg (27-31); MEAN CORPUSCULAR HGB CONC 33 g/dL (33-37); MONOCYTES # (AUTO) 0.4 K/uL (0.8-1.0); MONOCYTES % (AUTO) 7.2 % (1.7-9.3); NEUTROPHILS # (AUTO) 2.8 K/uL (1.8-7.7); NEUTROPHILS % (AUTO) 46.8 % (42.2-75.2); PLATELET COUNT (AUTO) 235 K/uL (140-450); RED BLOOD CELL COUNT(AUTO) 3.33 MIL/uL (4.20-5.40); RED CELL DISTRIBUTION WIDTH 22.6 % (11.6-13.7)
[2023-06-15 13:42] LABS: ALBUMIN 3.8 g/dL (3.4-5.0); ANION GAP 14.6 (8-16); CALCIUM 8.4 mg/dL (8.5-10.1); CARBON DIOXIDE 23.8 mmol/L (21-32); CREATININE 1.1 mg/dL (0.6-1.3); POTASSIUM 3.4 mmol/L (3.5-5.1); TOTAL BILIRUBIN 0.8 mg/dL (0.0-1.0); TOTAL PROTEIN, SERUM 7.4 g/dL (6.4-8.2)
[2023-06-15 14:33] VITALS: O2SAT 99
[2023-06-15 15:22] VITALS: BP 122/90; PULSE 103; RESP 21; TEMP 97.2
[2023-06-15 15:41] VITALS: O2SAT 99
== END 2023-06-15 15:25 | disposition home or self-care (01) ==
LOC: MED 11:36
DX: I11.0 Hypertensive heart disease with heart failure (principal); I50.9 Heart failure, unspecified; I42.9 Cardiomyopathy, unspecified; D64.9 Anemia, unspecified; R74.01 Elevation of levels of liver transaminase levels; Z86.69 Personal history of other diseases of the nervous system and sense organs; Z86.39 Personal history of other endocrine, nutritional and metabolic disease; Z90.49 Acquired absence of other specified parts of digestive tract; Z98.890 Other specified postprocedural states; Z79.899 Other long term (current) drug therapy; Z88.6 Allergy status to analgesic agent; Z88.1 Allergy status to other antibiotic agents; Z88.8 Allergy status to other drugs, medicaments and biological substances
CPT/HCPCS: 36415; 71045; 80053; 83880; 84484; 85025; 93005; 99285